=== PATIENT | female | born 1970 | race Caucasian/White ===

== ENCOUNTER 2016-11-03 20:04 | Emergency (ER) | payer OTHER ==
[2016-11-03] MEDS ORDERED: Ketorolac INJ* 60 MG/2 ML VIAL IM ONE (21:56)
--- NOTE | 2016-11-03 22:49 | ED ---
Dedrick Rogel Aidan, scribed for Everett Serrano MD on 11/03/16 at 2159 . Headache - HPI Summary HPI Summary: 46 y/o female presents to the ED with a complaint of an acute, constant, moderate, worsening MARCH that has persisted for the past 3 days. Pt took 3 ibuprofen and 4 tylenol today, which did not alleviate her MARCH. Associated symptoms include some dizziness. She denies any nausea or allergies to medications. - History Of Current Complaint Chief Complaint: EDHeadache Stated Complaint: HEADACHE Time Seen by Provider: 11/03/16 21:52 Hx Obtained From: Patient Last Known Well Date: 10/30/2016 Hx Last Menstrual Period: hysterectomy Onset/Duration: Sudden Onset, Started days ago, Still Present, Worse Since - worse since yesterday Initially Headache Was: Moderate Currently Pain Is: Moderate Timing: Constant Character: Sharp Location of Headache: Diffuse Radiates to: does not radiate Aggravating Factor: Other - unknown Allevating Factors: Other (Noted In Comments) - unknown, however, ibuprofen and tylenol did not alleivate the MARCH Associated Signs And Symptoms: Dizziness - Risk Factors SAH Risk Factors: Smoking Temporal Arteritis Risk Factors: Female - Allergies/Home Medications Allergies/Adverse Reactions: Allergies Allergy/AdvReac Type Severity Reaction Status Date / Time Nicotine [From Nicoderm] Allergy Intermediate Hives Verified 11/03/16 20:25 PMH/Surg Hx/FS Hx/Imm Hx Endocrine/Hematology History: Denies: Hx Diabetes Cardiovascular History: Reports: Hx Hypertension Denies: Hx Congestive Heart Failure, Hx Pacemaker/ICD Respiratory History: Reports: Hx Asthma, Hx Chronic Obstructive Pulmonary Disease (COPD), Hx Sleep Apnea GI History: Reports: Hx Gastroesophageal Reflux Disease - panpranolol History: Reports: Hx Kidney Infection - NO RECENT, Hx Kidney Stones - NO KNOWN STONES NOW Denies: Hx Renal Disease Musculoskeletal History: Reports: Hx Tendonitis Denies: Hx Arthritis, Hx Osteoporosis Sensory History: Denies: Hx Contacts or Glasses, Hx Hearing Aid Opthamlomology History: Denies: Hx Contacts or Glasses Neurological History: Reports: Hx Headaches, Hx Migraine - WEEKLY OR 2 X WK, Other Neuro Impairments/Disorders - DEGENERATIVE DISK DX, NERVE DAMAGE IN NECK Psychiatric History: Reports: Hx Anxiety - RECENTLY STARTED ON MED DOING OK, Hx Depression - depression controlled by nortriptyline Denies: Hx Panic Disorder - Surgical History Surgery Procedure, Year, and Place: 1987 C SECTION [facility] [place];. 1989 C SECTION AND [facility];. hysterectomy. 2016 several moles removed from body Hx Anesthesia Reactions: No - Immunization History Date of Tetanus Vaccine: unk Infectious Disease History: No Infectious Disease History: Denies: Traveled Outside the [place] in Last 30 Days - Family History Known Family History: Positive: None, Hypertension, Other - no hx DVT Negative: Diabetes - Social History Occupation: Unemployed Lives: Alone Alcohol Use: None Substance Use Type: Reports: None Hx Tobacco Use: Yes - 2 A DAY Smoking Status (MU): Light Every Day Tobacco Smoker Type: Cigarettes Amount Used/How Often: 1/2 in two days Review of Systems Constitutional: Negative Eyes: Negative ENT: Negative Cardiovascular: Negative Respiratory: Negative Gastrointestinal: Negative Genitourinary: Negative Musculoskeletal: Negative Skin: Negative Neurological: Other - some dizziness Positive: Headache. Negative: Weakness, Paresthesia, Numbness, Syncope, Slurred Speech Psychological: Normal All Other Systems Reviewed And Are Negative: Yes Physical Exam Triage Information Reviewed: Yes Vital Signs On Initial Exam: Initial Vitals Temp Pulse Resp BP Pulse Ox 98.1 F 94 20 154/101 95 11/03/16 20:15 11/03/16 20:15 11/03/16 20:15 11/03/16 20:15 11/03/16 20:15 Vital Signs Reviewed: Yes Appearance: Positive: No Pain Distress, Obese Skin: Positive: Warm Head/Face: Positive: Normal Head/Face Inspection. Negative: Temporal Artery Tenderness Eyes: Positive: EOMI, ANALISA, Conjunctiva Clear ENT: Positive: Hearing grossly normal Neck: Positive: Supple Respiratory/Lung Sounds: Positive: Clear to Auscultation, Breath Sounds Present Cardiovascular: Positive: RRR Abdomen Description: Positive: Nontender, Soft Bowel Sounds: Positive: Present Musculoskeletal: Positive: Strength/ROM Intact Neurological: Positive: Sensory/Motor Intact, Alert, Oriented to Person Place, Time Psychiatric: Positive: Affect/Mood Appropriate Diagnostics - Vital Signs Vital Signs Temp Pulse Resp BP Pulse Ox 11/03/16 21:30 98.9 F 91 14 137/90 95 11/03/16 20:15 98.1 F 94 20 154/101 95 - Laboratory Lab Statement: Any lab studies that have been ordered have been reviewed, and results considered in the medical decision making process. Re-Evaluation - Re-Evaluation First Eval Change: Improved Headache Course/Dx - Diagnoses Provider Diagnoses: Migraine Discharge - Discharge Plan Condition: Stable Disposition: HOME Discharge Disposition Comment: Please follow up with neurologist Dr. Luu. Patient Education Materials: Migraine Headache (ED) Referrals: Samantha Mcnair MD [Primary Care Provider] - The documentation as recorded by the Dedrick morgan Aidan accurately reflects the service I personally performed and the decisions made by me, Everett Serrano MD.
[2016-11-03] MEDS ORDERED: traMADol TAB* 50 MG PO ONE (23:26)
[2016-11-04 00:10] VITALS: BP 125/73
[2016-11-04] MEDS ORDERED: traMADol TAB* 50 MG PO ONE (00:16)
[2016-11-04] MEDS ORDERED: traMADol TAB* 50 MG ONE (00:22)
== END 2016-11-04 00:32 | disposition home or self-care (01) ==
LOC: ED 20:04
DX: G43.909 Migraine, unspecified, not intractable, without status migrainosus (principal); R42 Dizziness and giddiness; R51 Headache
CPT/HCPCS: 96372; 99283; A9270-GY; J1885

== ENCOUNTER 2016-11-21 11:44 | Emergency (ER) | payer OTHER ==
--- NOTE | 2016-11-21 12:58 | ED ---
Chasidy Rogel Alok, scribed for Santana Abad MD on 11/21/16 at 1235 . GI/ HPI - HPI Summary HPI Summary: 46 y/o pt presents to the ED with c/o rectal pain. Pt states that she has had what appears to be a hemorrhoid in her anus for the past week. Her rectal pain worsens with BM but she is still able to have them. Pt denies any fever or chills. - History of Current Complaint Chief Complaint: EDRectalPain Time Seen by Provider: 11/21/16 12:13 Stated Complaint: RECTAL PAIN Hx Obtained From: Patient Onset/Duration: Started Days Ago, Atraumatic, Still Present Timing: Constant Severity: Moderate Current Severity: Moderate Location of Pain: Rectal Associated Signs and Symptoms: Positive: Rectal Pain, External Hemorrhoid. Negative: Fever, Chills Aggravating Factor(s): Bowel Movement Alleviating Factor(s): Nothing - Allergy/Home Medications Allergies/Adverse Reactions: Allergies Allergy/AdvReac Type Severity Reaction Status Date / Time Nicotine [From Nicoderm] Allergy Intermediate Hives Verified 11/03/16 20:25 PMH/Surg Hx/FS Hx/Imm Hx Endocrine/Hematology History: Denies: Hx Diabetes Cardiovascular History: Reports: Hx Hypertension Denies: Hx Congestive Heart Failure, Hx Pacemaker/ICD Respiratory History: Reports: Hx Asthma, Hx Chronic Obstructive Pulmonary Disease (COPD), Hx Sleep Apnea GI History: Reports: Hx Gastroesophageal Reflux Disease - panpranolol History: Reports: Hx Kidney Infection - NO RECENT, Hx Kidney Stones - NO KNOWN STONES NOW Denies: Hx Renal Disease Musculoskeletal History: Reports: Hx Tendonitis Denies: Hx Arthritis, Hx Osteoporosis Sensory History: Denies: Hx Contacts or Glasses, Hx Hearing Aid Opthamlomology History: Denies: Hx Contacts or Glasses Neurological History: Reports: Hx Headaches, Hx Migraine - WEEKLY OR 2 X WK, Other Neuro Impairments/Disorders - DEGENERATIVE DISK DX, NERVE DAMAGE IN NECK Psychiatric History: Reports: Hx Anxiety - RECENTLY STARTED ON MED DOING OK, Hx Depression - depression controlled by nortriptyline Denies: Hx Panic Disorder - Surgical History Surgery Procedure, Year, and Place: 1987 C SECTION [facility];. 1989 C SECTION AND [facility];. hysterectomy. 2016 several moles removed from body Hx Anesthesia Reactions: No - Immunization History Date of Tetanus Vaccine: unk Infectious Disease History: No Infectious Disease History: Denies: Traveled Outside the [place] in Last 30 Days - Family History Known Family History: Positive: Hypertension, Other - No Hx DVT Negative: Diabetes - Social History Occupation: Unemployed Alcohol Use: None Substance Use Type: Reports: None Hx Tobacco Use: Yes - 2 A DAY Smoking Status (MU): Light Every Day Tobacco Smoker Type: Cigarettes Amount Used/How Often: 1/2 in two days Review of Systems Negative: Fever, Chills Psychological: Normal All Other Systems Reviewed And Are Negative: Yes Physical Exam - Summary Physical Exam Summary: Appearance: Well-appearing, no pain distress Skin: Warm, skin color reflects adequate perfusion, dry Head/Face: Normal head/face Eyes: EOMI, ANALISA ENT: Normal ENT inspection Neck: Supple, nontender Resp: CTA, breath sounds present Cardio: RRR Abd: Nontender, Soft Bowel: Present Musculo: Normal, Strength, ROM intact Neuro: Normal, sensory/motor intact AxO x3 Psych: Affect/ mood appropriate Other: Right sided external hemorrhoid. No bleeding. No erythema. Triage Information Reviewed: Yes Vital Signs On Initial Exam: Initial Vitals Temp Pulse Resp BP Pulse Ox 97.5 F 85 20 123/85 100 11/21/16 11:49 11/21/16 11:49 11/21/16 11:49 11/21/16 11:49 11/21/16 11:49 Vital Signs Reviewed: Yes Diagnostics - Vital Signs Vital Signs Temp Pulse Resp BP Pulse Ox 11/21/16 11:49 97.5 F 85 20 123/85 100 - Laboratory Lab Statement: Any lab studies that have been ordered have been reviewed, and results considered in the medical decision making process. Re-Evaluation - Re-Evaluation First Eval Re-Evaluation Time: 12:45 Comment: Discussed Pt care, Pt seemed agreeable GIGU Course/Dx - Course Assessment/Plan: DISCUSSED TREATMENT OF HEMORRHOIDS WITH PATIENT. SHE IS SEEING [facility] FOR CONSTIPATION. SHE WILL CONTACT THEM TODAY FOR FOLLOW UP. DISCHARGE HOME STABLE. - Diagnoses Provider Diagnoses: Acute hemorrhoid Discharge - Discharge Plan Condition: Stable Disposition: HOME Patient Education Materials: Hemorrhoids (ED) Referrals: Santana Elias MD [Primary Care Provider] - Additional Instructions: FOLLOW UP WITH YOUR DOCTOR. CALL [facility] TODAY FOR FOLLOW UP. YOU CAN USE WITCH DONOVAN WITH A SITZ BATH IF HELPFUL. TRY AN OVER THE COUNTER PRODUCT SUCH ANUSOL HC DIRECTED IF HELPFUL. RETURN TO THE EMERGENCY DEPARTMENT FOR ANY WORSENING OF YOUR CONDITION OR QUESTIONS OR CONCERNS. The documentation as recorded by the Chasidy morgan Alok accurately reflects the service I personally performed and the decisions made by me, Santana Abad MD.
[2016-11-21 13:34] VITALS: BP 120/72
== END 2016-11-21 13:33 | disposition home or self-care (01) ==
LOC: ED 11:44
DX: K64.9 Unspecified hemorrhoids (principal); K62.89 Other specified diseases of anus and rectum; F17.210 Nicotine dependence, cigarettes, uncomplicated
CPT/HCPCS: 99282

== ENCOUNTER 2016-12-12 16:12 | Emergency (ER) | payer OTHER ==
[2016-12-12 16:35] VITALS: BP 141/76
[2016-12-12] MEDS ORDERED: Ketorolac INJ* 60 MG/2 ML VIAL IM ONE (17:02)
--- NOTE | 2016-12-12 17:36 | RAD ---
HISTORY: Left hip pain status post fall COMPARISONS: May 02, 2016 VIEWS: 3, Frontal view of the pelvis with frontal and frog-leg views of the left hip FINDINGS: BONE DENSITY: Normal. BONES: There is no displaced fracture. JOINTS: There is moderate osteoarthritis of the left hip ALIGNMENT: There is no dislocation. SOFT TISSUES: Unremarkable. OTHER FINDINGS: None. IMPRESSION: OSTEOARTHRITIS. NO RADIOGRAPHIC EVIDENCE FOR HIP FRACTURE. X-RAYS MAY BE NEGATIVE WITH NONDISPLACED HIP FRACTURE, IF THERE IS PERSISTENT CLINICAL CONCERN, RECOMMEND CONSIDERATION OF MRI. IN THE SETTING OF CONTRAINDICATION TO MRI OR LIMITATION IN EMERGENT ACCESS TO MRI, CT WOULD BE SUGGESTED..
--- NOTE | 2016-12-12 17:36 | RAD ---
HISTORY: Left knee pain status post fall COMPARISONS: July 27, 2016 VIEWS: 2, Frontal and lateral views of the left kidney FINDINGS: BONE DENSITY: Normal. BONES: There is no displaced fracture. JOINTS: There is mild patellofemoral and lateral compartment osteoarthritis. There is no suprapatellar joint effusion or lipohemarthrosis. ALIGNMENT: There is no dislocation. SOFT TISSUES: Unremarkable. OTHER FINDINGS: None. IMPRESSION: NO ACUTE OSSEOUS INJURY. IF SYMPTOMS PERSIST, RECOMMEND REPEAT IMAGING.
--- NOTE | 2016-12-12 17:37 | RAD ---
HISTORY: Back pain status post fall COMPARISONS: April 26, 2016 VIEWS: 3 , Frontal, lateral, and coned-down lateral sacral views of the lumbar spine FINDINGS: ALIGNMENT: The alignment is normal. VERTEBRAL BODIES: The vertebral body heights are normal. The interpedicular distances are normal. There is mild anterolateral marginal osteophyte formation. JOINTS: There is facet hypertrophy change at L5-S1 INTERVERTEBRAL DISCS: There is diffuse loss of intervertebral disc height. SOFT TISSUE: There is atherosclerosis of the abdominal aorta OTHER: The pelvis is unremarkable. The lung bases are clear. IMPRESSION: MILD DEGENERATIVE CHANGES
[2016-12-12] MEDS ORDERED: Naproxen TAB* 250 MG PO ONE (17:47)
--- NOTE | 2016-12-12 18:04 | UC ---
Marla Rogel Erika, scribed for Philip Zulauga MD on 12/12/16 at 1705 . Minor Trauma HPI - HPI Summary HPI Summary: Patient is a 46-year-old female presenting to [facility] with a CC of left-sided pain s/p trauma around 16:00 today. Patient reports that she fell down 6 stairs after her left leg "gave out," which it has done before as well. Patient needed assistance to stand up afterwards. She denies head or neck trauma. Now, she notes 10/10 pain from the left lower back down to the left knee. Pain is aggravated by weight bearing on the left side, and alleviated by resting on the right side. Patient denies any new incontinence or numbness in the legs. Hx HTN. PSHx hysterectomy. Denies Hx chronic back pain. Patient smokes, but denies EtOH use. - History of Current Complaint Chief Complaint: UCLowerExtremity Stated Complaint: FELL-KNEE AND LEG INJURY Time Seen by Provider: 12/12/16 16:42 Hx Obtained From: Patient Hx Last Menstrual Period: hysterectomy Onset/Duration: Sudden Onset, Lasting Minutes, Still Present Severity Currently: Moderate Pain Intensity: 10 Pain Scale Used: 0-10 Numeric Mechanism Of Injury: Fall From Height Of: - down 6 stairs Aggravating Factor(s): Ambulation, Weight Bearing Alleviating Factor(s): Rest - on right side - Allergies/Home Medications Allergies/Adverse Reactions: Allergies Allergy/AdvReac Type Severity Reaction Status Date / Time Nicotine [From Nicoderm] Allergy Intermediate Hives Verified 11/03/16 20:25 PMH/Surg Hx/FS Hx/Imm Hx Endocrine History Of: Denies: Diabetes, Thyroid Disease Cardiovascular History Of: Reports: Hypertension Denies: Cardiac Disorders, Pacemaker/ICD, Congestive Heart Failure Respiratory History Of: Reports: Asthma, Bronchitis Denies: COPD GI/ History Of: Reports: Kidney Stones - NO KNOWN STONES NOW Denies: Ulcer, Renal Disease Neurological History Of: Reports: Migraine - WEEKLY OR 2 X WK Psychological History Of: Reports: Anxiety - RECENTLY STARTED ON MED DOING OK, Depression - depression controlled by nortriptyline - Surgical History Surgical History: Yes Surgery Procedure, Year, and Place: 1987 C SECTION [facility];. 1989 C SECTION AND [facility];. hysterectomy. 2016 several moles removed from body - Family History Known Family History: Positive: Hypertension Negative: Diabetes - Social History Alcohol Use: None Substance Use Type: None Smoking Status (MU): Light Every Day Tobacco Smoker Type: Cigarettes Amount Used/How Often: 3 cigs per day Length of Time of Smoking/Using Tobacco: >30 yrs Have You Smoked in the Last Year: Yes Household Exposure Type: Cigarettes - Immunization History Most Recent Tetanus Shot: unknown Review of Systems Constitutional: Negative Skin: Negative Eyes: Negative ENT: Negative Respiratory: Negative Cardiovascular: Negative Gastrointestinal: Negative Genitourinary: Negative Motor: Negative Neurovascular: Negative Musculoskeletal: Myalgia - left sided back and leg pain Neurological: Negative Psychological: Negative All Other Systems Reviewed And Are Negative: Yes Physical Exam Triage Information Reviewed: Yes Vital Signs: Initial Vital Signs Temp 98.5 F 12/12/16 16:28 Pulse 84 12/12/16 16:28 Resp 16 12/12/16 16:28 BP 141/76 12/12/16 16:28 Pulse Ox 98 12/12/16 16:28 Vital Signs Reviewed: Yes - Additional Comments VITAL SIGNS: Reviewed. GENERAL: Patient is an obese female who is lying comfortable in the stretcher. Patient is not in any acute respiratory distress. HEAD AND FACE: No signs of trauma. No ecchymosis, hematomas or skull depressions. No sinus tenderness. EYES: PERRLA, EOMI x 2, No injected conjunctiva, no nystagmus. EARS: Hearing grossly intact. Ear canals and tympanic membranes are within normal limits. No Hemotympanum. MOUTH: Oropharynx within normal limits. NECK: Supple, trachea is midline, no adenopathy, no JVD, no carotid bruit, no c- spine tenderness, neck with full ROM. CHEST: Symmetric, no tenderness at palpation LUNGS: Clear to auscultation bilaterally. No wheezing or crackles. CVS: Regular rate and rhythm, S1 and S2 present, no murmurs or gallops appreciated. ABDOMEN: Soft, non-tender. No signs of distention. No rebound no guarding, and no masses palpated. Bowel sounds are normal. EXTREMITIES: FROM in all major joints, no edema, no cyanosis or clubbing. NEURO: Alert and oriented x 3. No acute neurological deficits. Speech is normal and follows commands. SKIN: Dry and warm Back: There is no ecchymosis, no deformity, no paraspinal muscle tenderness. No CVAT, No vertebral tenderness. No saddle anesthesia. Refuses rectal exam. Straight test is negative. Diagnostics - Radiology Lumbar spine XR Radiology Interpretation Completed By: Radiologist - MILD DEGENERATIVE CHANGES L knee XR Radiology Interpretation Completed By: Radiologist - NO ACUTE OSSEOUS INJURY. IF SYMPTOMS PERSIST, RECOMMEND REPEAT IMAGING. L Hip XR Radiology Interpretation Completed By: Radiologist - IMPRESSION: OSTEOARTHRITIS. NO RADIOGRAPHIC EVIDENCE FOR HIP FRACTURE. X-RAYS MAY BE NEGATIVE WITH NONDISPLACED HIP FRACTURE, IF THERE IS PERSISTENT CLINICAL CONCERN , RECOMMEND CONSIDERATION OF MRI. IN THE SETTING OF CONTRAINDICATION TO MRI OR LIMITATION IN EMERGENT ACCESS TO MRI, CT WOULD BE SUGGESTED.. Re-Evaluation - Re-Evaluation First Eval Re-Evaluation Time: 17:46 Comment: Discussed imaging results with patient Minor Trauma Course/Dx - Course Course Of Treatment: Patient is a 46-year-old female presenting to [facility] with a CC of left-sided pain s/p trauma around 16:00 today. Patient reports that she fell down 6 stairs after her left leg "gave out," which it has done before as well. Patient needed assistance to stand up afterwards. She denies head or neck trauma. Now, she notes 10/10 pain from the left lower back down to the left knee. Pain is aggravated by weight bearing on the left side, and alleviated by resting on the right side. Patient denies any new incontinence or numbness in the legs. Hx HTN. PSHx hysterectomy. Denies Hx chronic back pain. Patient smokes , but denies EtOH use. X rays were read by radiology as no acute fracture or dislocation. Patient is ambulating freely and without any limp or difficulty in the UC. She walk to the X -ray suit without difficulty. She did not hit her neck or head therefore I did not do any imaging from the head or neck. She did have any LOC. I did give Toradol for pain. Since patient has no red flags for back pain I will discharge patient to f/u with PMD. At this point I discussed all the findings and test results with the patient. Patient was instructed to return to the emergency room immediately if any of the symptoms return or worsens. Patient understands and agrees. Patient is able to ambulate in the UC. Plan of care was discussed with the patient and patient understands and agrees. All questions were answered at patient satisfaction. There were no further complaints or concerns. Neurological exam before discharge: Patient is alert and oriented x 3. No acute neurological deficits. Patient is hemodynamically stable. Patient is to follow up with primary care physician in the next 2 3 days. He understands and agrees. - Differential Dx/Diagnosis Differential Diagnosis/HQI/PQRI: Contusion(s), Fracture, Sprain, Strain Provider Diagnoses: 1. Lower back pain. 2. Hip contusion. 3. Knee contusion Discharge - Discharge Plan Condition: Stable Disposition: HOME Prescriptions: Naproxen TAB* [Naprosyn 250 mg TAB*] 500 mg PO Q8H PRN #20 tab PRN Reason: Pain Patient Education Materials: Acute Low Back Pain (ED), Hip Contusion (ED), Contusion in Adults (ED) Referrals: Santana Elias MD [Primary Care Provider] - 2 Days The documentation as recorded by the Marla morgan Erika accurately reflects the service I personally performed and the decisions made by Zan monique Walter, MD.
== END 2016-12-12 18:10 | disposition home or self-care (01) ==
LOC: UCEAST 16:12
DX: S70.02XA Contusion of left hip, initial encounter (principal); S80.02XA Contusion of left knee, initial encounter; M54.5 Low back pain; W10.8XXA Fall (on) (from) other stairs and steps, initial encounter; Z91.81 History of falling; M16.11 Unilateral primary osteoarthritis, right hip; I10 Essential (primary) hypertension; J45.909 Unspecified asthma, uncomplicated; F33.8 Other recurrent depressive disorders; F41.9 Anxiety disorder, unspecified; G43.909 Migraine, unspecified, not intractable, without status migrainosus; F17.210 Nicotine dependence, cigarettes, uncomplicated; Z91.048 Other nonmedicinal substance allergy status
CPT/HCPCS: 72100; 96372; 99212; A9270-GY; G0463; J1885

== ENCOUNTER 2017-01-23 19:41 | Emergency (ER) | payer OTHER ==
--- NOTE | 2017-01-23 23:49 | ED ---
Lalitha Rogel Matthew, scribed for Everett Serrano MD on 01/23/17 at 2349 . Skin Complaint - HPI Summary HPI Summary: A 46 y/o female presents to the ED with a "boil" on the left groin since a week ago. The pain is rated 9/10 in severity. The patient has increased pain and erythema. She denies drainage and fever. 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 - History of Current Complaint Chief Complaint: EDRashSkinAbscess Time Seen by Provider: 01/23/17 23:41 Stated Complaint: CYST IN GROIN AREA,VOMITING Hx Obtained From: Patient Hx Last Menstrual Period: hysterectomy Onset/Duration: Started Weeks Ago, Atraumatic, Still Present Timing: Constant Onset Severity: Moderate Current Severity: Moderate Pain Intensity: 9 Pain Scale Used: 0-10 Numeric Skin Location: Other: - left groin Character: Pain, Redness Alleviating Symptom(s): Nothing - Allergy/Home Medications Allergies/Adverse Reactions: Allergies Allergy/AdvReac Type Severity Reaction Status Date / Time Adhesive Tape Allergy Mild Hives Verified 01/23/17 23:08 PMH/Surg Hx/FS Hx/Imm Hx Endocrine/Hematology History: Denies: Hx Diabetes, Hx Thyroid Disease Cardiovascular History: Reports: Hx Hypertension Denies: Hx Congestive Heart Failure, Hx Pacemaker/ICD Respiratory History: Reports: Hx Asthma, Hx Sleep Apnea Denies: Hx Chronic Obstructive Pulmonary Disease (COPD) GI History: Reports: Hx Gastroesophageal Reflux Disease - panpranolol Denies: Hx Ulcer History: Reports: Hx Kidney Infection - NO RECENT, Hx Kidney Stones - NO KNOWN STONES NOW Denies: Hx Renal Disease Musculoskeletal History: Reports: Hx Tendonitis Denies: Hx Arthritis, Hx Osteoporosis Sensory History: Denies: Hx Contacts or Glasses, Hx Hearing Aid Opthamlomology History: Denies: Hx Contacts or Glasses Neurological History: Reports: Hx Headaches, Hx Migraine - WEEKLY OR 2 X WK, Other Neuro Impairments/Disorders - DEGENERATIVE DISK DX, NERVE DAMAGE IN NECK Psychiatric History: Reports: Hx Anxiety - RECENTLY STARTED ON MED DOING [place], Hx Depression - depression controlled by nortriptyline Denies: Hx Panic Disorder - Surgical History Surgery Procedure, Year, and Place: 1987 C SECTION [facility];. 1989 C SECTION AND BTL [facility];. hysterectomy. 2016 several moles removed from body Hx Anesthesia Reactions: No - Immunization History Date of Tetanus Vaccine: unk Infectious Disease History: No Infectious Disease History: Denies: Hx Clostridium Difficile, Hx Hepatitis, Hx Human Immunodeficiency Virus (HIV), Hx of Known/Suspected MRSA, Hx Shingles, Hx Tuberculosis, Hx Known/ Suspected VRE, Hx Known/Suspected VRSA, History Other Infectious Disease, Traveled Outside the [place] in Last 30 Days - Family History Known Family History: Positive: Hypertension, Other - No Hx DVT Negative: Diabetes - Social History Alcohol Use: None Substance Use Type: Reports: None Hx Tobacco Use: Yes - 2 A DAY Smoking Status (MU): Light Every Day Tobacco Smoker Type: Cigarettes Amount Used/How Often: 3 cigs per day Length of Time of Smoking/Using Tobacco: >30 yrs Have You Smoked in the Last Year: Yes Review of Systems Constitutional: Negative Negative: Fever Eyes: Negative ENT: Negative Cardiovascular: Negative Respiratory: Negative Gastrointestinal: Negative Genitourinary: Negative Musculoskeletal: Negative Skin: Other - left groin pain, and erythema Neurological: Negative Psychological: Normal All Other Systems Reviewed And Are Negative: Yes Physical Exam Triage Information Reviewed: Yes Vital Signs On Initial Exam: Initial Vitals Temp Pulse Resp BP Pulse Ox 97.3 F 81 20 156/108 100 01/23/17 19:44 01/23/17 19:44 01/23/17 19:44 01/23/17 19:44 01/23/17 19:44 Vital Signs Reviewed: Yes Appearance: Positive: Pain Distress, Obese Skin: Positive: Warm, Other - lt upper inner thigh with small area folliculitis , no fluctuance Head/Face: Positive: Normal Head/Face Inspection ENT: Positive: Hearing grossly normal Respiratory/Lung Sounds: Positive: Breath Sounds Present Neurological: Positive: Alert, Oriented to Person Place, Time Psychiatric: Positive: Affect/Mood Appropriate Diagnostics - Vital Signs Vital Signs Temp Pulse Resp BP Pulse Ox 01/23/17 23:05 98.4 F 78 12 131/71 96 01/23/17 22:12 97.8 F 70 117/73 100 01/23/17 19:44 97.3 F 81 20 156/108 100 - Laboratory Lab Statement: Any lab studies that have been ordered have been reviewed, and results considered in the medical decision making process. Course/Dx - Course Assessment/Plan: A 46 y/o female presents to the ED with a "boil" on the left groin since a week ago. The pain is rated 9/10 in severity. The patient has increased pain and erythema. She denies drainage and fever. 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 In the ED course, the patient was given doxycycline. She will be discharged home on doxycycline to follow-up with her PCP. - Diagnoses Provider Diagnoses: Folliculitis Discharge - Discharge Plan Condition: Stable Disposition: HOME Prescriptions: DOXYcycline CAP(*) [DOXYcycline 100MG CAP(*)] 100 mg PO BID #14 cap Patient Education Materials: Doxycycline (By mouth), Folliculitis (ED), Cold Compress or Soak (ED) Referrals: Santana Elias MD [Primary Care Provider] - 3 Days Additional Instructions: Please follow-up with your primary care physician in 3 days. The documentation as recorded by the Lalitha morgan Matthew accurately reflects the service I personally performed and the decisions made by me, Everett Serrano MD.
[2017-01-24] MEDS: DOXYcycline CAP(*) 100 MG PO ONE ×2 (00:12→00:18)
[2017-01-24 00:14] VITALS: BP 131/84
== END 2017-01-24 00:10 | disposition home or self-care (01) ==
LOC: ED 19:41
DX: L73.9 Follicular disorder, unspecified (principal)
CPT/HCPCS: 99282; A9270-GY

== ENCOUNTER 2017-02-04 14:56 | Emergency (ER) | payer OTHER ==
[2017-02-04] MEDS ORDERED: Ketorolac INJ* 30 MG/ML 1 ML VIAL IV ONE (16:15)
[2017-02-04 16:36] LABS: Albumin 3.9 g/dL (3.2-5.2); BUN/Creatinine Ratio 13.5 (8-20); C Reactive Protein 21.72 mg/L (< 5.00); Calcium 9.6 mg/dL (8.6-10.3); EGFR African American 87.1 (>60); EGFR Non-African American 67.7 (>60); Globulin 3.3 g/dL (2-4); Potassium 3.8 mmol/L (3.5-5.0); Total Bilirubin 0.3 mg/dL (0.2-1.0); Total Protein 7.2 g/dL (6.4-8.9)
[2017-02-04 16:38] LABS: Hematocrit 43 % (35-47); Mean Corpuscular HGB Conc 32 g/dl (31-36); Mean Corpuscular Hemoglobin 28 pg (27-31); Mean Corpuscular Volume 87 fL (80-97); Mean Platelet Volume 9 um3 (7.4-10.4); Red Blood Count 4.95 10^6/ul (4.0-5.4); Red Cell Distribution Width 14 % (10.5-15); White Blood Count 13.7 10^3/ul (3.5-10.8)
[2017-02-04 16:39] LABS: Urine Bilirubin Negative (Negative); Urine Glucose Negative (Negative); Urine Nitrite Negative (Negative)
[2017-02-04] MEDS ORDERED: Ondansetron INJ* 2 MG/ML VIAL IV ONE (17:11)
[2017-02-04] MEDS ORDERED: HYDROmorphone* 1 MG/ML 1 ML SYR IV ONE (17:11)
--- NOTE | 2017-02-04 17:43 | RAD ---
INDICATION: Left and right flank pain COMPARISON: CT August 02, 2015 TECHNIQUE: Noncontrast axial source images were acquired from the level hemidiaphragms to the symphysis pubis as part of CT imaging for renal stone. Lung bases: The lung bases are clear. Liver: The liver is mildly enlarged with findings suggestive of hepatic steatosis. Noncontrast imaging shows no evidence of a hepatic mass or ductal dilatation. Gallbladder: There are no calcified gallstones. There is no evidence of wall thickening or pericholecystic fluid.. Spleen: The spleen is normal in size. The noncontrast CT appearance is normal. Pancreas: Noncontrast imaging shows no pancreatic mass or ductal dilitation. Adrenal glands: No masses are identified. Kidneys/Bladder: There are tiny (1 mm) nonobstructive renal calculi bilaterally. There is no ureterolithiasis. There is no obstruction. There are small renal cyst better identified on earlier contrast-enhanced imaging The bladder is partially distended. Adenopathy: There is no evidence of intraperitoneal or retroperitoneal adenopathy. Evaluation is limited without oral contrast. Fluid collections: There are no free or localized fluid collections. Vessels: The aorta and iliac vessels are normal in caliber. There are no significant atherosclerotic changes. The IVC appears normal Pelvic organs: Hysterectomy. There is a 3.7 cm left adnexal cyst. Suggest follow-up ultrasonography GI tract: Evaluation of the bowel is limited without oral contrast. The stomach, small bowel, and lower GI tract appear grossly normal. There is moderate retained stool.. Soft tissues: No soft tissue abnormalities of the extraperitoneal abdomen or pelvis are identified. Osseous structures: There are no acute osseous findings. IMPRESSION: 1. Tiny nonobstructive renal calculi are noted bilaterally. 2. 3.7 cm left adnexal cyst. Suggest follow-up sonography. 3. Moderate retained stool.
[2017-02-04 18:49] VITALS: BP 132/74
[2017-02-04] MEDS ORDERED: HYDROcodone/ACETAMIN 5-325 MG* 1 TAB PO SCH ×2 (19:00)
--- NOTE | 2017-02-04 22:01 | ED ---
Dedrick Rogel Aidan, scribed for Melchor Maciel MD on 02/04/17 at 1624 . Abdominal Pain/Female - HPI Summary HPI Summary: 46 y/o female presents to the ED with a complaint of acute, constant, moderate- to-severe (though she reported a 9/10 in terms of pain, she appeared comfortable ), bilateral flank pain that has persisted for the past 3 days. Additionally, she has had increased urinary frequency and urinates roughly 1x every 5 minutes or so. This morning, she vomited and had nausea, however, her nausea has subsided. Pt denies any fever or chills. Hx of kidney stones. - History of Current Complaint Chief Complaint: EDFlankPain Stated Complaint: FLANK PAIN Time Seen by Provider: 02/04/17 15:47 Hx Obtained From: Patient Hx Last Menstrual Period: hysterectomy ?: No Onset/Duration: Sudden Onset, Lasting Days, Still Present Timing: Constant Severity Initially: Moderate Severity Currently: Severe Pain Intensity: 9 - though the patient appeared comfortable Pain Scale Used: 0-10 Numeric Location: Flank - bilaterally Radiates: No Character: Sharp Aggravating Factor(s): Other: - unknown Alleviating Factor(s): Other: - unknown Associated Signs and Symptoms: Positive: Urinary Symptoms - increased urinary frequency, Nausea - that has subsided, Vomiting - 1x this morning - Risk Factors Ovarian Torsion Risk Factor: Hysterectomy Allergies/Adverse Reactions: Allergies Allergy/AdvReac Type Severity Reaction Status Date / Time Adhesive Tape Allergy Mild Hives Verified 01/23/17 23:08 PMH/Surg Hx/FS Hx/Imm Hx Endocrine/Hematology History: Denies: Hx Diabetes, Hx Thyroid Disease Cardiovascular History: Reports: Hx Hypertension Denies: Hx Congestive Heart Failure, Hx Pacemaker/ICD Respiratory History: Reports: Hx Asthma, Hx Sleep Apnea Denies: Hx Chronic Obstructive Pulmonary Disease (COPD) GI History: Reports: Hx Gastroesophageal Reflux Disease - panpranolol Denies: Hx Ulcer History: Reports: Hx Kidney Infection - NO RECENT, Hx Kidney Stones - NO KNOWN STONES NOW Denies: Hx Renal Disease Musculoskeletal History: Reports: Hx Tendonitis Denies: Hx Arthritis, Hx Osteoporosis Sensory History: Denies: Hx Contacts or Glasses, Hx Hearing Aid Opthamlomology History: Denies: Hx Contacts or Glasses Neurological History: Reports: Hx Headaches, Hx Migraine - WEEKLY OR 2 X WK, Other Neuro Impairments/Disorders - DEGENERATIVE DISK DX, NERVE DAMAGE IN NECK Psychiatric History: Reports: Hx Anxiety - RECENTLY STARTED ON MED DOING [place], Hx Depression - depression controlled by nortriptyline Denies: Hx Panic Disorder - Surgical History Surgery Procedure, Year, and Place: 1987 C SECTION [facility];. 1989 C SECTION AND BTL [facility];. hysterectomy. 2016 several moles removed from body Hx Anesthesia Reactions: No - Immunization History Date of Tetanus Vaccine: unk Infectious Disease History: No Infectious Disease History: Denies: Hx Clostridium Difficile, Hx Hepatitis, Hx Human Immunodeficiency Virus (HIV), Hx of Known/Suspected MRSA, Hx Shingles, Hx Tuberculosis, Hx Known/ Suspected VRE, Hx Known/Suspected VRSA, History Other Infectious Disease, Traveled Outside the [place] in Last 30 Days - Family History Known Family History: Positive: Hypertension, Other - No Hx DVT Negative: Diabetes - Social History Occupation: Unemployed Lives: Alone Alcohol Use: None Substance Use Type: Reports: None Hx Tobacco Use: Yes - 2 A DAY Smoking Status (MU): Light Every Day Tobacco Smoker Type: Cigarettes Amount Used/How Often: 3 cigs per day Length of Time of Smoking/Using Tobacco: >30 yrs Have You Smoked in the Last Year: Yes Review of Systems Constitutional: Negative Eyes: Negative ENT: Negative Cardiovascular: Negative Respiratory: Negative Positive: Abdominal Pain - bilateral flank pain, Vomiting - 1x this morning, Nausea - subsided. Negative: Diarrhea Positive: see HPI, frequency, flank pain. Negative: burning, dysuria, discharge , hematuria, incontinence, pain, urgency Musculoskeletal: Negative Skin: Negative Neurological: Negative Psychological: Normal All Other Systems Reviewed And Are Negative: Yes Physical Exam Triage Information Reviewed: Yes Vital Signs On Initial Exam: Initial Vitals Temp Pulse Resp BP Pulse Ox 98.8 F 91 16 155/97 98 02/04/17 15:30 02/04/17 15:30 02/04/17 15:30 02/04/17 15:30 02/04/17 15:30 Vital Signs Reviewed: Yes Appearance: Positive: Well-Appearing, No Pain Distress Skin: Positive: Warm, Skin Color Reflects Adequate Perfusion, Dry Head/Face: Positive: Normal Head/Face Inspection Eyes: Positive: Normal ENT: Positive: Normal ENT inspection Neck: Positive: Supple, Nontender Respiratory/Lung Sounds: Positive: Clear to Auscultation, Breath Sounds Present Cardiovascular: Positive: RRR Abdomen Description: Positive: Soft, CVA Tenderness (R), CVA Tenderness (L). Negative: Nontender Bowel Sounds: Positive: Present Musculoskeletal: Positive: Normal Neurological: Positive: Normal Psychiatric: Positive: Affect/Mood Appropriate - Jony Coma Scale Coma Scale Total: 15 Diagnostics - Vital Signs Vital Signs Temp Pulse Resp BP Pulse Ox 02/04/17 16:00 85 150/100 98 02/04/17 15:58 95 98 02/04/17 15:57 150/101 02/04/17 15:55 98.8 F 85 16 150/101 98 02/04/17 15:30 98.8 F 91 16 155/97 98 - Laboratory Lab Results: Lab Results 02/04/17 02/04/17 02/04/17 Range/Units 15:55 16:01 16:01 WBC 13.7 H (3.5-10.8) 10^3/ul RBC 4.95 (4.0-5.4) 10^6/ul Hgb 14.0 (12.0-16.0) g/dl Hct 43 (35-47) % MCV 87 (80-97) fL MCH 28 (27-31) pg MCHC 32 (31-36) g/dl RDW 14 (10.5-15) % Plt Count 283 (150-450) 10^3/ul MPV 9 (7.4-10.4) um3 Neut % (Auto) 72.1 (38-83) % Lymph % (Auto) 20.7 L (25-47) % [place] % (Auto) 6.1 (1-9) % Eos % (Auto) 0.8 (0-6) % Baso % (Auto) 0.3 (0-2) % Absolute Neuts (auto) 9.9 H (1.5-7.7) 10^3/ul Absolute Lymphs (auto) 2.8 (1.0-4.8) 10^3/ul Absolute Monos (auto) 0.8 (0-0.8) 10^3/ul Absolute Eos (auto) 0.1 (0-0.6) 10^3/ul Absolute Basos (auto) 0 (0-0.2) 10^3/ul Absolute Nucleated RBC 0.01 10^3/ul Nucleated RBC % 0.1 Sodium 136 (133-145) mmol/L Potassium 3.8 (3.5-5.0) mmol/L Chloride 106 (101-111) mmol/L Carbon Dioxide 23 (22-32) mmol/L Anion Gap 7 (2-11) mmol/L BUN 12 (6-24) mg/dL Creatinine 0.89 (0.51-0.95) mg/dL Est GFR ( Amer) 87.1 (>60) Est GFR (Non-Af Amer) 67.7 (>60) BUN/Creatinine Ratio 13.5 (8-20) Glucose 103 H (70-100) mg/dL Lactic Acid (0.5-2.0) mmol/L Calcium 9.6 (8.6-10.3) mg/dL Total Bilirubin 0.30 (0.2-1.0) mg/dL AST 11 L (13-39) U/L ALT 10 (7-52) U/L Alkaline Phosphatase 57 (34-104) U/L C-Reactive Protein 21.72 H (< 5.00) mg/L Total Protein 7.2 (6.4-8.9) g/dL Albumin 3.9 (3.2-5.2) g/dL Globulin 3.3 (2-4) g/dL Albumin/Globulin Ratio 1.2 (1-3) Lipase 21 (11.0-82.0) U/L Beta HCG, Quant 0.68 mIU/mL Urine Color Yellow Urine Appearance Cloudy Urine pH 5.0 (5-9) Ur Specific [place] 1.020 (1.010-1.030) Urine Protein Negative (Negative) Urine Ketones Negative (Negative) Urine Blood Negative (Negative) Urine Nitrate Negative (Negative) Urine Bilirubin Negative (Negative) Urine Urobilinogen Negative (Negative) Ur Leukocyte Esterase Negative (Negative) Urine Glucose Negative (Negative) 02/04/17 Range/Units 16:01 WBC (3.5-10.8) 10^3/ul RBC (4.0-5.4) 10^6/ul Hgb (12.0-16.0) g/dl Hct (35-47) % MCV (80-97) fL MCH (27-31) pg MCHC (31-36) g/dl RDW (10.5-15) % Plt Count (150-450) 10^3/ul MPV (7.4-10.4) um3 Neut % (Auto) (38-83) % Lymph % (Auto) (25-47) % [place] % (Auto) (1-9) % Eos % (Auto) (0-6) % Baso % (Auto) (0-2) % Absolute Neuts (auto) (1.5-7.7) 10^3/ul Absolute Lymphs (auto) (1.0-4.8) 10^3/ul Absolute Monos (auto) (0-0.8) 10^3/ul Absolute Eos (auto) (0-0.6) 10^3/ul Absolute Basos (auto) (0-0.2) 10^3/ul Absolute Nucleated RBC 10^3/ul Nucleated RBC % Sodium (133-145) mmol/L Potassium (3.5-5.0) mmol/L Chloride (101-111) mmol/L Carbon Dioxide (22-32) mmol/L Anion Gap (2-11) mmol/L BUN (6-24) mg/dL Creatinine (0.51-0.95) mg/dL Est GFR ( Amer) (>60) Est GFR (Non-Af Amer) (>60) BUN/Creatinine Ratio (8-20) Glucose (70-100) mg/dL Lactic Acid 1.0 (0.5-2.0) mmol/L Calcium (8.6-10.3) mg/dL Total Bilirubin (0.2-1.0) mg/dL AST (13-39) U/L ALT (7-52) U/L Alkaline Phosphatase (34-104) U/L C-Reactive Protein (< 5.00) mg/L Total Protein (6.4-8.9) g/dL Albumin (3.2-5.2) g/dL Globulin (2-4) g/dL Albumin/Globulin Ratio (1-3) Lipase (11.0-82.0) U/L Beta HCG, Quant mIU/mL Urine Color Urine Appearance Urine pH (5-9) Ur Specific [place] (1.010-1.030) Urine Protein (Negative) Urine Ketones (Negative) Urine Blood (Negative) Urine Nitrate (Negative) Urine Bilirubin (Negative) Urine Urobilinogen (Negative) Ur Leukocyte Esterase (Negative) Urine Glucose (Negative) Result Diagrams: 02/04/17 16:01 02/04/17 16:01 Lab Statement: Any lab studies that have been ordered have been reviewed, and results considered in the medical decision making process. - CT ABDOMEN/PELVIS CT CT Interpretation: Positive (See Comments) - IMPRESSION: 1. Tiny nonobstructive renal calculi are noted bilaterally. 2. 3.7 cm left adnexal cyst. Suggest follow-up sonography. 3. Moderate retained stool. CT Interpretation Completed By: Radiologist Abdominal Pain Fem Course/Dx - Course Course Of Treatment: 46 y/o female presents to the ED with bilateral CVA tenderness. Labs reviewed. CT reviewed. The patient will be diagnosed with back pain and discharged home. - Diagnoses Provider Diagnoses: Back pain Discharge - Discharge Plan Condition: Stable Disposition: HOME Discharge Disposition Comment: Please follow up with your primary care provider within 10 days. Prescriptions: HYDROcodone/ACETAMIN 5-325 MG* [[place] 5-325 TAB*] 1 tab PO Q6H PRN #20 tab MDD 4 PRN Reason: Pain Patient Education Materials: Back Pain (ED) Referrals: Santana Elias MD [Primary Care Provider] - The documentation as recorded by the Dedrick morgan Aidan accurately reflects the service I personally performed and the decisions made by me, Melchor Maciel MD.
== END 2017-02-04 19:00 | disposition home or self-care (01) ==
LOC: ED 14:56
DX: R10.84 Generalized abdominal pain (principal); R11.2 Nausea with vomiting, unspecified; M54.9 Dorsalgia, unspecified
CPT/HCPCS: 36415; 74176; 80053; 81003; 83605; 83690; 84702; 85025; 86140; 86703; 87389; 96374; 96375; 99283; G0475; J1170; J1885; J2405

== ENCOUNTER 2017-02-14 07:47 | Emergency (ER) | payer OTHER ==
--- NOTE | 2017-02-14 08:31 | UC ---
Dizzy HPI HPI Summary: ONSET OF DIZZINESS AND MARCH YESTERDAY WHILE DRIVING A TAXI. NO INJURY. FEELS VISION IS A BIT BLURRY. HAS NAUSEA. NO FEVER, CP OR SOB. DIZZINESS IS CONSTANT WITH SENSATION OF SPINNING. HAS HAD VERTIGO IN THE PAST BUT NOT WITH MARCH. DENIES HEARING LOSS. DOES NOT CHECK BP AT HOME. TAKES MINIMAL BP MEDS. BP ELEVATED HERE. FEELS AWFUL. - History Of Current Complaint Chief Complaint: UCDizziness Stated Complaint: HEADACHE, DIZZINESS Time Seen by Provider: 02/14/17 08:14 Hx Obtained From: Patient Hx Last Menstrual Period: hysterectomy Onset/Duration: Sudden Onset, Lasting Hours, Still Present Timing: Constant Severity Initially: Moderate Severity Currently: Moderate Pain Intensity: 8 Pain Scale Used: 0-10 Numeric Character: Head Spinning, Room Spinning, Lightheaded, Dizzy Aggravating Factor(s): Position Change, Change In Head Position Alleviating Factor(s): Nothing Associated Signs And Symptoms: Positive: Nausea, Tinnitus - OCCASIONAL, Unsteady Gait. Negative: Vomiting, Chest Pain, SOB, Palpitations, Visual Changes - Allergies/Home Medications Allergies/Adverse Reactions: Allergies Allergy/AdvReac Type Severity Reaction Status Date / Time Adhesive Tape Allergy Mild Hives Verified 01/23/17 23:08 PMH/Surg Hx/FS Hx/Imm Hx Cardiovascular History: Hypertension Respiratory History: Asthma - Surgical History Surgical History: Yes Surgery Procedure, Year, and Place: 1987 C SECTION [facility] [place];. 1989 C SECTION AND B[facility];. hysterectomy. 2016 several moles removed from body - Family History Known Family History: Positive: Hypertension, Other - No Hx DVT Negative: Diabetes - Social History Alcohol Use: None Substance Use Type: None Smoking Status (MU): Light Every Day Tobacco Smoker Type: Cigarettes Amount Used/How Often: 3 cigs per day Length of Time of Smoking/Using Tobacco: >30 yrs Have You Smoked in the Last Year: Yes Household Exposure Type: Cigarettes - Immunization History Most Recent Tetanus Shot: unknown Review of Systems Constitutional: Negative Eyes: Blurred Vision ENT: Negative Respiratory: Negative Cardiovascular: Negative Gastrointestinal: Other - NAUSEA Neurological: Headache, Other - DIZZY All Other Systems Reviewed And Are Negative: Yes Physical Exam Triage Information Reviewed: Yes Appearance: Well-Nourished, Pain Distress - MILD, Obese Vital Signs: Initial Vital Signs Temp 98.6 F 02/14/17 07:54 Pulse 90 02/14/17 07:54 Resp 16 02/14/17 07:54 BP 173/97 02/14/17 07:54 Pulse Ox 96 02/14/17 07:54 Vital Signs Reviewed: Yes Eyes: Positive: Conjunctiva Clear ENT: Positive: Hearing grossly normal, Pharynx normal, TMs normal Neck: Positive: Supple, Nontender, No Lymphadenopathy Respiratory Exam: Normal Cardiovascular Exam: Normal Abdomen Description: Positive: Soft Musculoskeletal: Positive: No Edema Neurological: Positive: Alert Psychological: Positive: Age Appropriate Behavior Skin: Negative: rashes Diagnostics - EKG Cardiac Rate: NL - 88BPM Cardiac Rhythm: Sinus: Normal Ectopy: None ST Segment: Normal Dizzy Course/Dx - Differential Dx/Diagnosis Provider Diagnoses: DIZZY/MARCH/UNCONTROLLED HTN - Physician Notifications Discussed Patient Care With: ESTEFANY REED Time Discussed With Above Provider: 09:03 - TO [facility] [place] [facility] BY AMBULANCE Discharge - Discharge Plan Condition: Stable Disposition: TRANS HIGHER LVL OF CARE FAC Referrals: Santana Elias MD [Primary Care Provider] -
[2017-02-14 09:34] VITALS: BP 157/100
== END 2017-02-14 09:24 | disposition short-term general hospital (02) ==
LOC: UCEAST 07:47
DX: I10 Essential (primary) hypertension (principal); J45.909 Unspecified asthma, uncomplicated; F17.210 Nicotine dependence, cigarettes, uncomplicated; E66.9 Obesity, unspecified; R42 Dizziness and giddiness; R51 Headache
CPT/HCPCS: 93005; 99213; G0463

== ENCOUNTER 2017-02-14 09:54 | Emergency (ER) | payer OTHER ==
[2017-02-14] MEDS ORDERED: Meclizine TAB* 12.5 MG PO ONE (10:14)
[2017-02-14] MEDS ORDERED: NS 0.9% 1000 ML* 1,000 ML IV ONE (10:14)
[2017-02-14 10:49] LABS: Hematocrit 43 % (35-47); Hemoglobin 14.2 g/dl (12.0-16.0); Mean Corpuscular HGB Conc 33 g/dl (31-36); Mean Corpuscular Hemoglobin 29 pg (27-31); Mean Corpuscular Volume 87 fL (80-97); Mean Platelet Volume 10 um3 (7.4-10.4); Red Blood Count 4.93 10^6/ul (4.0-5.4); Red Cell Distribution Width 14 % (10.5-15); White Blood Count 10.8 10^3/ul (3.5-10.8)
--- NOTE | 2017-02-14 10:57 | RAD ---
Indication: Dizziness. Comparison is made with previous exam dated August 03, 2016. 2 views of the chest including dual energy PA views demonstrate no mediastinal shift. Heart is of normal size and configuration. Right base atelectasis is noted. No pneumonia is identified. IMPRESSION: Right base atelectasis. No pneumonia is identified.
[2017-02-14 11:07] LABS: ALT 20 U/L (7-52); Alkaline Phosphatase 68 U/L (34-104); BUN/Creatinine Ratio 10.1 (8-20); Blood Urea Nitrogen 8 mg/dL (6-24); C Reactive Protein 26.86 mg/L (< 5.00); CO2 Carbon Dioxide 26 mmol/L (22-32); Calcium 8.9 mg/dL (8.6-10.3); Chloride 106 mmol/L (101-111); EGFR African American 99.9 (>60); EGFR Non-African American 77.7 (>60); Globulin 2.9 g/dL (2-4); Glucose 106 mg/dL (70-100); Sodium 137 mmol/L (133-145); Total Protein 6.9 g/dL (6.4-8.9)
[2017-02-14 11:14] LABS: TSH (Thyroid Stimulating Horm) 0.79 mcIU/mL (0.34-5.60)
[2017-02-14 11:18] LABS: Alcohol < 10 mg/dL (<10)
--- NOTE | 2017-02-14 11:34 | RAD ---
HISTORY: Dizziness and headache COMPARISONS: None TECHNIQUE: Multiple contiguous axial CT scans were obtained of the head without intravenous contrast. FINDINGS: HEMORRHAGE/INFARCT: There is no hemorrhage or acute infarct. MASSES/SHIFT: There is no mass or shift. EXTRA-AXIAL SPACES: There are no extra-axial fluid collections. SULCI AND VENTRICLES: The sulci and ventricles are normal in size and position for the patient's stated age. CEREBRUM: There are no focal parenchymal abnormalities. BRAINSTEM: There are no focal parenchymal abnormalities. CEREBELLUM: There are no focal parenchymal abnormalities. VESSELS: The vessels are grossly normal. PARANASAL SINUSES: The paranasal sinuses are clear. ORBITS: The orbits are unremarkable. BONES AND SOFT TISSUE: No bone or soft tissue abnormalities are noted. OTHER: None IMPRESSION: NO ACUTE INTRACRANIAL PATHOLOGY.
[2017-02-14 12:44] LABS: Urine Bilirubin Negative (Negative); Urine Glucose Negative (Negative); Urine Nitrite Negative (Negative)
[2017-02-14 12:50] LABS: Benzodiazepine Urine Screen None Detected (None Detect)
[2017-02-14] MEDS ORDERED: diPHENhydraMINE IV* 25 MG in NS 0.9% 50 ML* 50 ML IVPB ONE (13:51)
[2017-02-14] MEDS ORDERED: Metoclopramide IV* 5 MG/ML 2 ML VIAL IV ONE (13:51)
[2017-02-14] MEDS ORDERED: Diazepam TAB(*) 5 MG PO ONE (13:54)
[2017-02-14 16:08] VITALS: BP 137/71
--- NOTE | 2017-02-14 18:57 | ED ---
Shiva Rogel Billy, scribed for Philip Zuluaga MD on 02/14/17 at 1004 . Dizziness - HPI Summary HPI Summary: Patient is a 46 year-old female coming to [facility] for evaluation of dizziness and lightheadedness since she woke up yesterday morning. She describes "vertigo" and "roomspinning." She also has a headache. Her symptoms are improved when she closes her eyes and lays down. Denies nausea, vomiting, chest pain, palpitations , shortness of breath, or abdominal pain. - History Of Current Complaint Chief Complaint: EDDizziness Stated Complaint: DIZZY Time Seen by Provider: 02/14/17 09:58 Hx Obtained From: Patient Onset/Duration: Still Present, Gradually Timing: Constant Severity Initially: Moderate Severity Currently: Moderate Character: Room Spinning, Lightheaded, Dizzy Aggravating Factor(s): Change In Head Position Alleviating Factor(s): Rest, Lying Down, Closing Eyes Associated Signs And Symptoms: Negative: Nausea, Vomiting, Chest Pain, SOB, Palpitations - Allergies/Home Medications Allergies/Adverse Reactions: Allergies Allergy/AdvReac Type Severity Reaction Status Date / Time Adhesive Tape Allergy Mild Hives Verified 01/23/17 23:08 PMH/Surg Hx/FS Hx/Imm Hx Endocrine/Hematology History: Denies: Hx Diabetes, Hx Thyroid Disease Cardiovascular History: Reports: Hx Hypertension Denies: Hx Congestive Heart Failure, Hx Pacemaker/ICD Respiratory History: Reports: Hx Asthma, Hx Sleep Apnea Denies: Hx Chronic Obstructive Pulmonary Disease (COPD) GI History: Reports: Hx Gastroesophageal Reflux Disease - panpranolol Denies: Hx Ulcer History: Reports: Hx Kidney Infection - NO RECENT, Hx Kidney Stones - NO KNOWN STONES NOW Denies: Hx Renal Disease Musculoskeletal History: Reports: Hx Tendonitis Denies: Hx Arthritis, Hx Osteoporosis Sensory History: Denies: Hx Contacts or Glasses, Hx Hearing Aid Opthamlomology History: Denies: Hx Contacts or Glasses Neurological History: Reports: Hx Headaches, Hx Migraine - WEEKLY OR 2 X WK, Other Neuro Impairments/Disorders - DEGENERATIVE DISK DX, NERVE DAMAGE IN NECK Psychiatric History: Reports: Hx Anxiety - RECENTLY STARTED ON MED DOING OK, Hx Depression - depression controlled by nortriptyline Denies: Hx Panic Disorder - Surgical History Surgery Procedure, Year, and Place: 1987 C SECTION [facility];. 1990 C SECTION AND BTL [facility];. hysterectomy. 2016 several moles removed from body Hx Anesthesia Reactions: No - Immunization History Date of Tetanus Vaccine: unk Infectious Disease History: Yes Infectious Disease History: Denies: Hx Clostridium Difficile, Hx Hepatitis, Hx Human Immunodeficiency Virus (HIV), Hx of Known/Suspected MRSA, Hx Shingles, Hx Tuberculosis, Hx Known/ Suspected VRE, Hx Known/Suspected VRSA, History Other Infectious Disease, Traveled Outside the [place] in Last 30 Days - Family History Known Family History: Positive: Hypertension, Diabetes, Other - No FHx DVT - Social History Alcohol Use: None Substance Use Type: Reports: None Hx Tobacco Use: Yes - 2 A DAY Smoking Status (MU): Light Every Day Tobacco Smoker Type: Cigarettes Amount Used/How Often: 3 cigs per day Length of Time of Smoking/Using Tobacco: >30 yrs Have You Smoked in the Last Year: Yes Review of Systems Negative: Palpitations, Chest Pain Negative: Shortness Of Breath Negative: Abdominal Pain, Vomiting, Nausea Musculoskeletal: Other - chronic back pain Neurological: Other - dizziness Positive: Headache All Other Systems Reviewed And Are Negative: Yes Physical Exam - Summary Physical Exam Summary: VITAL SIGNS: Reviewed. GENERAL: Patient is a well-developed and nourished obese female who is lying comfortable in the stretcher. Patient is not in any acute respiratory distress. HEAD AND FACE: No signs of trauma. No ecchymosis, hematomas or skull depressions. No sinus tenderness. EYES: PERRLA, EOMI x 2, No injected conjunctiva, no nystagmus. No photophobia. EARS: Hearing grossly intact. Ear canals and tympanic membranes are within normal limits. MOUTH: Oropharynx within normal limits. NECK: Supple, trachea is midline, no adenopathy, no JVD, no carotid bruit, no c- spine tenderness, neck with full ROM. No meningeal signs, no Kernig's or brudzinskis signs. CHEST: Symmetric, no tenderness at palpation LUNGS: Clear to auscultation bilaterally. No wheezing or crackles. CVS: Regular rate and rhythm, S1 and S2 present, no murmurs or gallops appreciated. ABDOMEN: Soft, non-tender. No signs of distention. No rebound no guarding, and no masses palpated. Bowel sounds are normal. EXTREMITIES: FROM in all major joints, no edema, no cyanosis or clubbing. NEURO: Alert and oriented x 3. No acute neurological deficits. Speech is normal and follows commands. SKIN: Dry and warm Triage Information Reviewed: Yes Vital Signs On Initial Exam: Initial Vitals Temp Pulse Resp BP Pulse Ox 98.6 F 68 20 137/103 100 02/14/17 09:57 02/14/17 09:57 02/14/17 09:57 02/14/17 09:57 02/14/17 09:57 Vital Signs Reviewed: Yes Diagnostics - Vital Signs Vital Signs Temp Pulse Resp BP Pulse Ox 02/14/17 09:59 125/86 02/14/17 09:58 98.6 F 68 20 129/93 100 02/14/17 09:57 98.6 F 68 20 137/103 100 - Laboratory Lab Results: Lab Results 02/14/17 02/14/17 02/14/17 Range/Units 09:12 09:15 11:33 WBC 10.8 (3.5-10.8) 10^3/ul RBC 4.93 (4.0-5.4) 10^6/ul Hgb 14.2 (12.0-16.0) g/dl Hct 43 (35-47) % MCV 87 (80-97) fL MCH 29 (27-31) pg MCHC 33 (31-36) g/dl RDW 14 (10.5-15) % Plt Count 279 (150-450) 10^3/ul MPV 10 (7.4-10.4) um3 Neut % (Auto) 74.6 (38-83) % Lymph % (Auto) 18.6 L (25-47) % Terrell % (Auto) 5.0 (1-9) % Eos % (Auto) 1.2 (0-6) % Baso % (Auto) 0.6 (0-2) % Absolute Neuts (auto) 8.0 H (1.5-7.7) 10^3/ul Absolute Lymphs (auto) 2.0 (1.0-4.8) 10^3/ul Absolute Monos (auto) 0.5 (0-0.8) 10^3/ul Absolute Eos (auto) 0.1 (0-0.6) 10^3/ul Absolute Basos (auto) 0.1 (0-0.2) 10^3/ul Absolute Nucleated RBC 0 10^3/ul Nucleated RBC % 0 Sodium 137 (133-145) mmol/L Potassium TNP Chloride 106 (101-111) mmol/L Carbon Dioxide 26 (22-32) mmol/L Anion Gap TNP BUN 8 (6-24) mg/dL Creatinine 0.79 (0.51-0.95) mg/dL Est GFR ( Amer) 99.9 (>60) Est GFR (Non-Af Amer) 77.7 (>60) BUN/Creatinine Ratio 10.1 (8-20) Glucose 106 H (70-100) mg/dL Lactic Acid 0.8 (0.5-2.0) mmol/L Calcium 8.9 (8.6-10.3) mg/dL Magnesium TNP Total Bilirubin 0.40 (0.2-1.0) mg/dL AST TNP ALT 20 (7-52) U/L Alkaline Phosphatase 68 (34-104) U/L Troponin I 0.00 (<0.04) ng/mL C-Reactive Protein 26.86 H (< 5.00) mg/L Total Protein 6.9 (6.4-8.9) g/dL Albumin 4.0 (3.2-5.2) g/dL Globulin 2.9 (2-4) g/dL Albumin/Globulin Ratio 1.4 (1-3) TSH 0.79 (0.34-5.60) mcIU/mL Urine Color Urine Appearance Urine pH (5-9) Ur Specific Penrose (1.010-1.030) Urine Protein (Negative) Urine Ketones (Negative) Urine Blood (Negative) Urine Nitrate (Negative) Urine Bilirubin (Negative) Urine Urobilinogen (Negative) Ur Leukocyte Esterase (Negative) Urine Glucose (Negative) Urine Opiates Screen (None Detect) Ur Barbiturates Screen (None Detect) Ur Phencyclidine Scrn (None Detect) Ur Amphetamines Screen (None Detect) U Benzodiazepines Scrn (None Detect) Urine Cocaine Screen (None Detect) U Cannabinoids Screen (None Detect) Serum Alcohol < 10 (<10) mg/dL 02/14/17 02/14/17 02/14/17 Range/Units 11:33 12:15 12:15 WBC (3.5-10.8) 10^3/ul RBC (4.0-5.4) 10^6/ul Hgb (12.0-16.0) g/dl Hct (35-47) % MCV (80-97) fL MCH (27-31) pg MCHC (31-36) g/dl RDW (10.5-15) % Plt Count (150-450) 10^3/ul MPV (7.4-10.4) um3 Neut % (Auto) (38-83) % Lymph % (Auto) (25-47) % Terrell % (Auto) (1-9) % Eos % (Auto) (0-6) % Baso % (Auto) (0-2) % Absolute Neuts (auto) (1.5-7.7) 10^3/ul Absolute Lymphs (auto) (1.0-4.8) 10^3/ul Absolute Monos (auto) (0-0.8) 10^3/ul Absolute Eos (auto) (0-0.6) 10^3/ul Absolute Basos (auto) (0-0.2) 10^3/ul Absolute Nucleated RBC 10^3/ul Nucleated RBC % Sodium (133-145) mmol/L Potassium 4.0 Chloride (101-111) mmol/L Carbon Dioxide (22-32) mmol/L Anion Gap BUN (6-24) mg/dL Creatinine (0.51-0.95) mg/dL Est GFR ( Amer) (>60) Est GFR (Non-Af Amer) (>60) BUN/Creatinine Ratio (8-20) Glucose (70-100) mg/dL Lactic Acid (0.5-2.0) mmol/L Calcium (8.6-10.3) mg/dL Magnesium 2.0 Total Bilirubin (0.2-1.0) mg/dL AST 13 ALT (7-52) U/L Alkaline Phosphatase (34-104) U/L Troponin I (<0.04) ng/mL C-Reactive Protein (< 5.00) mg/L Total Protein (6.4-8.9) g/dL Albumin (3.2-5.2) g/dL Globulin (2-4) g/dL Albumin/Globulin Ratio (1-3) TSH (0.34-5.60) mcIU/mL Urine Color Yellow Urine Appearance Cloudy Urine pH 5.0 (5-9) Ur Specific Penrose 1.017 (1.010-1.030) Urine Protein Negative (Negative) Urine Ketones Negative (Negative) Urine Blood Negative (Negative) Urine Nitrate Negative (Negative) Urine Bilirubin Negative (Negative) Urine Urobilinogen Negative (Negative) Ur Leukocyte Esterase Negative (Negative) Urine Glucose Negative (Negative) Urine Opiates Screen None detected (None Detect) Ur Barbiturates Screen None detected (None Detect) Ur Phencyclidine Scrn None detected (None Detect) Ur Amphetamines Screen None detected (None Detect) U Benzodiazepines Scrn None detected (None Detect) Urine Cocaine Screen None detected (None Detect) U Cannabinoids Screen None detected (None Detect) Serum Alcohol (<10) mg/dL Result Diagrams: 02/14/17 09:15 02/14/17 11:33 Lab Statement: Any lab studies that have been ordered have been reviewed, and results considered in the medical decision making process. - Radiology CXR Radiology Interpretation Completed By: Radiologist - Right base atelectasis. No pneumonia is identified. - CT Brain CT Interpretation: No Acute Changes CT Interpretation Completed By: Radiologist - EKG 1013 EKG Interpretation: NSR 67 bpm, no STEMI Dizzy Course/Dx - Course Assessment/Plan: Patient is a 46 year-old female coming to [facility] for evaluation of dizziness and lightheadedness since she woke up yesterday morning. She describes "vertigo" and "roomspinning." She also has a headache. Her symptoms are improved when she closes her eyes and lays down. Denies nausea, vomiting, chest pain, palpitations, shortness of breath, or abdominal pain. Test results WNL except for CRP of 26.9. UA is negative urine tox is negative. EtOH <10. CT head and CXR show no acute pathology. In the ED course, the patient was given IV fluids and antivert for the dizziness. I believe that the patient is dealing with vertigo. However, after these medications, her symptoms did not improve and she developed headache and nausea. Therefore she was given Benadryl and reglan with one dose of valium. The patient reports that after these meds, her symptoms resolved. She is no longer dizzy and has a good steady gait. The patient will be discharged home to follow up with PCP. She will be given a prescription for Antivert. The patient is A&Ox3, hemodynamically stable. Patient is a 32 year-old female coming to [facility] for evaluation of intermittent chest pain since last night. She experienced yet another episode this morning at 0730, and it has been constant since. The pain is in the right anterior region, severity 4-5/10. Worse with exertion. Pain radiates to the jaw and right ear. Positive headaches. 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 As such, she decided to visit the ED for further evaluation. She is a former smoker who quit about 3 weeks ago. - Diagnoses Differential Diagnosis/HQI/PQRI: CVA, Meniere's Disease, Seizure, Transient Ischemic Attack Provider Diagnoses: Vertigo Discharge - Discharge Plan Condition: Stable Disposition: HOME Prescriptions: Meclizine TAB* [Antivert 12.5 TAB*] 25 mg PO TID PRN #30 tab PRN Reason: Vertigo Patient Education Materials: Vertigo (ED) Forms: *Work Release Referrals: Santana Elias MD [Primary Care Provider] - The documentation as recorded by the Shiva morgan Billy accurately reflects the service I personally performed and the decisions made by , Philip Zuluaga MD.
== END 2017-02-14 16:27 | disposition home or self-care (01) ==
LOC: ED 09:54
DX: R42 Dizziness and giddiness (principal); F17.210 Nicotine dependence, cigarettes, uncomplicated; I10 Essential (primary) hypertension; K21.9 Gastro-esophageal reflux disease without esophagitis; F41.9 Anxiety disorder, unspecified; F32.9 Major depressive disorder, single episode, unspecified; J98.11 Atelectasis
CPT/HCPCS: 36415; 70450; 71020; 80053; 80307; 80320; 81003; 83605; 83735; 84443; 84484; 85025; 86140; 93005; 96360; 96374; 99284; A9270-GY; G0480; J1200

== ENCOUNTER → 2017-03-02 12:10 | Emergency (ER) | payer OTHER ==
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
--- NOTE | 2017-03-02 13:13 | RAD ---
Indication: Headache following injury. Comparison: February 14, 2017 Technique: Noncontrast CT vertex of skull through foramen magnum. Report: The sulci, ventricles, and basal cisterns are normal for age. Pepper matter white matter differentiation is preserved without evidence for edema. No intra or extra axial hemorrhage is detected. Unremarkable orbital contents. Negative for calvarial or skull base fracture. Negative for scalp hematoma. The visualized paranasal sinuses and mastoid air spaces are clear. IMPRESSION: No CT evidence for traumatic brain injury or acute intracranial process. Negative exam.
[2017-03-02 13:21] VITALS: BP 143/85
--- NOTE | 2017-03-03 17:04 | ED ---
Dudley Rogel Rebecca, scribed for Philip Zuluaga MD on 03/02/17 at 1223 . Head Injury - HPI Summary HPI Summary: Pt is a 46 y/o F who presents to ED c/o headache s/p mechanical fall. At 0400 this morning, the pt was showering when she suddenly fell backwards. Pt reports headache began immediately upon impact and has been constant since onset. Pain is in the occipital region with radiation to the neck and is currently sharp and severe, ranked 10/10. Sx aggravated and alleviated by nothing. Additionally c/o fatigue and 2 episodes of epistaxis (resolved). Denies LOC. - History Of Current Complaint Chief Complaint: EDHeadInjury Stated Complaint: FALL Time Seen by Provider: 03/02/17 12:15 Hx Obtained From: Patient Hx Last Menstrual Period: hysterectomy Mechanism Of Injury: Fall From A Standing Position Onset/Duration: Started Hours Ago - 0400 this morning, Still Present Onset of Pain: Immediate, Prior to Arrival Severity Currently: Moderate Severity Initially: Severe Pain Intensity: 10 Pain Scale Used: 0-10 Numeric Location of Head Injury: Occipital Location: Discrete At: - Occipital regoin, Radiates To: - Neck Character: Sharp Aggravating Factor(s): Other: - Nothing Alleviating Factor(s): Other: - Nothing 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, Other: - fatigue - Allergies/Home Medications Allergies/Adverse Reactions: Allergies Allergy/AdvReac Type Severity Reaction Status Date / Time Adhesive Tape Allergy Mild Hives Verified 01/23/17 23:08 PMH/Surg Hx/FS Hx/Imm Hx Endocrine/Hematology History: Denies: Hx Diabetes, Hx Thyroid Disease Cardiovascular History: Reports: Hx Hypercholesterolemia, Hx Hypertension Denies: Hx Congestive Heart Failure, Hx Pacemaker/ICD Respiratory History: Reports: Hx Asthma, Hx Sleep Apnea Denies: Hx Chronic Obstructive Pulmonary Disease (COPD) GI History: Reports: Hx Gastroesophageal Reflux Disease - panpranolol Denies: Hx Ulcer History: Reports: Hx Kidney Infection - NO RECENT, Hx Kidney Stones - NO KNOWN STONES NOW Denies: Hx Renal Disease Musculoskeletal History: Reports: Hx Tendonitis Denies: Hx Arthritis, Hx Osteoporosis Sensory History: Denies: Hx Contacts or Glasses, Hx Hearing Aid Opthamlomology History: Denies: Hx Contacts or Glasses Neurological History: Reports: Hx Headaches, Hx Migraine - WEEKLY OR 2 X WK, Other Neuro Impairments/Disorders - DEGENERATIVE DISK DX, NERVE DAMAGE IN NECK Psychiatric History: Reports: Hx Anxiety - RECENTLY STARTED ON MED DOING OK, Hx Depression - depression controlled by nortriptyline Denies: Hx Panic Disorder - Surgical History Surgery Procedure, Year, and Place: 1987 C SECTION [facility] [place];. 1989 C SECTION AND B[facility];. hysterectomy. 2016 several moles removed from body Hx Anesthesia Reactions: No - Immunization History Date of Tetanus Vaccine: unk Infectious Disease History: Denies: Hx Clostridium Difficile, Hx Hepatitis, Hx Human Immunodeficiency Virus (HIV), Hx of Known/Suspected MRSA, Hx Shingles, Hx Tuberculosis, Hx Known/ Suspected VRE, Hx Known/Suspected VRSA, History Other Infectious Disease, Traveled Outside the [place] in Last 30 Days - Family History Known Family History: Positive: Hypertension, Diabetes, Other - No FHx DVT - Social History Alcohol Use: None Substance Use Type: Reports: None Hx Tobacco Use: Yes - 2 A DAY Smoking Status (MU): Light Every Day Tobacco Smoker Type: Cigarettes Amount Used/How Often: 3 cigs per day Length of Time of Smoking/Using Tobacco: >30 yrs Have You Smoked in the Last Year: Yes Review of Systems Positive: Fatigue Positive: Headache - occipital with radiation into the neck s/p mechanical fall , Syncope - Denies LOC All Other Systems Reviewed And Are Negative: Yes Physical Exam - Summary Physical Exam Summary: VITAL SIGNS: Reviewed. GENERAL: ~Patient is an obese female who is lying comfortable in the stretcher. ~Patient is not in any acute respiratory distress. She is sleepy, but is readily awakened by verbal stimulation. HEAD AND FACE: No signs of trauma. ~No ecchymosis, hematomas or skull depressions. No sinus tenderness. EYES: PERRLA, EOMI x 2, No injected conjunctiva, no nystagmus. EARS: Hearing grossly intact. Ear canals and tympanic membranes are within normal limits. MOUTH: Oropharynx within normal limits. NECK: Supple, trachea is midline, no adenopathy, no JVD, no carotid bruit, neck with full ROM. Some C-spine tenderness for which we will place a C-collar. CHEST: Symmetric, no tenderness at palpation LUNGS: Clear to auscultation bilaterally. No wheezing or crackles. CVS: Regular rate and rhythm, S1 and S2 present, no murmurs or gallops appreciated. ABDOMEN: Soft, non-tender. No signs of distention. No rebound no guarding, and no masses palpated. Bowel sounds are normal. EXTREMITIES: FROM in all major joints, no edema, no cyanosis or clubbing. NEURO: Alert and oriented x 3. No acute neurological deficits. Speech is normal and follows commands. SKIN: Dry and warm Triage Information Reviewed: Yes Vital Signs On Initial Exam: Initial Vitals Temp Pulse Resp BP Pulse Ox 98.1 F 61 16 143/83 100 03/02/17 12:14 03/02/17 12:14 03/02/17 12:14 03/02/17 12:14 03/02/17 12:14 Vital Signs Reviewed: Yes Diagnostics - Vital Signs Vital Signs Temp Pulse Resp BP Pulse Ox 03/02/17 12:14 98.1 F 61 16 143/83 100 - Laboratory Lab Statement: Any lab studies that have been ordered have been reviewed, and results considered in the medical decision making process. - CT Brain CT CT Interpretation: No Acute Changes - No CT evidence for traumatic brain injury or acute intracranial process. Negative exam. CT Interpretation Completed By: Radiologist C-Spine CT CT Interpretation: No Acute Changes - DEGENERATIVE DISC DISEASE MOST PROMINENT AT C5-C6. NO FRACTURE OF THE CERVICAL SPINE IS IDENTIFIED. STRAIGHTENING OF THE NORMAL LORDOSIS. CT Interpretation Completed By: Radiologist Head Injury Course/Dx Assessment/Plan: Pt is a 46 y/o F who presents to ED c/o headache s/p mechanical fall. At 0400 this morning, the pt was showering when she suddenly fell backwards. Pt reports headache began immediately upon impact and has been constant since onset. Pain is in the occipital region with radiation to the neck and is currently sharp and severe, ranked 10/10. Sx aggravated and alleviated by nothing. Additionally c/o fatigue and 2 episodes of epistaxis ( resolved). Denies LOC. Test results of the Head CT showed no CT evidence for traumatic brain injury or acute intracranial process and C-spine CT showed DEGENERATIVE DISC DISEASE MOST PROMINENT AT C5-C6. NO FRACTURE OF THE CERVICAL SPINE IS IDENTIFIED. STRAIGHTENING OF THE NORMAL LORDOSIS. I was told by the nurse that the patient is walking out of the room. She does not want to stay here. She does not want to sign AMA. She just walked out of the room, she is A& Ox3 with a good steady walk and she has normal cognition. Therefore, the patient walked out of ED w/o AMA papers. - Diagnoses Differential Diagnosis/HQI/PQRI: Cerebral Contusion, Concussion With LOC, Intracranial Bleed Provider Diagnoses: Contusion Discharge - Discharge Plan Condition: Good Disposition: OTHER Discharge Disposition Comment: Eloped from the ED, refused ot sign AMA forms Referrals: Santana Elias MD [Primary Care Provider] - The documentation as recorded by the Dudley morgan Rebecca accurately reflects the service I personally performed and the decisions made by me, Philip Zuluaga MD.
== END ==
LOC: ED 12:10
DX: S00.93XA Contusion of unspecified part of head, initial encounter (principal); R51 Headache; W19.XXXA Unspecified fall, initial encounter; Y93.9 Activity, unspecified; Y92.9 Unspecified place or not applicable
CPT/HCPCS: 70450; 72125; 99282

== ENCOUNTER 2017-03-04 08:56 | Emergency (ER) | payer OTHER ==
[2017-03-04] MEDS ORDERED: Aspirin Low Dose CHEW TAB* 81 MG PO ONE (09:00)
[2017-03-04 09:18] LABS: Hematocrit 39 % (35-47); Mean Corpuscular HGB Conc 33 g/dl (31-36); Mean Corpuscular Hemoglobin 29 pg (27-31); Mean Corpuscular Volume 87 fL (80-97); Mean Platelet Volume 9 um3 (7.4-10.4); Red Blood Count 4.52 10^6/ul (4.0-5.4); Red Cell Distribution Width 15 % (10.5-15); White Blood Count 9.9 10^3/ul (3.5-10.8)
[2017-03-04 09:33] LABS: Albumin 3.8 g/dL (3.2-5.2); BUN/Creatinine Ratio 12.5 (8-20); EGFR African American 88.2 (>60); EGFR Non-African American 68.6 (>60); Potassium 3.8 mmol/L (3.5-5.0); Total Bilirubin 0.3 mg/dL (0.2-1.0); Total Protein 6.8 g/dL (6.4-8.9)
[2017-03-04 09:35] LABS: Troponin I 0.01 ng/mL (<0.04)
--- NOTE | 2017-03-04 09:54 | RAD ---
INDICATION: Chest pain COMPARISON: Chest x-ray dated February 14, 2017 TECHNIQUE: PA and lateral views of the chest were obtained. FINDINGS: The heart and mediastinum are normal in size and contour. Overlying the lateral aspect of the right lung base is patchy density that corresponds to a more linear density seen on the February 14, 2017 chest x-ray. There is faint blunting of the right costophrenic angle. The remaining lungs are well-aerated and clear. Visualized bones are normal for the patient's age. There is no radiographic evidence of free air beneath the diaphragm IMPRESSION: DENSITY OVERLYING THE RIGHT LATERAL LUNG BASE COULD REPRESENT ATELECTASIS OR PNEUMONIA IN THE CORRECT CLINICAL SETTING. A MORE SINISTER ETIOLOGY IS MUCH LESS LIKELY BUT NOT COMPLETELY EXCLUDED ON CHEST X-RAY ALONE. FOLLOW-UP IMAGING IS ADVISED TO ASCERTAIN RESOLUTION.
[2017-03-04] MEDS ORDERED: Levofloxacin 750 MG IVPREMIX(* 750 MG/150 ML BAG IVPB ONE (10:24)
[2017-03-04 10:32] LABS: Urine Bilirubin Negative (Negative); Urine Glucose Negative (Negative); Urine Nitrite Negative (Negative)
[2017-03-04 12:34] VITALS: BP 137/79
--- NOTE | 2017-03-07 13:57 | ED ---
I, Oh,Soohyun, scribed for Philip Zuluaga MD on 03/04/17 at 0908 . HPI Chest Pain - HPI Summary HPI Summary: This 46 y/o female presents to ED via ambulance for constant right sided CP since midnight. Pain is rated 8/10 and described as tightness. Positive MARCH and lightheadedness that has persisted from her last ED visit. Pt reports positive diaphoresis in spite of AC on last night. Negative fever, chills, and n/v. 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 PMHx includes sleep apnea with CPAP, GERD, and anxiety/depression. Pt was last evaluated in ED 2 days ago for fall and lightheaded dizziness but signed out AMA. Pt is current smoker. - History of Current Complaint Hx Obtained From: Patient, Medical Records Onset/Duration: Started Hours Ago, Atraumatic, Still Present Timing: Constant Pain Intensity: 8 Pain Scale Used: 0-10 Numeric Chest Pain Location: Right Anterior Chest Pain Radiates: No Character: Tightness Aggravating Factor(s): Nothing Alleviating Factor(s): Nothing Associated Signs and Symptoms: Positive: Chest Pain, Headaches, Lightheadedness , Diaphoresis. Negative: Shortness of Breath, Fever, Chills, Nausea - Allergy/Home Medications Allergies/Adverse Reactions: Allergies Allergy/AdvReac Type Severity Reaction Status Date / Time Adhesive Tape Allergy Mild Hives Verified 03/04/17 09:10 PMH/Surg Hx/FS Hx/Imm Hx Endocrine/Hematology History: Denies: Hx Diabetes, Hx Thyroid Disease Cardiovascular History: Reports: Hx Hypercholesterolemia, Hx Hypertension, Other Cardiovascular Problems/Disorders - HIGH CHOLESTEROL Denies: Hx Congestive Heart Failure, Hx Pacemaker/ICD Respiratory History: Reports: Hx Asthma, Hx Sleep Apnea Denies: Hx Chronic Obstructive Pulmonary Disease (COPD) GI History: Reports: Hx Gastroesophageal Reflux Disease - panpranolol Denies: Hx Ulcer History: Reports: Hx Kidney Infection - NO RECENT, Hx Kidney Stones - NO KNOWN STONES NOW Denies: Hx Renal Disease Musculoskeletal History: Reports: Hx Tendonitis Denies: Hx Arthritis, Hx Osteoporosis Sensory History: Denies: Hx Contacts or Glasses, Hx Hearing Aid Opthamlomology History: Denies: Hx Contacts or Glasses Neurological History: Reports: Hx Headaches, Hx Migraine - WEEKLY OR 2 X WK, Other Neuro Impairments/Disorders - DEGENERATIVE DISK DX, NERVE DAMAGE IN NECK Psychiatric History: Reports: Hx Anxiety - RECENTLY STARTED ON MED DOING OK, Hx Depression - depression controlled by nortriptyline Denies: Hx Panic Disorder - Surgical History Surgery Procedure, Year, and Place: 1987 [place] [facility] [place] [facility] [place]. hysterectomy. 2016 several moles removed from body Hx Anesthesia Reactions: No - Immunization History Date of Tetanus Vaccine: unk Infectious Disease History: Denies: Hx Clostridium Difficile, Hx Hepatitis, Hx Human Immunodeficiency Virus (HIV), Hx of Known/Suspected MRSA, Hx Shingles, Hx Tuberculosis, Hx Known/ Suspected VRE, Hx Known/Suspected VRSA, History Other Infectious Disease - Family History Known Family History: Positive: Hypertension, Diabetes, Other - No FHx DVT - Social History Alcohol Use: None Hx Substance Use: No Substance Use Type: Reports: None Hx Tobacco Use: Yes - 2 A DAY Smoking Status (MU): Light Every Day Tobacco Smoker Type: Cigarettes Amount Used/How Often: 3 cigs per day Length of Time of Smoking/Using Tobacco: >30 yrs Have You Smoked in the Last Year: Yes Review of Systems Positive: Skin Diaphoresis. Negative: Fever, Chills Positive: Chest Pain Negative: Vomiting, Nausea Neurological: Other - Positive for persistent lightheadedness Positive: Headache All Other Systems Reviewed And Are Negative: Yes Physical Exam - Summary Physical Exam Summary: VITAL SIGNS: Reviewed. GENERAL: Patient is an OBESE female who is lying uncomfortably in the stretcher. Patient is not in any acute respiratory distress. HEAD AND FACE: No signs of trauma. No ecchymosis, hematomas or skull depressions. No sinus tenderness. EYES: PERRLA, EOMI x 2, No injected conjunctiva, no nystagmus. EARS: Hearing grossly intact. Ear canals and tympanic membranes are within normal limits. MOUTH: Oropharynx within normal limits. NECK: Supple, trachea is midline, no adenopathy, no JVD, no carotid bruit, no c- spine tenderness, neck with full ROM. CHEST: Symmetric, no tenderness at palpation LUNGS: Clear to auscultation bilaterally. No wheezing or crackles. CVS: Regular rate and rhythm, S1 and S2 present, no murmurs or gallops appreciated. ABDOMEN: Soft, non-tender. No signs of distention. No rebound no guarding, and no masses palpated. Bowel sounds are normal. EXTREMITIES: FROM in all major joints, no edema, no cyanosis or clubbing. NEURO: Alert and oriented x 3. No acute neurological deficits. Speech is normal and follows commands. SKIN: Dry and warm Triage Information Reviewed: Yes Vital Signs On Initial Exam: Initial Vitals Temp Pulse Resp BP Pulse Ox 97.1 F 77 20 135/98 97 03/04/17 08:56 03/04/17 08:56 03/04/17 08:56 03/04/17 08:56 03/04/17 08:56 Vital Signs Reviewed: Yes Diagnostics - Vital Signs Vital Signs Temp Pulse Resp BP Pulse Ox 03/04/17 12:52 97.0 F 69 11 137/79 03/04/17 12:30 68 11 137/79 97 03/04/17 12:00 68 18 120/66 97 03/04/17 11:30 65 16 135/91 98 03/04/17 11:04 66 15 129/78 98 03/04/17 11:00 65 12 97 03/04/17 10:30 67 15 121/77 97 03/04/17 10:17 122/71 03/04/17 10:06 68 19 97 03/04/17 10:00 78 20 93 03/04/17 09:26 92 138/87 03/04/17 09:25 73 130/84 03/04/17 09:21 78 16 138/87 96 03/04/17 09:18 73 16 121/82 94 03/04/17 09:15 69 12 130/84 95 03/04/17 09:06 76 15 95 03/04/17 09:02 97 03/04/17 08:59 97.1 F 77 20 135/68 97 03/04/17 08:56 97.1 F 77 20 135/98 97 - Laboratory Lab Results: Lab Results 03/04/17 03/04/17 03/04/17 Range/Units 09:05 09:05 09:05 WBC 9.9 (3.5-10.8) 10^3/ul RBC 4.52 (4.0-5.4) 10^6/ul Hgb 13.0 (12.0-16.0) g/dl Hct 39 (35-47) % MCV 87 (80-97) fL MCH 29 (27-31) pg MCHC 33 (31-36) g/dl RDW 15 (10.5-15) % Plt Count 233 (150-450) 10^3/ul MPV 9 (7.4-10.4) um3 Neut % (Auto) 69.8 (38-83) % Lymph % (Auto) 20.9 L (25-47) % [place] % (Auto) 6.8 (1-9) % Eos % (Auto) 1.3 (0-6) % Baso % (Auto) 1.2 (0-2) % Absolute Neuts (auto) 6.9 (1.5-7.7) 10^3/ul Absolute Lymphs (auto) 2.1 (1.0-4.8) 10^3/ul Absolute Monos (auto) 0.7 (0-0.8) 10^3/ul Absolute Eos (auto) 0.1 (0-0.6) 10^3/ul Absolute Basos (auto) 0.1 (0-0.2) 10^3/ul Absolute Nucleated RBC 0 10^3/ul Nucleated RBC % 0 Sodium 138 (133-145) mmol/L Potassium 3.8 (3.5-5.0) mmol/L Chloride 107 (101-111) mmol/L Carbon Dioxide 23 (22-32) mmol/L Anion Gap 8 (2-11) mmol/L BUN 11 (6-24) mg/dL Creatinine 0.88 (0.51-0.95) mg/dL Est GFR ( Amer) 88.2 (>60) Est GFR (Non-Af Amer) 68.6 (>60) BUN/Creatinine Ratio 12.5 (8-20) Glucose 104 H (70-100) mg/dL Lactic Acid 1.6 (0.5-2.0) mmol/L Calcium 9.0 (8.6-10.3) mg/dL Total Bilirubin 0.30 (0.2-1.0) mg/dL AST 11 L (13-39) U/L ALT 12 (7-52) U/L Alkaline Phosphatase 57 (34-104) U/L CK-MB (CK-2) 1.5 (0.6-6.3) ng/mL Troponin I 0.01 (<0.04) ng/mL B-Natriuretic Peptide ( - 100) pg/mL Total Protein 6.8 (6.4-8.9) g/dL Albumin 3.8 (3.2-5.2) g/dL Globulin 3.0 (2-4) g/dL Albumin/Globulin Ratio 1.3 (1-3) Urine Color Urine Appearance Urine pH (5-9) Ur Specific [place] (1.010-1.030) Urine Protein (Negative) Urine Ketones (Negative) Urine Blood (Negative) Urine Nitrate (Negative) Urine Bilirubin (Negative) Urine Urobilinogen (Negative) Ur Leukocyte Esterase (Negative) Urine Glucose (Negative) 03/04/17 03/04/17 Range/Units 09:05 10:15 WBC (3.5-10.8) 10^3/ul RBC (4.0-5.4) 10^6/ul Hgb (12.0-16.0) g/dl Hct (35-47) % MCV (80-97) fL MCH (27-31) pg MCHC (31-36) g/dl RDW (10.5-15) % Plt Count (150-450) 10^3/ul MPV (7.4-10.4) um3 Neut % (Auto) (38-83) % Lymph % (Auto) (25-47) % [place] % (Auto) (1-9) % Eos % (Auto) (0-6) % Baso % (Auto) (0-2) % Absolute Neuts (auto) (1.5-7.7) 10^3/ul Absolute Lymphs (auto) (1.0-4.8) 10^3/ul Absolute Monos (auto) (0-0.8) 10^3/ul Absolute Eos (auto) (0-0.6) 10^3/ul Absolute Basos (auto) (0-0.2) 10^3/ul Absolute Nucleated RBC 10^3/ul Nucleated RBC % Sodium (133-145) mmol/L Potassium (3.5-5.0) mmol/L Chloride (101-111) mmol/L Carbon Dioxide (22-32) mmol/L Anion Gap (2-11) mmol/L BUN (6-24) mg/dL Creatinine (0.51-0.95) mg/dL Est GFR ( Amer) (>60) Est GFR (Non-Af Amer) (>60) BUN/Creatinine Ratio (8-20) Glucose (70-100) mg/dL Lactic Acid (0.5-2.0) mmol/L Calcium (8.6-10.3) mg/dL Total Bilirubin (0.2-1.0) mg/dL AST (13-39) U/L ALT (7-52) U/L Alkaline Phosphatase (34-104) U/L CK-MB (CK-2) (0.6-6.3) ng/mL Troponin I (<0.04) ng/mL B-Natriuretic Peptide 81 ( - 100) pg/mL Total Protein (6.4-8.9) g/dL Albumin (3.2-5.2) g/dL Globulin (2-4) g/dL Albumin/Globulin Ratio (1-3) Urine Color Yellow Urine Appearance Clear Urine pH 5.0 (5-9) Ur Specific [place] 1.023 (1.010-1.030) Urine Protein Negative (Negative) Urine Ketones Negative (Negative) Urine Blood Negative (Negative) Urine Nitrate Negative (Negative) Urine Bilirubin Negative (Negative) Urine Urobilinogen Negative (Negative) Ur Leukocyte Esterase Negative (Negative) Urine Glucose Negative (Negative) Result Diagrams: 03/04/17 09:05 03/04/17 09:05 Lab Statement: Any lab studies that have been ordered have been reviewed, and results considered in the medical decision making process. - Radiology CXR Xray Interpretation: Positive (See Comments) Radiology Interpretation Completed By: Radiologist - EKG 0858 Cardiac Rate: NL - 79 bpm EKG Rhythm: Sinus Rhythm ST Segment: Normal Re-Evaluation - Re-Evaluation First Eval Re-Evaluation Time: 12:08 Comment: MD in room to update pt on dx, CXR, bloodwork, and plan of care. Chest Pain Course/Dx - Course Assessment/Plan: This 46 y/o female presents to ED via ambulance for constant right sided CP since midnight. Pain is rated 8/10 and described as tightness. Positive MARCH and lightheadedness that has persisted from her last ED visit. Pt reports positive diaphoresis in spite of AC on last night. Negative fever, chills, and n/v. 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 PMHx includes sleep apnea with CPAP, GERD, and anxiety/depression. Pt was last evaluated in ED 2 days ago for fall and lightheaded dizziness but signed out AMA. Pt is current smoker. Bloodwork wnl except for glucose of 104. CXR indicates right sided PNA, therefore pt was given Levofloxacin. Trop is negative. Pt is reported that pain has decreased to 1/10 at right side of chest. I believe CP is secondary to right sided PNA. Patient is feeling better. She is ambulating and she is tolerating PO w/o nausea or vomiting. CURB 65 score is 0, therefore patient can be treated with PO antibiotics as an outpatient. Pt is discharged at this time with f/u plan to PCP. I discussed all the findings and test results with the patient. Patient was instructed to return to the emergency room immediately if any of the symptoms return or worsens . Plan of care was discussed with the patient and understands and agrees. All questions were answered at patient satisfaction. There were no further complaints or concerns. Lung exam before discharge: CTA B/L. Good air exchange. No wheezing or crackles heard. CVS: S1 and S2 present. No murmurs appreciated. Patient is alert and oriented x 3. Patient is hemodynamically stable. 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 in the next 2-3 days - Chest Pain Differential Diagnosis/HQI/PQRI: ACS, CHF, Chest Wall, GI Disease, Lower Respiratory Infection, Pulmonary Edema - Diagnoses Provider Diagnoses: Pneumonia Discharge - Discharge Plan Condition: Stable Disposition: HOME Prescriptions: Levofloxacin TAB* [Levaquin TAB*] 750 mg PO DAILY #9 tab Patient Education Materials: Pneumonia (ED), Levofloxacin (By mouth) Forms: *Work Release Referrals: Santana Elias MD [Primary Care Provider] - 2 Days The documentation as recorded by the Godwin morgan Soohyun accurately reflects the service I personally performed and the decisions made by me, Philip Zuluaga MD.
== END 2017-03-04 12:55 | disposition home or self-care (01) ==
LOC: ED 08:56
DX: J18.9 Pneumonia, unspecified organism (principal); R51 Headache; R42 Dizziness and giddiness; E78.00 Pure hypercholesterolemia, unspecified; I10 Essential (primary) hypertension; J45.909 Unspecified asthma, uncomplicated; K21.9 Gastro-esophageal reflux disease without esophagitis; Z87.442 Personal history of urinary calculi; F41.9 Anxiety disorder, unspecified; F32.9 Major depressive disorder, single episode, unspecified; Z91.048 Other nonmedicinal substance allergy status; F17.210 Nicotine dependence, cigarettes, uncomplicated
CPT/HCPCS: 36415; 71020; 80053; 81003; 82553; 83605; 83880; 84484; 85025; 93005; 96365; 99284

== ENCOUNTER 2017-03-14 11:25 | Emergency (ER) | payer OTHER ==
[2017-03-14] MEDS ORDERED: NS 0.9% 1000 ML* 1,000 ML IV ONE (13:21)
[2017-03-14] MEDS ORDERED: Ketorolac INJ* 30 MG/ML 1 ML VIAL IV ONE (13:21)
[2017-03-14 13:57] LABS: Hematocrit 40 % (35-47); Hemoglobin 13.4 g/dl (12.0-16.0); Mean Corpuscular HGB Conc 33 g/dl (31-36); Mean Corpuscular Hemoglobin 29 pg (27-31); Mean Corpuscular Volume 88 fL (80-97); Mean Platelet Volume 9 um3 (7.4-10.4); Red Blood Count 4.61 10^6/ul (4.0-5.4); Red Cell Distribution Width 15 % (10.5-15); White Blood Count 11.3 10^3/ul (3.5-10.8)
[2017-03-14 14:15] LABS: ALT 8 U/L (7-52); AST 11 U/L (13-39); Albumin 3.8 g/dL (3.2-5.2); Alkaline Phosphatase 60 U/L (34-104); Anion Gap 4 mmol/L (2-11); BUN/Creatinine Ratio 19.5 (8-20); Blood Urea Nitrogen 17 mg/dL (6-24); C Reactive Protein 21.98 mg/L (< 5.00); CO2 Carbon Dioxide 26 mmol/L (22-32); Calcium 9.1 mg/dL (8.6-10.3); Chloride 105 mmol/L (101-111); EGFR African American 89.4 (>60); EGFR Non-African American 69.5 (>60); Globulin 2.9 g/dL (2-4); Glucose 98 mg/dL (70-100); Sodium 135 mmol/L (133-145); Total Protein 6.7 g/dL (6.4-8.9)
[2017-03-14] MEDS ORDERED: Iohexol 350* (CONTRAST) 500 ML MDV IV ONE (14:23)
--- NOTE | 2017-03-14 14:59 | RAD ---
INDICATION: Pleuritic chest pain. COMPARISON: Comparison is made with a prior CT of the chest from August 02, 2015 and a prior chest x-ray study from March 04, 2017. TECHNIQUE: A CT angiogram of the chest was performed with intravenous following intravenous injection of 87 ml of Omnipaque 350 nonionic contrast. Contiguous axial sections were obtained from the lung apices through the lung bases. Images were reconstructed in the coronal and sagittal planes. FINDINGS: There is relatively homogeneous opacification of the pulmonary arteries. No intraluminal filling defect or pulmonary embolism is seen. The heart is within normal limits in size. No pericardial effusion is present. The thoracic aorta is normal in caliber and demonstrates homogeneous contrast opacification. There are mildly prominent lymph nodes in the anterior mediastinum measuring up to 0.8 cm in transverse dimension which are unchanged significantly from the prior study. No enlarged hilar lymph nodes are seen. There is a small infiltrate present in the right lower lobe. This appears to correlate with the infiltrate noted on the prior chest x-ray study. No pleural effusion is seen. No significant focal osseous abnormality is seen. IMPRESSION: 1. NO EVIDENCE FOR PULMONARY EMBOLISM. 2. SMALL RIGHT LOWER LOBE INFILTRATE SUSPICIOUS FOR PNEUMONIA.
[2017-03-14 15:34] VITALS: BP 132/81
--- NOTE | 2017-03-14 21:18 | ED ---
Jillian Rogel Alfonso, scribed for Melchor Maciel MD on 03/14/17 at 1305 . Shortness of Breath - HPI Summary HPI Summary: This patient is a 46 year old female [place] [facility] [place] SOB that began one week ago. She reports dyspnea at rest. The pain is localized "in her left lung" and back. Denies any pain radiation. Sx aggravated by deep breaths and coughing. Sx alleviated by nothing. She reports a nonproductive cough and left calf swelling. Pt reports being diagnosed with pneumonia last week, for which she is taking abx. Smokes 2 cigarettes per day. PMHx of asthma and chronic back pain. - History of Current Complaint Chief Complaint: EDShortnessOfBreath Time Seen by Provider: 03/14/17 13:02 Hx Obtained From: Patient Onset/Duration: Sudden Onset, Lasting Weeks - 1 week, Worse Since Timing: Constant Current Severity: Moderate Dyspnea At: Rest Aggrevating Factors: Deep Breaths - Deep breaths and coughing Alleviating Factors: Nothing Associated Signs & Symptoms: Cough (Nonproductive), Edema - Left calf swelling - Allergy/Home Medications Allergies/Adverse Reactions: Allergies Allergy/AdvReac Type Severity Reaction Status Date / Time Adhesive Tape Allergy Mild Hives Verified 03/04/17 09:10 PMH/Surg Hx/FS Hx/Imm Hx Endocrine/Hematology History: Denies: Hx Diabetes, Hx Thyroid Disease Cardiovascular History: Reports: Hx Hypercholesterolemia, Hx Hypertension, Other Cardiovascular Problems/Disorders - HIGH CHOLESTEROL Denies: Hx Congestive Heart Failure, Hx Pacemaker/ICD Respiratory History: Reports: Hx Asthma, Hx Sleep Apnea Denies: Hx Chronic Obstructive Pulmonary Disease (COPD) GI History: Reports: Hx Gastroesophageal Reflux Disease - panpranolol Denies: Hx Ulcer History: Reports: Hx Kidney Infection - NO RECENT, Hx Kidney Stones - NO KNOWN STONES NOW Denies: Hx Renal Disease Musculoskeletal History: Reports: Hx Tendonitis Denies: Hx Arthritis, Hx Osteoporosis Sensory History: Denies: Hx Contacts or Glasses, Hx Hearing Aid Opthamlomology History: Denies: Hx Contacts or Glasses Neurological History: Reports: Hx Headaches, Hx Migraine - WEEKLY OR 2 X WK, Other Neuro Impairments/Disorders - DEGENERATIVE DISK DX, NERVE DAMAGE IN NECK Psychiatric History: Reports: Hx Anxiety - RECENTLY STARTED ON MED DOING OK, Hx Depression - depression controlled by nortriptyline Denies: Hx Panic Disorder - Surgical History Surgery Procedure, Year, and Place: 1987 C SECTION [facility];. 1989 C SECTION AND BTL [facility];. hysterectomy. 2016 several moles removed from body Hx Anesthesia Reactions: No - Immunization History Date of Tetanus Vaccine: unk Infectious Disease History: No Infectious Disease History: Denies: Hx Clostridium Difficile, Hx Hepatitis, Hx Human Immunodeficiency Virus (HIV), Hx of Known/Suspected MRSA, Hx Shingles, Hx Tuberculosis, Hx Known/ Suspected VRE, Hx Known/Suspected VRSA, History Other Infectious Disease, Traveled Outside the [place] in Last 30 Days - Family History Known Family History: Positive: Hypertension, Diabetes, Other - No FHx DVT - Social History Alcohol Use: None Hx Substance Use: No Substance Use Type: Reports: None Hx Tobacco Use: Yes - 2 A DAY Smoking Status (MU): Light Every Day Tobacco Smoker Type: Cigarettes Amount Used/How Often: 2 cigs per day Length of Time of Smoking/Using Tobacco: >30 yrs Have You Smoked in the Last Year: Yes Review of Systems Negative: Fever Positive: Shortness Of Breath, Cough - Nonproductive, Other - Positive dyspnea at rest localized "in her left lung" and back which does not radiate. Positive: Edema - Left calf swelling All Other Systems Reviewed And Are Negative: Yes Physical Exam Triage Information Reviewed: Yes Vital Signs On Initial Exam: Initial Vitals Temp Pulse Resp BP Pulse Ox 97.4 F 87 22 143/94 97 03/14/17 11:31 03/14/17 11:31 03/14/17 11:31 03/14/17 11:31 03/14/17 11:31 Vital Signs Reviewed: Yes Appearance: Positive: Well-Appearing, No Pain Distress, Obese Skin: Positive: Warm, Skin Color Reflects Adequate Perfusion, Dry Head/Face: Positive: Normal Head/Face Inspection Eyes: Positive: Normal ENT: Positive: Normal ENT inspection Neck: Positive: Supple, Nontender Respiratory/Lung Sounds: Positive: Breath Sounds Present, Other - Crackles in bases of bilateral lungs Cardiovascular: Positive: RRR Abdomen Description: Positive: Nontender, Soft Bowel Sounds: Positive: Present Musculoskeletal: Positive: Edema Left - Slight pitting edema in left LE Neurological: Positive: Normal, Sensory/Motor Intact, Alert, Oriented to Person Place, Time, CN Intact II-III Psychiatric: Positive: Affect/Mood Appropriate - Gate Coma Scale Coma Scale Total: 15 Diagnostics - Vital Signs Vital Signs Temp Pulse Resp BP Pulse Ox 03/14/17 11:34 97.4 F 91 22 143/94 98 03/14/17 11:31 97.4 F 87 22 143/94 97 - Laboratory Lab Results: Lab Results 03/14/17 03/14/17 Range/Units 13:45 13:45 WBC 11.3 H (3.5-10.8) 10^3/ul RBC 4.61 (4.0-5.4) 10^6/ul Hgb 13.4 (12.0-16.0) g/dl Hct 40 (35-47) % MCV 88 (80-97) fL MCH 29 (27-31) pg MCHC 33 (31-36) g/dl RDW 15 (10.5-15) % Plt Count 237 (150-450) 10^3/ul MPV 9 (7.4-10.4) um3 Neut % (Auto) 69.4 (38-83) % Lymph % (Auto) 20.6 L (25-47) % [place] % (Auto) 7.1 (1-9) % Eos % (Auto) 1.8 (0-6) % Baso % (Auto) 1.1 (0-2) % Absolute Neuts (auto) 7.9 H (1.5-7.7) 10^3/ul Absolute Lymphs (auto) 2.3 (1.0-4.8) 10^3/ul Absolute Monos (auto) 0.8 (0-0.8) 10^3/ul Absolute Eos (auto) 0.2 (0-0.6) 10^3/ul Absolute Basos (auto) 0.1 (0-0.2) 10^3/ul Absolute Nucleated RBC 0.01 10^3/ul Nucleated RBC % 0.1 Sodium 135 (133-145) mmol/L Potassium 4.0 (3.5-5.0) mmol/L Chloride 105 (101-111) mmol/L Carbon Dioxide 26 (22-32) mmol/L Anion Gap 4 (2-11) mmol/L BUN 17 (6-24) mg/dL Creatinine 0.87 (0.51-0.95) mg/dL Est GFR ( Amer) 89.4 (>60) Est GFR (Non-Af Amer) 69.5 (>60) BUN/Creatinine Ratio 19.5 (8-20) Glucose 98 (70-100) mg/dL Calcium 9.1 (8.6-10.3) mg/dL Total Bilirubin 0.30 (0.2-1.0) mg/dL AST 11 L (13-39) U/L ALT 8 (7-52) U/L Alkaline Phosphatase 60 (34-104) U/L C-Reactive Protein 21.98 H (< 5.00) mg/L Total Protein 6.7 (6.4-8.9) g/dL Albumin 3.8 (3.2-5.2) g/dL Globulin 2.9 (2-4) g/dL Albumin/Globulin Ratio 1.3 (1-3) Beta HCG, Quant < 0.60 mIU/mL Result Diagrams: 03/14/17 13:45 03/14/17 13:45 Lab Statement: Any lab studies that have been ordered have been reviewed, and results considered in the medical decision making process. - CT CTA Chest/Thorax CT Interpretation Completed By: Radiologist - 1. NO EVIDENCE FOR PULMONARY EMBOLISM. 2. SMALL RIGHT LOWER LOBE INFILTRATE SUSPICIOUS FOR PNEUMONIA. Course/Dx - Course Course Of Treatment: Ms. Sewell presented with a concern that her pain had not resolved yet although she had taken her full course of antibiotics that she had been given here for pneumonia. She reported that her left leg had been swelliing and her pain was pleuritic so a CTA was obtained and negative for PE but showed that her infiltrate had not yet resolved. She was given pain medications and I suspect this should reolve in a few days. There is no evidence that the pneumonia is still active. - Diagnoses Provider Diagnoses: Chest pain Discharge - Discharge Plan Condition: Stable Disposition: HOME Prescriptions: HYDROcodone/ACETAMIN 5-325 MG* [[place] 5-325 TAB*] 1 tab PO Q6H PRN #20 tab MDD 4 PRN Reason: Pain Patient Education Materials: Pneumonitis (ED) Referrals: Santana Elias MD [Primary Care Provider] - 1 Week The documentation as recorded by the Jillian morgan Alfonso accurately reflects the service I personally performed and the decisions made by me, Melchor Maciel MD.
== END 2017-03-14 15:34 | disposition home or self-care (01) ==
LOC: ED 11:25
DX: R07.9 Chest pain, unspecified (principal); R60.9 Edema, unspecified; R06.02 Shortness of breath; R05 Cough; F17.210 Nicotine dependence, cigarettes, uncomplicated
CPT/HCPCS: 36415; 71275; 80053; 84702; 85025; 86140; 99283; J1885; Q9967

== ENCOUNTER 2017-03-21 08:20 | Emergency (ER) | payer OTHER ==
[2017-03-21] MEDS ORDERED: Ketorolac INJ* 60 MG/2 ML VIAL IM ONE (09:38)
--- NOTE | 2017-03-21 10:46 | RAD ---
INDICATION: Pain posterior left knee with swelling. COMPARISON: There are no prior studies available for comparison. TECHNIQUE: Multiple real-time, color flow and Doppler tracings of the left lower extremity were obtained. FINDINGS: The common femoral, femoral, profunda femoral and popliteal veins all demonstrate normal compressibility, augmentation with compression and phasic response with respiration. Examination of the calf veins was limited due to the patient's body habitus. The posterior tibial and peroneal veins demonstrate normal compressibility and augmentation with compression. There is a complex fluid collection within the popliteal fossa measuring 3.8 x 0.8 x 2.6 cm. IMPRESSION: 1. LIMITED EXAM OF THE CALVES, NO EVIDENCE FOR DEEP VENOUS THROMBOSIS. 2. POPLITEAL FOSSA CYST.
--- NOTE | 2017-03-21 11:56 | RAD ---
INDICATION: Pain out of proportion to physical exam, unable to ambulate. COMPARISON: Comparison is made with a prior x-ray study of the left knee from December 12, 2016. TECHNIQUE: Contiguous axial sections were obtained of the left knee. Images were reconstructed in the sagittal and coronal planes. FINDINGS: There is mild lateral subluxation of the patella. The bones are otherwise in normal alignment. No fracture is seen. There is a moderate joint effusion present. There is mild to moderate osteoarthritic change in the patellofemoral compartment and mild osteoarthritic change in the medial and lateral compartments. IMPRESSION: 1. JOINT EFFUSION, NO FRACTURE IS SEEN. IF THE PATIENT'S SYMPTOMS PERSIST CONSIDER MR IMAGING FOR FURTHER EVALUATION. 2. MILD TO MODERATE OSTEOARTHRITIC CHANGE. 3. MILD LATERAL SUBLUXATION OF THE PATELLA.
[2017-03-21 12:36] VITALS: BP 149/91
--- NOTE | 2017-03-21 13:19 | ED ---
Lower Extremity - HPI Summary HPI Summary: Patient presents with left knee pain and swelling worse in the posterior knee but also present in the anterior knee over the patella. Patient states the pain is 10/10 and she is unable to ambulate. She has been seen here multiple times for different issues with request with pain medication. She was ambulating on arrival without pain. She denies calf pain, thigh pain and is able to flex and extend fully at the knees bilaterally. She is tearful on exam. Denies radiation of the pain. Pain has been present for 2 days with worsening sxs. Denies other complaints at this time. - History of Current Complaint Chief Complaint: EDExtremityLower Stated Complaint: LT LEG PAIN/KNEE SWELLING Time Seen by Provider: 03/21/17 08:39 Hx Obtained From: Patient Hx Last Menstrual Period: hysterectomy Mechanism Of Injury: Unknown Onset of Pain: Days Onset/Duration: Days Severity Initially: Severe Severity Currently: Severe Pain Intensity: 8 Pain Scale Used: 0-10 Numeric Timing: Constant Location: Is Discrete @ - posterior and anterior knee without radiation Associated Signs And Symptoms: Positive: Swelling, Knee Pain Aggravating Factor(s): Standing, Ambulation, Movement, Weight Bearing, Stairs Alleviating Factor(s): Rest, Nothing Able to Bear Weight: No - Risk Factors Gout Risk Factors: Negative DVT Risk Factors: Negative Septic Arthritis Risk Factor: Negative - Allergies/Home Medications Allergies/Adverse Reactions: Allergies Allergy/AdvReac Type Severity Reaction Status Date / Time Adhesive Tape Allergy Mild Hives Verified 03/21/17 08:32 PMH/Surg Hx/FS Hx/Imm Hx Previously Healthy: Yes Endocrine/Hematology History: Denies: Hx Diabetes, Hx Thyroid Disease Cardiovascular History: Reports: Hx Hypercholesterolemia, Hx Hypertension, Other Cardiovascular Problems/Disorders - HIGH CHOLESTEROL Denies: Hx Congestive Heart Failure, Hx Pacemaker/ICD Respiratory History: Reports: Hx Asthma, Hx Sleep Apnea Denies: Hx Chronic Obstructive Pulmonary Disease (COPD) GI History: Reports: Hx Gastroesophageal Reflux Disease - panpranolol Denies: Hx Ulcer History: Reports: Hx Kidney Infection - NO RECENT, Hx Kidney Stones - NO KNOWN STONES NOW Denies: Hx Renal Disease Musculoskeletal History: Reports: Hx Tendonitis Denies: Hx Arthritis, Hx Osteoporosis Sensory History: Denies: Hx Contacts or Glasses, Hx Hearing Aid Opthamlomology History: Denies: Hx Contacts or Glasses Neurological History: Reports: Hx Headaches, Hx Migraine - WEEKLY OR 2 X WK, Other Neuro Impairments/Disorders - DEGENERATIVE DISK DX, NERVE DAMAGE IN NECK Psychiatric History: Reports: Hx Anxiety - RECENTLY STARTED ON MED DOING OK, Hx Depression - depression controlled by nortriptyline Denies: Hx Panic Disorder - Surgical History Surgery Procedure, Year, and Place: 1987 C SECTION [facility];. 1989 C SECTION AND BTL [facility];. hysterectomy. 2016 several moles removed from body Hx Anesthesia Reactions: No - Immunization History Date of Tetanus Vaccine: unk Hx Pertussis Vaccination: No Immunizations Up to Date: Unable to Obtain/Confirm Infectious Disease History: No Infectious Disease History: Denies: Hx Clostridium Difficile, Hx Hepatitis, Hx Human Immunodeficiency Virus (HIV), Hx of Known/Suspected MRSA, Hx Shingles, Hx Tuberculosis, Hx Known/ Suspected VRE, Hx Known/Suspected VRSA, History Other Infectious Disease, Traveled Outside the [place] in Last 30 Days - Family History Known Family History: Positive: Hypertension, Diabetes, Other - No FHx DVT - Social History Occupation: Unemployed Lives: With Family Alcohol Use: None Hx Substance Use: No Substance Use Type: Reports: None Hx Tobacco Use: Yes - 2 A DAY Smoking Status (MU): Light Every Day Tobacco Smoker Type: Cigarettes Amount Used/How Often: 2 cigs per day Length of Time of Smoking/Using Tobacco: >30 yrs Have You Smoked in the Last Year: Yes Review of Systems Constitutional: Negative Eyes: Negative Cardiovascular: Negative Respiratory: Negative Positive: no symptoms reported, see HPI Positive: Arthralgia, Myalgia Skin: Negative Neurological: Negative Psychological: Normal All Other Systems Reviewed And Are Negative: Yes Physical Exam Triage Information Reviewed: Yes Vital Signs On Initial Exam: Initial Vitals Temp Pulse Resp BP Pulse Ox 97.8 F 83 18 145/100 98 03/21/17 08:28 03/21/17 08:28 03/21/17 08:28 03/21/17 08:28 03/21/17 08:28 Vital Signs Reviewed: Yes Appearance: Positive: Well-Nourished, Ill-Appearing, Pain Distress Skin: Positive: Warm, Skin Color Reflects Adequate Perfusion Head/Face: Positive: Normal Head/Face Inspection Eyes: Positive: EOMI, ANALISA, Conjunctiva Clear Respiratory/Lung Sounds: Positive: Clear to Auscultation, Breath Sounds Present Cardiovascular: Positive: Normal, RRR, Pulses are Symmetrical in both Upper and Lower Extremities, Leg Edema Left - slight = +1 Musculoskeletal: Positive: Limited @ - knee flexion, Pain @ - posterior and anterior knee without radiation Neurological: Positive: Alert, Oriented to Person Place, Time Psychiatric: Positive: Normal AVPU Assessment: Verbal (Reponds To) Diagnostics - Vital Signs Vital Signs Temp Pulse Resp BP Pulse Ox 03/21/17 12:34 98.3 F 89 18 149/91 03/21/17 08:28 97.8 F 83 18 145/100 98 - Laboratory Lab Statement: Any lab studies that have been ordered have been reviewed, and results considered in the medical decision making process. - CT No standard instances CT Interpretation: Positive (See Comments) CT Interpretation Completed By: Radiologist - IMPRESSION: 1. JOINT EFFUSION, NO FRACTURE IS SEEN. IF THE PATIENT'S SYMPTOMS PERSIST CONSIDER MR IMAGING FOR FURTHER EVALUATION. 2. MILD TO MODERATE OSTEOARTHRITIC CHANGE. 3. MILD LATERAL SUBLUXATION OF THE PATELLA. - Ultrasound No standard instances Ultrasound Interpretation: Positive (See Comments) - IMPRESSION: 1. LIMITED EXAM OF THE CALVES, NO EVIDENCE FOR DEEP VENOUS THROMBOSIS. 2. POPLITEAL FOSSA CYST. Ultrasound Interpretation Completed By: Radiologist Lower Extremity Course/Dx - Course Course Of Treatment: Patient presents with anterior and posterior knee pain 10/ 10 x 2 days. She has been seen here mutliple times in the past 6 weeks with various complaints of pain. She is given toradol without relief. Offered tylenol and became agitated and declined. Knee immobilizer requested by patient as this is the only brace offered in the ED. Referral to Dr. Snyder given. Crutches for relief d/t non-ambulating status. Patient will follow up. IMPRESSION: 1. JOINT EFFUSION, NO FRACTURE IS SEEN. IF THE PATIENT'S SYMPTOMS PERSIST CONSIDER MR. IMAGING FOR FURTHER EVALUATION. 2. MILD TO MODERATE OSTEOARTHRITIC CHANGE. 3. MILD LATERAL SUBLUXATION OF THE PATELLA. IMPRESSION: 1. LIMITED EXAM OF THE CALVES, NO EVIDENCE FOR DEEP VENOUS THROMBOSIS. 2. POPLITEAL FOSSA CYST. - Diagnoses Differential Diagnosis/HQI/PQRI: Positive: Contusion, Fracture (Closed), Fracture (Open), Sprain, Strain Provider Diagnoses: Cantu's cyst of knee, Patellar subluxation Discharge - Discharge Plan Condition: Stable Disposition: HOME Patient Education Materials: Bakers Cyst (ED), Patellar Dislocation (ED), Knee Immobilizer (ED) Referrals: Santana Elias MD [Primary Care Provider] - Juaquin Mills MD [Medical Doctor] - Additional Instructions: Follow up with Dr. Mills's office Ibuprofen 600mg three times daily for pain and inflammation Knee immobilizer for comfort Crutches given I have given you information on popliteal cyst You are able to bear weight as tolerated Ice to the area x 2 days, then use moist heat
== END 2017-03-21 12:34 | disposition home or self-care (01) ==
LOC: ED 08:20
DX: M71.22 Synovial cyst of popliteal space [Baker], left knee (principal); S83.003A Unspecified subluxation of unspecified patella, initial encounter; F17.210 Nicotine dependence, cigarettes, uncomplicated; X58.XXXA Exposure to other specified factors, initial encounter; Y93.9 Activity, unspecified; Y92.9 Unspecified place or not applicable
CPT/HCPCS: 96372; 99282; J1885

== ENCOUNTER 2017-04-06 17:22 | Emergency (ER) | payer OTHER ==
[2017-04-06 17:26] VITALS: BP 135/86
--- NOTE | 2017-04-06 17:43 | UC ---
Respiratory Complaint HPI - HPI Summary HPI Summary: 46 yo female with a 2 day hx of cough/dyspnea and pain with deep inspiration had recent URI on antibiotic (can't remember name) ? DOXY no f/c - History of Current Complaint Chief Complaint: UCGeneralIllness Stated Complaint: SOB Time Seen by Provider: 04/06/17 17:43 Hx Obtained From: Patient Hx Last Menstrual Period: hysterectomy Onset/Duration: Gradual Onset, Lasting Days Timing: Constant Severity Initially: Mild Severity Currently: Mild Pain Intensity: 4 Pain Scale Used: 0-10 Numeric Character: Cough: Nonproductive Aggravating Factors: Deep Breaths Alleviating Factors: Bronchodilator Associated Signs And Symptoms: Positive: Wheezing - Allergies/Home Medications Allergies/Adverse Reactions: Allergies Allergy/AdvReac Type Severity Reaction Status Date / Time Adhesive Tape Allergy Mild Hives Verified 03/21/17 08:32 Home Medications: Home Medications Omeprazole CAP* [Prilosec CAP* 20 MG] 40 mg PO BID 04/06/17 [History Confirmed 04/06/17] Simvastatin [Zocor 40 MG (NF)] 40 mg PO DAILY 04/06/17 [History Confirmed ] PMH/Surg Hx/FS Hx/Imm Hx Endocrine History: Dyslipidemia Cardiovascular History: Hypertension Respiratory History: Asthma, Bronchitis GI/ History: Gastroesophageal Reflux - Surgical History Surgical History: Yes Surgery Procedure, Year, and Place: 1987 C SECTION [facility] ;. 1989 C SECTION AND [facility] ;. hysterectomy ;. 2016 several moles removed from body ; - Family History Known Family History: Positive: Hypertension, Diabetes, Other - No FHx DVT - Social History Alcohol Use: None Substance Use Type: None Smoking Status (MU): Current Every Day Smoker Type: Cigarettes Amount Used/How Often: 2 cigs per day Length of Time of Smoking/Using Tobacco: >30 yrs Have You Smoked in the Last Year: Yes Household Exposure Type: Cigarettes - Immunization History Most Recent Tetanus Shot: unknown Review of Systems Constitutional: Negative Skin: Negative Eyes: Negative ENT: Sore Throat Respiratory: Shortness Of Breath, Cough Cardiovascular: Negative Gastrointestinal: Negative Genitourinary: Negative Motor: Negative Neurovascular: Negative Musculoskeletal: Negative Neurological: Negative Psychological: Negative All Other Systems Reviewed And Are Negative: Yes Physical Exam Triage Information Reviewed: Yes Appearance: Well-Appearing, No Pain Distress, Well-Nourished Vital Signs: Initial Vital Signs Temp 97.2 F 04/06/17 17:23 Pulse 91 04/06/17 17:23 Resp 16 04/06/17 17:23 BP 135/86 04/06/17 17:23 Pulse Ox 97 04/06/17 17:23 Vital Signs Reviewed: Yes Eyes: Positive: Conjunctiva Clear ENT: Positive: Hearing grossly normal, Pharyngeal erythema, TMs normal. Negative: Nasal congestion, Nasal drainage, Tonsillar exudate, Trismus, Muffled/ hoarse voice Neck: Positive: Supple, Nontender, No Lymphadenopathy Respiratory: Positive: No respiratory distress, Wheezing - with forced expiration Cardiovascular: Positive: RRR, No Murmur Musculoskeletal: Positive: ROM Intact, No Edema Neurological: Positive: Alert Psychological Exam: Normal UC Diagnostic Evaluation - Laboratory O2 Sat by Pulse Oximetry: 97 - normal not hypoxic - Radiology Xray Interpretation: No Acute Changes Radiology Interpretation Completed By: Radiologist - EKG Cardiac Rhythm: Sinus: Normal Ectopy: None ST Segment: Normal Re-Evaluation - Re-Evaluation First Eval Re-Evaluation Time: 19:13 Change: Improved - no cp or sob, lungs CTA Respiratory Course/Dx - Differential Dx/Diagnosis Provider Diagnoses: bronchospasm. lumbar myosfacial strain/spasm Discharge - Discharge Plan Condition: Stable Disposition: HOME Prescriptions: Cyclobenzaprine TAB* [Flexeril TAB*] 5 mg PO TID PRN #15 tab PRN Reason: Spasms Prednisone [Deltasone] 40 mg PO DAILY #8 tab Patient Education Materials: Bronchospasm (ED), Back Pain (ED) Referrals: Santana Elias MD [Primary Care Provider] - 3 Days Additional Instructions: TO ER FOR NEW OR WORSENING SYMPTOMS Images Front/Back of Body, Lg (Stokes): 1 - BILAT PARASPINOUS MUSCLE TENDERNESS/SPASM, hurts to twist or bend
[2017-04-06] MEDS ORDERED: Albuterol 2.5 MG/3 ML NEB.SOL* (0.083%) INH ONE (17:49)
[2017-04-06] MEDS ORDERED: Ipratropium 0.5MG/2.5ML NEB* 0.5 MG/2.5 ML NEB.SOLN INH ONE (17:49)
--- NOTE | 2017-04-06 19:01 | RAD ---
HISTORY: Dyspnea COMPARISONS: March 04, 2017 VIEWS: 4: Frontal dual-energy and lateral views of the chest. FINDINGS: CARDIOMEDIASTINAL SILHOUETTE: The cardiomediastinal silhouette is normal. ANKIT: The ankit are normal. PLEURA: The costophrenic angles are sharp. No pleural abnormalities are noted. LUNG PARENCHYMA: The lungs are clear. ABDOMEN: The upper abdomen is clear. There is no subphrenic gas. BONES AND SOFT TISSUES: No bone or soft tissue abnormalities are noted. OTHER: None. IMPRESSION: NO ACTIVE CARDIOPULMONARY DISEASE.
[2017-04-06] MEDS ORDERED: Cyclobenzaprine TAB* 10 MG PO ONE (19:09)
== END 2017-04-06 19:36 | disposition home or self-care (01) ==
LOC: UCEAST 17:22
DX: J98.01 Acute bronchospasm (principal); S39.012A Strain of muscle, fascia and tendon of lower back, initial encounter; S33.5XXA Sprain of ligaments of lumbar spine, initial encounter; J45.909 Unspecified asthma, uncomplicated; J40 Bronchitis, not specified as acute or chronic; E78.5 Hyperlipidemia, unspecified; K21.9 Gastro-esophageal reflux disease without esophagitis; Z72.0 Tobacco use
CPT/HCPCS: 71020; 93005; 99213; A9270-GY; G0463; J7644

== ENCOUNTER 2017-04-24 18:03 | Emergency (ER) | payer OTHER ==
[2017-04-24] MEDS ORDERED: HYDROcodone/ACETAMIN 5-325 MG* 1 TAB PO ONE ×2 (21:18→23:00)
[2017-04-24] MEDS ORDERED: Ketorolac INJ* 60 MG/2 ML VIAL IM ONE (21:31)
[2017-04-24] MEDS ORDERED: Ketorolac INJ* 60 MG/2 ML VIAL ONE (21:32)
--- NOTE | 2017-04-24 23:41 | ED ---
Lower Extremity - HPI Summary HPI Summary: Pt here w/ Lt knee pain acute on chronic today. She reports difficulty with this knee for "a while now". Has been having pain radiating up into thigh and into calf from knee. This evening, knee twisted as it gave out on her - fell but not directly on knee. Pain is worse since. She reports intermittent " arely horses" in thigh on this side which she's been dealing with on/off. Last time she was here, tried norco 5/325 and a muscle relaxer w/o relief. Denies numbness, tingling, weakness in LE. Reports she had a Left knee MRI recently and is planning surgery for ??? (h/o dislocated knee?). Denies back pain or back issues. Is able to bear weight. - History of Current Complaint Chief Complaint: EDExtremityLower Stated Complaint: FALL/LT KNEE PAIN Time Seen by Provider: 04/24/17 20:15 Hx Obtained From: Patient Hx Last Menstrual Period: hysterectomy Pain Intensity: 10 - Allergies/Home Medications Allergies/Adverse Reactions: Allergies Allergy/AdvReac Type Severity Reaction Status Date / Time Adhesive Tape Allergy Mild Hives Verified 04/24/17 18:06 PMH/Surg Hx/FS Hx/Imm Hx Previously Healthy: Yes Endocrine/Hematology History: Denies: Hx Diabetes, Hx Thyroid Disease Cardiovascular History: Reports: Hx Hypercholesterolemia, Hx Hypertension, Other Cardiovascular Problems/Disorders - HIGH CHOLESTEROL Denies: Hx Congestive Heart Failure, Hx Pacemaker/ICD Respiratory History: Reports: Hx Asthma, Hx Sleep Apnea Denies: Hx Chronic Obstructive Pulmonary Disease (COPD) GI History: Reports: Hx Gastroesophageal Reflux Disease - panpranolol Denies: Hx Ulcer History: Reports: Hx Kidney Infection - NO RECENT, Hx Kidney Stones - NO KNOWN STONES NOW Denies: Hx Renal Disease Musculoskeletal History: Reports: Hx Tendonitis, Other Musculoskeletal History - Left knee problem Denies: Hx Arthritis, Hx Osteoporosis Sensory History: Denies: Hx Contacts or Glasses, Hx Hearing Aid Opthamlomology History: Denies: Hx Contacts or Glasses Neurological History: Reports: Hx Headaches, Hx Migraine - WEEKLY OR 2 X WK, Other Neuro Impairments/Disorders - DEGENERATIVE DISK DX, 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 1989 C SECTION AND [facility] ;. hysterectomy ;. 2016 several moles removed from body ; Hx Anesthesia Reactions: No - Immunization History Date of Tetanus Vaccine: unk Infectious Disease History: No Infectious Disease History: Denies: Hx Clostridium Difficile, Hx Hepatitis, Hx Human Immunodeficiency Virus (HIV), Hx of Known/Suspected MRSA, Hx Shingles, Hx Tuberculosis, Hx Known/ Suspected VRE, Hx Known/Suspected VRSA, History Other Infectious Disease, Traveled Outside the [place] in Last 30 Days - Family History Known Family History: Positive: Hypertension, Diabetes, Other - Social History Occupation: Unemployed Lives: With Family Alcohol Use: None Hx Substance Use: No Substance Use Type: Reports: None Hx Tobacco Use: Yes Smoking Status (MU): Current Every Day Smoker Type: Cigarettes Amount Used/How Often: 2 cigs per day Length of Time of Smoking/Using Tobacco: >30 yrs Have You Smoked in the Last Year: Yes Review of Systems Constitutional: Negative Negative: Fever, Chills, Fatigue Negative: incontinence Musculoskeletal: Other - see HPI Skin: Negative Neurological: Negative Positive: Anxious All Other Systems Reviewed And Are Negative: Yes Physical Exam Triage Information Reviewed: Yes Vital Signs On Initial Exam: Initial Vitals Temp Pulse Resp BP Pulse Ox 98.7 F 107 20 151/105 99 04/24/17 18:07 04/24/17 18:07 04/24/17 18:07 04/24/17 18:07 04/24/17 18:07 Vital Signs Reviewed: Yes Appearance: Positive: Well-Appearing, Pain Distress - mild to moderate, Obese Skin: Positive: Warm, Dry Eyes: Positive: Normal, EOMI, Conjunctiva Clear ENT: Positive: Hearing grossly normal Dental: Positive: Other - edentulous Respiratory/Lung Sounds: Positive: Breath Sounds Present Cardiovascular: Positive: Pulses are Symmetrical in both Upper and Lower Extremities. Negative: Leg Edema Left, Leg Edema Right Musculoskeletal: Positive: Strength/ROM Intact, Pain @ - pt reports internal pain of Lt knee - limited exam d/t pt pain Neurological: Positive: Normal, Sensory/Motor Intact, Alert, Oriented to Person Place, Time, CN Intact II-III Psychiatric: Positive: Anxious Diagnostics - Vital Signs Vital Signs Temp Pulse Resp BP Pulse Ox 04/24/17 20:52 98.9 F 70 16 113/62 99 04/24/17 18:07 98.7 F 107 20 151/105 99 - Laboratory Lab Statement: Any lab studies that have been ordered have been reviewed, and results considered in the medical decision making process. Re-Evaluation - Re-Evaluation First Eval Change: Unchanged - s/p toradol - will provide norco 10/650mg as this has worked in the past Lower Extremity Course/Dx - Course Course Of Treatment: Pt presents w/ Lt knee pain, acute on chronic after instability with twisting injury today. XR does not reveal acute pathology. Discussed pain control and need for using a stabilizing device to prevent future twisting/falling episodes until orthopedics can control her pathology. She reports she has crutches and a cane at home and plans on using them as needed- does not want anything more from here tonight. Agrees to contact PCP to discuss recent injury in the face of chronic pain. She will also touch base with her ortho. Advised to return to ED if she develops numbness, weakness or back pain/incontinence. - Diagnoses Provider Diagnoses: Left knee pain Discharge - Discharge Plan Condition: Stable Disposition: HOME Prescriptions: HYDROcodone/ACETAMIN 5-325 MG* [[place] 5-325 TAB*] 1 tab PO Q6H PRN #20 tab MDD 8 PRN Reason: Pain Patient Education Materials: Crutch Instructions (ED), Knee Pain (ED) Referrals: Alejandro Nicolas DO [Primary Care Provider] - Additional Instructions: Rest, ice, elevate No weight bearing until seen by orthopedics - call tomorrow to schedule follow- up in 1-2 weeks You may call your PCP tomorrow if pain persists for additional pain control
[2017-04-25] MEDS ORDERED: HYDROcodone/ACETAMIN 5-325 MG* 1 TAB PO ONE (00:10)
[2017-04-25 00:22] VITALS: BP 152/98
--- NOTE | 2017-04-25 07:59 | RAD ---
HISTORY: Left knee pain, trauma COMPARISONS: December 12, 2016 VIEWS: 4, Frontal, lateral, axial, and oblique views of the left knee FINDINGS: BONE DENSITY: Normal. BONES: There is no displaced fracture. JOINTS: Again noted is mild osteoarthritis. There is no suprapatellar joint effusion or lipohemarthrosis. ALIGNMENT: There is no dislocation. SOFT TISSUES: Unremarkable. OTHER FINDINGS: None. IMPRESSION: NO ACUTE OSSEOUS INJURY. IF SYMPTOMS PERSIST, RECOMMEND REPEAT IMAGING.
== END 2017-04-25 00:23 | disposition home or self-care (01) ==
LOC: ED 18:03
DX: M25.562 Pain in left knee (principal)
CPT/HCPCS: 96374; 96375; 99282; J1885

== ENCOUNTER 2017-07-09 17:10 | Emergency (ER) | payer OTHER ==
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
[2017-07-09] MEDS ORDERED: HYDROcodone/ACETAMIN 5-325 MG* 1 TAB PO ONE (19:22)
--- NOTE | 2017-07-09 19:43 | RAD ---
INDICATION: Left humerus injury COMPARISON: None TECHNIQUE: 2 views were obtained. FINDINGS: The bony structures, joint spaces, and soft tissues are normal for age. IMPRESSION: NEGATIVE EXAMINATION.
--- NOTE | 2017-07-09 19:44 | RAD ---
INDICATION: Left elbow injury COMPARISON: None TECHNIQUE: AP, lateral, and oblique views were obtained. FINDINGS: The bony structures, joint spaces, and soft tissues are normal for age. IMPRESSION: NEGATIVE EXAMINATION.
--- NOTE | 2017-07-09 19:45 | RAD ---
INDICATION: Left wrist injury COMPARISON: None TECHNIQUE: AP, lateral, and oblique views were obtained. FINDINGS: The bony structures, joint spaces, and soft tissues are normal for age. IMPRESSION: NO ACUTE BONY FINDINGS.
--- NOTE | 2017-07-09 19:45 | RAD ---
INDICATION: Left forearm injury COMPARISON: None TECHNIQUE: 2 views were obtained. FINDINGS: There is no acute fracture. There is mild soft tissue swelling over the mid forearm. IMPRESSION: NO ACUTE FRACTURE.
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
[2017-07-09] MEDS ORDERED: hydrOXYzine HCL TAB* 50 MG PO ONE (21:15)
[2017-07-09 21:32] VITALS: BP 128/82
== END 2017-07-09 21:31 | disposition home or self-care (01) ==
LOC: ED 17:10
DX: S09.90XA Unspecified injury of head, initial encounter (principal); S00.83XA Contusion of other part of head, initial encounter; S50.12XA Contusion of left forearm, initial encounter; K21.9 Gastro-esophageal reflux disease without esophagitis; F41.9 Anxiety disorder, unspecified; T74.11XA Adult physical abuse, confirmed, initial encounter; Y07.9 Unspecified perpetrator of maltreatment and neglect; Y04.2XXA Assault by strike against or bumped into by another person, initial encounter; E78.00 Pure hypercholesterolemia, unspecified
CPT/HCPCS: 70450; 70486; 99282; A9270-GY

== ENCOUNTER 2017-07-29 14:35 | Emergency (ER) | payer OTHER ==
[2017-07-29] MEDS ORDERED: Ketorolac INJ* 60 MG/2 ML VIAL IM ONE (14:57)
--- NOTE | 2017-07-29 15:21 | RAD ---
INDICATION: Right back pain. COMPARISON: CT abdomen pelvis February 04, 2017 TECHNIQUE: Noncontrast axial source images were acquired from the level hemidiaphragms to the symphysis pubis as part of CT imaging for renal stone. Lung bases: There is mild chronic airspace disease in right lung base. Liver: The liver is normal in size. Noncontrast imaging shows no evidence of a hepatic mass or ductal dilatation. Gallbladder: There are no calcified gallstones. There is no evidence of wall thickening or pericholecystic fluid.. Spleen: The spleen is normal in size. The noncontrast CT appearance is normal. Pancreas: Noncontrast imaging shows no pancreatic mass or ductal dilitation. Adrenal glands: No masses are identified. Kidneys/Bladder: There are multiple, tiny, nonobstructive renal calculi bilaterally. There are no ureteral calculi. There are no obstructive findings. There are no bladder calculi. Adenopathy: There is no evidence of intraperitoneal or retroperitoneal adenopathy. Evaluation is limited without oral contrast. Fluid collections: There are no free or localized fluid collections. Vessels: The aorta and iliac vessels are normal in caliber. There are no significant atherosclerotic changes. The IVC appears normal Pelvic organs: There is a partial hysterectomy with presumed remaining cervical stump. The appearance is unchanged. GI tract: Evaluation of the bowel is limited without oral contrast. The stomach, small bowel, and lower GI tract appear grossly normal. There are no obstructive findings. The appendix is visualized and appears normal. Soft tissues: No soft tissue abnormalities of the extraperitoneal abdomen or pelvis are identified. Osseous structures: There are no acute osseous findings. IMPRESSION: TINY NONOBSTRUCTIVE RENAL CALCULI ARE NOTED BILATERALLY.
[2017-07-29] MEDS ORDERED: Ketorolac INJ* 30 MG/ML 1 ML VIAL IV PUSH ONE (15:28)
[2017-07-29 15:34] LABS: Hematocrit 40 % (35-47); Hemoglobin 12.9 g/dl (12.0-16.0); Mean Corpuscular HGB Conc 32 g/dl (31-36); Mean Corpuscular Hemoglobin 28 pg (27-31); Mean Corpuscular Volume 87 fL (80-97); Mean Platelet Volume 9 um3 (7.4-10.4); Red Blood Count 4.55 10^6/ul (4.0-5.4); Red Cell Distribution Width 14 % (10.5-15); White Blood Count 11.7 10^3/ul (3.5-10.8)
[2017-07-29 15:37] LABS: Urine Bacteria Absent (Absent); Urine Bilirubin Negative (Negative); Urine Glucose Negative (Negative); Urine Nitrite Negative (Negative)
[2017-07-29 15:52] LABS: ALT 11 U/L (7-52); AST 13 U/L (13-39); Albumin 3.8 g/dL (3.2-5.2); Alkaline Phosphatase 54 U/L (34-104); Anion Gap 6 mmol/L (2-11); BUN/Creatinine Ratio 15.7 (8-20); Blood Urea Nitrogen 14 mg/dL (6-24); CO2 Carbon Dioxide 23 mmol/L (22-32); Calcium 9.2 mg/dL (8.6-10.3); Chloride 107 mmol/L (101-111); EGFR African American 87.1 (>60); EGFR Non-African American 67.7 (>60); Glucose 101 mg/dL (70-100); Lipase 29 U/L (11.0-82.0); Potassium 3.8 mmol/L (3.5-5.0); Sodium 136 mmol/L (133-145); Total Protein 6.8 g/dL (6.4-8.9)
[2017-07-29] MEDS ORDERED: Levofloxacin TAB* 500 MG PO ONE (17:18)
[2017-07-29] MEDS ORDERED: traMADol TAB* 50 MG PO ONE (17:18)
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
[2017-07-29 18:25] VITALS: BP 136/83
== END 2017-07-29 18:25 | disposition home or self-care (01) ==
LOC: ED 14:35
DX: R10.9 Unspecified abdominal pain (principal); R10.30 Lower abdominal pain, unspecified; F17.210 Nicotine dependence, cigarettes, uncomplicated
CPT/HCPCS: 36415; 74176; 80053; 81003; 81015; 83690; 84702; 85025; 87086; 96372; 96374; 99283; A9270-GY; J1885

== ENCOUNTER → 2017-09-30 12:49 | Emergency (ER) | payer OTHER ==
[2017-09-30 13:29] VITALS: BP 142/92
== END | disposition left against medical advice (07) ==
LOC: ED 12:49
DX: M25.562 Pain in left knee (principal); Z53.21 Procedure and treatment not carried out due to patient leaving prior to being seen by health care provider

== ENCOUNTER 2017-10-25 12:52 | Emergency (ER) | payer OTHER ==
--- OUTSIDE RECORDS SUMMARY | 2017-10-25 13:11 | XMS REPORT ---
:1970 External Reference #:[id number] Author Organization [facility] Address [address] [address] Phone [phone] Care Team Providers Name Role Phone Alejandro Nicolas DO Care Team Information Arson Investigator Unavailable Alejandro Nicolas DO Primary Care Physician Unavailable Payers Type Date Identification Numbers Payment Provider Subscriber Commercial Effective: Policy Number: Gael Sewell 2014 [id number] Group Name: [id number] [address] PayID: [id number] [place] [address] Commercial Effective: Policy Number: Kenyon/Maulik Sewell 2013 [id number] Medicaid Expires: 2014 PayID: [id number] [address] [address] [place] [address] [employer] Expires: 2013 Policy Number: [id number] Medicaid Viky Sewell Group Name: 1 1 [address] PayID: [id number] [place] [address] Commercial Effective: Policy Number: Kenyon/Maulik Sewell 2005 [id number] Medicaid Expires: 2009 PayID: [id number] [address] [address] [place] [address] Problems Date Description Provider Status Onset: 04/08/2013 Depressive disorder Lakhwinder William M.D. Active Onset: 04/08/2013 Disorder of lumbar disc Lakhwinder William M.D. Active Onset: 04/08/2013 Cervical disc disorder Lakhwinder William M.D. Active Onset: 07/15/2015 Dizziness Sameer Sauceda M.D. Active Onset: 07/15/2015 Headache Sameer Sauceda M.D. 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 Onset: 12/10/2015 Benign paroxysmal positional vertigo Jerri Luu MD Active Family History Date Family Member(s) Problem(s) Comments General Diabetes General Hypertension General Cancer Father 70 as of 02/25/2013 Father Lung Cancer : (age 64 Father due to Lung cancer Years) : (age 63 Mother due to Stroke Years) Mother HTN Mother DM Mother Stroke due to Social History Type Date Description Comments Marital Status Single Lives With Boyfriend Occupation Unemployed Cigarette Use current cigarette smoker 1/2 pk a day for 20 + yrs ETOH Use Denies alcohol use Smoking Patient is a current smoker, smokes every day Recreational Drug Use Denies Drug Use Daily Caffeine Consumes on average 2 cups of regular coffee per day Exercise Type/Frequency Walks daily Allergies, Adverse Reactions, Alerts Date Description Reaction Status Severity Comments 02/25/2013 Nicoderm Patch rash active Medications Medication Date Status Form Strength Qnty SIG Indications Ordering Provider Tizanidine HCL 10/18 Active Capsules 2mg 42cap 1 or 2 cap M54.6 s by mouth as Johan, needed at M.D. night for spasms Heating Pad Dry 09/15 Active Pads 1 1unit apply to G43.719 Jerri s back of neck MD Bell for headache Lisinopril Active Tablets 10mg daily Unknown Simvastatin Active Tablets 20mg 1 tab qhs Unknown / Propranolol HCL Active Tablets 40mg Unknown / Vitamin D-3 Active Tablets 5000Unit Unknown Prednisone Active Tablets 1mg 1 by mouth Unknown every day Trazodone HCL Active Tablets 100mg Unknown / Fluoxetine HCL Active Capsules 40mg 1 by mouth Unknown every day Pantoprazole Active Tablets 40mg [address] every day Metoprolol Active Tablets 50mg 1 by mouth Unknown Tar /0000 twice a day Oxycodone-Acetam 08/30 Hx Tablets 5-325mg 20tab 1 tab by Marnie inophen s mouth every B. - 4- 6 hours [place], 10/18 as needed Hydrocodone-Acet 07/31 Hx Tablets 5-325mg 12tab 1 tab by Marnie aminophen s mouth every B. 6 hours as [place], needed for STEREOPTICIAN pain Colace 11/10 Hx Capsules 100mg 60cap 1 cap by K59.09 David s mouth twice Twyla Julio, a day M.DGustavo,FACP Rid Complete 11/05 Hx Kit 1unit topical Nakul Lice Elimination s shampoo as BINTA Wilder directed Venlafaxine HCL 08/25 Hx Caps ER 75mg 30cap 1 by mouth F32.8 Sameer IVEY 24HR s every day Danny Sauceda M.D. 09/15 Propranolol HCL 08/18 Hx Caps ER 60mg 120ca take 3 by David 24HR ps mouth at Twyla Julio, - night for 1 M.DGustavo,FACP 12/09 week, increase to 4 by mouth at night as long as tolerated. Medrol (Bulmaro) 07/23 Hx Tablets 4mg 1pack No longer G44.40 Jerri taking. Take MD Bell - according to 08/26 instructions starting with 24mg/day and tapering over 6 days Sumatriptan 07/19 Hx Tablets 50mg 6tabs take 1 Sameer Succinate tablet by Danny Sauceda, MGustavoDGustavo 08/25 anothet tablet can be repeated after 2 hours, max dose; 2 tablet/day Naproxen 07/15 Hx Tablets 500mg 60tab Take 1 G44.011 David s Tablet By Twyla Julio, Mouth Two M.D.,FACP Times Daily With Foods as Needed For Pain Cyclobenzaprine 07/15 Hx Tablets 5mg 60tab Take 1 G44.011 Nakul HCL s Tablet By BINTA Wilder - Mouth Three 10/18 Times Daily as Needed Bupropion HCL XL 04/08 Hx Tablets 150mg 30tab once daily 311 Lakhwinder /2012 ER 24HR s Danny Delgadillo M.D. 07/15 Escitalopram 02/25 Hx Tablets 10mg 30tab 1 po qd Gege Danny Lezama M.D. 04/08 Omeprazole 02/25 Hx Capsules 20mg 90cap 1 po qd 530.81 Danny Jeong M.D. 07/15 Percocet 11/22 Hx Tablets 5-325mg 40tab 1 po q4h prn Johnny . Danny Holman M.D. 02/25 Robaxin-750 06/16 Hx Tablets 750mg 40tab 1-[address] [facility] Danny Holman M.D. 12/03 Oxycontin Hx Tablets 10mg 60tab 1 po bid Unknown /0000 ER 12HR s - 04/08 Oxycodone HCL Hx Tablets 10mg 21tab 1 tab po tid Lakhwinder /0000 Danny Knight M.D. 07/15 Prilosec Hx Capsules 40mg 90cap 1 po qd Unknown /0000 DR jackeline Delgado 03/27 Tramadol HCL Hx Tablets 50mg 1 tablet Unknown /0000 every 6 - hours as 07/15 needed Butalbital-Apap- Hx Capsules 50-325-40 1 tab oral Unknown Caffeine /0000 mg [id number] as - needed for 07/22 headache Meclizine HCL Hx Tablets 25mg 1 tablet Unknown /0000 every 6 - hours as 07/15 needed for vertigo Oxybutynin Hx Tablets 10mg 30tab 1 by mouth David Chloride ER /0000 ER 24HR s every day Danny Shabazz M.D.,FACP 12/09 Nortriptyline Hx Capsules 75mg 2 tab by Unknown HCL /0000 mouth every - night at 08/25 bedtime Gabapentin Hx Tablets 600mg 150ta 1 tab three David /0000 bs times a day Twyla Julio, and 2 tabs Jennifer,FACP every night at bedtime Nortriptyline Hx Capsules 75mg 60cap 2 tablets at David HCL /0000 s bedtime Danny Shabazz M.D.,FACP 12/09 Omeprazole Hx Capsules 40mg 60cap Take 1 David / DR s Capsule By Twyla Julio, Mouth Two MRobin,FACP Times Daily Amitriptyline Hx Tablets 25mg 3 tabs qhs Unknown HCL / Protonix Hx Tablets 40mg 1 tab daily Unknown / DR - 10/[address] 30mg takes 30mg Unknown / Part plus 60mg - daily 10/18 Spiriva Respimat Hx Aerosol 1.25mcg/A 2 Puffs Unknown / ct Daily - 10/18 Advair Diskus Hx Aerosol 500-50mcg 1 puff bid Unknown / /Dose - 10/18 Proventil HFA Hx Aerosol 108(90Bas 2 Puffs Q4H Unknown / e) prn - mcg/Act 10/18 Miralax Hx Powder 3350NF 17GM Daily Unknown / Omeprazole Hx Capsules 40mg 1 by mouth Unknown / DR twice daily - 10/18 Medications Administered in Office Medication Date Status Form Strength Qnty SIG Indications Ordering Provider Triamcinolone Injection Blaire (Kenalog) 2016 REINALDO Gill Vital Signs Date Vital Result Comment 10/18/2017 Height 66 inches 5'6" Weight 272.25 lb Heart Rate 59 /min BP Systolic Sitting 131 mmHg BP Diastolic Sitting 82 mmHg Respiratory Rate 14 /min Pain Level 10 BMI (Body Mass Index) 43.9 kg/m2 04/16/2017 Height 66 inches 5'6" Weight 273.00 lb Heart Rate 72 /min BP Systolic 140 mmHg BP Diastolic 72 mmHg Respiratory Rate 18 /min Body Temperature 97.7 F Pain Level 9 BMI (Body Mass Index) 44.1 kg/m2 03/22/2017 Height 66 inches 5'6" Weight 273.00 lb Heart Rate 72 /min BP Systolic 140 mmHg BP Diastolic 108 mmHg Body Temperature 97.5 F Pain Level 10 BMI (Body Mass Index) 44.1 kg/m2 09/08/2016 Heart Rate 84 /min BP Systolic 128 mmHg BP Diastolic 88 mmHg Respiratory Rate 18 /min Body Temperature 97.3 F 08/14/2016 Heart Rate 84 /min Respiratory Rate 18 /min Body Temperature 97.9 F 07/31/2016 Heart Rate 80 /min BP Systolic 122 mmHg BP Diastolic 80 mmHg Respiratory Rate 18 /min Body Temperature 99.0 F 12/10/2015 Height 65 inches 5'5" Weight 260.00 lb Heart Rate 76 /min BP Systolic Sitting 128 mmHg BP Diastolic Sitting 90 mmHg Respiratory Rate 14 /min BMI (Body Mass Index) 43.3 kg/m2 11/10/2015 Height 65 inches 5'5" Weight 282.25 lb Heart Rate 70 /min BP Systolic Sitting 130 mmHg BP Diastolic Sitting 98 mmHg Body Temperature 98.4 F O2 % BldC Oximetry 98 % BMI (Body Mass Index) 47.0 kg/m2 09/15/2015 Height 65 inches 5'5" Weight 265.00 lb Heart Rate 60 /min BP Systolic Sitting 130 mmHg BP Diastolic Sitting 86 mmHg Respiratory Rate 14 /min BMI (Body Mass Index) 44.1 kg/m2 08/25/2015 Height 65 inches 5'5" Weight 279.38 lb Heart Rate 84 /min BP Systolic Sitting 138 mmHg BP Diastolic Sitting 102 mmHg Body Temperature 97.9 F O2 % BldC Oximetry 98 % BMI (Body Mass Index) 46.5 kg/m2 07/29/2015 Height 65 inches 5'5" Weight 267.38 lb Heart Rate 108 /min BP Systolic Sitting 132 mmHg L arm BP Diastolic Sitting 94 mmHg L arm Respiratory Rate 14 /min Body Temperature 98.9 F tympanic Pain Level 10 O2 % BldC Oximetry 95 % Ra BMI (Body Mass Index) 44.5 kg/m2 07/23/2015 Height 65 inches 5'5" Weight 266.00 lb Heart Rate 76 /min BP Systolic Sitting 130 mmHg BP Diastolic Sitting 80 mmHg Respiratory Rate 16 /min BMI (Body Mass Index) 44.3 kg/m2 07/15/2015 Height 65 inches 5'5" Weight 269.00 lb Heart Rate 88 /min BP Systolic Sitting 144 mmHg BP Diastolic Sitting 96 mmHg Body Temperature 98.9 F O2 % BldC Oximetry 97 % BMI (Body Mass Index) 44.8 kg/m2 04/08/2013 Weight 267.00 lb BP Systolic Sitting 152 mmHg BP Diastolic Sitting 98 mmHg 03/27/2013 Weight 267.25 lb Heart Rate 71 /min BP Systolic Sitting 137 mmHg BP Diastolic Sitting 98 mmHg 02/25/2013 Height 65.5 inches 5'5.50" Weight 264.75 lb Heart Rate 69 /min BP Systolic Sitting 126 mmHg BP Diastolic Sitting 86 mmHg BMI (Body Mass Index) 43.4 kg/m2 12/03/2009 Height 65.75 inches 5'5.75" Weight 296.00 lb Heart Rate 98 /min BP Systolic Sitting 146 mmHg BP Diastolic Sitting 86 mmHg BMI (Body Mass Index) 48.1 kg/m2 Results Test Date Test Result H/L Range Note Laboratory test 09/01/2016 Surgical Pathology SEE RESULT BELOW 1 finding Laboratory test 08/04/2016 Surgical Pathology SEE RESULT BELOW 2 finding Comp Metabolic Panel 12/13/2015 Sodium 137 mmol/L 133-145 Potassium 4.2 mmol/L 3.5-5.0 Chloride 107 mmol/L 101-111 Co2 Carbon Dioxide 25 mmol/L 22-32 Anion Gap 5 mmol/L 2-11 Glucose 95 mg/dL 70-100 Blood Urea Nitrogen 9 mg/dL 6-24 Creatinine 0.92 mg/dL 0.51-0.95 BUN/Creatinine Ratio 9.8 8-20 Calcium 9.1 mg/dL 8.6-10.3 Total Protein 5.8 g/dL Low 6.4-8.9 Albumin 3.7 g/dL 3.2-5.2 Globulin 2.1 g/dL 2-4 Albumin/Globulin Ratio 1.8 1-3 Total Bilirubin 0.20 mg/dL 0.2-1.0 Alkaline Phosphatase 56 U/L 34-104 Alt 11 U/L 7-52 Ast 12 U/L Low 13-39 Egfr Non- 65.4 >60 Egfr 84.1 >60 3 CBC Auto Diff 12/13/2015 White Blood Count 8.4 10^3/uL 3.5-10.8 Red Blood Count 4.52 10^6/uL 4.0-5.4 Hemoglobin 13.5 g/dL 12.0-16.0 Hematocrit 41 % 35-47 Mean Corpuscular Volume 90 fL 80-97 Mean Corpuscular Hemoglobin 30 pg 27-31 Mean Corpuscular HGB Conc 33 g/dL 31-36 Red Cell Distribution Width 13 % 10.5-15 Platelet Count 262 10^3/uL 150-450 Mean Platelet Volume 10 um3 7.4-10.4 Abs Neutrophils 5.3 10^3/uL 1.5-7.7 Abs Lymphocytes 2.0 10^3/uL 1.0-4.8 Abs Monocytes 0.7 10^3/uL 0-0.8 Abs Eosinophils 0.2 10^3/uL 0-0.6 Abs Basophils 0.1 10^3/uL 0-0.2 Abs Nucleated RBC 0.01 10^3/uL Granulocyte % 63.8 % 38-83 Lymphocyte % 23.7 % Low 25-47 Monocyte % 8.8 % 1-9 Eosinophil % 2.9 % 0-6 Basophil % 0.8 % 0-2 Nucleated Red Blood Cells % 0.1 Laboratory test finding 08/10/2015 Cytology Non-Item Repair Manager SEE RESULT BELOW 4 CSF Cell Count 08/10/2015 Body Fluid Neutrophils 2 5 Body Fluid Lymph 2 5 Body Fluid Mcmullen 2 5 Body Fluid Total Cells Counted 2 5 Body Fluid Appearance Clear 5 Body Fluid Color Colorless 5 CSF Tube # 4 5 Body Fluid Volume 5 mL 5 Body Fluid WBC 0 5 Body Fluid RBC 19 5 Fluid Reviewed By MD (SEE NOTE) 5, 6 Laboratory test finding 08/10/2015 CSF Glucose 66 mg/dL 40-70 5, 7 CSF Protein 22 mg/dL 15-45 5, 8 CSF Culture & Gram Stain SEE RESULT BELOW 5, 9 Laboratory test finding 07/17/2015 TSH (Thyroid Stim Horm) 1.69 ?IU/mL 0.34-5.60 10 Lipid Profile 07/17/2015 Triglycerides 212 mg/dL 11 (Trig/Chol/HDL) Cholesterol 197 mg/dL 12 HDL Cholesterol 31.4 mg/dL 13 LDL Cholesterol 123 mg/dL 14 Comp Metabolic Panel 07/17/2015 Sodium 139 mmol/L 133-145 Potassium 4.3 mmol/L 3.5-5.0 Chloride 106 mmol/L 101-111 Co2 Carbon Dioxide 24 mmol/L 22-32 Anion Gap 9 mmol/L 2-11 Glucose 87 mg/dL 70-100 Blood Urea Nitrogen 15 mg/dL 6-24 Creatinine 0.92 mg/dL 0.51-0.95 BUN/Creatinine Ratio 16.3 8-20 Calcium 9.6 mg/dL 8.6-10.3 Total Protein 6.6 g/dL 6.4-8.9 Albumin 4.0 g/dL 3.2-5.2 Globulin 2.6 g/dL 2-4 Albumin/Globulin Ratio 1.5 1-3 Total Bilirubin 0.30 mg/dL 0.2-1.0 Alkaline Phosphatase 54 U/L 34-104 Alt 10 U/L 7-52 Ast 13 U/L 13-39 Egfr Non- 65.7 >60 Egfr 84.5 >60 15 CBC Auto Diff 07/17/2015 White Blood Count 9.5 10^3/uL 4.8-10.8 Red Blood Count 4.65 10^6/uL 4.0-5.4 Hemoglobin 14.0 g/dL 12.0-16.0 Hematocrit 42 % 35-47 Mean Corpuscular Volume 91 fL 80-97 Mean Corpuscular Hemoglobin 30 pg 27-31 Mean Corpuscular HGB Conc 33 g/dL 31-36 Red Cell Distribution Width 14 % 10.5-15 Platelet Count 240 10^3/uL 150-450 Mean Platelet Volume 9 um3 7.4-10.4 Abs Neutrophils 6.5 10^3/uL 1.5-7.7 Abs Lymphocytes 2.1 10^3/uL 1.0-4.8 Abs Monocytes 0.6 10^3/uL 0-0.8 Abs Eosinophils 0.3 10^3/uL 0-0.6 Abs Basophils 0.1 10^3/uL 0-0.2 Abs Nucleated RBC 0.01 10^3/uL Granulocyte % 67.8 % 38-83 Lymphocyte % 22.3 % Low 25-47 Monocyte % 6.6 % 1-9 Eosinophil % 2.7 % 0-6 Basophil % 0.6 % 0-2 Nucleated Red Blood Cells % 0.1 Laboratory test finding 07/17/2015 Erythrocyte Sed Rate 26 mm/Hr High 0- 14 Comp Metabolic Panel 05/18/2013 Sodium 139 mmol/L 133-145 Potassium 4.0 mmol/L 3.5-5.0 Chloride 108 mmol/L 101-111 Co2 Carbon Dioxide 23.0 mmol/L 22-32 Anion Gap 8.0 mmol/L 2-11 Glucose 117 mg/dL High 70-100 Blood Urea Nitrogen 14 mg/dL 6-24 Creatinine 0.80 mg/dL 0.50-1.40 BUN/Creatinine Ratio 17.5 8-20 Calcium 9.5 mg/dL 8.1-9.9 Total Protein 7.4 g/dL 6.2-8.1 Albumin 4.0 g/dL 3.6-5.4 Globulin 3.4 g/dL 2-4 Albumin/Globulin Ratio 1.2 1-3 Total Bilirubin 0.4 mg/dL 0.4-1.5 Alkaline Phosphatase 61 U/L 30-110 Alt 17 U/L 14-54 Ast 17 U/L 12-42 Egfr Non- 77.9 >60 Egfr 100.2 >60 16 Laboratory test finding 05/18/2013 Ammonia 17 umol/L 9-35 CBC Auto Diff 05/18/2013 White Blood Count 12.3 10^3/uL High 4.8-10.8 Red Blood Count 4.85 10^6/uL 4.0-5.4 Hemoglobin 13.8 g/dL 12.0-16.0 Hematocrit 43 % 35-47 Mean Corpuscular Volume 89 fL 80-97 Mean Corpuscular Hemoglobin 29 pg 27-31 Mean Corpuscular HGB Conc 32 g/dL 31-36 Red Cell Distribution Width 14 % 10.5-15 Platelet Count 281 10^3/uL 150-450 Mean Platelet Volume 9 um3 7.4-10.4 Abs Neutrophils 8.7 10^3/uL High 1.5-7.7 Abs Lymphocytes 2.4 10^3/uL 1.0-4.8 Abs Monocytes 0.8 10^3/uL 0-0.8 Abs Eosinophils 0.2 10^3/uL 0-0.6 Abs Basophils 0.1 10^3/uL 0-0.2 Abs Nucleated RBC 0 10^3/uL Granulocyte % 70.9 % 38-83 Lymphocyte % 19.5 % Low 25-47 Monocyte % 6.8 % 1-9 Eosinophil % 1.6 % 0-6 Basophil % 1.2 % 0-2 Nucleated Red Blood Cells % 0 Laboratory test finding 05/18/2013 Lipase 29 U/L 22-51 C Reactive Protein 1.6 mg/dL High Less than 0.5 Urinalysis 05/18/2013 Urine Color Yellow Urine Appearance Clear Urine Specific [place] 1.022 1.010-1.030 Urine Esterase Negative Negative Urine Nitrate Negative Negative Urine Urobilinogen Negative E.U./dL Negative Urine Protein Negative mg/dL Negative Urine pH 5.0 5-9 Urine Blood Negative Negative Urine Ketones Negative mg/dL Negative Urine Bilirubin Negative Negative Urine Glucose Negative mg/dL Negative Drug Abuse 20 Urine 04/08/2013 Urine Amphetamine Negative ng/mL 17 Urine Barbiturates Negative ng/mL 18 Urine Benzodiazepines Negative ng/mL 19 Urine Cocaine Negative ng/mL 20 Urine Methadone Negative ng/mL 21 Urine Opiates Negative ng/mL 22 Urine Phencyclidine Negative ng/mL Cutoff: 25 Urine Propoxyphene Negative ng/mL 23 Urine Tetrahydrocannabinol Negative ng/mL Cutoff: 20 24 Creatinine 186.9 mg/dL Specific [place] 1.022 pH 5.0 Oxidants Negative 25 Urine Opiates Screen Negative 26 Urine Codeine Confirmation Negative ng/mL 27 Urine Hydrocodone Confirm Negative ng/mL 28 Urine Hydromorphone Confirm Negative ng/mL 29 Urine Morphine Confirm Negative ng/mL 30 Urine Oxycodone Confirm Negative ng/mL 31 Urine Opiates Interpretation Negative. 32 1 SEE RESULT BELOW Name: VIKY SEWELL : [address]: Gisell Garvey MD Acct: [id number] Unit: [id number] AGE: 45 Location: OR Re09/01/16 SEX: F Status: REG [facility] SPEC: [id number] CADE: 09/01/16- [facility] DR: Gisell Garvey MD REQ: [id number] RECD: 09/01/161032 STATUS: SOUT _ ORDERED: LEVEL III FINAL DIAGNOSIS Soft tissue, back, excisions -- Lipoma(ta). PRE-OPERATIVE DIAGNOSIS Benign lipomas/neoplasms of skin. GROSS DESCRIPTION The specimen is received in formalin labeled, Multiple Lipomata from Back, and consists of a 4.5 x 4.3 x 1.1 cm aggregate of yellow-pink irregular focally encapsulated adipose tissue fragments. The cut surface consists of glistening yellow lobulated adipose tissue. Student Officer sections, one cassette. Signed (signature on file) Garrison Harrison MD 1340 END OF REPORT * ML=Testing performed at Main Lab DEPARTMENT OF PATHOLOGY, [address] [place] [address] Garrison Harrison M.D. Director [facility] # [id number] 2 SEE RESULT BELOW Name: VIKY SEWELL Cyril : [address]: Gisell Garvey MD Acct: [id number] Unit: [id number] AGE: 45 Location: OR Re08/04/16 SEX: F Status: REG [facility] SPEC: [id number] CADE: 08/04/16- SUBM DR: Gisell Garvey MD REQ: [id number] RECD: 08/04/161146 STATUS: SOUT _ ORDERED: LEVEL III/4, LEVEL IV FINAL DIAGNOSIS 1. Breast, right, excision: -- Benign lobulated adipose tissue compatible with lipoma. -- No breast parenchyma identified. 2. Soft tissue, right forearm, excision: -- Angiolipoma. 3. Soft tissue, left upper arm mass, excision: -- Angiolipoma. 4. Soft tissue, left forearm mass, excision: -- Angiolipoma. 5. Skin, scalp, excision: -- Pilar cyst. PRE-OPERATIVE DIAGNOSIS Right breast masses, left arm mass x2, right arm mass, sebaceous cyst of scalp. GROSS DESCRIPTION 1. The specimen is received in formalin labeled, Right Breast Mass, and consists of a 6.0 x 2.8 x 1.8 cm aggregate of speckled [id number] lobulated adipose tissue , which is inked, serially sectioned and medical office representative sections are submitted in two cassettes. 2. The specimen is received in formalin labeled, Mass Right Forearm, and consists of three landrum-pink to yellow lobulated adipose tissue fragments measuring 1.0 x 0.6 x 0.3 cm, 1.5 x 1.0 x 0.3 cm and 1.5 x 1.3 x 0.5 cm, which are differentially inked and serially sectioned and entirely submitted in two cassettes. CONTINUED ON NEXT PAGE * ML=Testing performed at Main Lab DEPARTMENT OF PATHOLOGY, [address] [place] [address] Garrison Harrison M.D. Director [facility] # [id number] RUN DATE: 08/07/16 [facility] LAB LIVE PAGE 2 Patient: VIKY SEWELL [id number] (Continued) GROSS DESCRIPTION (Continued) GROSS DESCRIPTION (Continued) 3. The specimen is received in formalin labeled, Left Upper Arm Mass, and consists of a 3.2 x 2.5 x 1.1 cm aggregate of yellow-pink lobulated adipose tissue, which is inked, serially sectioned and medical office representative sections are submitted in two cassettes. 4. The specimen is received in formalin labeled, Left Forearm Mass, consists of a 1.5 x 1.0 x 0.5 cm landrum-pink rubbery soft tissue fragment, which is inked, serially sectioned and entirely submitted in one cassette. 5. The specimen is received in formalin labeled, Scalp Lesion, and consists of a 1.5 x 1.1 x 0.8 cm rubbery marbled yellow-white fragment with adherent 1.4 x 0.2 X 0.2 cm landrum-white skin ellipse. Deep to the skin attachment is a 0.6 x 0.5 cm opening. The cut surface reveals a previously disrupted unilocular cystic structure with friable yellow-pink residual debris. The specimen is inked, serially sectioned and entirely submitted in one cassette. Signed (signature on file) Garrison Harrison MD 1311 END OF REPORT * ML=Testing performed at Main Lab DEPARTMENT OF PATHOLOGY, [address] [place] [address] Garrison Harrison M.D. Director [facility] # [id number] 3 Because ethnic data is not always readily available, this report includes an eGFR for both -Americans and non- Americans. The National Kidney Disease Education Program (NKDEP) does not endorse the use of the MDRD equation for patients that are not between the ages of 18 and 70, are , have extremes of body size, muscle mass, or nutritional status, or are non- or non-. According to the National Kidney Foundation, irrespective of diagnosis, the stage of the disease is based on the level of kidney function: Stage Description GFR(mL/min/1.73 m(2)) 1 Kidney damage with normal or decreased GFR 90 2 Kidney damage with mild decrease in GFR 60-89 3 Moderate decrease in GFR 30-59 4 Severe decrease in GFR 15-29 5 Kidney failure <15 (or dialysis) 4 SEE RESULT BELOW Name: VIKY SEWELL : [address]: Yazmin Alexander MD Acct: [id number] Unit: [id number] AGE: 44 Location: PAIN Re08/10/15 SEX: F Status: REG REF SPEC: [id number] CADE: 08/10/15-[address]: Jerri Luu MD REQ: [id number] RECD: 08/10/15-1256 STATUS: ANABEL LINDSEY DR: Yazmin Sauceda MD _ ORDERED: THIN PREP NON G FINAL DIAGNOSIS Cerebrospinal fluid: -- Rare lymphocytes and macrophages seen. -- No evidence of neoplasia identified. Comment: Flow cytometric evaluation not indicated. 1. Cerebrospinal Fluid - TUBE #3 GROSS DESCRIPTION 2 mls of clear CSF in tube #3. Signed (signature on file) Garrison Harrison MD 1533 END OF REPORT * ML=Testing performed at Main Lab DEPARTMENT OF PATHOLOGY, [address] [place] [address] Garrison Harrison M.D. Director [facility] # [id number] 5 TUBE 2 6 No evidence of an acute inflammatory response. No evidence of malignancy. Reviewed by Latrice Plata MD 7 TUBE 2 8 TUBE 2 9 SEE RESULT BELOW Name: VIKY SEWELL : [address]: Yazmin Alexander MD Acct: [id number] Unit: [id number] AGE: 44 Location: PAIN Re08/10/15 SEX: F Status: REG REF SPEC: [id number] CADE: 08/10/15-1215 [facility] DR: Yazmin Alexander MD REQ: [id number] RECD: 08/10/15 STATUS: JUDY LINDSEY DR: Sameer Sauceda MD _ SOURCE: CSF SPDESC: ORDERED: CSF Cult/GS COMMENTS: TUBE 3 CYTOLOGY Procedure Result Reported Site CSF Gram Stain Final 08/10/15- 1331 ML 1+ Epithelial Cells No Organisms Seen Preparation By Cytospin Smear CSF Culture Final 08/14/15- 0821 ML No Growth Day 4 * ML - MAIN LAB ([facility]) . END OF REPORT * ML=Testing performed at Main Lab DEPARTMENT OF PATHOLOGY, [address], [place], [place] [address] Garrison Harrison M.D. Director [facility] # [id number] 10 PT IS FASTING 11 Desirable <150 Borderline high 150-199 High 200-499 Very High >500 12 Desirable <200 Borderline high 200-239 High >239 13 Low <40 Desirable: 40-60 High: >60 14 Desirable: <100 mg/dL Near Optimal: 100-129 mg/dL Borderline High: 130-159 mg/dL High: 160-189 mg/dL Very High: >189 mg/dL 15 Because ethnic data is not always readily available, this report includes an eGFR for both -Americans and non- Americans. The National Kidney Disease Education Program (NKDEP) does not endorse the use of the MDRD equation for patients that are not between the ages of 18 and 70, are , have extremes of body size, muscle mass, or nutritional status, or are non- or non-. According to the National Kidney Foundation, irrespective of diagnosis, the stage of the disease is based on the level of kidney function: Stage Description GFR(mL/min/1.73 m(2)) 1 Kidney damage with normal or decreased GFR 90 2 Kidney damage with mild decrease in GFR 60-89 3 Moderate decrease in GFR 30-59 4 Severe decrease in GFR 15-29 5 Kidney failure <15 (or dialysis) 16 Because ethnic data is not always readily available, this report includes an eGFR for both -Americans and non- Americans. The National Kidney Disease Education Program (NKDEP) does not endorse the use of the MDRD equation for patients that are not between the ages of 18 and 70, are , have extremes of body size, muscle mass, or nutritional status, or are non- or non-. According to the [employer], irrespective of diagnosis, the stage of the disease is based on the level of kidney function: Stage Description GFR(mL/min/1.73 m(2)) 1 Kidney damage with normal or decreased GFR 90 2 Kidney damage with mild decrease in GFR 60-89 3 Moderate decrease in GFR 30-59 4 Severe decrease in GFR 15-29 5 Kidney failure <15 (or dialysis) 17 -- REFERENCE VALUE -- Cutoff: 500 18 -- REFERENCE VALUE -- Cutoff: 200 19 -- REFERENCE VALUE -- Cutoff: 200 20 -- REFERENCE VALUE -- Cutoff: 150 21 -- REFERENCE VALUE -- Cutoff: 300 22 -- REFERENCE VALUE -- Cutoff: 300 23 -- REFERENCE VALUE -- Cutoff: 300 24 This report is intended for use in clinical monitoring or management of patients. It is not intended for use in employment-related testing. 25 Test Performed by: [address] [address] Digital Coordinator: Arnold Langford III, M.D. 26 -- REFERENCE VALUE -- Cutoff: 300 27 -- REFERENCE VALUE -- Cutoff: 100 28 -- REFERENCE VALUE -- Cutoff: 100 29 -- REFERENCE VALUE -- Cutoff: 100 30 -- REFERENCE VALUE -- Cutoff: 100 31 -- REFERENCE VALUE -- Cutoff: 100 32 This report is intended for use in clinical monitoring and management of patients. It is not intended for use in employment-related testing. Test Performed by: [address] [address] Digital Coordinator: Arnold Langford III, M.D. Procedures Date CPT Code Description Status Comment 03/22/2017 66668 Inject/Drain Joint/Bursa Completed Major 09/01/2016 41869 Excision Tumor Back/Flank, Completed Soft Tissue, Subcutaneous, > 3 CM 08/04/2016 79924 Excision Tumor Soft Tissue Completed Forearm/Wrist Subcutaneous < 3 CM 08/04/2016 38719 Excision Tumor Soft Tissue Completed Forearm/Wrist Subcutaneous < 3 CM 08/04/2016 69003 excision,tumor,soft Completed tissue,upper arm-elbow 3cm or greater 08/04/2016 87895 Excise Breast Lesion Completed 08/04/2016 75399 Excision Benign Lesion Incl Completed Diameter 1.1 - 2.0 CM Scalp,Neck,Hand 09/05/2011 Mammogram Completed Benign mammogram 07/29/2004 Colonoscopy Completed Normal (Colonoscopy and ileoscopy) Exam was perfomed by Dr Gisell Garvey. Encounters Type Date Location Provider CPT E/M Dx Office Visit 04/16/2017 [facility] Cici Brooks M.D. 94744 M25.562 9:30a Of [facility] M25.462 Office Visit 03/22/2017 2:30p [facility] [place] [address] M25.562 CJasmeet M71.22 M25.462 Office Visit 12/10/2015 10:30a [place] [address] G43.719 Services [facility] R94.02 H81.12 Office Visit 11/10/2015 10:20a [facility] Internal Medicine Sameer Sauceda M.D. [address] [address]03[address] - [address] F32.8 G43.719 F41.1 K59.09 E66.01 F32.9 Office Visit 09/15/2015 2:00p [facility] [place] [address] G43.719 Services [facility] R94.02 Office Visit 08/25/2015 11:40a [facility] Internal Medicine Sameer Sauceda M.D. 46795 R94.02 - [address] F32.8 F41.1 R49.8 F17.210 E66.01 R51 F32.9 Office Visit 07/29/2015 10:20a [facility] Internal Medicine Sameer Sauceda M.D. 15489 R94.02 - [address] E78.4 F32.8 F41.1 F17.210 E66.01 R51 Office Visit 07/23/2015 8:30a [facility] [place] [address] G44.40 [facility] R94.02 Office Visit 07/15/2015 1:40p [facility] Internal Medicine - Sameer Sauceda M.D. [address] K21.9 E66.01 R51 Office Visit 06/26/2015 12:40p [facility], Inder Flor M.D. 58152 R42 Hospitalists K21.9 Office Visit 04/08/2013 10:40a [facility] Internal Medicine Lakhwinder William M.D. 27420 311 - [facility] 722.93 722.91 Office Visit 02/25/2013 11:10a [facility] Internal Medicine - Gege Hodgson M.D. 33679 311 [facility] 724.2 530.81 112.9 Office Visit 12/03/2009 11:00a DO Not Use [facility] Tom M.D. 22109 723.1 [facility] 724.2 296.31 Office Visit 11/22/2009 1:45p [facility] [place], [address]34 847.2 Misha M.Twyla Office Visit 11/17/2009 11:30a [facility] [place], 76799 847.2 Misha Rodriguez 723.1 Office Visit 06/16/2008 11:30a [facility] [place], 70348 724.2 Misha M.Twyla Office Visit 04/30/2008 9:30a [facility] [place], 97069 724.2 Misha M.Twyla Office Visit 03/18/2008 10:45a [facility] [place], 07564 846.0 Misha Rodriguez 724.2 305.1 Plan of Care Future Appointment(s):11/14/2017 11:20 am - Cristopher Prado M.D. 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
--- OUTSIDE RECORDS SUMMARY | 2017-10-25 13:12 | XMS REPORT ---
:1970 External Reference #:[id number] Author Organization [facility] Address [address] [place] [address] Phone [phone] Care Team Providers Name Role Phone HCP given Primary Care Physician Unavailable Payers Type Date Identification Numbers Payment Provider Subscriber Commercial Policy Number: [id number] [facility] Viky Sewell PayID: [id number] [address] [place] [address] Problems Date Description Provider Status Onset: 10/19/2016 Sleep apnea Santana Elias M.D. Active Onset: 11/16/2016 Major depressive disorder Santana Elias M.D. Active Note: [facility] by [facility] Onset: 11/16/2016 Gastroesophageal reflux disease Santana Elias M.D. Active Onset: 11/16/2016 Low back pain Santana Elias M.D. Active Onset: 11/16/2016 Mild intermittent asthma Santana Elias M.D. Active Onset: 11/16/2016 Chronic pain syndrome Santana Elias M.D. Active Note: neck - was seen by Dr Camacho Onset: 11/16/2016 Generalized anxiety disorder Santana Elias M.D. Active Onset: 11/16/2016 Cocaine dependence in remission Santana Elias M.D. Active Note: and cannabis as well From Dr. Coleman notes. No + drug screens. Patient disputed this diagnosis 04/2017 Onset: 03/30/2017 Uncomplicated moderate persistent Alejandro Nicolas D.O. Active asthma Onset: 07/12/2017 Knee pain Alejandro Nicolas D.O. Active Onset: 07/12/2017 Vitamin D deficiency Alejandro Nicolas D.O. Active Onset: 07/12/2017 Cobalamin deficiency Alejandro Nicolas D.O. Active Onset: 07/12/2017 Posttraumatic stress disorder Alejandro Nicolas D.O. Active Onset: 07/12/2017 Essential hypertension Alejandro Nicolas D.O. Active Family History Date Family Member(s) Problem(s) Comments Father Lung Cancer : (age 68 Years) Father due to Lung Cancer Mother Diabetes, Nos : (age 64 Years) Mother due to Stroke Mother High Blood Pressure Mother Obesity Mother Stroke Children 2 First Daughter 28 Second Daughter 26 Siblings 2 Paternal Aunts Crohn's Disease Maternal Aunts Lupus Maternal Aunts Fibromyalgia Social History Type Date Description Comments Education High School Completed Marital Status Significant Other Work Status Not Currently Working Cigarette Use currently smokes 1/2 Pack Daily ETOH Use Denies alcohol use Recreational Drug Use None Smoking Patient is a current smoker, Smoked since age 14. smokes every day Daily Caffeine Consumes on average 2 cups of coffee per day Exercise Type/Frequency Exercises regularly Sun Exposure Does not use sunscreen Seat Belt/Car Seat Seat Belt Use - Yes Contraceptive Methods None # Partners in a Lifetime over 10 Allergies, Adverse Reactions, Alerts Date Description Reaction Status Severity Comments 10/19/2016 nicotine patches severe rash active Mild to Moderate allergic to the adhesive on the patches Medications Medication Date Status Form Strength Qnty SIG Indications Ordering Provider Prazosin HCL 10/02 Active Capsules 1mg 30cap 1 by mouth at F51.5 cha s bed time to help Alejandro with nightmares D.O. Prednisone 10/02 Active Tablets 5mg 90tab 1 by mouth every M54.5 cha s day AlejandroTia Erythromycin 08/16 Active Tablets 250mg 90tab take 1 tablet by K31.84 [facility] s mouth three Alejandro, times a day if D.O. needed before meals for decreased gastrointestinal motility Vitamin D3 04/24 Active Capsules 5000Unit 90cap 1 by mouth every [place], s day AlejandroBeatriz D.O. Omeprazole 03/30 Active Capsules 40mg 60cap [address] viveros daily Tia Allen Trazodone HCL 07/19 Active Tablets 100mg 1 tabs by mouth Trip, every night at [facility], bedtime for MD sleep Simvastatin 04/18 Active Tablets 20mg 1 by mouth every day at bedtime Lisinopril 10/19 Active Tablets 10mg 1 by mouth every day Propranolol 10/19 Active Tablets 40mg take 1 tablet by Unknown mouth twice a day for high blood pressure Fluoxetine Active Capsules 20mg Unknown Olanzapine Active Tablets 5mg Permethrin 08/22 Hx Lotion 1% QS wash w/ shampoo, [place], Lice rinse and towel Alejandro, Treatment - dry, saturate D.O. 10/01 the hair and scalp,neck and behind ears for 10 min rinse remove nits Prednisone 08/16 Hx Tablets 1mg 120ta Take 4 Tablets M54.5 [facility] bs By Mouth Every Alejandro, - Day as Directed D.O. 10/02 Alprazolam 07/12 Hx Tablets 0.25mg 24tab 1 pill twice a F43.12 [facility] s day for acute Alejandro, - anxiety D.O. 07/24 Tramadol HCL 07/12 Hx Tablets 50mg 120ta 1 by mouth every M25.562 [facility] bs 6 hours as Alejandro, - needed for pain D.O. 10/01 Prednisone 05/07 Hx Tablets 5mg 90tab 1 by mouth every M54.5 [facility] s day Alejandro, - D.O. 08/16 Symbicort 03/30 Hx Aerosol 160-4.5mc 30.6g inhale 2 puffs J45.40 [facility] g/Act m by mouth twice a Alejandro, - day gargle after D.O. 04/23 Meclizine HCL 02/14 Hx Tablets 25mg 30tab 1 tablet by s mouth tid prn - for vertigo 04/23 Savella 01/25 Hx Tablets 25mg take 1/2 tablet (12.5mg) once - daily at bedtime 04/23 x 1 week bid as tolerated Vitamin D3 01/25 Hx Capsules 5000Unit take one capsule by mouth every - day or 7 tablets 06/07 once a week Cymbalta 09/[address] 60mg take 2 capsules Trip Part by mouth once a Vinh, - brian WOODS 04/23 Resultezza Hx 2mg 1 a day Trip, / Danny Justice MD 11/15 Medications Administered in Office Medication Date Status Form Strength Qnty SIG Indications Ordering Provider B12 Injection Administered Injection [place], 017 Alejandro, D.O. SC/Im Administered Injection S[place]ak, Injections 017 Alejandro, D.O. TB Intradermal Administered Injection Sopchak, Test 017 Alejandro, D.O. B12 Injection Administered Injection Gabbie 017 Rutledge, P.A. SC/Im Administered Injection Gabbie Injections 017 Rutledge, P.A. Immunizations CPT Code Status Date Vaccine Lot # [id number] Given 05/07/2017 MMR Virus Immunization [id number] Given 05/07/2017 Influenza Virus Vaccine, Quadrivalent, Split, [id number] Preservative Free [id number] Given 08/16/2012 Flu, Split Virus 3Yrs Vital Signs Date Vital Result Comment 10/02/2017 BP Systolic 128 mmHg BP Diastolic 80 mmHg Height 66.25 inches 5'6.25"with boots Weight 268.00 lb with boots BMI (Body Mass Index) 42.9 kg/m2 08/16/2017 BP Systolic 100 mmHg BP Diastolic 70 mmHg Weight 255.00 lb w/shoes 07/12/2017 BP Systolic 125 mmHg BP Diastolic 70 mmHg Weight 265.00 lb with shoes 06/07/2017 BP Systolic 130 mmHg BP Diastolic 82 mmHg Weight 266.00 lb 05/07/2017 BP Systolic 116 mmHg BP Diastolic 64 mmHg Weight 268.00 lb 04/24/2017 BP Systolic 120 mmHg BP Diastolic 82 mmHg Weight 273.00 lb 03/30/2017 BP Systolic 146 mmHg BP Diastolic 100 mmHg Heart Rate 80 /min O2 % BldC Oximetry 98 % Height 65.5 inches Weight 271.00 lb BMI (Body Mass Index) 44.4 kg/m2 12/07/2016 BP Systolic 118 mmHg BP Diastolic 76 mmHg Weight 281.00 lb 11/16/2016 BP Systolic 138 mmHg BP Diastolic 80 mmHg 10/19/2016 BP Systolic 132 mmHg BP Diastolic 84 mmHg Height 65.53 inches 5'5.53" Results Test Date Test Result H/L Range Note Laboratory test finding 07/29/2017 Lipase 29 U/L 11.0-82.0 HCG < 0.60 mIU/mL 1 Urine Culture And Sensitivities SEE RESULT BELOW 2 Comp Metabolic Panel 07/29/2017 Sodium 136 mmol/L 133-145 Potassium 3.8 mmol/L 3.5-5.0 Chloride 107 mmol/L 101-111 Co2 Carbon Dioxide 23 mmol/L 22-32 Anion Gap 6 mmol/L 2-11 Glucose 101 mg/dL High 70-100 Blood Urea Nitrogen 14 mg/dL 6-24 Creatinine 0.89 mg/dL 0.51-0.95 BUN/Creatinine Ratio 15.7 8-20 Calcium 9.2 mg/dL 8.6-10.3 Total Protein 6.8 g/dL 6.4-8.9 Albumin 3.8 g/dL 3.2-5.2 Globulin 3.0 g/dL 2-4 Albumin/Globulin Ratio 1.3 1-3 Total Bilirubin 0.30 mg/dL 0.2-1.0 Alkaline Phosphatase 54 U/L 34-104 Alt 11 U/L 7-52 Ast 13 U/L 13-39 Egfr Non- 67.7 >60 Egfr 87.1 >60 3 Urinalysis Profile 07/29/2017 Urine Color Yellow Urine Appearance Clear Urine Specific [place] 1.016 1.010-1.030 Urine pH 5.0 5-9 Urine Urobilinogen Negative Negative Urine Ketones Negative Negative Urine Protein Negative Negative Urine Leukocytes Trace Negative Urine Blood 1+ Negative Urine Nitrite Negative Negative Urine Bilirubin Negative Negative Urine Glucose Negative Negative Urine White Blood Cell Trace(0-5/hpf) Absent Urine Red Blood Cell Trace(0-2/hpf) Absent Urine Bacteria Absent Absent Urine Squamous Epithelial Cell Present Absent CBC Auto Diff 07/29/2017 White Blood Count 11.7 10^3/uL High 3.5-10.8 Red Blood Count 4.55 10^6/uL 4.0-5.4 Hemoglobin 12.9 g/dL 12.0-16.0 Hematocrit 40 % 35-47 Mean Corpuscular Volume 87 fL 80-97 Mean Corpuscular Hemoglobin 28 pg 27-31 Mean Corpuscular HGB Conc 32 g/dL 31-36 Red Cell Distribution Width 14 % 10.5-15 Platelet Count 271 10^3/uL 150-450 Mean Platelet Volume 9 um3 7.4-10.4 Abs Neutrophils 7.7 10^3/uL 1.5-7.7 Abs Lymphocytes 2.9 10^3/uL 1.0-4.8 Abs Monocytes 0.8 10^3/uL 0-0.8 Abs Eosinophils 0.1 10^3/uL 0-0.6 Abs Basophils 0.1 10^3/uL 0-0.2 Abs Nucleated RBC 0 10^3/uL Granulocyte % 66.1 % 38-83 Lymphocyte % 25.2 % 25-47 Monocyte % 6.5 % 1-9 Eosinophil % 1.3 % 0-6 Basophil % 0.9 % 0-2 Nucleated Red Blood Cells % 0 CBC Auto Diff 06/07/2017 White Blood Count 13.5 10^3/uL High 3.5-10.8 Red Blood Count 4.84 10^6/uL 4.0-5.4 Hemoglobin 14.0 g/dL 12.0-16.0 Hematocrit 42 % 35-47 Mean Corpuscular Volume 88 fL 80-97 Mean Corpuscular Hemoglobin 29 pg 27-31 Mean Corpuscular HGB Conc 33 g/dL 31-36 Red Cell Distribution Width 15 % 10.5-15 Platelet Count 277 10^3/uL 150-450 Mean Platelet Volume 10 um3 7.4-10.4 Abs Neutrophils 10.2 10^3/uL High 1.5-7.7 Abs Lymphocytes 2.5 10^3/uL 1.0-4.8 Abs Monocytes 0.7 10^3/uL 0-0.8 Abs Eosinophils 0.1 10^3/uL 0-0.6 Abs Basophils 0.1 10^3/uL 0-0.2 Abs Nucleated RBC 0 10^3/uL Granulocyte % 75.2 % 38-83 Lymphocyte % 18.6 % Low 25-47 Monocyte % 5.2 % 1-9 Eosinophil % 0.5 % 0-6 Basophil % 0.5 % 0-2 Nucleated Red Blood Cells % 0 Comp Metabolic Panel 06/07/2017 Sodium 137 mmol/L 133-145 Potassium 4.4 mmol/L 3.5-5.0 Chloride 105 mmol/L 101-111 Co2 Carbon Dioxide 25 mmol/L 22-32 Anion Gap 7 mmol/L 2-11 Glucose 93 mg/dL 70-100 Blood Urea Nitrogen 13 mg/dL 6-24 Creatinine 0.80 mg/dL 0.51-0.95 BUN/Creatinine Ratio 16.3 8-20 Calcium 9.7 mg/dL 8.6-10.3 Total Protein 6.9 g/dL 6.4-8.9 Albumin 4.0 g/dL 3.2-5.2 Globulin 2.9 g/dL 2-4 Albumin/Globulin Ratio 1.4 1-3 Total Bilirubin 0.30 mg/dL 0.2-1.0 Alkaline Phosphatase 64 U/L 34-104 Alt 9 U/L 7-52 Ast 10 U/L Low 13-39 Egfr Non- 76.6 >60 Egfr 98.5 >60 4 Laboratory test finding 06/07/2017 C Reactive Protein 22.53 mg/L High &lt ; 5.00 5 Celiac Hla DQ1/DQ2 06/07/2017 Hla-Dqa1 SEE BELOW 6 Hla-DQB1 SEE BELOW 7 Celiac Gene Pairs Present? No Celiac Gene Interpretation See Comment 8 Celiac Panel 06/07/2017 Tissue Transglutaminase IgA Ab 1.6 U/mL 9 Immunoglobulin A 209 mg/dL 61 - 356 Celiac Interpretation See Comment 10 Connective Tissue Panel 06/07/2017 Anti-Nuclear Antibody 0.5 U 11 Cyclic Citrullinated Peptide <15.6 U 12 Interpretation See Comment 13 Laboratory test finding 06/07/2017 Erythrocyte Sed Rate 32 mm/Hr High 0- 14 Folic Acid (Folate) 4.09 ng/mL >3.99 Lyme Western Blot 06/07/2017 Lyme Disease IgG Ab WB Negative Negative Lyme Disease IgG Bands Present p41, kDa Lyme Disease IgM Ab WB Negative Negative Lyme Disease IgM Bands Present No bands detecte <SEE NOTE> kDa 14 Lyme Disease Interpretation See Comment 15 Laboratory test finding 06/07/2017 Magnesium 1.9 mg/dL 1.9-2.7 TSH (Thyroid Stim Horm) 0.99 mcIU/mL 0.34-5.60 Vitamin B12 310 pg/mL 180-914 16 Vitamin D Total 25(Oh) 24.3 ng/mL 20-50 CBC Auto Diff 03/14/2017 White Blood Count 11.3 10^3/uL High 3.5-10.8 Red Blood Count 4.61 10^6/uL 4.0-5.4 Hemoglobin 13.4 g/dL 12.0-16.0 Hematocrit 40 % 35-47 Mean Corpuscular Volume 88 fL 80-97 Mean Corpuscular Hemoglobin 29 pg 27-31 Mean Corpuscular HGB Conc 33 g/dL 31-36 Red Cell Distribution Width 15 % 10.5-15 Platelet Count 237 10^3/uL 150-450 Mean Platelet Volume 9 um3 7.4-10.4 Abs Neutrophils 7.9 10^3/uL High 1.5-7.7 Abs Lymphocytes 2.3 10^3/uL 1.0-4.8 Abs Monocytes 0.8 10^3/uL 0-0.8 Abs Eosinophils 0.2 10^3/uL 0-0.6 Abs Basophils 0.1 10^3/uL 0-0.2 Abs Nucleated RBC 0.01 10^3/uL Granulocyte % 69.4 % 38-83 Lymphocyte % 20.6 % Low 25-47 Monocyte % 7.1 % 1-9 Eosinophil % 1.8 % 0-6 Basophil % 1.1 % 0-2 Nucleated Red Blood Cells % 0.1 Comp Metabolic Panel 03/14/2017 Sodium 135 mmol/L 133-145 Potassium 4.0 mmol/L 3.5-5.0 Chloride 105 mmol/L 101-111 Co2 Carbon Dioxide 26 mmol/L 22-32 Anion Gap 4 mmol/L 2-11 Glucose 98 mg/dL 70-100 Blood Urea Nitrogen 17 mg/dL 6-24 Creatinine 0.87 mg/dL 0.51-0.95 BUN/Creatinine Ratio 19.5 8-20 Calcium 9.1 mg/dL 8.6-10.3 Total Protein 6.7 g/dL 6.4-8.9 Albumin 3.8 g/dL 3.2-5.2 Globulin 2.9 g/dL 2-4 Albumin/Globulin Ratio 1.3 1-3 Total Bilirubin 0.30 mg/dL 0.2-1.0 Alkaline Phosphatase 60 U/L 34-104 Alt 8 U/L 7-52 Ast 11 U/L Low 13-39 Egfr Non- 69.5 >60 Egfr 89.4 >60 17 Laboratory test finding 03/14/2017 C Reactive Protein 21.98 mg/L High &lt ; 5.00 18 HCG < 0.60 mIU/mL 19 Laboratory test finding 02/14/2017 Potassium Redraw 4.0 mmol/L 3.5-5.0 Magnesium 2.0 mg/dL 1.9-2.7 Ast Redraw 13 U/L 13-39 CBC Auto Diff 02/14/2017 White Blood Count 10.8 10^3/uL 3.5-10.8 Red Blood Count 4.93 10^6/uL 4.0-5.4 Hemoglobin 14.2 g/dL 12.0-16.0 Hematocrit 43 % 35-47 Mean Corpuscular Volume 87 fL 80-97 Mean Corpuscular Hemoglobin 29 pg 27-31 Mean Corpuscular HGB Conc 33 g/dL 31-36 Red Cell Distribution Width 14 % 10.5-15 Platelet Count 279 10^3/uL 150-450 Mean Platelet Volume 10 um3 7.4-10.4 Abs Neutrophils 8.0 10^3/uL High 1.5-7.7 Abs Lymphocytes 2.0 10^3/uL 1.0-4.8 Abs Monocytes 0.5 10^3/uL 0-0.8 Abs Eosinophils 0.1 10^3/uL 0-0.6 Abs Basophils 0.1 10^3/uL 0-0.2 Abs Nucleated RBC 0 10^3/uL Granulocyte % 74.6 % 38-83 Lymphocyte % 18.6 % Low 25-47 Monocyte % 5.0 % 1-9 Eosinophil % 1.2 % 0-6 Basophil % 0.6 % 0-2 Nucleated Red Blood Cells % 0 Urine Drug SCR ED 02/14/2017 Amphetamine Ur Screen None Detected None Detect & [facility] Barbiturates Urine Screen None Detected None Detect Benzodiazepine Urine Screen None Detected None Detect Urine Cannabinoids Screen None Detected None Detect Urine Cocaine Screen None Detected None Detect Urine Opiates Screen None Detected None Detect Urine Phencyclidine Screen None Detected None Detect 20 Urinalysis Profile 02/14/2017 Urine Color Yellow Urine Appearance Cloudy Urine Specific [place] 1.017 1.010-1.030 Urine pH 5.0 5-9 Urine Urobilinogen Negative Negative Urine Ketones Negative Negative Urine Protein Negative Negative Urine Leukocytes Negative Negative Urine Blood Negative Negative Urine Nitrite Negative Negative Urine Bilirubin Negative Negative Urine Glucose Negative Negative Laboratory test finding 02/14/2017 C Reactive Protein 26.86 mg/L High &lt ; 5.00 21 TSH (Thyroid Stim Horm) 0.79 mcIU/mL 0.34-5.60 22 Alcohol < 10 mg/dL <10 23 Magnesium TNP mg/dL 1.9-2.7 24 Lactic Acid 0.8 mmol/L 0.5-2.0 25 Comp Metabolic Panel 02/14/2017 Sodium 137 mmol/L 133-145 Chloride 106 mmol/L 101-111 Co2 Carbon Dioxide 26 mmol/L 22-32 Glucose 106 mg/dL High 70-100 Blood Urea Nitrogen 8 mg/dL 6-24 Creatinine 0.79 mg/dL 0.51-0.95 BUN/Creatinine Ratio 10.1 8-20 Calcium 8.9 mg/dL 8.6-10.3 Total Protein 6.9 g/dL 6.4-8.9 Albumin 4.0 g/dL 3.2-5.2 Globulin 2.9 g/dL 2-4 Albumin/Globulin Ratio 1.4 1-3 Total Bilirubin 0.40 mg/dL 0.2-1.0 Alkaline Phosphatase 68 U/L 34-104 Alt 20 U/L 7-52 Egfr Non- 77.7 >60 Egfr 99.9 >60 26 Potassium TNP mmol/L 3.5-5.0 27 Anion Gap TNP mmol/L 2-11 Ast TNP U/L 13-39 28 Laboratory test 02/14/2017 Troponin-I (TnI) 0.00 ng/mL <0.04 29 finding Laboratory test 02/05/2017 HIV-1/-2 Ag & Ab Negative Negative 30 finding Eval Laboratory test 02/05/2017 HIV-1/-2 Ag & Ab Negative Negative 31 finding Eval CBC Auto Diff 02/04/2017 White Blood Count 13.7 10^3/uL High 3.5-10.8 Red Blood Count 4.95 10^6/uL 4.0-5.4 Hemoglobin 14.0 g/dL 12.0-16.0 Hematocrit 43 % 35-47 Mean Corpuscular Volume 87 fL 80-97 Mean Corpuscular Hemoglobin 28 pg 27-31 Mean Corpuscular HGB Conc 32 g/dL 31-36 Red Cell Distribution Width 14 % 10.5-15 Platelet Count 283 10^3/uL 150-450 Mean Platelet Volume 9 um3 7.4-10.4 Abs Neutrophils 9.9 10^3/uL High 1.5-7.7 Abs Lymphocytes 2.8 10^3/uL 1.0-4.8 Abs Monocytes 0.8 10^3/uL 0-0.8 Abs Eosinophils 0.1 10^3/uL 0-0.6 Abs Basophils 0 10^3/uL 0-0.2 Abs Nucleated RBC 0.01 10^3/uL Granulocyte % 72.1 % 38-83 Lymphocyte % 20.7 % Low 25-47 Monocyte % 6.1 % 1-9 Eosinophil % 0.8 % 0-6 Basophil % 0.3 % 0-2 Nucleated Red Blood Cells % 0.1 Laboratory test finding 02/04/2017 Lactic Acid 1.0 mmol/L 0.5-2.0 32 Urinalysis Profile 02/04/2017 Urine Color Yellow Urine Appearance Cloudy Urine Specific [place] 1.020 1.010-1.030 Urine pH 5.0 5-9 Urine Urobilinogen Negative Negative Urine Ketones Negative Negative Urine Protein Negative Negative Urine Leukocytes Negative Negative Urine Blood Negative Negative Urine Nitrite Negative Negative Urine Bilirubin Negative Negative Urine Glucose Negative Negative Comp Metabolic Panel 02/04/2017 Sodium 136 mmol/L 133-145 Potassium 3.8 mmol/L 3.5-5.0 Chloride 106 mmol/L 101-111 Co2 Carbon Dioxide 23 mmol/L 22-32 Anion Gap 7 mmol/L 2-11 Glucose 103 mg/dL High 70-100 Blood Urea Nitrogen 12 mg/dL 6-24 Creatinine 0.89 mg/dL 0.51-0.95 BUN/Creatinine Ratio 13.5 8-20 Calcium 9.6 mg/dL 8.6-10.3 Total Protein 7.2 g/dL 6.4-8.9 Albumin 3.9 g/dL 3.2-5.2 Globulin 3.3 g/dL 2-4 Albumin/Globulin Ratio 1.2 1-3 Total Bilirubin 0.30 mg/dL 0.2-1.0 Alkaline Phosphatase 57 U/L 34-104 Alt 10 U/L 7-52 Ast 11 U/L Low 13-39 Egfr Non- 67.7 >60 Egfr 87.1 >60 33 Laboratory test finding 02/04/2017 Lipase 21 U/L 11.0-82.0 C Reactive Protein 21.72 mg/L High < 5.00 34 HCG 0.68 mIU/mL 35 1 <5.0 Negative 5.0 - 25.0 Indeterminate (Repeat testing recommended after 72 hours) >25.0 Positive Perimenopausal women can display HCG levels of up to 20 mIU/mL 2 SEE RESULT BELOW Name: VIKY SEWELL Cyril : [address]: Andrew Barrios MD Acct: [id number] Unit: [id number] AGE: 46 Location: ED Re07/29/17 SEX: F Status: DEP ER SPEC: [id number] CADE: 07/29/[address] [facility] [address]: Andrew Barrios MD REQ: [id number] RECD: 07/29/17 STATUS: JUDY LINDSEY DR: Alejandro Nicolas DO _ SOURCE: URINE SPDESC: ORDERED: Urine Culture Procedure Result Reported Site Urine Culture Final 07/30/17- 1304 ML No growth of clinically significant organisms * ML - MAIN LAB ([facility]) . END OF REPORT * ML=Testing performed at Main Lab DEPARTMENT OF PATHOLOGY, [address] [place] [address] Garrison Harrison M.D. Director [facility] # [id number] 3 Because ethnic data is not always [...] 5 Kidney failure <15 (or dialysis) 4 Because ethnic data is not always readily [...] 15-29 5 Kidney failure <15 (or dialysis) 5 Acute inflammation: >10.00 6 RESULT: 03,04:01 REFERENCE VALUE Not Applicable 7 RESULT: 03:01,04:02 DQ Serologic Equivalent: 7,4 REFERENCE VALUE Not Applicable 8 The absence of HLA celiac permissive genes would make the presence of celiac disease unlikely. ADDITIONAL INFORMATION Method: Molecular typing of HLA antigens performed using reverse SSOP and/or SSP methods, reported as serological equivalents and low to medium resolution molecular values. Performing Laboratory CLIA# [id number] Test Performed by: [place] [address] 9 REFERENCE VALUE <4.0 (Negative) Test Performed by: [facility] [place] [address], [place] [address] 10 Negative serology. Celiac disease unlikely. However, approximately 10% of patients with celiac disease are seronegative. Also, patients who are already adhering to a gluten-free diet may be seronegative. If celiac disease is highly clinically suspected, consider HLA-DQ typing. Test Performed by: [facility] - [address] [address] 11 REFERENCE VALUE <=1.0 (Negative) 12 REFERENCE VALUE <20.0 (Negative) 13 Tests for antibodies to dsDNA and NAEEM antigens are not performed automatically unless the CIERA result is > or= 3.0 U. Studies performed at [facility] indicate that positive CIERA results <3.0 U are rarely accompanied by positive second order tests. Test Performed by: [facility] - [address] [address] 14 No bands detected 15 Specific serologic response to B. burgdorferi infection is not detected, but cannot rule out early infection during which low or undetectable antibody levels to B. burgdorferi may be present. If clinically indicated, a new serum specimen should be submitted in 7-14 days. ADDITIONAL INFORMATION CDC criteria require >=5 bands for IgG or >=2 bands for IgM for the Immunoblot to be considered positive. Bands (e.g.,p41) may be detected in patients without Lyme disease, and patterns not meeting the CDC criteria should be interpreted with caution. Immunoblot should be ordered only on specimens that are positive or equivocal by a FDA-licensed Lyme disease antibody screening test (e.g., EIA). Test Performed by: [facility] - [address] [address] 16 Normal Range 180 to 914 Indeterminate Range 145 to 180 Deficient Range <145 17 Because ethnic data is not always readily [...] 15-29 5 Kidney failure <15 (or dialysis) 18 Acute inflammation: >10.00 19 <5.0 Negative 5.0 - 25.0 Indeterminate (Repeat testing recommended after 72 hours) >25.0 Positive Perimenopausal women can display HCG levels of up to 20 mIU/mL 20 The urine specimen was tested at the listed cutoffs: Drug class test level (ng/mL) Amphetamines 500 Barbiturates 200 Benzodiazepine metabolites 200 Cocaine metabolites 150 Cannabinoids 50 Opiates 300 Pcp 25 Specimen was received without chain of custody. Results should be used for medical purposes only. 21 Acute inflammation: >10.00 22 SST DRAWN AT [facility] 23 SST DRAWN AT [facility] 24 Unable to report test result due to hemolysis. 25 [facility] Severe Sepsis and Septic Shock Management Bundle Measure requires all lactic acids initially measuring >2.0 mmol/L be repeated. 26 Because ethnic data is not always readily [...] 15-29 5 Kidney failure <15 (or dialysis) 27 Unable to report test result due to hemolysis. 28 Unable to report test result due to hemolysis. 29 99th percentile=0.04 ng/mL Troponin results at [facility] and [facility] are not interchangeable. 30 Negative result does not rule out HIV infection. If acute HIV infection is suspected in a high-risk individual, submit plasma specimen for HIV-1 RNA quantification test (HIVDQ) and/or HIV-2 DNA/RNA test (FHV2Q). Test Performed by: [place] [address] 31 Negative result does not rule out HIV infection. If acute HIV infection is suspected in a high-risk individual, submit plasma specimen for HIV-1 RNA quantification test (HIVDQ) and/or HIV-2 DNA/RNA test (FHV2Q). Test Performed by: [place] [address] 32 [facility] Severe Sepsis and Septic Shock Management Bundle Measure requires all lactic acids initially measuring >2.0 mmol/L be repeated. 33 Because ethnic data is not always readily [...] 15-29 5 Kidney failure <15 (or dialysis) 34 Acute inflammation: >10.00 35 <5.0 Negative 5.0 - 25.0 Indeterminate (Repeat testing recommended after 72 hours) >25.0 Positive Perimenopausal women can display HCG levels of up to 20 mIU/mL Procedures Date CPT Code Description Status Comment 05/07/2017 02770 SC/Im Injections Completed 04/24/2017 94030 SC/Im Injections Completed 04/24/2017 05331 Electrocardiogram Complete Completed 03/30/2017 14711 X-Ray Chest Two Views Completed 01/15/2017 Colonoscopy Completed 2017:poor prep, poor visualization, what was seen was normal, recommend fu in 1 yr 12/07/2016 13491 Anoscopy Diagnostic Completed Encounters Type Date Location Provider CPT E/M Dx Office Visit 08/16/2017 10:00a Main Office Alejandro Nicolas D.O. 85791 I10 G89.4 F43.12 D51.3 E55.9 M54.5 K31.84 Office Visit 07/12/2017 9:45a Main Office Alejandro Nicolas D.O. 15039 I10 G89.4 F43.12 D51.3 E55.9 M54.5 S83.412A M25.562 N39.3 Office Visit 06/07/2017 10:00a Main Office Alejandro Nicolas D.O. 55158 I10 G89.4 D51.3 E55.9 M54.5 M19.041 F33.9 N39.3 M96.89 M25.562 Office Visit 05/07/2017 2:45p Main Office Alejandro Nicolas D.O. 75771 R74.8 I10 G89.4 D51.3 E55.9 M54.5 Z23 J45.40 Z41.8 Z11.1 Office Visit 04/24/2017 3:00p Main Office Brian Doan [id number] G56.01 G56.02 R07.9 G47.30 I10 K59.00 Z01.810 D51.3 G89.4 E55.9 Office Visit 03/30/2017 3:00p Main Office Alejandro Nicolas D.O. [id number] R91.8 G47.30 J45.20 M54.5 K21.9 J45.40 Office Visit 12/07/2016 10:00a Main Office Santana Elias M.D. 12126 S30.817A R51 G47.30 Office Visit 11/16/2016 3:15p Main Office Santana Elias M.D. [id number] J45.20 M54.5 K21.9 Office Visit 10/19/2016 4:00p Main Office Santana Elias M.D. 67393 M79.605 M79.602 G47.30 I10 Z86.2 Plan of Care 10/02/2017 - Alejandro Nicolas D.O.F43.12 Post-traumatic stress disorder, [id number] Chronic pain [id number] Essential (primary) oerelphlgevjI27.3 Other dietary vitamin B12 deficiency [id number] Vitamin D deficiency, porrnbqhjxqA30.5 Low back painNew Medication:Prednisone 5 mgF51.5 Nightmare disorderNew Medication:Prazosin HCL 1 mgFollow up:1 month recheck Pain/PTSD/Anx/ Dep with GAD7 and PHQ9 and PainQ
--- NOTE | 2017-10-25 14:25 | RAD ---
INDICATION: Short of breath COMPARISON: April 06, 2017 TECHNIQUE: PA and lateral dual-energy views were obtained. FINDINGS: Bones/Soft Tissues: There are no acute bony findings. Cardiomediastinal: The cardiomediastinal silhouette is normal. Lungs: There are no infiltrates. There is minimal right basilar atelectasis. Pleura: There are no pleural effusions. Other: None IMPRESSION: MINIMAL RIGHT BASILAR ATELECTASIS, OTHERWISE NEGATIVE.
[2017-10-25 15:48] VITALS: BP 134/76
[2017-10-25] MEDS ORDERED: Albuterol HFA INHALER* 8 gm MDI INH ONE (16:26)
[2017-10-25 16:49] LABS: Urine Appearance Clear; Urine Blood Negative (Negative); Urine Color Yellow; Urine Ketones Negative (Negative); Urine Protein Negative (Negative); Urine Specific Gravity 1.016 (1.010-1.030); Urine Urobilinogen Negative (Negative)
[2017-10-25 16:57] LABS: ABS Basophils 0.1 10^3/ul (0-0.2); ABS Eosinophils 0.2 10^3/ul (0-0.6); ABS Lymphocytes 3.6 10^3/ul (1.0-4.8); ABS Neutrophils 8.5 10^3/ul (1.5-7.7); ABS Nucleated RBC 0 10^3/ul; Eosinophil % 1.8 % (0-6); Hematocrit 37 % (35-47); Hemoglobin 12.2 g/dl (12.0-16.0); Lymphocyte % 26.9 % (25-47); Mean Corpuscular HGB Conc 33 g/dl (31-36); Mean Corpuscular Hemoglobin 29 pg (27-31); Mean Corpuscular Volume 88 fL (80-97); Mean Platelet Volume 9 um3 (7.4-10.4); Nucleated Red Blood Cells % 0; Platelet Count 270 10^3/ul (150-450); Red Blood Count 4.24 10^6/ul (4.0-5.4); Red Cell Distribution Width 15 % (10.5-15); White Blood Count 13.5 10^3/ul (3.5-10.8)
[2017-10-25 17:05] LABS: EGFR Non-African American 61.8 (>60)
--- NOTE | 2017-10-25 17:36 | RAD ---
CLINICAL HISTORY: Right flank pain COMPARISON: July 29, 2017 TECHNIQUE: Multiple contiguous axial CT scans were obtained of the abdomen and pelvis, without intravenous contrast enhancement. Coronal and sagittal multiplanar reformations are submitted for review. Oral contrast was not administered. FINDINGS: The study is limited by the lack of intravenous contrast. This limits evaluation of the solid organs and vasculature. LUNG BASES: The lung bases are clear. LIVER: The liver is normal in shape, size, contour, and attenuation. BILE DUCTS: There is no intrahepatic or extrahepatic biliary dilatation. GALLBLADDER: The gallbladder is normal, without pericholecystic inflammatory change. PANCREAS: The pancreas is normal, without mass or ductal dilatation. SPLEEN: Normal in size and appearance. UPPER GI TRACT: Evaluation of the gastrointestinal tract is limited by incomplete gastric distention. The upper GI tract is unremarkable. SMALL BOWEL AND MESENTERY: The small bowel is normal in contour, course, and caliber. There is no obstruction or dilatation. COLON: The colon is normal in contour, course, caliber. There is no pericolonic inflammatory change. There are occasional diverticula of the colon. There is a tubular, vermiform, hollow viscus that is blind ending, and originates from the cecum, consistent with a normal appendix. There is no periappendiceal inflammatory change. This is best seen on axial images 100 through 100 ADRENALS: Normal bilaterally. KIDNEYS: There is simple cyst of the upper pole of the right kidney, this can be identified on previous examination and is stable. There are multiple punctate renal calyceal stones bilaterally. These are similar to the previous examination. There is no appreciable hydronephrosis. BLADDER: The bladder is incompletely distended but is grossly normal. PELVIC ORGANS: The uterus and adnexa are grossly normal for technique. AORTA: There is calcific atherosclerotic disease of the abdominal aorta and its branches, without aneurysmal dilatation IVC: Unremarkable LYMPH NODES: There is no lymphadenopathy by size criteria. ABDOMINAL WALL: There is no evidence for abdominal wall hernia. BONES AND SOFT TISSUES: Degenerative changes are noted of the spine OTHER: None IMPRESSION: 1. AGAIN NOTED ARE SMALL NONOBSTRUCTING RENAL CALYCEAL STONES BILATERALLY. THERE IS NO HYDRONEPHROSIS 2. ATHEROSCLEROSIS.
--- NOTE | 2017-10-25 18:15 | ED ---
Shortness of Breath - HPI Summary HPI Summary: The patient presents to the ED with chief complaint of shortness of breath, chest pain with cough, diffuse body aches, right-sided flank pain. History of kidney stones. Also with a history of bronchitis and pneumonia and states this feels similar. Denies fever, sweats, chills. Denies any known sick contacts including flu. She has not taken anything for improvement of symptoms. Cough without production. She has shortness of breath at baseline and takes Spiriva daily, but does not have rescue inhaler. Denies any cardiac history. Denies any pulmonary history. Denies any urinary symptoms including obstructive symptoms. Denies hematuria. Symptoms are aggravated with cough, alleviated by nothing. Patient is a smoker every day. - History of Current Complaint Chief Complaint: EDShortnessOfBreath Time Seen by Provider: 10/25/17 16:03 Hx Obtained From: Patient Onset/Duration: Gradual Onset Timing: Constant Current Severity: Mild Dyspnea At: Exertion Alleviating Factors: Bronchodilators Associated Signs & Symptoms: Cough (Nonproductive), Chest Pain w/Cough - Risk Factors Pulmonary Embolism: Negative Cardiac: Negative Pseudomonas: Negative Tuberculosis: Negative - Allergy/Home Medications Allergies/Adverse Reactions: Allergies Allergy/AdvReac Type Severity Reaction Status Date / Time Adhesive Tape Allergy Mild Hives Verified 04/24/17 18:06 PMH/Surg Hx/FS Hx/Imm Hx Previously Healthy: Yes Endocrine/Hematology History: Denies: Hx Anticoagulant Therapy, Hx Blood Disorders, Hx Diabetes, Hx Thyroid Disease Cardiovascular History: Reports: Hx Hypercholesterolemia, Hx Hypertension, Other Cardiovascular Problems/Disorders - HIGH CHOLESTEROL Denies: Hx Congestive Heart Failure, Hx Pacemaker/ICD Respiratory History: Reports: Hx Asthma, Hx Chronic Obstructive Pulmonary Disease (COPD), Hx Sleep Apnea GI History: Reports: Hx Gastroesophageal Reflux Disease - panpranolol Denies: Hx Ulcer History: Reports: Hx Kidney Infection - NO RECENT, Hx Kidney Stones - NO KNOWN STONES NOW Denies: Hx Renal Disease Musculoskeletal History: Reports: Hx Tendonitis, Other Musculoskeletal History - Left knee problem Denies: Hx Arthritis, Hx Osteoporosis Sensory History: Denies: Hx Contacts or Glasses, Hx Hearing Aid Opthamlomology History: Denies: Hx Contacts or Glasses Neurological History: Reports: Hx Headaches, Hx Migraine - WEEKLY OR 2 X WK, Other Neuro Impairments/Disorders - DEGENERATIVE DISK DX, 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 1989 C SECTION AND BTL [facility] ;. hysterectomy ;. 2016 several moles removed from body ; Hx Anesthesia Reactions: No - Immunization History Date of Tetanus Vaccine: UTD Date of Influenza Vaccine: unknown Hx Pertussis Vaccination: No Immunizations Up to Date: Unable to Obtain/Confirm Infectious Disease History: No Infectious Disease History: Denies: Hx Clostridium Difficile, Hx Hepatitis, Hx Human Immunodeficiency Virus (HIV), Hx of Known/Suspected MRSA, Hx Shingles, Hx Tuberculosis, Hx Known/ Suspected VRE, Hx Known/Suspected VRSA, History Other Infectious Disease, Traveled Outside the [place] in Last 30 Days - Family History Known Family History: Positive: Hypertension, Diabetes, Other - Social History Occupation: Unemployed Lives: With Family Alcohol Use: None Hx Substance Use: No Substance Use Type: Reports: None Hx Tobacco Use: Yes Smoking Status (MU): Current Every Day Smoker Type: Cigarettes Amount Used/How Often: 2 cigs per day Length of Time of Smoking/Using Tobacco: >30 yrs Have You Smoked in the Last Year: Yes Review of Systems Constitutional: Negative Negative: Fever, Chills, Fatigue Cardiovascular: Negative Positive: Shortness Of Breath, Cough Positive: no symptoms reported, flank pain - right-sided Positive: Myalgia - diffuse Skin: Negative Neurological: Negative All Other Systems Reviewed And Are Negative: Yes Physical Exam Triage Information Reviewed: Yes Vital Signs On Initial Exam: Initial Vitals Temp Pulse Resp BP Pulse Ox 97.2 F 69 22 146/89 96 10/25/17 12:58 10/25/17 12:58 10/25/17 12:58 10/25/17 12:58 10/25/17 12:58 Vital Signs Reviewed: Yes Appearance: Positive: Well-Appearing, Well-Nourished Skin: Positive: Warm, Skin Color Reflects Adequate Perfusion Head/Face: Positive: Normal Head/Face Inspection Eyes: Positive: EOMI, ANALISA, Conjunctiva Clear Respiratory/Lung Sounds: Positive: Rhonchi - Bilateral Cardiovascular: Positive: RRR, Pulses are Symmetrical in both Upper and Lower Extremities Musculoskeletal: Positive: Normal, Strength/ROM Intact Neurological: Positive: Speech Normal Psychiatric: Positive: Affect/Mood Appropriate AVPU Assessment: Alert Diagnostics - Vital Signs Vital Signs Temp Pulse Resp BP Pulse Ox 10/25/17 15:46 97.8 F 63 134/76 98 10/25/17 12:58 97.2 F 69 22 146/89 96 - Laboratory Lab Results: Lab Results 10/25/17 10/25/17 10/25/17 Range/Units 13:12 16:33 16:39 WBC 13.5 H (3.5-10.8) 10^3/ul RBC 4.24 (4.0-5.4) 10^6/ul Hgb 12.2 (12.0-16.0) g/dl Hct 37 (35-47) % MCV 88 (80-97) fL MCH 29 (27-31) pg MCHC 33 (31-36) g/dl RDW 15 (10.5-15) % Plt Count 270 (150-450) 10^3/ul MPV 9 (7.4-10.4) um3 Neut % (Auto) 63.2 (38-83) % Lymph % (Auto) 26.9 (25-47) % Owsley % (Auto) 7.3 (1-9) % Eos % (Auto) 1.8 (0-6) % Baso % (Auto) 0.8 (0-2) % Absolute Neuts (auto) 8.5 H (1.5-7.7) 10^3/ul Absolute Lymphs (auto) 3.6 (1.0-4.8) 10^3/ul Absolute Monos (auto) 1.0 H (0-0.8) 10^3/ul Absolute Eos (auto) 0.2 (0-0.6) 10^3/ul Absolute Basos (auto) 0.1 (0-0.2) 10^3/ul Absolute Nucleated RBC 0 10^3/ul Nucleated RBC % 0 Sodium (133-145) mmol/L Potassium (3.5-5.0) mmol/L Chloride (101-111) mmol/L Carbon Dioxide (22-32) mmol/L Anion Gap (2-11) mmol/L BUN (6-24) mg/dL Creatinine (0.51-0.95) mg/dL Est GFR ( Amer) (>60) Est GFR (Non-Af Amer) (>60) BUN/Creatinine Ratio (8-20) Glucose (70-100) mg/dL Calcium (8.6-10.3) mg/dL Total Bilirubin (0.2-1.0) mg/dL AST (13-39) U/L ALT (7-52) U/L Alkaline Phosphatase (34-104) U/L C-React Prot High Sens mg/L Total Protein (6.4-8.9) g/dL Albumin (3.2-5.2) g/dL Globulin (2-4) g/dL Albumin/Globulin Ratio (1-3) Urine Color Yellow Urine Appearance Clear Urine pH 5.0 (5-9) Ur Specific Erin 1.016 (1.010-1.030) Urine Protein Negative (Negative) Urine Ketones Negative (Negative) Urine Blood Negative (Negative) Urine Nitrate Negative (Negative) Urine Bilirubin Negative (Negative) Urine Urobilinogen Negative (Negative) Ur Leukocyte Esterase Negative (Negative) Urine Glucose Negative (Negative) Influenza A (Rapid) Negative (Negative) Influenza B (Rapid) Negative (Negative) 10/25/17 Range/Units 16:39 WBC (3.5-10.8) 10^3/ul RBC (4.0-5.4) 10^6/ul Hgb (12.0-16.0) g/dl Hct (35-47) % MCV (80-97) fL MCH (27-31) pg MCHC (31-36) g/dl RDW (10.5-15) % Plt Count (150-450) 10^3/ul MPV (7.4-10.4) um3 Neut % (Auto) (38-83) % Lymph % (Auto) (25-47) % Owsley % (Auto) (1-9) % Eos % (Auto) (0-6) % Baso % (Auto) (0-2) % Absolute Neuts (auto) (1.5-7.7) 10^3/ul Absolute Lymphs (auto) (1.0-4.8) 10^3/ul Absolute Monos (auto) (0-0.8) 10^3/ul Absolute Eos (auto) (0-0.6) 10^3/ul Absolute Basos (auto) (0-0.2) 10^3/ul Absolute Nucleated RBC 10^3/ul Nucleated RBC % Sodium 137 (133-145) mmol/L Potassium 4.2 (3.5-5.0) mmol/L Chloride 106 (101-111) mmol/L Carbon Dioxide 25 (22-32) mmol/L Anion Gap 6 (2-11) mmol/L BUN 20 (6-24) mg/dL Creatinine 0.96 H (0.51-0.95) mg/dL Est GFR ( Amer) 79.4 (>60) Est GFR (Non-Af Amer) 61.8 (>60) BUN/Creatinine Ratio 20.8 H (8-20) Glucose 106 H (70-100) mg/dL Calcium 9.1 (8.6-10.3) mg/dL Total Bilirubin 0.20 (0.2-1.0) mg/dL AST 9 L (13-39) U/L ALT 10 (7-52) U/L Alkaline Phosphatase 53 (34-104) U/L C-React Prot High Sens 10.41 mg/L Total Protein 6.6 (6.4-8.9) g/dL Albumin 3.8 (3.2-5.2) g/dL Globulin 2.8 (2-4) g/dL Albumin/Globulin Ratio 1.4 (1-3) Urine Color Urine Appearance Urine pH (5-9) Ur Specific Erin (1.010-1.030) Urine Protein (Negative) Urine Ketones (Negative) Urine Blood (Negative) Urine Nitrate (Negative) Urine Bilirubin (Negative) Urine Urobilinogen (Negative) Ur Leukocyte Esterase (Negative) Urine Glucose (Negative) Influenza A (Rapid) (Negative) Influenza B (Rapid) (Negative) Result Diagrams: 10/25/17 16:39 10/25/17 16:39 Lab Statement: Any lab studies that have been ordered have been reviewed, and results considered in the medical decision making process. Course/Dx - Course Course Of Treatment: During the course of treatment, the patient is evaluated for cough without production, chest pain with cough, right flank pain without urinary symptoms. Influenza swab obtained is negative. Chest x-ray obtained with no active acute pulmonary disease. CT abdomen and pelvis to assess for kidney stones and other pathology.IMPRESSION: 1. AGAIN NOTED ARE SMALL NONOBSTRUCTING RENAL CALYCEAL STONES BILATERALLY. THERE IS NO. HYDRONEPHROSIS. 2. ATHEROSCLEROSIS. UA obtained and negative. Lungs are rhonchorous in the bilateral lung bases. Likely has an early bronchitis with sinusitis. Due to her shortness of breath and sinus pressure, I will treat with Augmentin for bronchitis, she is given albuterol inhaler and is encouraged to continue her Spiriva. She is also given 5 days prednisone for shortness of breath. She voices no concerns at this time and is okay for discharge. She will follow up with her PCP for any worsening or changing symptoms. - Diagnoses Provider Diagnoses: Acute bronchitis Discharge - Discharge Plan Condition: Stable Disposition: HOME Prescriptions: Amoxicillin/Clavulanate TAB* [Augmentin TAB 875*] 875 mg PO BID #14 tab predniSONE TAB* [Deltasone TAB*] 50 mg PO DAILY #5 tab MDD 1 Patient Education Materials: Acute Bronchitis (ED), Shortness of Breath (ED) Referrals: Alejandro Nicolas DO [Primary Care Provider] - Additional Instructions: Please follow-up with PCP as soon as possible You have been given 5 days prednisone 50 mg daily in the morning Use the albuterol inhaler as needed for any acute shortness of breath Continue with her at-home Spiriva As discussed, the urine and CAT scan were normal showing no obstructive calculus Rest and drink plenty of fluids Augmentin twice daily 7 days for bacterial bronchitis
== END 2017-10-25 18:46 | disposition home or self-care (01) ==
LOC: ED 12:52
DX: J20.9 Acute bronchitis, unspecified (principal); F17.210 Nicotine dependence, cigarettes, uncomplicated
CPT/HCPCS: 36415; 71046; 74176; 80053; 81003; 85025; 86141; 87502; 99282; A9270-GY

== ENCOUNTER 2018-02-15 20:30 | Emergency (ER) | payer OTHER ==
--- OUTSIDE RECORDS SUMMARY | 2018-02-15 20:38 | XMS REPORT ---
:1970 External Reference #:[id number] Author Organization [facility] Address [address] [place] [address] Phone [phone] Care Team Providers Name Role Phone HCP given Primary Care Physician Unavailable Payers Type Date Identification Numbers Payment Provider Subscriber Commercial Policy Number: [id number] [facility] Viky Sewell PayID: [id number] [address] [place] [id number] Problems Date Description Provider Status Onset: 10/19/2016 Sleep apnea Santana Elias M.D. Active Onset: 11/16/2016 Major depressive disorder Santana Elias M.D. Active Note: followed by [facility] Onset: 11/16/2016 Gastroesophageal reflux disease Santana Elias [...] Form Strength Qnty SIG Indications Ordering Provider Meclizine HCL 01/11 Active Tablets 12.5mg 45tab take 1-2 tablets H81.12 Silcoff, s by mouth 3 times Jhonny, per day as M.DGustavo needed for sensation of motion Diclofenac 12/31 Active Tablets 25mg 90tab 1-2 tabs for G89.4 Silcoff, Sodium DR s pain, 2-3 times Jhonny a day M.DGustavo Doxycycline 12/31 Active Tablets 100mg 20tab 1 bid x 10 d, N61.0 Silcoff, Hyclate /2017 s for breast cyst Jennifer Barry Tramadol HCL 12/25 Active Tablets 50mg 90tab 1 tab three N61.0 Sopchak, /2017 s times a day as Alejandro needed for pain D.O. Prednisone 11/12 Active Tablets 1mg 120ta Take 4 Tablets Sopchak, /2018 bs By Mouth Every Alejandro, Day as Directed D.O. Nicorette 11/02 Active Gum 4mg 90uni 1 piece chew F17.210 [facility] ts three times then Alejandro, hold in cheek D.O. repeat when effect is lost. as needed for tobacco craving Prazosin HCL 10/02 Active Capsules 1mg 30cap 1 by mouth [facility] F51.5 [facility] to help Alejandro, with nightmares D.O. Erythromycin 08/16 Active Tablets 250mg 90tab Take 1 Tablet By K31.84 [facility] Mouth Three Alejandro, Times Daily as D.O. Needed For Before Meals For Decreased Gastrointestinal Motility Vitamin D3 04/24 Active Capsules 5000Unit 90cap Take 1 Capsule s By Mouth Every Alejandro, Strength Day D.O. Omeprazole 03/30 Active Capsules 40mg 60cap 1 by mouth twice [facility] DR viveros daily Alejandro, D.O. Trazodone HCL 07/19 Active Tablets 100mg 1 tabs by mouth Trip, every night at [facility], bedtime for MD chan Simvastatin 04/18 Active Tablets 20mg 1 by mouth every Unknown day at bedtime Lisinopril 10/19 Active Tablets 10mg 1 by mouth every Unknown day Propranolol 10/19 Active Tablets 40mg take 1 tablet by Unknown mouth twice a day for high blood pressure Fluoxetine 00/00 Active Capsules 20mg Unknown HCL /0000 Doxy 100 12/31 Hx Solution 100mg 20uni 1 bid for breast N61.0 co Rec ts cyst Jhonny, - M.D. 12/31 Cephalexin 12/25 Hx Capsules 500mg 14cap 1 twice a day x N61.0 Silcoff, s 7 days for Jhonny, - breast infection M.D. 12/31 Prednisone 10/12 Hx Tablets 1mg 120ta Take 4 Tablets bs By Mouth Every Alejandro, - Day as Directed D.O. 11/02 Prednisone 10/02 Hx Tablets 5mg 90tab Take 1 Tablet By M54.5 [facility] s Mouth Every Day Alejandro, - D.O. 11/02 Permethrin 12/06 Hx Lotion 1% QS wash w/ shampoo, Lice rinse and towel Alejandro, Treatment - dry, saturate D.O. 10/01 the hair and scalp,neck and behind ears for 10 min rinse remove nits Prednisone 08/16 Hx Tablets 1mg 120ta Take 4 Tablets M54.5 [facility] bs By Mouth Every Alejandro, - Day as Directed D.O. 10/02 Alprazolam 07/12 Hx Tablets 0.25mg 24tab 1 pill twice a F43.12 [facility] day for acute Alejandro, - anxiety D.O. 07/24 Tramadol HCL 07/12 Hx Tablets 50mg 120ta 1 by mouth every M25.562 [facility] bs 6 hours as Alejandro, - needed for pain D.O. 10/01 Prednisone 05/07 Hx Tablets 5mg 90tab 1 by mouth every M54.5 [facility], s day Alejandro, - D.O. 08/16 Symbicort 03/30 Hx Aerosol 160-4.5mc 30.6g inhale 2 puffs J45.40 [facility] g/Act m by mouth twice a [...] day or 7 tablets 06/07 once a Cymbalta 09/[address] 60mg take 2 capsules Part by mouth once a Vinh, - brian WOODS 04/23 Resultezza Hx 2mg 1 a day Trip, Danny Justice MD 11/15 Olanzapine Hx Tablets 5mg no sure if on Unknown / this any more - 12/31 Medications Administered in Office Medication Date Status Form Strength Qnty SIG Indications Ordering Provider B12 Injection Administered Injection Sopchak, 017 Alejandro, DGustavoO. SC/Im Administered Injection Sopchak, Injections 017 Alejandro, D.O. TB Intradermal Administered Injection Sopchak, Test 017 Alejandro, D.O. B12 Injection Administered Injection Gabbie 017 Chavies, P.A. SC/Im Administered Injection Gabbie Injections 017 Chavies, P.A. Immunizations CPT Code Status Date Vaccine Lot # [id number] Given 05/07/2017 MMR Virus Immunization [id number] Given 05/07/2017 Influenza Virus Vaccine, Quadrivalent, Split, [id number] Preservative Free [id number] Given 08/16/2012 Flu, Split Virus 3Yrs Vital Signs Date Vital Result Comment 01/31/2018 BP Systolic 126 mmHg BP Diastolic 82 mmHg Weight 277.00 lb 01/11/2018 BP Systolic 122 mmHg BP Diastolic 88 mmHg Weight 287.00 lb with shoes 12/31/2017 BP Systolic 128 mmHg BP Diastolic 90 mmHg Weight 291.00 lb 12/25/2017 BP Systolic 128 mmHg BP Diastolic 80 mmHg Weight 285.00 lb with shoes 11/02/2017 BP Systolic 122 mmHg BP Diastolic 75 mmHg Weight 280.00 lb with shoes 10/02/2017 BP Systolic 128 mmHg BP Diastolic [...] Result H/L Range Note Laboratory test finding 01/11/2018 Glucose Quantitative 102 Hemoglobin A1c 5.8 Comp Metabolic Panel 10/25/2017 Sodium 137 mmol/L 133-145 Potassium 4.2 mmol/L 3.5-5.0 Chloride 106 mmol/L 101-111 Co2 Carbon Dioxide 25 mmol/L 22-32 Anion Gap 6 mmol/L 2-11 Glucose 106 mg/dL High 70-100 Blood Urea Nitrogen 20 mg/dL 6-24 Creatinine 0.96 mg/dL High 0.51-0.95 BUN/Creatinine Ratio 20.8 High 8-20 Calcium 9.1 mg/dL 8.6-10.3 Total Protein 6.6 g/dL 6.4-8.9 Albumin 3.8 g/dL 3.2-5.2 Globulin 2.8 g/dL 2-4 Albumin/Globulin Ratio 1.4 1-3 Total Bilirubin 0.20 mg/dL 0.2-1.0 Alkaline Phosphatase 53 U/L 34-104 Alt 10 U/L 7-52 Ast 9 U/L Low 13-39 Egfr Non- 61.8 >60 Egfr 79.4 >60 1 Laboratory test finding 10/25/2017 CRP High Sensitivity 10.41 mg/L 2 CBC Auto Diff 10/25/2017 White Blood Count 13.5 10^3/uL High 3.5-10.8 Red Blood Count 4.24 10^6/uL 4.0-5.4 Hemoglobin 12.2 g/dL 12.0-16.0 Hematocrit 37 % 35-47 Mean Corpuscular Volume 88 fL 80-97 Mean Corpuscular Hemoglobin 29 pg 27-31 Mean Corpuscular HGB Conc 33 g/dL 31-36 Red Cell Distribution Width 15 % 10.5-15 Platelet Count 270 10^3/uL 150-450 Mean Platelet Volume 9 um3 7.4-10.4 Abs Neutrophils 8.5 10^3/uL High 1.5-7.7 Abs Lymphocytes 3.6 10^3/uL 1.0-4.8 Abs Monocytes 1.0 10^3/uL High 0-0.8 Abs Eosinophils 0.2 10^3/uL 0-0.6 Abs Basophils 0.1 10^3/uL 0-0.2 Abs Nucleated RBC 0 10^3/uL Granulocyte % 63.2 % 38-83 Lymphocyte % 26.9 % 25-47 Monocyte % 7.3 % 1-9 Eosinophil % 1.8 % 0-6 Basophil % 0.8 % 0-2 Nucleated Red Blood Cells % 0 Urinalysis Profile 10/25/2017 Urine Color Yellow Urine Appearance Clear Urine Specific [place] 1.016 1.010-1.030 Urine pH 5.0 5-9 Urine Urobilinogen Negative Negative Urine Ketones Negative Negative Urine Protein Negative Negative Urine Leukocytes Negative Negative Urine Blood Negative Negative Urine Nitrite Negative Negative Urine Bilirubin Negative Negative Urine Glucose Negative Negative Rapid Influenza A & B 10/25/2017 Influenza A Molecular NEGATIVE Negative 3 Molecular Influenza B Molecular NEGATIVE Negative Laboratory test 10/25/2017 Rapid Influenza A B SEE RESULT BELOW 4 finding Antigen CBC Auto Diff 07/29/2017 White Blood Count [...] 0-2 Nucleated Red Blood Cells % 0 Urinalysis Profile 07/29/2017 Urine Color Yellow Urine Appearance Clear Urine Specific [place] 1.016 1.010-1.030 Urine pH 5.0 5-9 Urine Urobilinogen Negative Negative Urine Ketones Negative Negative Urine Protein Negative Negative Urine Leukocytes Trace Negative Urine Blood 1+ Negative Urine Nitrite Negative Negative Urine Bilirubin Negative Negative Urine Glucose Negative Negative Urine White Blood Cell Trace(0-5/hpf) Absent Urine Red Blood Cell Trace(0-2/hpf) Absent Urine Bacteria Absent Absent Urine Squamous Epithelial Cell Present Absent Comp Metabolic Panel 07/29/2017 Sodium 136 mmol/L [...] Egfr Non- 67.7 >60 Egfr 87.1 >60 5 Laboratory test finding 07/29/2017 Lipase 29 U/L 11.0-82.0 HCG < 0.60 mIU/mL 6 Urine Culture And Sensitivities SEE RESULT BELOW 7 Laboratory test finding 06/07/2017 Magnesium 1.9 mg/dL 1.9-2.7 TSH (Thyroid Stim Horm) 0.99 mcIU/mL 0.34-5.60 Vitamin B12 310 pg/mL 180-914 8 Vitamin D Total 25(Oh) 24.3 ng/mL 20-50 Lyme Western Blot 06/07/2017 Lyme Disease IgG Ab WB Negative Negative Lyme Disease IgG Bands Present p41, kDa Lyme Disease IgM Ab WB Negative Negative Lyme Disease IgM Bands Present No bands detecte <SEE NOTE> kDa 9 Lyme Disease Interpretation See Comment 10 Laboratory test finding 06/07/2017 Erythrocyte Sed Rate 32 mm/Hr High 0- 14 Folic Acid (Folate) 4.09 ng/mL >3.99 Connective Tissue Panel 06/07/2017 Anti-Nuclear Antibody 0.5 U 11 Cyclic Citrullinated Peptide <15.6 U 12 Interpretation See Comment 13 Celiac Panel 06/07/2017 Tissue Transglutaminase IgA Ab 1.6 U/mL 14 Immunoglobulin A 209 mg/dL 61 - 356 Celiac Interpretation See Comment 15 Celiac Hla DQ1/DQ2 06/07/2017 Hla-Dqa1 SEE BELOW 16 Hla-DQB1 SEE BELOW 17 Celiac Gene Pairs Present? No Celiac Gene Interpretation See Comment 18 Laboratory test finding 06/07/2017 C Reactive Protein 22.53 mg/L High &lt ; 5.00 19 Comp Metabolic Panel 06/07/2017 Sodium 137 mmol/L [...] Egfr Non- 76.6 >60 Egfr 98.5 >60 20 CBC Auto Diff 06/07/2017 White Blood Count [...] Blood Cells % 0 CBC Auto Diff 03/14/2017 White Blood Count [...] Egfr Non- 69.5 >60 Egfr 89.4 >60 21 Laboratory test finding 03/14/2017 C Reactive Protein 21.98 mg/L High &lt ; 5.00 22 HCG < 0.60 mIU/mL 23 Laboratory test finding 02/14/2017 Potassium Redraw 4.0 [...] Blood Cells % 0 Laboratory test finding 02/14/2017 Troponin-I (TnI) 0.00 ng/mL <0.04 24 Comp Metabolic Panel 02/14/2017 Sodium 137 mmol/L [...] Egfr Non- 77.7 >60 Egfr 99.9 >60 25 Potassium TNP mmol/L 3.5-5.0 26 Anion Gap TNP mmol/L 2-11 Ast TNP U/L 13-39 27 Laboratory test finding 02/14/2017 C Reactive Protein 26.86 mg/L High &lt ; 5.00 28 TSH (Thyroid Stim Horm) 0.79 mcIU/mL 0.34-5.60 29 Alcohol < 10 mg/dL <10 30 Magnesium TNP mg/dL 1.9-2.7 31 Lactic Acid 0.8 mmol/L 0.5-2.0 32 Urinalysis Profile 02/14/2017 Urine Color Yellow Urine Appearance Cloudy Urine Specific Independence 1.017 1.010-1.030 Urine pH 5.0 5-9 Urine Urobilinogen Negative Negative Urine Ketones Negative Negative Urine Protein Negative Negative Urine Leukocytes Negative Negative Urine Blood Negative Negative Urine Nitrite Negative Negative Urine Bilirubin Negative Negative Urine Glucose Negative Negative Urine Drug SCR ED 02/14/2017 Amphetamine Ur Screen None Detected None Detect & [facility] Barbiturates Urine Screen None Detected None Detect Benzodiazepine Urine Screen None Detected None Detect Urine Cannabinoids Screen None Detected None Detect Urine Cocaine Screen None Detected None Detect Urine Opiates Screen None Detected None Detect Urine Phencyclidine Screen None Detected None Detect 33 Laboratory test finding 02/05/2017 HIV-1/-2 Ag & Ab Eval Negative Negative 34 Laboratory test finding 02/05/2017 HIV-1/-2 Ag & Ab Eval Negative Negative 35 Laboratory test finding 02/04/2017 Lipase 21 U/L 11.0-82.0 C Reactive Protein 21.72 mg/L High < 5.00 36 HCG 0.68 mIU/mL 37 Comp Metabolic Panel 02/04/2017 Sodium 136 mmol/L [...] Egfr Non- 67.7 >60 Egfr 87.1 >60 38 Urinalysis Profile 02/04/2017 Urine Color Yellow Urine Appearance Cloudy Urine Specific [place] 1.020 1.010-1.030 Urine pH 5.0 5-9 Urine Urobilinogen Negative Negative Urine Ketones Negative Negative Urine Protein Negative Negative Urine Leukocytes Negative Negative Urine Blood Negative Negative Urine Nitrite Negative Negative Urine Bilirubin Negative Negative Urine Glucose Negative Negative Laboratory test finding 02/04/2017 Lactic Acid 1.0 mmol/L 0.5-2.0 39 CBC Auto Diff 02/04/2017 White Blood Count [...] 0-2 Nucleated Red Blood Cells % 0.1 1 Because ethnic data is not always readily [...] 15-29 5 Kidney failure <15 (or dialysis) 2 Low risk: <1.00 Average risk: 1.00-3.00 High risk: >3.00 3 Television Journalist: [id number] SEE RESULT BELOW Name: VIKY SEWELL : [address]: Loraine Nathan Acct: [id number] Unit: [id number] AGE: 47 Location: ED Re10/25/17 SEX: F Status: REG ER SPEC: [id number] CADE: 10/25/17-[address]: Philip Zuluaga MD REQ: [id number] RECD: 10/25/17 STATUS: JUDY LINDSEY DR: Alejandro Nicolas DO _ SOURCE: [facility]: ORDERED: Flu A B Request Procedure Result Reported Site Rapid Influenza A B Request Final 10/25/17- 1320 ML Specimen received for Influenza A/B Molecular testing * ML - MAIN LAB ([facility]) . END OF REPORT * ML=Testing performed at Main Lab DEPARTMENT OF PATHOLOGY, [address] [place] [address] Garrison Harrison M.D. Director [facility] # [id number] 5 Because ethnic data is not always readily [...] 15-29 5 Kidney failure <15 (or dialysis) 6 <5.0 Negative 5.0 - 25.0 Indeterminate (Repeat testing recommended after 72 hours) >25.0 Positive Perimenopausal women can display HCG levels of up to 20 mIU/mL 7 SEE RESULT BELOW Name: VIKY SEWELL : [address]: Andrew Barrios MD Acct: [id number] Unit: [id number] AGE: 46 Location: ED Re07/29/17 SEX: F Status: DEP ER SPEC: [id number] CADE: 07/29/[address] [facility] [address]: Andrew Barrios MD REQ: [id number] RECD: 07/29/17 STATUS: JUDY LINDSEY DR: Alejandro Nicolas DO _ SOURCE: URINE SPDESC: ORDERED: Urine Culture Procedure Result Reported Site Urine Culture Final 07/30/17- 1304 ML No growth of clinically significant organisms * ML - MAIN LAB ([facility]) . END OF REPORT * ML=Testing performed at Main Lab DEPARTMENT OF PATHOLOGY, [address] [place] [address] Garrison Harrison M.D. Director [facility] # [id number] 8 Normal Range 180 to 914 Indeterminate Range 145 to 180 Deficient Range <145 9 No bands detected 10 Specific serologic response to B. burgdorferi infection [...] screening test (e.g., EIA). Test Performed by: [facility] - [address] [address] 11 REFERENCE VALUE <=1.0 (Negative) 12 REFERENCE VALUE <20.0 (Negative) 13 Tests for antibodies to dsDNA and NAEEM antigens are not performed automatically unless the CIERA result is > or= 3.0 U. Studies performed at [facility] indicate that positive CIERA results <3.0 U are rarely accompanied by positive second order tests. Test Performed by: [facility] - [address] [address] 14 REFERENCE VALUE <4.0 (Negative) Test Performed by: [place] [address] 15 Negative serology. Celiac disease unlikely. However, approximately 10% of patients with celiac disease are seronegative. Also, patients who are already adhering to a gluten-free diet may be seronegative. If celiac disease is highly clinically suspected, consider HLA-DQ typing. Test Performed by: [place] [address] 16 RESULT: 03,04:01 REFERENCE VALUE Not Applicable 17 RESULT: 03:01,04:02 DQ Serologic Equivalent: 7,4 REFERENCE VALUE Not Applicable 18 The absence of HLA celiac permissive genes would make the presence of celiac disease unlikely. ADDITIONAL INFORMATION Method: Molecular typing of HLA antigens performed using reverse SSOP and/or SSP methods, reported as serological equivalents and low to medium resolution molecular values. Performing Laboratory CLIA# [id number] Test Performed by: [place] [address] 19 Acute inflammation: >10.00 20 Because ethnic data is not always readily [...] 15-29 5 Kidney failure <15 (or dialysis) 21 Because ethnic data is not always readily [...] 15-29 5 Kidney failure <15 (or dialysis) 22 Acute inflammation: >10.00 23 <5.0 Negative 5.0 - 25.0 Indeterminate (Repeat testing recommended after 72 hours) >25.0 Positive Perimenopausal women can display HCG levels of up to 20 mIU/mL 24 99th percentile=0.04 ng/mL Troponin results at [facility] are not interchangeable. 25 Because ethnic data is not always readily [...] 15-29 5 Kidney failure <15 (or dialysis) 26 Unable to report test result due to hemolysis. 27 Unable to report test result due to hemolysis. 28 Acute inflammation: >10.00 29 [facility] [place] 30 [facility] DRAWN AT [facility] 31 Unable to report test result due to hemolysis. 32 [facility] Severe Sepsis and Septic Shock Management Bundle Measure requires all lactic acids initially measuring >2.0 mmol/L be repeated. 33 The urine specimen was tested at the listed cutoffs: Drug class test level (ng/mL) Amphetamines 500 Barbiturates 200 Benzodiazepine metabolites 200 Cocaine metabolites 150 Cannabinoids 50 Opiates 300 Pcp 25 Specimen was received without chain of custody. Results should be used for medical purposes only. 34 Negative result does not rule out HIV infection. If acute HIV infection is suspected in a high-risk individual, submit plasma specimen for HIV-1 RNA quantification test (HIVDQ) and/or HIV-2 DNA/RNA test (FHV2Q). Test Performed by: [place] [address] 35 Negative result does not rule out HIV infection. If acute HIV infection is suspected in a high-risk individual, submit plasma specimen for HIV-1 RNA quantification test (HIVDQ) and/or HIV-2 DNA/RNA test (FHV2Q). Test Performed by: [place] [address] 36 Acute inflammation: >10.00 37 <5.0 Negative 5.0 - 25.0 Indeterminate (Repeat testing recommended after 72 hours) >25.0 Positive Perimenopausal women can display HCG levels of up to 20 mIU/mL 38 Because ethnic data is not always readily [...] 15-29 5 Kidney failure <15 (or dialysis) 39 [facility] Severe Sepsis and Septic Shock Management Bundle Measure requires all lactic acids initially measuring >2.0 mmol/L be repeated. Procedures Date CPT Code Description Status Comment 01/15/2018 Mammogram Completed 2018: negative/benign Mammo and US 11/02/2017 02323 Brief Emotional/Behav Assessment Completed W/ Scoring Doc Per Standard Inst 05/07/2017 44385 SC/Im Injections Completed 04/24/2017 39358 SC/Im Injections Completed 04/24/2017 07374 Electrocardiogram Complete Completed 03/30/2017 08412 X-Ray Chest Two Views Completed 01/15/2017 Colonoscopy Completed 2017:poor prep, poor visualization, what was seen was normal, recommend fu in 1 yr 12/07/2016 45021 Anoscopy Diagnostic Completed Encounters Type Date Location Provider CPT E/M Dx Office Visit 01/31/2018 3:45p Main Office Alejandro Nicolas D.O. 59017 H81.12 R53.83 R61 G89.4 F43.12 I10 D51.3 E55.9 M54.5 Office Visit 01/11/2018 9:20a Main Office Brian Doan 47300 H81.12 R53.83 R61 Z13.1 Z13.0 Office Visit 12/31/2017 9:00a Main Office Keli DoanAGustavo 24507 N61.0 E66.01 G89.4 Office Visit 12/25/2017 9:00a Main Office Keli DoanAGustavo 32038 N61.0 E66.01 G89.4 M25.579 Z68.42 Office Visit 11/02/2017 9:45a Main Office Alejandro Nicolas D.O. 08013 F43.12 G89.4 I10 D51.3 E55.9 M54.5 F51.5 K31.84 F17.210 Z13.89 Office Visit 10/02/2017 10:00a Main Office Alejandro Nicolas D.O. 09638 F43.12 G89.4 I10 D51.3 E55.9 M54.5 F51.5 Office Visit 08/16/2017 10:00a Main Office Alejandro Nicolas D.O. 81885 I10 G89.4 F43.12 D51.3 E55.9 M54.5 K31.84 Office Visit 07/12/2017 9:45a Main Office Alejandro Nicolas D.O. 98635 I10 G89.4 F43.12 D51.3 E55.9 M54.5 S83.412A M25.562 N39.3 Office Visit 06/07/2017 10:00a Main Office Alejandro Nicolas D.O. 34968 I10 G89.4 D51.3 E55.9 M54.5 M19.041 F33.9 N39.3 M96.89 M25.562 Office Visit 05/07/2017 2:45p Main Office Alejandro Nicolas D.O. 78483 R74.8 I10 G89.4 D51.3 E55.9 M54.5 Z23 J45.40 Z41.8 Z11.1 Office Visit 04/24/2017 3:00p Main Office Brian Doan 43725 G56.01 G56.02 R07.9 G47.30 I10 K59.00 Z01.810 D51.3 G89.4 E55.9 Office Visit 03/30/2017 3:00p Main Office Alejandro Nicolas D.O. 73073 R91.8 G47.30 J45.20 M54.5 K21.9 J45.40 Office Visit 12/07/2016 10:00a Main Office Santana Elias M.D. 75743 S30.817A R51 G47.30 Office Visit 11/16/2016 3:15p Main Office Santana Elias M.D. 25083 J45.20 M54.5 K21.9 Office Visit 10/19/2016 4:00p Main Office Santana Elias M.D. 48208 M79.605 M79.602 G47.30 I10 Z86.2 Plan of Care Future Appointment(s):03/07/2018 1:30 pm - Alejandro Nicolas D.O. at Main Sn[facility]3301/31/2018 - Alejandro Nicolas D.O.H81.12 Benign paroxysmal vertigo, left earR53.83 Other bltwnqeL05 Generalized rmnzazblcrzaaX12.4 Chronic pain rkfmnnmjH29.12 Post-traumatic stress disorder, anhgrtdQ64 Essential (primary) qtcykbyuktvqU41.3 Other dietary vitamin B12 deficiency ineotjZ69.9 Vitamin D deficiency, qmzuhlgxcwwA46.5 Low back painNew Xrays:MRI Lumbar Spine W/O ContrastFollow up:1 month back pain, chronic problems
[2018-02-15 20:42] VITALS: BP 148/83
--- NOTE | 2018-02-15 21:44 | UC ---
Skin Complaint HPI - HPI Summary HPI Summary: Patient is a 47-year-old female with a history of morbid obesity, pilonidal cysts and low back pain who presents to the with chief complaint of painful large cluster of abscesses near the right vulva. She noticed these 2 days ago. Since that time she states she has been becoming diaphoretic with some chills. She is also endorsing back pain with numbness and tingling down the left leg. She has been endorsing feeling otherwise fatigued. She has never needed surgery for her pilonidal cysts. She has not been using anything over- the-counter for relief of symptoms. She states she had an MRI of her low back this evening at the hospital. Denies any bladder or bowel dysfunction. Denies any urinary symptoms. - History of Current Complaint Chief Complaint: UCBackPain Time Seen by Provider: 02/15/18 20:47 Stated Complaint: BOIL ON GROIN,BACK PAIN,DIZZY Hx Obtained From: Patient Hx Last Menstrual Period: hysterectomy ?: No Onset/Duration: Sudden Onset Skin Exposure Onset/Duration: Hours Ago Timing: Constant Onset Severity: Moderate Pain Intensity: 10 Pain Scale Used: 0-10 Numeric Location: Discrete - Right groin possibly extending into the vulva Aggravating Factor(s): Nothing Alleviating Factor(s): Nothing Associated Signs & Symptoms: Negative: Thirst, Diaphoresis, Fever, Chills, Cough , Wheezing - Allergy/Home Medications Allergies/Adverse Reactions: Allergies Allergy/AdvReac Type Severity Reaction Status Date / Time Adhesive Tape Allergy Mild Hives Verified 02/12/18 14:10 Review of Systems Constitutional: Fever, Chills, Fatigue Skin: Other - erythemaous warm indruated area to the R groin possibly extending to the vulva Respiratory: Negative Cardiovascular: Negative Genitourinary: Vaginal/Penile Pain, Vaginal/Penile Tenderness, Ulceration/ Lesion - R groin just lateral to the vulva Motor: Negative Neurovascular: Negative Musculoskeletal: Arthralgia - back pain Psychological: Negative Is Patient Immunocompromised?: No All Other Systems Reviewed And Are Negative: Yes PMH/Surg Hx/FS Hx/Imm Hx Previously Healthy: Yes Other History Of: Negative For: Anticoagulant Therapy - Surgical History Surgical History: Yes Surgery Procedure, Year, and Place: 1987 C SECTION [facility] ;. 1989 C SECTION AND [facility] ;. hysterectomy ;. 2016 several moles removed from body ; - Family History Known Family History: Positive: Hypertension, Diabetes, Other - Social History Occupation: Unemployed Lives: With Family Alcohol Use: None Substance Use Type: None Smoking Status (MU): Heavy Every Day Tobacco Smoker Type: Cigarettes Amount Used/How Often: 2 cigs per day Length of Time of Smoking/Using Tobacco: >30 yrs Have You Smoked in the Last Year: Yes Household Exposure Type: Cigarettes - Immunization History Most Recent Tetanus Shot: unknown Physical Exam Triage Information Reviewed: Yes Appearance: Ill-Appearing, Obese Vital Signs: Initial Vital Signs Temp 100 F 02/15/18 20:35 Pulse 113 02/15/18 20:35 Resp 20 02/15/18 20:35 BP 148/83 02/15/18 20:35 Pulse Ox 94 02/15/18 20:35 Vital Signs Reviewed: Yes Eye Exam: Normal Eyes: Positive: Conjunctiva Clear Neck exam: Normal Neck: Positive: Supple Respiratory Exam: Normal Respiratory: Positive: Chest non-tender Cardiovascular Exam: Normal Cardiovascular: Positive: RRR Musculoskeletal Exam: Normal Musculoskeletal: Positive: Strength Intact Neurological Exam: Normal Neurological: Positive: Alert Psychological: Positive: Normal Response To Family Skin: Positive: significant lesion(s) - R groin pain just lateral to the vulva without area of fluctuance Course/Dx - Course Course Of Treatment: On arrival to the , temperature is noted to be 100, respirations 22, tachycardia at 113. On physical examination she appears diaphoretic and flushed. She states she has been having sweats and chills. Also endorses back pain with numbness and tingling to the left leg which she had an MRI for this evening and does not know the results. Denies any bladder or bowel dysfunction. Physical examination therapy appears to be a erythematous warm indurated area to the right groin possibly extending into the vulva. Endorses 9/10 pain, constant and throbbing. She states she is unable to sit due to the pain. She does not have a history of tracking or surgical history of her previous pilonidal cysts. I discussed that with her vital signs , pain and physical examination of indurated area to the right groin with possibilty of tracking or worsening infection/sepsis, she will need to go to the ED for further evaluation. She is agreeable to this plan. She will go directly to the ED. - Diagnoses Provider Diagnoses: Vulvar/groin abscess Discharge - Sign-Out/Discharge Documenting (check all that apply): Discharge/Admit/Transfer - Discharge Plan Condition: Stable Disposition: HOME Referrals: Alejandro Nicolas DO [Primary Care Provider] - Additional Instructions: Go directly to the ED - Billing Disposition and Condition Condition: STABLE Disposition: HOME Images Perineum Female: 1 - area of induration, erythema and warmth
== END 2018-02-15 21:25 | disposition home or self-care (01) ==
LOC: UCEAST 20:30
DX: N76.4 Abscess of vulva (principal); E66.9 Obesity, unspecified; Z90.710 Acquired absence of both cervix and uterus; Z91.048 Other nonmedicinal substance allergy status; Z82.49 Family history of ischemic heart disease and other diseases of the circulatory system; Z83.3 Family history of diabetes mellitus; F17.210 Nicotine dependence, cigarettes, uncomplicated
CPT/HCPCS: 99212; G0463

== ENCOUNTER 2018-02-15 21:51 | Emergency (ER) | payer OTHER ==
[2018-02-15] MEDS ORDERED: Lactated Ringers 1000 ml Bag*IV.FLUID IV ONE (22:16)
[2018-02-15 23:11] LABS: ABS Basophils 0.1 10^3/ul (0-0.2); ABS Eosinophils 0.2 10^3/ul (0-0.6); ABS Lymphocytes 2.4 10^3/ul (1.0-4.8); ABS Neutrophils 10.3 10^3/ul (1.5-7.7); ABS Nucleated RBC 0 10^3/ul; Eosinophil % 1.3 % (0-6); Hematocrit 41 % (35-47); Hemoglobin 13.5 g/dl (12.0-16.0); Lymphocyte % 17.3 % (25-47); Mean Corpuscular HGB Conc 33 g/dl (31-36); Mean Corpuscular Hemoglobin 29 pg (27-31); Mean Corpuscular Volume 87 fL (80-97); Mean Platelet Volume 8.7 um3 (7.4-10.4); Nucleated Red Blood Cells % 0.1; Platelet Count 271 10^3/ul (150-450); Red Blood Count 4.69 10^6/ul (4.0-5.4); Red Cell Distribution Width 14 % (10.5-15); White Blood Count 14.1 10^3/ul (3.5-10.8)
[2018-02-15 23:30] LABS: EGFR Non-African American 64.9 (>60)
[2018-02-16] MEDS ORDERED: Lidocaine 1%* 5 ML VIAL INJ ONE (00:37)
[2018-02-16 00:52] LABS: Urine Appearance Cloudy; Urine Blood Negative (Negative); Urine Color Yellow; Urine Ketones Negative (Negative); Urine Protein Negative (Negative); Urine Specific Gravity 1.023 (1.010-1.030); Urine Urobilinogen Negative (Negative)
[2018-02-16] MEDS ORDERED: HYDROcodone/ACETAMIN 5-325 MG* 1 TAB PO ONE (01:05)
[2018-02-16] MEDS ORDERED: Sulfamethox/Trimethoprim DS 800/160* TAB PO ONE (01:06)
[2018-02-16] MEDS ORDERED: DOXYcycline CAP(*) 100 MG PO ONE (01:10)
--- NOTE | 2018-02-16 01:13 | ED ---
Skin Complaint - HPI Summary HPI Summary: Complains of redness, pain and swelling to right side vaginal labia 3 days. Denies purulent discharge, fever, N/V, abdominal pain, vaginal bleeding or discharge. History of pilonidal cyst. Prior abscess on vagina. Medical history is fibromyalgia, HDL, HTN. - History of Current Complaint Chief Complaint: EDRashSkinAbscess Time Seen by Provider: 02/15/18 23:41 Stated Complaint: DIZZY/ABSCESS Hx Obtained From: Patient Hx Last Menstrual Period: hysterectomy Pain Intensity: 10 - Allergy/Home Medications Allergies/Adverse Reactions: Allergies Allergy/AdvReac Type Severity Reaction Status Date / Time Adhesive Tape Allergy Mild Hives Verified 02/12/18 14:10 PMH/Surg Hx/FS Hx/Imm Hx Endocrine/Hematology History: Denies: Hx Anticoagulant Therapy, Hx Blood Disorders, Hx Diabetes, Hx Thyroid Disease Cardiovascular History: Reports: Hx Hypercholesterolemia, Hx Hypertension, Other Cardiovascular Problems/Disorders - HIGH CHOLESTEROL Denies: Hx Congestive Heart Failure, Hx Pacemaker/ICD Respiratory History: Reports: Hx Asthma, Hx Chronic Obstructive Pulmonary Disease (COPD), Hx Sleep Apnea GI History: Reports: Hx Gastroesophageal Reflux Disease - panpranolol Denies: Hx Ulcer History: Reports: Hx Kidney Infection - NO RECENT, Hx Kidney Stones - NO KNOWN STONES NOW Denies: Hx Renal Disease Musculoskeletal History: Reports: Hx Tendonitis, Other Musculoskeletal History - Left knee problem Denies: Hx Arthritis, Hx Osteoporosis Sensory History: Denies: Hx Contacts or Glasses, Hx Hearing Aid Opthamlomology History: Denies: Hx Contacts or Glasses Neurological History: Reports: Hx Headaches, Hx Migraine - WEEKLY OR 2 X WK, Other Neuro Impairments/Disorders - DEGENERATIVE DISK DX, 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 1989 C SECTION AND [facility] ;. hysterectomy ;. 2016 several moles removed from body ; Hx Anesthesia Reactions: No - Immunization History Date of Tetanus Vaccine: UTD Date of Influenza Vaccine: unknown Infectious Disease History: No Infectious Disease History: Denies: Hx Clostridium Difficile, Hx Hepatitis, Hx Human Immunodeficiency Virus (HIV), Hx of Known/Suspected MRSA, Hx Shingles, Hx Tuberculosis, Hx Known/ Suspected VRE, Hx Known/Suspected VRSA, History Other Infectious Disease, Traveled Outside the [place] in Last 30 Days - Family History Known Family History: Positive: Hypertension, Diabetes, Other - Social History Alcohol Use: None Hx Substance Use: No Substance Use Type: Reports: None Hx Tobacco Use: Yes Smoking Status (MU): Heavy Every Day Tobacco Smoker Type: Cigarettes Amount Used/How Often: 2 cigs per day Length of Time of Smoking/Using Tobacco: >30 yrs Have You Smoked in the Last Year: Yes Review of Systems Constitutional: Negative Eyes: Negative ENT: Negative Cardiovascular: Negative Respiratory: Negative Gastrointestinal: Negative Genitourinary: Negative Musculoskeletal: Negative Positive: Other Neurological: Negative Psychological: Normal All Other Systems Reviewed And Are Negative: Yes Physical Exam - Summary Physical Exam Summary: 5 cm x 5 cm area of thickened red skin on right side labia. No evidence of purulent discharge. Tender to palpation. Does not appear fluctuant. Triage Information Reviewed: Yes Vital Signs On Initial Exam: Initial Vitals Temp Pulse Resp BP Pulse Ox 99.6 F 118 16 147/98 96 02/15/18 21:58 02/15/18 21:58 02/15/18 21:58 02/15/18 21:58 02/15/18 21:58 Vital Signs Reviewed: Yes Appearance: Positive: Well-Appearing Skin: Positive: Warm Head/Face: Positive: Normal Head/Face Inspection Eyes: Positive: Normal Neck: Positive: Supple Respiratory/Lung Sounds: Positive: Clear to Auscultation Cardiovascular: Positive: Normal Abdomen Description: Positive: Nontender Musculoskeletal: Positive: Normal Neurological: Positive: Normal Psychiatric: Positive: Normal AVPU Assessment: Alert - Jony Coma Scale Best Eye Response: 4 - Spontaneous Best Motor Response: 6 - Obeys Commands Best Verbal Response: 5 - Oriented Coma Scale Total: 15 Procedures - Incision and Drainage 1 Site: right side vaginal labia Anesthesia: Topical, Lidocaine Instrument(s): Scalpel Diagnostics - Vital Signs Vital Signs Temp Pulse Resp BP Pulse Ox 02/16/18 00:29 97 02/16/18 00:00 88 94 02/15/18 23:54 90 95 02/15/18 23:53 87 138/103 95 02/15/18 21:58 99.6 F 118 16 147/98 96 - Laboratory Lab Results: Lab Results 02/15/18 02/15/18 02/15/18 Range/Units 23:00 23:00 23:00 WBC 14.1 H (3.5-10.8) 10^3/ul RBC 4.69 (4.0-5.4) 10^6/ul Hgb 13.5 (12.0-16.0) g/dl Hct 41 (35-47) % MCV 87 (80-97) fL MCH 29 (27-31) pg MCHC 33 (31-36) g/dl RDW 14 (10.5-15) % Plt Count 271 (150-450) 10^3/ul MPV 8.7 (7.4-10.4) um3 Neut % (Auto) 73.1 (38-83) % Lymph % (Auto) 17.3 L (25-47) % [place] % (Auto) 7.4 H (0-7) % Eos % (Auto) 1.3 (0-6) % Baso % (Auto) 0.9 (0-2) % Absolute Neuts (auto) 10.3 H (1.5-7.7) 10^3/ul Absolute Lymphs (auto) 2.4 (1.0-4.8) 10^3/ul Absolute Monos (auto) 1.0 H (0-0.8) 10^3/ul Absolute Eos (auto) 0.2 (0-0.6) 10^3/ul Absolute Basos (auto) 0.1 (0-0.2) 10^3/ul Absolute Nucleated RBC 0 10^3/ul Nucleated RBC % 0.1 Sodium 139 (139-145) mmol/L Potassium 3.6 (3.5-5.0) mmol/L Chloride 106 (101-111) mmol/L Carbon Dioxide 24 (22-32) mmol/L Anion Gap 9 (2-11) mmol/L BUN 12 (6-24) mg/dL Creatinine 0.92 (0.51-0.95) mg/dL Est GFR ( Amer) 83.4 (>60) Est GFR (Non-Af Amer) 64.9 (>60) BUN/Creatinine Ratio 13.0 (8-20) Glucose 112 H (70-100) mg/dL Lactic Acid 0.8 (0.5-2.0) mmol/L Calcium 9.4 (8.6-10.3) mg/dL Total Bilirubin 0.40 (0.2-1.0) mg/dL AST 12 L (13-39) U/L ALT 15 (7-52) U/L Alkaline Phosphatase 72 (34-104) U/L C-Reactive Protein 72.51 H (< 5.00) mg/L Total Protein 7.0 (6.4-8.9) g/dL Albumin 4.0 (3.2-5.2) g/dL Globulin 3.0 (2-4) g/dL Albumin/Globulin Ratio 1.3 (1-3) Urine Color Urine Appearance Urine pH (5-9) Ur Specific [place] (1.010-1.030) Urine Protein (Negative) Urine Ketones (Negative) Urine Blood (Negative) Urine Nitrate (Negative) Urine Bilirubin (Negative) Urine Urobilinogen (Negative) Ur Leukocyte Esterase (Negative) Urine Glucose (Negative) 02/16/18 Range/Units 00:17 WBC (3.5-10.8) 10^3/ul RBC (4.0-5.4) 10^6/ul Hgb (12.0-16.0) g/dl Hct (35-47) % MCV (80-97) fL MCH (27-31) pg MCHC (31-36) g/dl RDW (10.5-15) % Plt Count (150-450) 10^3/ul MPV (7.4-10.4) um3 Neut % (Auto) (38-83) % Lymph % (Auto) (25-47) % [place] % (Auto) (0-7) % Eos % (Auto) (0-6) % Baso % (Auto) (0-2) % Absolute Neuts (auto) (1.5-7.7) 10^3/ul Absolute Lymphs (auto) (1.0-4.8) 10^3/ul Absolute Monos (auto) (0-0.8) 10^3/ul Absolute Eos (auto) (0-0.6) 10^3/ul Absolute Basos (auto) (0-0.2) 10^3/ul Absolute Nucleated RBC 10^3/ul Nucleated RBC % Sodium (139-145) mmol/L Potassium (3.5-5.0) mmol/L Chloride (101-111) mmol/L Carbon Dioxide (22-32) mmol/L Anion Gap (2-11) mmol/L BUN (6-24) mg/dL Creatinine (0.51-0.95) mg/dL Est GFR ( Amer) (>60) Est GFR (Non-Af Amer) (>60) BUN/Creatinine Ratio (8-20) Glucose (70-100) mg/dL Lactic Acid (0.5-2.0) mmol/L Calcium (8.6-10.3) mg/dL Total Bilirubin (0.2-1.0) mg/dL AST (13-39) U/L ALT (7-52) U/L Alkaline Phosphatase (34-104) U/L C-Reactive Protein (< 5.00) mg/L Total Protein (6.4-8.9) g/dL Albumin (3.2-5.2) g/dL Globulin (2-4) g/dL Albumin/Globulin Ratio (1-3) Urine Color Yellow Urine Appearance Cloudy Urine pH 5.0 (5-9) Ur Specific [place] 1.023 (1.010-1.030) Urine Protein Negative (Negative) Urine Ketones Negative (Negative) Urine Blood Negative (Negative) Urine Nitrate Negative (Negative) Urine Bilirubin Negative (Negative) Urine Urobilinogen Negative (Negative) Ur Leukocyte Esterase Negative (Negative) Urine Glucose Negative (Negative) Result Diagrams: 02/15/18 23:00 02/15/18 23:00 Lab Statement: Any lab studies that have been ordered have been reviewed, and results considered in the medical decision making process. Course/Dx - Course Course Of Treatment: Complains of redness, pain and swelling to right side vaginal labia 3 days. Denies purulent discharge, fever, N/V, abdominal pain, vaginal bleeding or discharge. History of pilonidal cyst. Prior abscess on vagina. Medical history is fibromyalgia, HDL, HTN. 5 cm x 5 cm area of thickened red skin on right side labia. No evidence of purulent discharge. Tender to palpation. Does not appear fluctuant. Vital signs within normal limits. Elevated white count, elevated CRP but blood work otherwise unremarkable. Does not meet sepsis criteria. Fluids given initially. I and D performed. Moderate amount of pus drained. Advised warm compresses, Rx for Doxy 100 mg twice a day 10 days, hydrocodone. - Differential Diagnoses - Skin Complaint Differential Diagnoses: Abscess - Diagnoses Provider Diagnoses: Abscess Discharge - Sign-Out/Discharge Documenting (check all that apply): Discharge/Admit/Transfer - Discharge Plan Condition: Stable Disposition: HOME Prescriptions: DOXYcycline CAP(*) [DOXYcycline 100MG CAP(*)] 100 mg PO BID 10 Days #20 cap HYDROcodone/ACETAMIN 5-325 MG* [[place] 5-325 TAB*] 1 tab PO Q6H PRN 2 Days #8 tab MDD 4-5 tabs PRN Reason: Pain Patient Education Materials: Abscess (ED), Abscess Follow-up (ED) Referrals: Alejandro Nicolas DO [Primary Care Provider] - Additional Instructions: Use warm compresses or warm shower water to help drain abscess. Take antibiotics as directed. Return to the ED for any new or worsening symptoms - Billing Disposition and Condition Condition: STABLE Disposition: HOME
[2018-02-16 01:52] VITALS: BP 157/119
--- NOTE | 2018-02-18 07:29 | PN ---
Progress Note - Progress Note Date of Service: 02/16/18 Note: Wound culture grew Streptococcus constellatus Patient was placed on doxycycline prior to discharge We will await cultures prior to any changes nothing further at this time Josselyn Lawrence, PAC
--- NOTE | 2018-02-19 09:45 | ED ---
Progress - Progress Note Progress Note: Patient's final wound culture is negative for MRSA and staph aureus. He is positive for Streptococcus constellate us and Escherichia coli. Sensitivities to Streptococcus constellate us indicate doxycycline is effective against organism. No change in treatment at this time. Course/Dx - Course Course Of Treatment: Complains of redness, pain and swelling to right side vaginal labia 3 days. Denies purulent discharge, fever, N/V, abdominal pain, vaginal bleeding or discharge. History of pilonidal cyst. Prior abscess on vagina. Medical history is fibromyalgia, HDL, HTN. 5 cm x 5 cm area of thickened red skin on right side labia. No evidence of purulent discharge. Tender to palpation. Does not appear fluctuant. Vital signs within normal limits. Elevated white count, elevated CRP but blood work otherwise unremarkable. Does not meet sepsis criteria. Fluids given initially. I and D performed. Moderate amount of pus drained. Advised warm compresses, Rx for Doxy 100 mg twice a day 10 days, hydrocodone. - Diagnoses Provider Diagnoses: Abscess Discharge - Sign-Out/Discharge Documenting (check all that apply): Post-Discharge Follow Up - Discharge Plan Condition: Stable Disposition: HOME Prescriptions: DOXYcycline CAP(*) [DOXYcycline 100MG CAP(*)] 100 mg PO BID 10 Days #20 cap HYDROcodone/ACETAMIN 5-325 MG* [[place] 5-325 TAB*] 1 tab PO Q6H PRN 2 Days #8 tab MDD 4-5 tabs PRN Reason: Pain Patient Education Materials: Abscess (ED), Abscess Follow-up (ED) Referrals: Alejandro Nicolas DO [Primary Care Provider] - Additional Instructions: Use warm compresses or warm shower water to help drain abscess. Take antibiotics as directed. Return to the ED for any new or worsening symptoms - Billing Disposition and Condition Condition: STABLE Disposition: Home
== END 2018-02-16 01:54 | disposition home or self-care (01) ==
LOC: ED 21:51
DX: N76.0 Acute vaginitis (principal); I10 Essential (primary) hypertension
CPT/HCPCS: 36415; 80053; 81003; 83605; 85025; 86140; 87070; 87076; 87077; 87186; 87205; 87640; 87641; 96374; 96375; 99283; A9270-GY

== ENCOUNTER 2018-06-19 10:41 | Emergency (ER) | payer OTHER ==
--- OUTSIDE RECORDS SUMMARY | 2018-06-19 11:00 | XMS REPORT ---
:1970 External Reference #:[id number] Author Organization [facility] Address [address] [place] [address] Phone [phone] Care Team Providers Name Role Phone HCP given Primary Care Physician Unavailable Payers Type Date Identification Numbers Payment Provider Subscriber Commercial Policy Number: [id number] [facility] Viky Sewell PayID: [id number] [address] [place] [address] Problems Date Description Provider Status Onset: 10/19/2016 Sleep apnea Santana Elias M.D. Active Onset: 11/16/2016 Major depressive disorder Santana Elias M.D. Active Note: followed by [facility] Onset: 11/16/2016 Gastroesophageal reflux disease Santana Elias [...] Alejandro Nicolas D.O. Active asthma Onset: 07/12/2017 Essential hypertension Alejandro Nicolas D.O. Active Onset: 07/12/2017 Posttraumatic stress disorder Alejandro Nicolas D.O. Active Onset: 07/12/2017 Cobalamin deficiency Alejandro Nicolas D.O. Active Onset: 07/12/2017 Vitamin D deficiency Alejandro Nicolas D.O. Active Onset: 07/12/2017 Knee pain Alejandro Nicolas D.O. Active Family History Date [...] Form Strength Qnty SIG Indications Ordering Provider Requip 05/27 Active Tablets 0.25mg 90tab Take 1-2 s tablet by Alejandro, mouth daily 1 D.O. to 3 hours before bedtime for restlessleg syndrome Magox 400 05/27 Active Tablets 400(241.3 360ta 1-4 tablets mg) mg bs every night at Alejandro, bedtime as D.O. directed Flonase 05/27 Active Suspension 50mcg/Act 16uni 2 sprays each [facility] ts nostril once Alejandro, Relief daily D.O. Albuterol 05/27 Active Nebulizer 0.63mg/3M 75uni use 1 vial via [facility] L ts nebulizer Alejandro, every 6 hours D.O. as needed for cough/shortnes s of breath Acetaminophen 04/30 Active Tablets 300-30mg 90tab 1 by mouth N61.0 S[place]ak, -Codeine #3 s three times a Alejandro, day as needed D.O. pain Duloxetine 04/[address] 60mg Take 1 Capsule Unknown HCL Part By Mouth Every Day Meclizine HCL 01/11 Active Tablets 12.5mg 45tab take 1-2 H81.12 Silcoff , s tablets by Jhonny, mouth 3 times M.D. per day as needed for sensation of motion Nicorette 11/02 Active Gum 4mg 90uni 1 piece chew F17.210 Sopchak, ts three times Alejandro, then hold in D.O. cheek repeat when effect is lost. as needed for tobacco craving Vitamin D3 04/24 Active Capsules 5000Unit 90cap Take 1 Capsule S[place]chak , Ultra s By Mouth Every Alejandro, Strength Day D.O. Omeprazole 03/[address] 40mg 60cap Take 1 Capsule Sopchak, s By Mouth Two Alejandro, Times Daily D.O. Simvastatin 04/18 Active Tablets 20mg 1 by mouth every day at bedtime Lisinopril 10/19 Active Tablets 10mg 1 by mouth Unknown every day Propranolol 10/19 Active Tablets 40mg take 1 tablet Unknown HCL by mouth twice a day for high blood pressure Prednisone 04/15 Hx Tablets 1mg 120ta Take 4 Tablets bs By Mouth Every Alejandro, - Day as D.O. 04/30 Fluoxetine 02/15 Hx Capsules 20mg Unknown HCL - 03/17 Doxy 100 12/31 Hx Solution 100mg 20uni 1 bid for N61.0 Silcoff, Rec ts breast cyst Danny Barry M.DGustavo 12/31 Diclofenac 12/[address] 25mg 90tab 1-2 tabs for Silcoff, Sodium s pain, 2-3 Jhonny - times a day M.D. 04/30 Doxycycline 12/31 Hx Tablets 100mg 20tab 1 bid x 10 d, N61.0 Silcoff, Hyclate s for breast Jhonny, - cyst M.D. 01/10 Cephalexin 12/25 Hx Capsules 500mg 14cap 1 twice a day N61.0 Silcoff, s x 7 days for Jhonny, - breast M.D. 12/31 infection Tramadol HCL 12/25 Hx Tablets 50mg 90tab 1 tab three N61.0 Sopchak, s times a day as Alejandro, - needed for D.O. 04/30 pain Prednisone 11/12 Hx Tablets 1mg 120ta take 1 tablets S[place]ak, bs by mouth every Alejandro, - day as D.O. 03/18 directed Prednisone 10/12 Hx Tablets 1mg 120ta Take 4 Tablets S[place]chak, bs By Mouth Every Alejandro, - Day as D.O. 11/02 Directed Prednisone 10/02 Hx Tablets 5mg 90tab Take [address], s By Mouth Every Alejandro, - Day D.O. 11/02 Prazosin HCL 10/02 Hx Capsules 1mg 30cap Take [address] Capsule F51[address] [facility] s By Mouth AT Alejandro, - Bedtime To D.O. 04/30 Help With Nightmares Permethrin 08/22 Hx Lotion 1% QS wash w/ , Lice shampoo, rinse Alejandro, Treatment - and towel dry, D.O. 10/01 saturate the hair and scalp,neck and behind ears for 10 min rinse remove nits Prednisone 08/16 Hx Tablets 1mg 120ta Take [address] [facility] [address] [facility] [facility], bs By Mouth Every Alejandro, - Day as D.O. 10/02 Directed Erythromycin 08/16 Hx Tablets 250mg 90tab Take [address] [facility], s By Mouth Three Alejandro, - Times Daily as D.O. 05/26 Needed For Before Meals For Decreased Gastrointestin al Motility Alprazolam 07/12 Hx Tablets 0.25mg 24tab 1 pill twice a F43.[address] [facility], s day for acute Alejandro, - anxiety D.O. 07/24 Tramadol HCL 07/12 Hx Tablets 50mg 120ta 1 by mouth M25.[address] [facility], bs every 6 hours Alejandro, - as needed for D.O. 10/01 pain Prednisone 05/07 Hx Tablets 5mg 90tab 1 by mouth M54.5 s every day Danny Allen D.O. 08/16 Symbicort 03/30 Hx Aerosol 160-4.5mc 30.6g inhale 2 puffs g/Act m by mouth twice Alejandro, - a day gargle D.O. 04/23 after use Meclizine HCL 02/14 Hx Tablets 25mg 30tab 1 tablet by s mouth tid prn - for vertigo 04/23 Savella 01/25 Hx Tablets 25mg take 09/18 tablet - (12.5mg) once 04/23 daily at bedtime x 1 week then bid as tolerated Vitamin D3 01/25 Hx Capsules 5000Unit take one capsule by - mouth every 06/07 day or tablets once a week Cymbalta 09/[address] 60mg take 2 Part capsules by Vinh, - mouth once a MD Trazodone 07/19 Hx Tablets 100mg 1 tabs by Trip, mouth every Vinh, - night at 05/26 bedtime sleep Resultezza Hx 2mg 1 a day Trip, Vinh, - 11/15 Olanzapine Hx Tablets 5mg no sure if on Unknown /0000 this any more - 12/31 Medications Administered in Office Medication Date Status Form Strength Qnty SIG Indications Ordering Provider B12 Injection Administered Injection Sopchak, 018 Alejandro, D.O. Toradol 15MG. Administered Injection Sopchak, 018 Alejandro, D.O. SC/Im Administered Injection Sopchak, Injections 018 Alejandro, D.O. TB Intradermal Administered Injection Sopchak, Test 018 Alejandro, D.O. B12 Injection Administered Injection S[place]chak, 017 Alejandro, D.O. SC/Im Administered Injection Sopchak, Injections 017 Alejandro, D.O. TB Intradermal Administered Injection Sopchak, Test 017 Tia Allen B12 Injection Administered Injection Gabbie 017 [place], P.A. SC/Im Administered Injection Gabbie Injections 017 [place], P.A. Immunizations CPT Code Status Date Vaccine Lot # [id number] Given 05/07/2017 MMR Virus Immunization [id number] Given 05/07/2017 Influenza Virus Vaccine, Quadrivalent, Split, [id number] Preservative Free 07190 Given 08/16/2012 Flu, Split Virus 3Yrs Vital Signs Date Vital Result Comment 05/27/2018 BP Systolic 124 mmHg thigh cuff BP Diastolic 80 mmHg thigh cuff Weight 294.00 lb 04/30/2018 BP Systolic 112 mmHg thigh cuff BP Diastolic 84 mmHg thigh cuff 03/18/2018 BP Systolic 122 mmHg BP Diastolic 82 mmHg Weight 288.00 lb 01/31/2018 BP Systolic 126 mmHg BP Diastolic [...] Test Date Test Result H/L Range Note Comp Metabolic Panel 05/02/2018 Sodium 140 mmol/L 135-145 Potassium 5.0 mmol/L 3.5-5.0 Chloride 106 mmol/L 101-111 Co2 Carbon Dioxide 27 mmol/L 22-32 Anion Gap 7 mmol/L 2-11 Glucose 97 mg/dL 70-100 Blood Urea Nitrogen 13 mg/dL 6-24 Creatinine 0.91 mg/dL 0.51-0.95 BUN/Creatinine Ratio 14.3 8-20 Calcium 9.3 mg/dL 8.6-10.3 Total Protein 6.4 g/dL 6.4-8.9 Albumin 3.9 g/dL 3.2-5.2 Globulin 2.5 g/dL 2-4 Albumin/Globulin Ratio 1.6 1-3 Total Bilirubin 0.20 mg/dL 0.2-1.0 Alkaline Phosphatase 64 U/L 34-104 Alt 12 U/L 7-52 Ast 12 U/L Low 13-39 Egfr Non- 65.7 >60 Egfr 79.5 >60 1 Laboratory test finding 05/02/2018 TSH (Thyroid Stim Horm) 1.48 mcIU/mL 0.34-5.60 Vitamin B12 719 pg/mL 180-914 2 Magnesium 2.0 mg/dL 1.9-2.7 C Reactive Protein 13.96 mg/L High <8.01 CBC Auto Diff 05/02/2018 White Blood Count 11.1 10^3/uL High 3.5-10.8 Red Blood Count 4.52 10^6/uL 4.00-5.40 Hemoglobin 13.3 g/dL 12.0-16.0 Hematocrit 40 % 35-47 Mean Corpuscular Volume 88 fL 80-97 Mean Corpuscular Hemoglobin 30 pg 27-31 Mean Corpuscular HGB Conc 34 g/dL 31-36 Red Cell Distribution Width 15 % 10.5-15 Platelet Count 278 10^3/uL 150-450 Mean Platelet Volume 9.9 um3 7.4-10.4 Abs Neutrophils 7.5 10^3/uL 1.5-7.7 Abs Lymphocytes 2.6 10^3/uL 1.0-4.8 Abs Monocytes 0.8 10^3/uL 0-0.8 Abs Eosinophils 0.2 10^3/uL 0-0.6 Abs Basophils 0.1 10^3/uL 0-0.2 Abs Nucleated RBC 0 10^3/uL Granulocyte % 67.8 % 38-83 Lymphocyte % 23.1 % Low 25-47 Monocyte % 7.0 % 0-7 Eosinophil % 1.4 % 0-6 Basophil % 0.7 % 0-2 Nucleated Red Blood Cells % 0 Laboratory test finding 05/02/2018 Erythrocyte Sed Rate 27 mm/Hr High 0- 14 Laboratory test finding 03/29/2018 C Reactive Protein 26.23 mg/L High < 8.01 Erythrocyte Sed Rate 33 mm/Hr High 0-14 Folic Acid (Folate) 8.90 ng/mL >3.99 Magnesium 2.0 mg/dL 1.9-2.7 TSH (Thyroid Stim Horm) 1.08 mcIU/mL 0.34-5.60 Vitamin B12 260 pg/mL 180-914 3 Vitamin D Total 25(Oh) 33.5 ng/mL 20-50 Comp Metabolic Panel 03/29/2018 Sodium 138 mmol/L 135-145 Potassium 4.5 mmol/L 3.5-5.0 Chloride 106 mmol/L 101-111 Co2 Carbon Dioxide 24 mmol/L 22-32 Anion Gap 8 mmol/L 2-11 Glucose 100 mg/dL 70-100 Blood Urea Nitrogen 13 mg/dL 6-24 Creatinine 0.84 mg/dL 0.51-0.95 BUN/Creatinine Ratio 15.5 8-20 Calcium 9.6 mg/dL 8.6-10.3 Total Protein 6.8 g/dL 6.4-8.9 Albumin 4.1 g/dL 3.2-5.2 Globulin 2.7 g/dL 2-4 Albumin/Globulin Ratio 1.5 1-3 Total Bilirubin 0.30 mg/dL 0.2-1.0 Alkaline Phosphatase 68 U/L 34-104 Alt 11 U/L 7-52 Ast 13 U/L 13-39 Egfr Non- 72.1 >60 Egfr 87.2 >60 4 CBC Auto Diff 03/29/2018 White Blood Count 11.0 10^3/uL High 3.5-10.8 Red Blood Count 4.69 10^6/uL 4.00-5.40 Hemoglobin 13.9 g/dL 12.0-16.0 Hematocrit 41 % 35-47 Mean Corpuscular Volume 88 fL 80-97 Mean Corpuscular Hemoglobin 30 pg 27-31 Mean Corpuscular HGB Conc 34 g/dL 31-36 Red Cell Distribution Width 15 % 10.5-15 Platelet Count 313 10^3/uL 150-450 Mean Platelet Volume 8.9 um3 7.4-10.4 Abs Neutrophils 7.6 10^3/uL 1.5-7.7 Abs Lymphocytes 2.4 10^3/uL 1.0-4.8 Abs Monocytes 0.7 10^3/uL 0-0.8 Abs Eosinophils 0.2 10^3/uL 0-0.6 Abs Basophils 0.1 10^3/uL 0-0.2 Abs Nucleated RBC 0 10^3/uL Granulocyte % 69.3 % 38-83 Lymphocyte % 21.5 % Low 25-47 Monocyte % 6.4 % 0-7 Eosinophil % 2.2 % 0-6 Basophil % 0.6 % 0-2 Nucleated Red Blood Cells % 0.1 Fractionated Estrogens 03/29/2018 Estrone (E1) 89 pg/mL 5 Estradiol (E2) 44 pg/mL 6 Laboratory test finding 03/29/2018 TSH (Thyroid Stim Horm) 1.07 mcIU/mL 0.34-5.60 FSH (Follicle Stim Hormone) 6.8 mIU/mL 7 LH (Lutenizing Hormone) 5.1 mcIU/mL 8 Progesterone 1.6 ng/mL 9 Wound Culture/Sensi 02/16/2018 Wound/Misc SEE RESULT 10 Culture-Gram Stain BELOW Laboratory test 02/16/2018 MRSA/S Aureus Ssti SEE RESULT 11 finding PCR BELOW CBC Auto Diff 02/15/2018 White Blood Count 14.1 10^3/uL High 3.5-10.8 Red Blood Count 4.69 10^6/uL 4.0-5.4 Hemoglobin 13.5 g/dL 12.0-16.0 Hematocrit 41 % 35-47 Mean Corpuscular Volume 87 fL 80-97 Mean Corpuscular Hemoglobin 29 pg 27-31 Mean Corpuscular HGB Conc 33 g/dL 31-36 Red Cell Distribution Width 14 % 10.5-15 Platelet Count 271 10^3/uL 150-450 Mean Platelet Volume 8.7 um3 7.4-10.4 Abs Neutrophils 10.3 10^3/uL High 1.5-7.7 Abs Lymphocytes 2.4 10^3/uL 1.0-4.8 Abs Monocytes 1.0 10^3/uL High 0-0.8 Abs Eosinophils 0.2 10^3/uL 0-0.6 Abs Basophils 0.1 10^3/uL 0-0.2 Abs Nucleated RBC 0 10^3/uL Granulocyte % 73.1 % 38-83 Lymphocyte % 17.3 % Low 25-47 Monocyte % 7.4 % High 0-7 Eosinophil % 1.3 % 0-6 Basophil % 0.9 % 0-2 Nucleated Red Blood Cells % 0.1 Urinalysis Profile 02/15/2018 Urine Color Yellow Urine Appearance Cloudy Urine Specific Ellsworth 1.023 1.010-1.030 Urine pH 5.0 5-9 Urine Urobilinogen Negative Negative Urine Ketones Negative Negative Urine Protein Negative Negative Urine Leukocytes Negative Negative Urine Blood Negative Negative Urine Nitrite Negative Negative Urine Bilirubin Negative Negative Urine Glucose Negative Negative Laboratory test finding 01/11/2018 Glucose Quantitative 102 Hemoglobin A1c 5.8 CBC Auto Diff 10/25/2017 White Blood Count [...] Blood Cells % 0 Laboratory test finding 10/25/2017 CRP High Sensitivity 10.41 mg/L 12 Comp Metabolic Panel 10/25/2017 Sodium 137 mmol/L [...] Egfr Non- 61.8 >60 Egfr 79.4 >60 13 Laboratory test 10/25/2017 Rapid Influenza A B SEE RESULT BELOW 14 finding Antigen Rapid Influenza A & B 10/25/2017 Influenza A NEGATIVE Negative 15 Molecular Molecular Influenza B Molecular NEGATIVE Negative Urinalysis Profile 10/25/2017 Urine Color Yellow Urine Appearance Clear Urine Specific Ellsworth 1.016 1.010-1.030 Urine pH 5.0 5-9 Urine Urobilinogen Negative Negative Urine Ketones Negative Negative Urine Protein Negative Negative Urine Leukocytes Negative Negative Urine Blood Negative Negative Urine Nitrite Negative Negative Urine Bilirubin Negative Negative Urine Glucose Negative Negative Laboratory test finding 07/29/2017 Lipase 29 U/L 11.0-82.0 HCG < 0.60 mIU/mL 16 Urine Culture And Sensitivities SEE RESULT BELOW 17 Comp Metabolic Panel 07/29/2017 Sodium 136 mmol/L [...] Egfr Non- 67.7 >60 Egfr 87.1 >60 18 Urinalysis Profile 07/29/2017 Urine Color Yellow Urine Appearance Clear Urine Specific Ellsworth 1.016 1.010-1.030 Urine pH 5.0 5-9 Urine [...] Egfr Non- 76.6 >60 Egfr 98.5 >60 19 Laboratory test finding 06/07/2017 C Reactive Protein 22.53 mg/L High < 5.00 20 Celiac Hla DQ1/DQ2 06/07/2017 Hla-Dqa1 SEE BELOW 21 Hla-DQB1 SEE BELOW 22 Celiac Gene Pairs Present? No Celiac Gene Interpretation See Comment 23 Celiac Panel 06/07/2017 Tissue Transglutaminase IgA Ab 1.6 U/mL 24 Immunoglobulin A 209 mg/dL 61 - 356 Celiac Interpretation See Comment 25 Connective Tissue Panel 06/07/2017 Anti-Nuclear Antibody 0.5 U 26 Cyclic Citrullinated Peptide <15.6 U 27 Interpretation See Comment 28 Laboratory test finding 06/07/2017 Erythrocyte Sed Rate 32 mm/Hr High 0- 14 Folic Acid (Folate) 4.09 ng/mL >3.99 Lyme Western Blot 06/07/2017 Lyme Disease IgG Ab WB Negative Negative Lyme Disease IgG Bands Present p41, kDa Lyme Disease IgM Ab WB Negative Negative Lyme Disease IgM Bands Present No bands detecte <SEE NOTE> kDa 29 Lyme Disease Interpretation See Comment 30 Laboratory test finding 06/07/2017 Magnesium 1.9 mg/dL 1.9-2.7 TSH (Thyroid Stim Horm) 0.99 mcIU/mL 0.34-5.60 Vitamin B12 310 pg/mL 180-914 31 Vitamin D Total 25(Oh) 24.3 ng/mL 20-50 [...] Egfr Non- 69.5 >60 Egfr 89.4 >60 32 Laboratory test finding 03/14/2017 C Reactive Protein 21.98 mg/L High < 5.00 33 HCG < 0.60 mIU/mL 34 Laboratory test finding 02/14/2017 Potassium Redraw 4.0 mmol/L 3.5-5.0 Magnesium 2.0 mg/dL 1.9-2.7 Ast Redraw 13 U/L 13-39 Urine Drug SCR ED & 02/14/2017 Amphetamine Ur Screen None Detected None Detect Pain Clinic Barbiturates Urine Screen None Detected None Detect Benzodiazepine Urine Screen None Detected None Detect Urine Cannabinoids Screen None Detected None Detect Urine Cocaine Screen None Detected None Detect Urine Opiates Screen None Detected None Detect Urine Phencyclidine Screen None Detected None Detect 35 Urinalysis Profile 02/14/2017 Urine Color Yellow Urine Appearance Cloudy Urine Specific Ellsworth 1.017 1.010-1.030 Urine pH 5.0 5-9 Urine Urobilinogen Negative Negative Urine Ketones Negative Negative Urine Protein Negative Negative Urine Leukocytes Negative Negative Urine Blood Negative Negative Urine Nitrite Negative Negative Urine Bilirubin Negative Negative Urine Glucose Negative Negative Laboratory test finding 02/14/2017 C Reactive Protein 26.86 mg/L High < 5.00 36 TSH (Thyroid Stim Horm) 0.79 mcIU/mL 0.34-5.60 37 Alcohol < 10 mg/dL <10 38 Magnesium TNP mg/dL 1.9-2.7 39 Lactic Acid 0.8 mmol/L 0.5-2.0 40 Comp Metabolic Panel 02/14/2017 Sodium 137 mmol/L [...] Egfr Non- 77.7 >60 Egfr 99.9 >60 41 Potassium TNP mmol/L 3.5-5.0 42 Anion Gap TNP mmol/L 2-11 Ast TNP U/L 13-39 43 Laboratory test finding 02/14/2017 Troponin-I (TnI) 0.00 ng/mL <0.04 44 CBC Auto Diff 02/14/2017 White Blood Count [...] Blood Cells % 0 Laboratory test finding 02/05/2017 HIV-1/-2 Ag & Ab Eval Negative Negative 45 Laboratory test finding 02/05/2017 HIV-1/-2 Ag & Ab Eval Negative Negative 46 Laboratory test finding 02/04/2017 Lipase 21 U/L 11.0-82.0 C Reactive Protein 21.72 mg/L High < 5.00 47 HCG 0.68 mIU/mL 48 Comp Metabolic Panel 02/04/2017 Sodium 136 mmol/L [...] Egfr Non- 67.7 >60 Egfr 87.1 >60 49 Urinalysis Profile 02/04/2017 Urine Color Yellow Urine Appearance Cloudy Urine Specific Ellsworth 1.020 1.010-1.030 Urine pH 5.0 5-9 Urine Urobilinogen Negative Negative Urine Ketones Negative Negative Urine Protein Negative Negative Urine Leukocytes Negative Negative Urine Blood Negative Negative Urine Nitrite Negative Negative Urine Bilirubin Negative Negative Urine Glucose Negative Negative Laboratory test finding 02/04/2017 Lactic Acid 1.0 mmol/L 0.5-2.0 50 CBC Auto Diff 02/04/2017 White Blood Count [...] 5 Kidney failure <15 (or dialysis) 2 Normal Range 180 to 914 Indeterminate Range 145 to 180 Deficient Range <145 3 Normal Range 180 to 914 Indeterminate Range 145 to 180 Deficient Range <145 4 Because ethnic data is not always [...] 5 Kidney failure <15 (or dialysis) 5 REFERENCE VALUE Premenopausal :17-200 Postmenopausal : 7-40 ADDITIONAL INFORMATION This test was developed and its performance characteristics determined by [facility] in a manner consistent with CLIA requirements. This test has not been cleared or approved by the U.S. Food and Drug Administration. 6 REFERENCE VALUE Premenopausal: 15-350 (E2 levels vary widely through the menstrual cycle.) Postmenopausal: <10 ADDITIONAL INFORMATION This test was developed and its performance characteristics determined by [facility] in a manner consistent with CLIA requirements. This test has not been cleared or approved by the U.S. Food and Drug Administration. Test Performed by: [facility] [address] [facility], [place] [address] 7 Normally menstruating females - Follicular phase 3 - 9 - Mid-cycle peak 4 - 23 - Luteal phase 1 - 6 Postmenopausal females 16 - 114 8 Normally menstruating females - Follicular Phase 1 - 18 - Mid-Cycle Peak 24 - 105 - Luteal Phase 0.6 - 20 Postmenopausal females 15 - 62 9 Female reference ranges for Progesterone: Follicular phase.......0.3 - 1.5 ng/ml Mid-luteal phase.......5.2 - 18.5 ng/ml Postmenopausal.........< 0.8 ng/ml 1st trimester.........4.7 - 50.0 ng/ml 2nd trimester.........19.4 - 45.3 ng/ml 10 SEE RESULT BELOW Name: VIKY SEWELL : [address]: Melchor Quinones MD Acct: [id number] Unit: [id number] AGE: 47 Location: ED Re02/15/18 SEX: F Status: DEP ER SPEC: [id number] CADE: 02/16/[address]: Everett ALLISON REQ: [id number] RECD: 02/16/18 STATUS: RES [facility] DR: Alejandro Nogueira MD _ SOURCE: [facility]: ORDERED: Culture Stain Procedure Result Reported Site Wound/Misc Gram Stain Preliminary 02/16/18- 0203 ML 3+ Epithelial Cells 4+ Neutrophils 3+ Gram Positive Bacilli 2+ Gram Positive Cocci Wound/Misc Culture PENDING * ML - Main Lab . END OF REPORT DEPARTMENT OF PATHOLOGY, [address] [place] [address] Garrison Harrison M.D. Director [facility] # [id number] 11 SEE RESULT BELOW Name: VIKY SEWELL : [address]: Melchor Quinones MD Acct: [id number] Unit: [id number] AGE: 47 Location: ED Re02/15/18 SEX: F Status: DEP ER SPEC: [id number] CADE: 02/16/[address]: Everett ALLISON REQ: [id number] RECD: 02/16/18 STATUS: COMP OTHR DR: Alejandro Nogueira MD _ SOURCE: [facility]: ORDERED: MRSA/SA SSTI, Culture Stain Procedure Result Reported Site MRSA/S. aureus SSTI PCR Final 02/16/18- 0330 ML Organism 1 MRSA NEGATIVE Organism 2 S.AUREUS NEGATIVE Wound/Misc Gram Stain Final 02/16/18- 0712 ML 3+ Epithelial Cells 4+ Neutrophils 3+ Gram Positive Bacilli 2+ Gram Positive Cocci Wound/Misc Culture Final 02/19/18- 1017 ML Organism 1 STREPTOCOCCUS CONSTELLATUS Quantity 2+ Organism 2 ESCHERICHIA COLI Quantity 1+ Organism 3 BACTEROIDES UREOLYTICUS Quantity 1+ With additional possible anaerobes Anaerobic sensitivities are not routinely performed. Positive isolates will be saved for one week. Please call the Microbiology Laboratory if susceptibility testing is needed. CONTINUED ON NEXT PAGE DEPARTMENT OF PATHOLOGY, [address] [place] [address] Garrison Harrison M.D. Director [facility] # [id number] Patient: JHONVIKY L [id number] (Continued) Specimen: [id number] Collected: 02/16/18 Received: 02/16/18 (Continued) Procedure Result Reported Site Wound/Misc Culture Final (continued) 02/19/18- 101 1. STREPTOCOCCUS CONSTELLATUS M.I.C. RX --------- ------ Chloramphenicol 4 S Ampicillin 0.25 S Penicillin 0.12 S Meropenem 0.25 S Cefepime 2 I * Cefotaxime 0.5 S Ceftriaxone 0.5 S Levofloxacin 0.5 S Azithromycin >2 R Clindamycin <=0.06 S Erythromycin >0.5 R Tetracycline 1 S Vancomycin 1 S 2. ESCHERICHIA COLI M.I.C. RX --------- ------ Ampicillin 4 S Cefazolin <=4 S Cefepime <=1 S Ceftriaxone <=1 S Ciprofloxacin <=0.25 S Gentamicin <=1 S Levofloxacin <=0.12 S Meropenem <=0.25 S Tetracycline <=1 S Pipercillin/Tazobactam <=4 S Trimethoprim/Sulfamethoxazole <=20 S Amoxicillin/Clavulanic Acid <=2 S Aztreonam <=1 S CONTINUED ON NEXT PAGE DEPARTMENT OF PATHOLOGY, [address] [place] [address] Garrison Harrison M.D. Director [facility] # [id number] Patient: VIKY SEWELL [id number] (Continued) Specimen: [id number] Collected: 02/16/18 Received: 02/16/18 (Continued) Procedure Result Reported Site Wound/Misc Culture Final (continued) Contact the Microbiology Department for any additional antibiotic reporting. * ML - Main Lab . END OF REPORT DEPARTMENT OF PATHOLOGY, [address] [place] [address] Garrison Harrison M.D. Director [facility] # [id number] 12 Low risk: <1.00 Average risk: 1.00-3.00 High risk: >3.00 13 Because ethnic data is not always readily [...] 15-29 5 Kidney failure <15 (or dialysis) 14 SEE RESULT BELOW Name: VIKY SEWELL : [address]: Loraine Miller [facility] Acct: [id number] Unit: [id number] AGE: 47 Location: ED Re10/25/17 SEX: F Status: REG ER SPEC: [id number] CADE: 10/25/17-[address] [facility] [address]: Philip Zuluaga MD REQ: [id number] RECD: 10/25/17-130 STATUS: JUDY LINDSEY DR: Alejandro Nicolas DO _ [facility]: ORDERED: Flu A B Request Procedure Result Reported Site Rapid Influenza A B Request Final 10/25/17- 1320 ML Specimen received for Influenza A/B Molecular testing * ML - MAIN LAB (PSC1) . END OF REPORT * ML=Testing performed at Main Lab DEPARTMENT OF PATHOLOGY, [address] [place] [address] Garrison Harrison M.D. Director [facility] # [id number] 15 Plate Painter: [id number] 16 <5.0 Negative 5.0 - 25.0 Indeterminate (Repeat testing recommended after 72 hours) >25.0 Positive Perimenopausal women can display HCG levels of up to 20 mIU/mL 17 SEE RESULT BELOW Name: VIKY SEWELL : [address]: Andrew Barrios MD Acct: [id number] Unit: [id number] AGE: 46 Location: ED Re07/29/17 SEX: F Status: DEP ER SPEC: [id number] CADE: 07/29/[address]: Andrew Barrios MD REQ: [id number] RECD: 07/29/17 STATUS: JUDY LINDSEY DR: Alejandro Nicolas DO _ SOURCE: URINE [facility]ESC: ORDERED: Urine Culture Procedure Result Reported Site Urine Culture Final 07/30/17- 1304 ML No growth of clinically significant organisms * ML - MAIN LAB (PSC1) . END OF REPORT * ML=Testing performed at Main Lab DEPARTMENT OF PATHOLOGY, [address] [place] [address] Garrison Harrison M.D. Director [facility] # [id number] 18 Because ethnic data is not always readily [...] 15-29 5 Kidney failure <15 (or dialysis) 19 Because ethnic data is not always readily [...] 15-29 5 Kidney failure <15 (or dialysis) 20 Acute inflammation: >10.00 21 RESULT: 03,04:01 REFERENCE VALUE Not Applicable 22 RESULT: 03:01,04:02 DQ Serologic Equivalent: 7,4 REFERENCE VALUE Not Applicable 23 The absence of HLA celiac permissive genes would make the presence of celiac disease unlikely. ADDITIONAL INFORMATION Method: Molecular typing of HLA antigens performed using reverse SSOP and/or SSP methods, reported as serological equivalents and low to medium resolution molecular values. Performing Laboratory CLIA# [id number] Test Performed by: [address] [id number] 24 REFERENCE VALUE <4.0 (Negative) Test Performed by: [address] [id number] 25 Negative serology. Celiac disease unlikely. However, approximately 10% of patients with celiac disease are seronegative. Also, patients who are already adhering to a gluten-free diet may be seronegative. If celiac disease is highly clinically suspected, consider HLA-DQ typing. Test Performed by: [address] [address] 26 REFERENCE VALUE <=1.0 (Negative) 27 REFERENCE VALUE <20.0 (Negative) 28 Tests for antibodies to dsDNA and NAEEM antigens are not performed automatically unless the CIERA result is > or= 3.0 U. Studies performed at [facility] indicate that positive CIERA results <3.0 U are rarely accompanied by positive second order tests. Test Performed by: [facility] - [address] [address] 29 No bands detected 30 Specific serologic response to B. burgdorferi infection [...] screening test (e.g., EIA). Test Performed by: [facility] - [address] [address] 31 Normal Range 180 to 914 Indeterminate Range 145 to 180 Deficient Range <145 32 Because ethnic data is not always readily [...] 15-29 5 Kidney failure <15 (or dialysis) 33 Acute inflammation: >10.00 34 <5.0 Negative 5.0 - 25.0 Indeterminate (Repeat testing recommended after 72 hours) >25.0 Positive Perimenopausal women can display HCG levels of up to 20 mIU/mL 35 The urine specimen was tested at the listed cutoffs: Drug class test level (ng/mL) Amphetamines 500 Barbiturates 200 Benzodiazepine metabolites 200 Cocaine metabolites 150 Cannabinoids 50 Opiates 300 Pcp 25 Specimen was received without chain of custody. Results should be used for medical purposes only. 36 Acute inflammation: >10.00 37 [facility] DRAWN AT [facility] 38 SST DRAWN AT [facility] 39 Unable to report test result due to hemolysis. 40 [facility] Severe Sepsis and Septic Shock Management Bundle Measure requires all lactic acids initially measuring >2.0 mmol/L be repeated. 41 Because ethnic data is not always readily [...] 15-29 5 Kidney failure <15 (or dialysis) 42 Unable to report test result due to hemolysis. 43 Unable to report test result due to hemolysis. 44 99th percentile=0.04 ng/mL Troponin results at [facility] and [facility] are not interchangeable. 45 Negative result does not rule out HIV infection. If acute HIV infection is suspected in a high-risk individual, submit plasma specimen for HIV-1 RNA quantification test (HIVDQ) and/or HIV-2 DNA/RNA test (FHV2Q). Test Performed by: [address] [address] 46 Negative result does not rule out HIV infection. If acute HIV infection is suspected in a high-risk individual, submit plasma specimen for HIV-1 RNA quantification test (HIVDQ) and/or HIV-2 DNA/RNA test (FHV2Q). Test Performed by: [address] [address] 47 Acute inflammation: >10.00 48 <5.0 Negative 5.0 - 25.0 Indeterminate (Repeat testing recommended after 72 hours) >25.0 Positive Perimenopausal women can display HCG levels of up to 20 mIU/mL 49 Because ethnic data is not always readily [...] 15-29 5 Kidney failure <15 (or dialysis) 50 [facility] Severe Sepsis and Septic Shock Management Bundle Measure requires all lactic acids initially measuring >2.0 mmol/L be repeated. Procedures Date CPT Code Description Status Comment 04/30/2018 96892 SC/Im Injections Completed 01/31/2018 91690 Brief Emotional/Behav Assessment Completed W/ Scoring Doc Per Standard Inst 01/15/2018 Mammogram Completed 2018: negative/benign Mammo and US 11/02/2017 67956 Brief Emotional/Behav Assessment Completed W/ Scoring Doc Per Standard Inst 05/07/2017 61342 SC/Im Injections Completed 04/24/2017 91905 SC/Im Injections Completed 04/24/2017 67950 Electrocardiogram Complete Completed 03/30/2017 64057 X-Ray Chest Two Views Completed 01/15/2017 Colonoscopy Completed 2017:poor prep, poor visualization, what was seen was normal, recommend fu in 1 yr 12/07/2016 13513 Anoscopy Diagnostic Completed Encounters Type Date Location Provider CPT E/M Dx Office Visit 05/27/2018 10:00a Main Office Alejandro Nicolas D.O. 00840 F33.9 F41.9 R53.83 R51 F17.210 F43.12 G89.4 M25.562 J30.9 M54.5 S71.102A Office Visit 04/30/2018 4:30p Main Office Alejandro Nicolas D.O. 30329 R51 N61.0 F33.9 R53.83 F43.12 F17.210 F51.5 F41.9 Z11.1 E53.8 I10 Office Visit 03/18/2018 3:45p Main Office Alejandro Nicolas D.O. 95645 R53.83 G89.4 I10 F43.12 F33.9 Office Visit 01/31/2018 3:45p Main Office Alejandro Nicolas D.O. 72871 H81.12 R53.83 R61 G89.4 F43.12 I10 D51.3 E55.9 M54.5 Z13.89 Office Visit 01/11/2018 9:20a Main Office Gabbie Abreu P.A. 91926 H81.12 R53.83 R61 Z13.1 Z13.0 Office Visit 12/31/2017 9:00a Main Office Gabbie Abreu, P.A. 59870 N61.0 E66.01 G89.4 Office Visit 12/25/2017 9:00a Main Office Gabbie Abreu P.A. 27332 N61.0 E66.01 G89.4 M25.579 Z68.42 Office Visit 11/02/2017 9:45a Main Office Alejandro Nicolas D.O. 39037 F43.12 G89.4 I10 D51.3 E55.9 M54.5 F51.5 K31.84 F17.210 Z13.89 Office Visit 10/02/2017 10:00a Main Office Alejandro Nicolas D.O. 74388 F43.12 G89.4 I10 D51.3 E55.9 M54.5 F51.5 Office Visit 08/16/2017 10:00a Main Office Alejandro Nicolas D.O. 28292 I10 G89.4 F43.12 D51.3 E55.9 M54.5 K31.84 Office Visit 07/12/2017 9:45a Main Office Alejandro Nicolas D.O. 15065 I10 G89.4 F43.12 D51.3 E55.9 M54.5 S83.412A M25.562 N39.3 Office Visit 06/07/2017 10:00a Main Office Alejandro Nicolas D.O. 80682 I10 G89.4 D51.3 E55.9 M54.5 M19.041 F33.9 N39.3 M96.89 M25.562 Office Visit 05/07/2017 2:45p Main Office Alejandro Nicolas D.O. 71783 R74.8 I10 G89.4 D51.3 E55.9 M54.5 Z23 J45.40 Z41.8 Z11.1 Office Visit 04/24/2017 3:00p Main Office Brian Doan 59534 G56.01 G56.02 R07.9 G47.30 I10 K59.00 Z01.810 D51.3 G89.4 E55.9 Office Visit 03/30/2017 3:00p Main Office Alejandro Nicolas D.O. 44094 R91.8 G47.30 J45.20 M54.5 K21.9 J45.40 Office Visit 12/07/2016 10:00a Main Office Santana Elias M.D. 23930 S30.817A R51 G47.30 Office Visit 11/16/2016 3:15p Main Office Santana Elias M.D. 79098 J45.20 M54.5 K21.9 Office Visit 10/19/2016 4:00p Main Office Santana Elias M.D. 09905 M79.605 M79.602 G47.30 I10 Z86.2 Plan of Care Future Appointment(s):07/09/2018 10:00 am - Alejandro Nicolas D.O. at Main Kglzlc3805/27/2018 - Alejandro Nicolas D.O.F33.9 Major depressive disorder, recurrent, rasnwrlnoyaG98.9 Anxiety disorder, unspecifiedFollow up:1 month recheck anxiety/depression; breathing testR53.83 Other qtcetccY59 OpqxohcmL53.210 Nicotine dependence, cigarettes, jxthxskkyqexzT75.12 Post- traumatic stress disorder, uakhypuF33.4 Chronic pain wrncuyveF61.562 Pain in left kneeJ30.9 Allergic rhinitis, kmyuglearnlM74.5 Low back painS71.102A Unspecified open wound, left thigh, initial encounter
--- NOTE | 2018-06-19 11:31 | ED ---
HPI Chest Pain - HPI Summary HPI Summary: A 47 y/o female presents to the ED c/o CP since two days ago. She was sent to the ED by her PCP. She describes the CP as tightness and intermittent, and she initially though this was just GERD. She also c/o numbness and tingling in the left side of her body, symptoms she has not had before. She rates the pain as a 8/10.There is bilateral edema on her lower extremities below the knee. She states that it is painful to walk. She denies any neck pain, fevers, chills, cough or MARCH. - History of Current Complaint Chief Complaint: EDChestWallPain Time Seen by Provider: 06/19/18 11:17 Hx Obtained From: Patient Hx Last Menstrual Period: hysterectomy Onset/Duration: Started Days Ago Timing: Intermittent Initial Severity: Moderate Current Severity: Moderate Pain Intensity: 8 Pain Scale Used: 0-10 Numeric Chest Pain Location: Diffuse Character: Tightness Aggravating Factor(s): Other: - walking Alleviating Factor(s): Other: - sitting down Associated Signs and Symptoms: Positive: Swelling - Allergy/Home Medications Allergies/Adverse Reactions: Allergies Allergy/AdvReac Type Severity Reaction Status Date / Time Adhesive Tape Allergy Mild Hives Verified 06/19/18 12:03 Home Medications: Home Medications Cholecalciferol CAP/TAB(NF) [Vitamin D3 CAP/TAB (NF)] 5,000 unit PO DAILY [History Confirmed 06/19/18] DULoxetine DR CAP* [Cymbalta CAP*] 60 mg PO DAILY 06/19/18 [History Confirmed ] Fluticasone NASAL SPRAY 50MCG* [Flonase NASAL SPRAY 50MCG*] 2 spray BOTH NARES DAILY 06/19/18 [History Confirmed 06/19/18] Lisinopril TAB* [Prinivil TAB*] 10 mg PO DAILY 06/19/18 [History Confirmed 06/19] Magnesium Oxide TAB* [MagOx 400 TAB*] 400 - 1,600 mg PO BEDTIME 06/19/18 [ History Confirmed 06/19/18] Nicotine Polacrilex [Nicorette] 4 mg PO DAILY PRN 06/19/18 [History Confirmed ] Propranolol TAB* [Inderal TAB*] 40 mg PO BID 06/19/18 [History Confirmed ] Ropinirole TAB* [Requip TAB*] 0.25 - 0.5 mg PO BEDTIME 06/19/18 [History Confirmed 06/19/18] Simvastatin (NF) [Zocor (NF)] 20 mg PO 1700 06/19/18 [History Confirmed 06/19/18 ] Simvastatin TAB(NF) [Zocor(NF)] 20 mg PO BEDTIME 06/19/18 [History Confirmed 12/02] PMH/Surg Hx/FS Hx/Imm Hx Previously Healthy: No Endocrine/Hematology History: Denies: Hx Anticoagulant Therapy, Hx Blood Disorders, Hx Diabetes, Hx Thyroid Disease Cardiovascular History: Reports: Hx Hypercholesterolemia, Hx Hypertension, Other Cardiovascular Problems/Disorders - HIGH CHOLESTEROL Denies: Hx Congestive Heart Failure, Hx Pacemaker/ICD Respiratory History: Reports: Hx Asthma, Hx Chronic Obstructive Pulmonary Disease (COPD), Hx Sleep Apnea GI History: Reports: Hx Gastroesophageal Reflux Disease - panpranolol Denies: Hx Ulcer History: Reports: Hx Kidney Infection - NO RECENT, Hx Kidney Stones - NO KNOWN STONES NOW Denies: Hx Renal Disease Musculoskeletal History: Reports: Hx Tendonitis, Other Musculoskeletal History - Left knee problem Denies: Hx Arthritis, Hx Osteoporosis Sensory History: Denies: Hx Contacts or Glasses, Hx Hearing Aid Opthamlomology History: Denies: Hx Contacts or Glasses Neurological History: Reports: Hx Headaches, Hx Migraine - WEEKLY OR 2 X WK, Other Neuro Impairments/Disorders - DEGENERATIVE DISK DX, 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 1989 C SECTION AND BTL [facility] ;. hysterectomy ;. 2016 several moles removed from body ; Hx Anesthesia Reactions: No - Immunization History Date of Tetanus Vaccine: UTD Date of Influenza Vaccine: unknown Infectious Disease History: No Infectious Disease History: Denies: Hx Clostridium Difficile, Hx Hepatitis, Hx Human Immunodeficiency Virus (HIV), Hx of Known/Suspected MRSA, Hx Shingles, Hx Tuberculosis, Hx Known/ Suspected VRE, Hx Known/Suspected VRSA, History Other Infectious Disease, Traveled Outside the [place] in Last 30 Days - Family History Known Family History: Positive: Hypertension, Diabetes - Social History Alcohol Use: None Hx Substance Use: No Substance Use Type: Reports: None Hx Tobacco Use: Yes Smoking Status (MU): Heavy Every Day Tobacco Smoker Type: Cigarettes Amount Used/How Often: 2 cigs per day Length of Time of Smoking/Using Tobacco: >30 yrs Have You Smoked in the Last Year: Yes Review of Systems Negative: Fever, Chills Positive: Other - Negative: Neck pain Positive: Chest Pain Negative: Cough Positive: Edema - in legs below knee Positive: Paresthesia - left side, Numbness - left side. Negative: Headache All Other Systems Reviewed And Are Negative: Yes Physical Exam - Summary Physical Exam Summary: VITAL SIGNS: Reviewed. GENERAL: Patient is a well-developed and obese FEMALE who is lying comfortable in the stretcher. Patient is not in any acute respiratory distress. HEAD AND FACE: Normocephalic EYES: PERRLA, EOMI x 2. EARS: Hearing grossly intact. MOUTH: Oropharynx within normal limits. NECK: Supple, trachea is midline, no adenopathy, no JVD, no carotid bruit. CHEST: Symmetric, no tenderness at palpation LUNGS: Clear to auscultation bilaterally. No wheezing or crackles. CVS: Regular rate and rhythm, S1 and S2 present, no murmurs or gallops appreciated. ABDOMEN: Soft, non-tender. Bowel sounds are normal. No abdominal abnormal pulsations. EXTREMITIES: Full ROM in all major joints, no edema, no cyanosis or clubbing. NEURO: Alert and oriented x 3. No acute neurological deficits. Speech is normal and follows commands. SKIN: Dry and warm GCS: 15 Triage Information Reviewed: Yes Vital Signs On Initial Exam: Initial Vitals Temp Pulse Resp BP Pulse Ox 98.2 F 83 16 151/92 99 06/19/18 10:49 06/19/18 10:49 06/19/18 10:49 06/19/18 10:49 06/19/18 10:49 Vital Signs Reviewed: Yes Diagnostics - Vital Signs Vital Signs Temp Pulse Resp BP Pulse Ox 06/19/18 10:49 98.2 F 83 16 151/92 99 - Laboratory Result Diagrams: 06/19/18 12:07 06/19/18 12:07 Lab Statement: Any lab studies that have been ordered have been reviewed, and results considered in the medical decision making process. - Radiology CXR Xray Interpretation: Positive (See Comments) - LOW LUNG VOLUMES, SMALL RIGHT BASILAR INFILTRATE. This report has been reviewed by the ED physician. - CT Brain CT Interpretation: No Acute Changes - Negative unenhanced head CT. This report was reviewed by the ED physician. CT Interpretation Completed By: Radiologist - EKG 1133 Cardiac Rate: NL - 78 bpm EKG Rhythm: Sinus Rhythm ST Segment: Normal - no ST elevation Chest Pain Course/Dx - Course Assessment/Plan: A 47 y/o female presents to the ED c/o CP since two days ago. She was sent to the ED by her PCP. She describes the CP as tightness and intermittent, and she initially though this was just GERD. She also c/o numbness and tingling in the left side of her body, symptoms she has not had before. She rates the pain as a 8/10.There is bilateral edema on her lower extremities below the knee. She states that it is painful to walk. She denies any neck pain, fevers, chills, cough or MARCH. Blood test results without any significant abnormality. Urinalysis positive for UTI. Chest x-ray impression: Low lung volumes, small right basilar infiltrate. Patient was given Levaquin which will cover the UTI and the pneumonia. Head CT impression, negative for intra-abdominal pathology. Since the patient's physical exam are within normal limits and there patient has pneumonia and a UTI the patient will be sent home with follow-up with primary care physician. I discussed all the findings and test results with the patient. Patient was instructed to return to the emergency room immediately if any of the symptoms return or worsens. Plan of care was discussed with the patient and understands and agrees. All questions were answered at patient satisfaction. There were no further complaints or concerns. Lung exam before discharge: CTA B/L. Good air exchange. No wheezing or crackles heard. CVS: S1 and S2 present. No murmurs appreciated. Patient is alert and oriented x 3. Patient is hemodynamically stable. Patient will be discharged home with follow up PCP in the next 2-3 days - Chest Pain Differential Diagnosis/HQI/PQRI: Acute [place], ACS, Angina, CHF, Chest Wall, GI Disease, Lower Respiratory Infection - Diagnoses Provider Diagnoses: Pneumonia, UTI (urinary tract infection) Discharge - Sign-Out/Discharge Documenting (check all that apply): Patient Departure - Discharge - Discharge Plan Condition: Stable Disposition: HOME Prescriptions: Levofloxacin TAB* [Levaquin TAB*] 750 mg PO DAILY #9 tab Patient Education Materials: Urinary Tract Infection in Women (ED), Pneumonia ( ED) Referrals: Alejandro Nicolas DO [Primary Care Provider] - 3 Days Additional Instructions: FOLLOW UP WITH YOUR PRIMARY CARE PROVIDER WITHIN ONE WEEK FOR HIGH BLOOD PRESSURE NOTED TODAY. RETURN TO THE ED FOR ANY WORSENING OR NEW SYMPTOMS. - Billing Disposition and Condition Condition: STABLE Disposition: Home - Attestation Statements Document Initiated by Yvonibe: Yes Documenting Scribe: Cole Barajas Provider For Whom Enmanuel is Documenting (Include Credential): Philip Zuluaga MD Scribe Attestation: I, Cole Barajas scribed for Philip Zuluaga MD on 06/20/18 at 0943. Scribe Documentation Reviewed: Yes Provider Attestation: The documentation as recorded by the Cole morgan accurately reflects the service I personally performed and the decisions made by me, Philip Zuluaga MD
--- NOTE | 2018-06-19 11:58 | RAD ---
Indication: LEFT arm numbness and tingling. Chest pain. Comparison: July 09, 2017 CT Technique: Noncontrast CT vertex of skull through foramen magnum. Report: The sulci, ventricles, and basal cisterns are normal for age. Mcdonough matter white matter differentiation is preserved without evidence for edema. No intra or extra axial hemorrhage, mass, or fluid collection detected. Unremarkable visualized orbital contents. Unremarkable calvarium and skull base. Unremarkable scalp. The visualized paranasal sinuses and mastoid air spaces are clear. IMPRESSION: #. Negative unenhanced head CT.
--- NOTE | 2018-06-19 12:06 | RAD ---
INDICATION: Chest pain. COMPARISON: Correlation is made with prior study from October 25, 2017. TECHNIQUE: A portable view of the chest was obtained. FINDINGS: Cardiac and mediastinal contours appear to be within normal limits. The lungs are underinflated. There is a small infiltrate at the right lung base. No pleural effusion is seen. IMPRESSION: LOW LUNG VOLUMES, SMALL RIGHT BASILAR INFILTRATE.
[2018-06-19 12:21] LABS: ABS Basophils 0.1 10^3/ul (0-0.2); ABS Eosinophils 0.2 10^3/ul (0-0.6); ABS Lymphocytes 2.5 10^3/ul (1.0-4.8); ABS Monocytes 0.6 10^3/ul (0-0.8); ABS Neutrophils 6.1 10^3/ul (1.5-7.7); ABS Nucleated RBC 0 10^3/ul; Eosinophil % 1.9 % (0-6); Hematocrit 38 % (35-47); Hemoglobin 13.1 g/dl (12.0-16.0); Lymphocyte % 26.6 % (25-47); Mean Corpuscular HGB Conc 34 g/dl (31-36); Mean Corpuscular Hemoglobin 30 pg (27-31); Mean Corpuscular Volume 88 fL (80-97); Mean Platelet Volume 8.6 um3 (7.4-10.4); Nucleated Red Blood Cells % 0; Platelet Count 279 10^3/ul (150-450); Red Blood Count 4.34 10^6/ul (4.00-5.40); Red Cell Distribution Width 14 % (10.5-15); White Blood Count 9.4 10^3/ul (3.5-10.8)
[2018-06-19 12:29] LABS: Urine Appearance Cloudy; Urine Blood Negative (Negative); Urine Color Yellow; Urine Ketones Negative (Negative); Urine Protein Negative (Negative); Urine Red Blood Cell Trace(0-2/hpf) (Absent); Urine Specific Gravity 1.016 (1.010-1.030); Urine Urobilinogen Negative (Negative); Urine White Blood Cell Trace(0-5/hpf) (Absent)
[2018-06-19 12:45] LABS: EGFR Non-African American 74.1 (>60)
[2018-06-19 13:39] VITALS: BP 133/74
== END 2018-06-19 13:57 | disposition home or self-care (01) ==
LOC: ED 10:41
DX: J18.9 Pneumonia, unspecified organism (principal); N39.0 Urinary tract infection, site not specified; R07.9 Chest pain, unspecified; R20.2 Paresthesia of skin; F17.210 Nicotine dependence, cigarettes, uncomplicated
CPT/HCPCS: 36415; 70450; 71045; 80053; 81003; 81015; 82550; 82553; 83605; 83880; 84443; 84484; 85025; 87077; 87086; 87186; 93005; 99283

== ENCOUNTER 2018-07-06 10:08 | Emergency (ER) | payer OTHER ==
[2018-07-06 10:26] VITALS: BP 148/91
--- NOTE | 2018-07-06 11:18 | UC ---
Respiratory Complaint HPI - HPI Summary HPI Summary: MD: This is a 47-year-old female with multiple complaints including nausea vomiting diarrhea as well as chest discomfort and cough. It is notable that she is a smoker with a history of asthma and COPD. Vital signs are stable, she is afebrile, her pulse ox is 98. She was given levaquin in ED 10 days ago UTI and pneumonia according to patient. Frequent medical visits noted in June,. Previous visits are significant for hypertension, COPD, asthma, depression, GERD and anxiety. Nurse's note: pt states it hurts in her lungs to breath in. pt states she has been vomiting and diarrhea. pt states in general she does not feel weel. pt states this has been going on for the past 3 days. - History of Current Complaint Chief Complaint: UCRespiratory Stated Complaint: GENERAL ILLNESS Time Seen by Provider: 07/06/18 11:05 Hx Last Menstrual Period: tubal ligation Pain Intensity: 8 - Allergies/Home Medications Allergies/Adverse Reactions: Allergies Allergy/AdvReac Type Severity Reaction Status Date / Time Adhesive Tape Allergy Mild Hives Verified 07/01/18 19:42 PMH/Surg Hx/FS Hx/Imm Hx - Additional Past Medical History Additional PMH: Hx includes: HTN, COPD, asthma, dpression, gerd. 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 1989 C SECTION AND BTL [facility] ;. hysterectomy ;. 2016 several moles removed from body ; - Family History Known Family History: Positive: Hypertension, Diabetes, Other - Social History Alcohol Use: None Substance Use Type: None Smoking Status (MU): Light Every Day Tobacco Smoker Type: Cigarettes Amount Used/How Often: 2 cigs per day Length of Time of Smoking/Using Tobacco: >30 yrs Have You Smoked in the Last Year: Yes Household Exposure Type: Cigarettes - Immunization History Most Recent Tetanus Shot: unknown Review of Systems Constitutional: Fatigue Skin: Negative Eyes: Negative ENT: Negative Respiratory: Cough Cardiovascular: Negative Gastrointestinal: Vomiting, Diarrhea, Nausea Genitourinary: Dysuria Motor: Negative Neurovascular: Negative Musculoskeletal: Negative Neurological: Negative Psychological: Negative Is Patient Immunocompromised?: No All Other Systems Reviewed And Are Negative: Yes - Comments Additional Review of Systems Comments: A 12 point review of systems was completed and was significantly positive for: cough, N/V/D. The remainder of the review was negative except as stated above in the HPI. Physical Exam - Summary Physical Exam Summary: Appearance: The patient is in mild distress, and is well-nourished. She is supine, resting. Eyes: Conjunctiva are clear. Pupils are equal and reactive to light and accommodation. Extra ocular muscle movement is intact. ENT: The hearing is grossly normal, the pharynx is normal, and the TMs are normal. There is no muffled or hoarse voice. No stridor. Neck: The neck is supple and there is no lymphadenopathy. Respiratory: The chest is nontender to palpation and without crepitus. The lungs are clear, there are normal breath sounds, and there is no respiratory distress. No wheezes, rales or rhonchi. Cardiovascular: Heart sounds reveal a regular rate and rhythm. There are no clicks, rubs or murmurs. There are no carotid bruits or thrills. Circulation is grossly intact. Abdomen: The abdomen is soft and nontender. There is no organomegaly. Bowel sounds are present and within normal limits. No point tenderness at McBurneys point. Musculoskeletal: Strength is intact. The patient moves all extremities. Neurological: The patient is alert. Motor and sensory are examination grossly intact. Speech is normal. Psychological: The patient displays age appropriate behavior Skin: Negative for rashes. Triage Information Reviewed: Yes Vital Signs: Initial Vital Signs Temp 98.8 F 07/06/18 10:23 Pulse 80 07/06/18 10:23 Resp 18 07/06/18 10:23 BP 148/91 07/06/18 10:23 Pulse Ox 98 07/06/18 10:23 Diagnostic Evaluation - Laboratory O2 Sat by Pulse Oximetry: 98 Respiratory Course/Dx - Course Course Of Treatment: 47-year-old with a recent course of Levaquin comes in complaining of nausea vomiting diarrhea as well as a cough. It is notable that she is a smoker and has a history of COPD. Her examination was essentially unremarkable. She does not appear dehydrated. Urinalysis was negative. My diagnosis is gastroenteritis and reactive airway disease. - Differential Dx/Diagnosis Differential Diagnosis/HQI/PQRI: Bronchitis, Lower Resp Infection, Other - GI disturbance from levaquin Provider Diagnoses: Gastroenteritis. Viral Syndrome. Reactive Airway disease Discharge - Sign-Out/Discharge Documenting (check all that apply): Patient Departure All imaging exams completed and their final reports reviewed: No Studies - Discharge Plan Condition: Stable Disposition: HOME Forms: *Work Release Referrals: Alejandro Nicolas DO [Primary Care Provider] - Additional Instructions: WE DISCUSSED: PLEASE SEEK CARE AT THE EMERGENCY DEPARTMENT IF SYMPTOMS WORSEN OR IF NEW SYMPTOMS DEVELOP. FOLLOW UP WITH YOUR PRIMARY CARE PHYSICIAN IF CONDITION CONTINUES BEYOND 3 DAYS WITHOUT IMPROVEMENT. YOUR DIAGNOSIS IS: gastroenteritis; reactive airway disease YOUR PRESCRIPTION RECOMMENDATION IS: OTHER INSTRUCTIONS: Hypertension Discharge Instructions: Your blood pressure reading today was 148/91, indicating HYPERTENSION. Follow- up with your primary care provider within 4 weeks for blood pressure check and appropriate recommendations and treatment, as needed. For pain: Ibuprofen (Motrin and other brand names) 400-600mg PLUS acetaminophen (Tylenol and other brand names) 500mg - 1000mg every 8 hours. Maximum is 3 doses a day. If this dosage is required for more than 5 days, you should re-check with your doctor. The combination of these two over-the- counter medications can be more effective than each one taken alone. Please check with the pharmacist if you have questions about your allergies to these medications. To help you sleep: If you feel as if you want to calm down and get sleepy, over the counter diphenhydramine (Benadryl and other brand names), 25 mg up to every 8 hours may be useful. Please check with the pharmacist if you have questions about your allergies to these medications. Keep your diet simple for next 2 days. No fried foods or dairy products or meat. No work for 2 days. - Billing Disposition and Condition Condition: STABLE Disposition: Home
== END 2018-07-06 11:44 | disposition home or self-care (01) ==
LOC: UCEAST 10:08
DX: K52.9 Noninfective gastroenteritis and colitis, unspecified (principal); B34.9 Viral infection, unspecified; J45.909 Unspecified asthma, uncomplicated; Z91.048 Other nonmedicinal substance allergy status; F17.210 Nicotine dependence, cigarettes, uncomplicated
CPT/HCPCS: 81003; 99211; G0463

== ENCOUNTER 2018-09-09 18:36 | Emergency (ER) | payer OTHER ==
[2018-09-09 18:49] VITALS: BP 140/87
[2018-09-09] MEDS ORDERED: Ketorolac INJ* 60 MG/2 ML VIAL IM ONE (19:32)
[2018-09-09] MEDS ORDERED: HYDROcodone/ACETAMIN 5-325 MG* 1 TAB PO ONE (19:39)
--- NOTE | 2018-09-09 19:46 | ED ---
Lower Extremity - HPI Summary HPI Summary: 47 yo morbidly obese female presents s/p fall on left knee while trying to push a stalled SUV in the driveway with 4 other people, fell on her left knee, hurts on right medial sided. Denies numbness and tinglingg. - History of Current Complaint Chief Complaint: UCLowerExtremity Stated Complaint: KNEE PAIN FELL Time Seen by Provider: 09/09/18 18:42 Hx Last Menstrual Period: tubal ligation Pain Intensity: 10 - Allergies/Home Medications Allergies/Adverse Reactions: Allergies Allergy/AdvReac Type Severity Reaction Status Date / Time Adhesive Tape Allergy Mild Hives Verified 07/12/18 12:15 Home Medications: Home Medications Acetaminophen [Tylenol Extra Strength] 1,000 mg PO Q12H PRN 09/09/18 [History Confirmed 09/09/18] PMH/Surg Hx/FS Hx/Imm Hx Previously Healthy: No Endocrine/Hematology History: Denies: Hx Anticoagulant Therapy, Hx Blood Disorders, Hx Diabetes, Hx Thyroid Disease Cardiovascular History: Reports: Hx Hypercholesterolemia, Hx Hypertension, Other Cardiovascular Problems/Disorders - HIGH CHOLESTEROL Denies: Hx Congestive Heart Failure, Hx Pacemaker/ICD Respiratory History: Reports: Hx Asthma, Hx Chronic Obstructive Pulmonary Disease (COPD), Hx Sleep Apnea GI History: Reports: Hx Gastroesophageal Reflux Disease - panpranolol Denies: Hx Ulcer History: Reports: Hx Kidney Infection - NO RECENT, Hx Kidney Stones - NO KNOWN STONES NOW Denies: Hx Renal Disease Musculoskeletal History: Reports: Hx Tendonitis, Other Musculoskeletal History - Left knee problem Denies: Hx Arthritis, Hx Osteoporosis Sensory History: Denies: Hx Contacts or Glasses, Hx Hearing Aid Opthamlomology History: Denies: Hx Contacts or Glasses Neurological History: Reports: Hx Headaches, Hx Migraine - WEEKLY OR 2 X WK, Other Neuro Impairments/Disorders - DEGENERATIVE DISK DX, NERVE DAMAGE IN NECK Psychiatric History: Reports: Hx Anxiety - RECENTLY STARTED ON MED DOING OK, Hx Depression - depression controlled by nortriptyline Denies: Hx Panic Disorder - Surgical History Surgery Procedure, Year, and Place: HYSTERECTOMY. TUBAL LIGATION. L KNEE SCOPE Hx Anesthesia Reactions: No - Immunization History Date of Tetanus Vaccine: UTD Date of Influenza Vaccine: unknown Infectious Disease History: No Infectious Disease History: Denies: Hx Clostridium Difficile, Hx Hepatitis, Hx Human Immunodeficiency Virus (HIV), Hx of Known/Suspected MRSA, Hx Shingles, Hx Tuberculosis, Hx Known/ Suspected VRE, Hx Known/Suspected VRSA, History Other Infectious Disease, Traveled Outside the [place] in Last 30 Days - Family History Known Family History: Positive: Hypertension, Diabetes, Other - Social History Alcohol Use: None Hx Substance Use: No Substance Use Type: Reports: None Hx Tobacco Use: Yes Smoking Status (MU): Light Every Day Tobacco Smoker Type: Cigarettes Amount Used/How Often: 1/2 PPD Length of Time of Smoking/Using Tobacco: >30 yrs Have You Smoked in the Last Year: Yes Review of Systems Constitutional: Negative Eyes: Negative ENT: Negative Cardiovascular: Negative Respiratory: Negative Gastrointestinal: Negative Genitourinary: Negative Musculoskeletal: Other - see HPI Neurological: Negative Psychological: Normal All Other Systems Reviewed And Are Negative: Yes Physical Exam - Summary Physical Exam Summary: Vital Signs Reviewed: Yes Skin: Positive: Warm Head/Face: Positive: Normal Head/Face Inspection Eyes: Positive: Normal ENT: Positive: Normal ENT inspection Neck: Positive: Supple Respiratory/Lung Sounds: Positive: Clear to Auscultation Cardiovascular: Positive: Normal, RRR, S1, S2 Abdomen Description: Positive: Nontender Musculoskeletal: Positive: left medial peripatellar tenderness and mild swelling , no ecchymosis or wounds noted Neurological: Positive: Normal Psychiatric: Positive: Normal, Affect/Mood Appropriate Triage Information Reviewed: Yes Vital Signs On Initial Exam: Initial Vitals Temp Pulse Resp BP Pulse Ox 36.6 C 117 18 140/87 97 09/09/18 18:43 09/09/18 18:43 09/09/18 18:43 09/09/18 18:43 09/09/18 18:43 Vital Signs Reviewed: Yes Diagnostics - Vital Signs Vital Signs Temp Pulse Resp BP Pulse Ox 09/09/18 18:43 36.6 C 117 18 140/87 97 - Laboratory Lab Statement: Any lab studies that have been ordered have been reviewed, and results considered in the medical decision making process. Lower Extremity Course/Dx - Course Assessment/Plan: Left knee pain- XR shows no fracture from my read. Toradol 60mg IM x1 but declines PO form of ibuprofen at which point I told her as long as she is not driving she can take something stronger like norco - 2 tabs to take home,. When Alfredo nurse went in to d/c pt- and cited the knee pain instructions and how to take care of it, pt stated "you guys are not listening to me I cannot take ibuprofen" and stormed out of room 5 sceaming out some expletives "f-ing A-holes" and stated she is going to the ER. - Diagnoses Provider Diagnoses: Left knee pain Discharge - Sign-Out/Discharge Documenting (check all that apply): Patient Departure All imaging exams completed and their final reports reviewed: Yes - Discharge Plan Condition: Stable Disposition: ELOPEMENT Patient Education Materials: Knee Pain (ED) - Billing Disposition and Condition Condition: STABLE Disposition: Elopement
== END 2018-09-09 19:48 | disposition home or self-care (01) ==
LOC: UCEAST 18:36
DX: M25.562 Pain in left knee (principal); F17.210 Nicotine dependence, cigarettes, uncomplicated; Z91.048 Other nonmedicinal substance allergy status
CPT/HCPCS: 96372; 99212; G0463; J1885

== ENCOUNTER 2018-09-17 17:46 | Emergency (ER) | payer OTHER ==
[2018-09-17] MEDS ORDERED: HYDROcodone/ACETAMIN 5-325 MG* 1 TAB PO ONE (18:25)
--- NOTE | 2018-09-17 18:32 | ED ---
Complex/Multi-Sys Presentation - HPI Summary HPI Summary: Pt. is a 48 y.o female who presents to the ER with complaints of diffuse body aches. Pt. notes mild cough and sinus congestion. No sick contacts. Pt. states she has been taking tylenol without relief. Pt. states when she walks it feels as though nails are going into feet. Pt. denies fever, chills, abd. pain, V/D, urinary symptoms. Pt. notes hx of COPD and fibromyalgia. Pt. states she cannot take NSAIDs secondary to GERD. Symptoms are mild in severity. No current modifying factors. - History Of Current Complaint Chief Complaint: EDGeneral Time Seen by Provider: 09/17/18 18:11 Hx Obtained From: Patient - Allergies/Home Medications Allergies/Adverse Reactions: Allergies Allergy/AdvReac Type Severity Reaction Status Date / Time Adhesive Tape Allergy Mild Hives Verified 07/12/18 12:15 Home Medications: Home Medications Lisinopril/HCTZ /12.5(NF) [Zestoretic 12.5(NF)] 1 tab PO DAILY 09/17/18 [ History Confirmed 09/17/18] PMH/Surg Hx/FS Hx/Imm Hx Previously Healthy: Yes Endocrine/Hematology History: Denies: Hx Anticoagulant Therapy, Hx Blood Disorders, Hx Diabetes, Hx Thyroid Disease Cardiovascular History: Reports: Hx Hypercholesterolemia, Hx Hypertension, Other Cardiovascular Problems/Disorders - HIGH CHOLESTEROL Denies: Hx Congestive Heart Failure, Hx Pacemaker/ICD Respiratory History: Reports: Hx Asthma, Hx Chronic Obstructive Pulmonary Disease (COPD), Hx Sleep Apnea GI History: Reports: Hx Gastroesophageal Reflux Disease - panpranolol Denies: Hx Ulcer History: Reports: Hx Kidney Infection - NO RECENT, Hx Kidney Stones - NO KNOWN STONES NOW Denies: Hx Renal Disease Musculoskeletal History: Reports: Hx Tendonitis, Other Musculoskeletal History - Left knee problem Denies: Hx Arthritis, Hx Osteoporosis Sensory History: Denies: Hx Contacts or Glasses, Hx Hearing Aid Opthamlomology History: Denies: Hx Contacts or Glasses Neurological History: Reports: Hx Headaches, Hx Migraine - WEEKLY OR 2 X WK, Other Neuro Impairments/Disorders - DEGENERATIVE DISK DX, NERVE DAMAGE IN NECK Psychiatric History: Reports: Hx Anxiety - RECENTLY STARTED ON MED DOING OK, Hx Depression - depression controlled by nortriptyline Denies: Hx Panic Disorder - Surgical History Surgery Procedure, Year, and Place: HYSTERECTOMY. TUBAL LIGATION. L KNEE SCOPE Hx Anesthesia Reactions: No - Immunization History Date of Tetanus Vaccine: UTD Date of Influenza Vaccine: unknown Infectious Disease History: No Infectious Disease History: Denies: Hx Clostridium Difficile, Hx Hepatitis, Hx Human Immunodeficiency Virus (HIV), Hx of Known/Suspected MRSA, Hx Shingles, Hx Tuberculosis, Hx Known/ Suspected VRE, Hx Known/Suspected VRSA, History Other Infectious Disease, Traveled Outside the [place] in Last 30 Days - Family History Known Family History: Positive: Hypertension, Diabetes, Other - Social History Occupation: Unemployed Lives: With Family Alcohol Use: None Hx Substance Use: No Substance Use Type: Reports: None Hx Tobacco Use: Yes Smoking Status (MU): Light Every Day Tobacco Smoker Type: Cigarettes Amount Used/How Often: 1/2 PPD Length of Time of Smoking/Using Tobacco: >30 yrs Have You Smoked in the Last Year: Yes Review of Systems Constitutional: Negative Negative: Fever, Chills Eyes: Negative ENT: Negative Cardiovascular: Negative Positive: Cough. Negative: Shortness Of Breath Gastrointestinal: Negative Negative: Abdominal Pain, Vomiting, Diarrhea Genitourinary: Negative Positive: Myalgia Skin: Negative Neurological: Negative All Other Systems Reviewed And Are Negative: Yes Physical Exam Triage Information Reviewed: Yes Vital Signs On Initial Exam: Initial Vitals Temp Pulse Resp BP Pulse Ox 98.6 F 116 18 152/80 98 09/17/18 17:47 09/17/18 17:47 09/17/18 17:47 09/17/18 17:47 09/17/18 17:47 Vital Signs Reviewed: Yes Appearance: Positive: Well-Appearing - Pt. sitting up in bed playing a game on her phone when I walked in. She then states she is in severe pain. Skin: Positive: Warm, Dry Head/Face: Positive: Normal Head/Face Inspection Eyes: Positive: Normal, EOMI, ANALISA ENT: Positive: Pharynx normal, TMs normal Neck: Positive: Supple, Nontender. Negative: Nuchal Rigidity Respiratory/Lung Sounds: Positive: Clear to Auscultation, Breath Sounds Present. Negative: Rales, Rhonchi, Wheezes Cardiovascular: Positive: Normal, RRR Musculoskeletal: Positive: Normal, Strength/ROM Intact. Negative: Edema Left, Edema Right Neurological: Positive: Normal, CN Intact II-III Psychiatric: Positive: Affect/Mood Appropriate Diagnostics - Vital Signs Vital Signs Temp Pulse Resp BP Pulse Ox 09/17/18 17:47 98.6 F 116 18 152/80 98 - Laboratory Result Diagrams: 09/17/18 18:37 09/17/18 18:37 Lab Statement: Any lab studies that have been ordered have been reviewed, and results considered in the medical decision making process. Complex Multi-Symp Course/Dx Course Of Treatment: Pt. presenting with fague complaints of difusse myalgias. She is afebrile. HR and BP mildly elevated. Pt. has a benign exam. WIll check basic labs and urine. Suspect viral etiology. Pt. was given a dose of lortab for pain. WBC shows mild elevation. CMP shows mild elevation in creatine. U/A shows RBCs and bacteria. On re-exam pt. playing game on phone but is stil c/o pain. Results discussed. She notes that she has been having urinary frequency lately. Will treat for suspected UTI with keflex, culture sent. Will have pt. continue tylenol at home for pain. To increase fluids. Pt. states she is seeing a new PCP in [place] in a few weeks. [employer] was reviewed and pt. has been getting frequent narcotic rx for various sources. Pt. eloped from ER before receiving antibx and dc papers. - Diagnoses Provider Diagnoses: Myalgia, Suspected UTI Discharge - Sign-Out/Discharge Documenting (check all that apply): Patient Departure - Discharge Plan Condition: Good Disposition: HOME Prescriptions: Cephalexin CAP* [Keflex CAP*] 500 mg PO BID #20 cap Patient Education Materials: Urinary Tract Infection in Women (ED), Musculoskeletal Pain (ED) Referrals: Alejandro Nicolas DO [Primary Care Provider] - Additional Instructions: Follow up with your PCP as scheduled Take antibiotic as directed Increase fluids Tylenol for pain as directed Return to ER if symptoms change or worsen - Billing Disposition and Condition Condition: GOOD Disposition: Home
[2018-09-17 18:44] LABS: ABS Basophils 0.1 10^3/ul (0-0.2); ABS Eosinophils 0.1 10^3/ul (0-0.6); ABS Monocytes 0.8 10^3/ul (0-0.8); ABS Neutrophils 7.2 10^3/ul (1.5-7.7); ABS Nucleated RBC 0 10^3/ul; Hematocrit 42 % (35-47); Hemoglobin 13.7 g/dl (12.0-16.0); Lymphocyte % 26.6 %; Mean Corpuscular HGB Conc 33 g/dl (31-36); Mean Corpuscular Hemoglobin 29 pg (27-31); Mean Corpuscular Volume 88 fL (80-97); Mean Platelet Volume 8.5 fL (7.4-10.4); Nucleated Red Blood Cells % 0; Platelet Count 281 10^3/ul (150-450); Red Blood Count 4.72 10^6/ul (4.00-5.40); Red Cell Distribution Width 14 % (10.5-15); White Blood Count 11.2 10^3/ul (3.5-10.8)
[2018-09-17 19:00] LABS: Albumin 3.9 g/dL (3.2-5.2); Albumin/Globulin Ratio 1.4 (1-3); BUN/Creatinine Ratio 14.6 (8-20); Calcium 9.8 mg/dL (8.6-10.3); EGFR Non-African American 56.7 (>60); Globulin 2.8 g/dL (2-4); Magnesium 1.9 mg/dL (1.9-2.7); Potassium 3.9 mmol/L (3.5-5.0); Total Bilirubin 0.2 mg/dL (0.2-1.0); Total Protein 6.7 g/dL (6.4-8.9)
[2018-09-17 19:45] LABS: Urine Appearance Cloudy; Urine Bacteria 1+ (Absent); Urine Bilirubin Negative (Negative); Urine Blood 1+ (Negative); Urine Color Yellow; Urine Glucose Negative (Negative); Urine Ketones Negative (Negative); Urine Nitrite Negative (Negative); Urine Protein Negative (Negative); Urine Red Blood Cell 1+(3-5/hpf) (Absent); Urine Specific Gravity 1.021 (1.010-1.030); Urine Urobilinogen Negative (Negative); Urine White Blood Cell Trace(0-5/hpf) (Absent)
[2018-09-17] MEDS ORDERED: Cephalexin CAP* 500 MG PO ONE (20:01)
[2018-09-17 20:32] VITALS: BP 0/0
== END 2018-09-17 20:30 | disposition home or self-care (01) ==
LOC: ED 17:46
DX: M79.10 Myalgia, unspecified site (principal); R35.0 Frequency of micturition; R05 Cough; R09.81 Nasal congestion; I10 Essential (primary) hypertension; K21.9 Gastro-esophageal reflux disease without esophagitis; Z91.048 Other nonmedicinal substance allergy status
CPT/HCPCS: 36415; 80053; 81003; 81015; 83735; 85025; 87086; 99282; A9270-GY

== ENCOUNTER 2019-10-15 21:42 | Emergency (ER) | payer OTHER ==
[2019-10-15 21:47] VITALS: BP 162/117
--- OUTSIDE RECORDS SUMMARY | 2019-10-15 21:54 | XMS REPORT | Continuity of Care Document ---
:1970 External Reference #:[id number] Demographics Address [address] [place] [address] Home Phone [phone] Preferred Language en Marital Status Not or Presybeterian Affiliation Unknown Race White Ethnic Group Not or Author Name Santana Braswell N.P. Address [address] [place] [address] [address] [place] [address] Problems Description No Information Available Social History Type Date Description Comments Sex Unknown ETOH Use Denies alcohol use Recreational Drug Use Denies Drug Use Tobacco Use Start: Unknown End: Unknown Patient is a former smoker Smoking Status Reviewed: 04/07/19 Patient is a former smoker Allergies, Adverse Reactions, Alerts Description No Known Drug Allergies Medications Active Medications SIG Qnty Indications Ordering Date Provider Seroquel 1 tab by mouth 30tabs G47.00 [facility] 08/13/2019 50mg Tablets every night at M., M.D. bedtime Diclofenac Sodium 1 tab by mouth 60tabs [facility] 08/13/2019 75mg twice a day M. MGustavoDGustavo Tablets DR Gallagher one tab by mouth 14tabs G43.009 [facility] 06/06/2019 50mg Tablets as needed MGustavo MGustavoDGustavo headache, may repeat x 1 if no relief in 2 hours. Fenofibrate 1 by mouth every 30tabs E78.2 [facility] 04/30/2019 54mg day M., M.D. Tablets Benadryl Allergy 1-2 tab by mouth 60tabs [facility] 04/14/2019 25mg every night at M., M.DGustavo Tablets bedtime as needed For Itching Miconazole Antifungal apply to affected 90gm B35.4 [facility] 02/05/2019 areas Under MGustavo MGustavoDGustavo 2% Cream Breasts twice daily x 14 days Cane/Aluminum/Adjusta cane for 1units E66.01 [facility] 02/05/2019 ble/Ladies Handle ambulation MMaria Alejandra Chen.D. Misc Claritin 1 by mouth every 30tabs J30.9 [facility] 12/20/2018 10mg Tablets day M., M.D. Allopurinol 1 by mouth every 90tabs M10.9 [facility] 12/20/2018 100mg day M., M.D. Tablets Montelukast Sodium 1 by mouth every 90tabs J45.909 [facility] 12/20/2018 10mg day M., M.D. Tablets Citalopram 1 by mouth every 30tabs F33.9 [facility] 11/22/2018 Hydrobromide day M., M.D. 20mg Tablets Acetaminophen Extra 2 tab by mouth 180tabs M54.5 [facility] 11/22/2018 Strength three times a day M., M.D. 500mg Tablets Symbicort Inhale 2 Puffs By Unknown Mouth Two Times 160-4.5mcg/Act Daily Gargle After Aerosol Use Albuterol Sulfate Inhale The Unknown Contents Of 1 Vial 0.63mg/3ML Nebulizer Via Nebulizer Every 6 Hours as Needed For Cough/Shortness Of Breath Vitamin D3 take 1 capsule by 30caps [facility] 5000Unit mouth every day M., M.D. Capsules Omeprazole take 1 capsule by 60caps [facility] 40mg mouth two times M., M.D. Capsules DR daily Magnesium Oxide one tab by mouth 30tabs [facility] 400mg every day M., M.D. Tablets Lisinopril-Hydrochlor 1 tab by mouth 30tabs [facility] othiazide every day M., M.D. 10-12.5mg Tablets Spiriva Respimat Unknown 2.5mcg/Act Aerosol History Medications Mobic One Tab PO qd 30tabs F45.0 [facility] 08/13/2019 - 15mg Tablets In Am With Food Jennifer Curiel 08/12/2019 Cipro 1 tab PO every 14tabs [facility] 05/01/2019 - 250mg Tablets day M., M.D. 08/12/2019 Azithromycin 1 tab by mouth 10tabs [facility] 04/14/2019 - 500mg every day x 10 M., M.D. 04/30/2019 Tablets days Benzonatate 1 cap by mouth 180caps [facility] 04/08/2019 - 100mg every 4 hours M., M.D. 04/30/2019 Capsules as needed at night Azithromycin z gabe uad 6tabs [facility] 04/07/2019 - 250mg M., M.D. 04/14/2019 Tablets Medications Administered in Office Medication SIG Qnty Indications Ordering Provider Date Intradermal Mantoux Santana Braswell N.P. 03/12/2019 Injection Immunizations Description No Information Available Vital Signs Date Vital Result Comment 09/22/2019 9:53am BP Systolic 132 mmHg BP Diastolic 64 mmHg Height 66 inches 5'6" Weight 291.00 lb BMI (Body Mass Index) 47.0 kg/m2 Heart Rate 94 /min Respiratory Rate 17 /min 08/13/2019 9:26am BP Systolic 125 mmHg BP Diastolic 68 mmHg Height 66 inches 5'6" Weight 282.00 lb BMI (Body Mass Index) 45.5 kg/m2 Heart Rate 74 /min Respiratory Rate 17 /min Results Test Acquired Date Facility Test Result H/L Range Note Laboratory test 04/30/2019 [facility] Urine SPECIMEN 1 finding 113 [facility] Culture DESCRIP <SEE (607)- - NOTE> CBC With Diff 04/14/2019 [facility] WBC 10.4 10*3/uL (4.1-11.0 Rom HOGAN ) (607)- - RBC 4.55 10*6/uL (4.00-5.40) HGB 13.4 g/dL (12.0-16.0) HCT 40.7 % (36.0-47.0) MCV 89.5 fL (80.0-95.0) MCH 29.5 pg (27.0-32.0) MCHC 32.9 g/dL (32.0-36.0) RDW 16.1 % High (10.5-14.5) PLT 303 10*3/uL (150-450) MPV 9.7 fL (7.1-10.7) Neut % 69.7 % (35.0-75.0) Lymph % 23.2 % (16.0-52.0) [place] % 4.9 % (0.0-8.0) Eos % 1.4 % (0.0-5.0) Baso % 0.8 % (0.0-4.0) Neut # 7.2 10*3/uL (1.8-7.7) Lymph # 2.4 10*3/uL (1.2-4.8) Prairie # 0.5 10*3/uL (0.0-0.8) Eos # 0.1 10*3/uL (0.0-0.5) Baso # 0.1 10*3/uL (0.0-0.2) CMP 04/14/2019 [facility] Sodium 140 mmol/L (136-145) 113 [employer] [facility]IR[facility] (607)- - Potassium 4.4 mmol/L (3.6-5.2) Chloride 110 mmol/L High (100-108) Co2 23 mmol/L (22-31) Anion Gap 7 mmol/L (7-16) Urea Nitrogen 12 mg/dL (7-24) Creatinine 0.89 mg/dL (0.60-1.00) BUN/Creat Ratio 13.5 RATIO (10.0-20.0) Glucose 100 mg/dL High (70-99) Calcium 8.7 mg/dL (8.4-10.2) Total Protein 6.7 g/dL (6.4-8.2) Albumin 3.3 g/dL Low (3.5-4.6) Globulin 3.4 g/dL (2.7-4.3) Alb/Glob Ratio 1.0 RATIO Alkaline Phosphatase 66 U/L (45-117) Bilirubin,Total 0.2 mg/dL (0.0-1.0) Ast (Sgot) 11 U/L (11-39) Alt (SGPT) 25 U/L (12-78) GFR >60 ml/min/1.73m2 (>59) GFR ( Amer) >60 ml/min/1.73m2 (>59) GFR Interpretation <SEE NOTE> 2 Lipid 04/14/2019 [facility] Cholesterol @ 171 mg/dL (0-200) 113 [employer] (607)- - Triglyceride @ 244 mg/dL High (30-200) HDL Cholesterol @ 27 mg/dL Low (>40) 3 Chol/HDL Ratio 6.3 RATIO 4 LDL Chol (Calc) 95 mg/dL (<130) 5 Laboratory test 04/14/2019 [facility] 25 Hydroxy Vit 31 ng/mL (31-100 ) 6 finding 113 [employer] SAMIRA D @ (607)- - Uric Acid 5.4 mg/dL (2.6-6.0) Esr 28 mm/h (0-30) CRP, Sensitive @ 21.8 mg/L 7 Rheumatoid Factor @ <15 IU/mL (0-15) Hemoglobin A1c 04/14/2019 [facility] Hemoglobin A1c @ 5.9 % (4.0-6.0) 8 113 [employer] (607)- - Est Average Glucose 123 mg/dL Laboratory 04/14/2019 [facility] TSH,Ultrasensitive @ 1.370 (0.360- 4.170) test finding 113 [employer] SAMIRA mIU/L (607)- - Free Thyroxine @ 0.94 ng/dL (0.76-1.46) 1 SPECIMEN DESCRIPTION MIDSTREAM URINE,CLEAN CATCH CULTURE RESULTS MIXED UROGENITAL ADEOLA; PLEASE SUBMIT A NEW SPEC IMEN IF CLINICALLY INDICATED. REPORT STATUS FINAL 05/02/2019 2 NORMAL KIDNEY FUNCTION OR MILD DISEASE - GFR >OR= 60 CHRONIC KIDNEY DISEASE - GFR 15 - 59 RENAL FAILURE - GFR <15 Est. GFR calculation based on the MDRD study equation, which assumes a steady state for creatinine. Est. GFR should not be used for medication dosing. 3 PER NCEP ATP III GUIDELINES: RESULTS LOWER THAN 40 MG/DL ARE SUGGESTIVE OF INCREASED RISK FOR CORONARY ARTERY DISEASE. RESULTS > OR = TO 60 MG/DL ARE CONSIDERED A NEGATIVE RISK FACTOR. 4 INTERPRETATION OF CHOL-HDL RATIO CHD RISK FEMALE MALE VERY HIGH >8.3 >14.3 HIGH 5.6- 8.3 6.7- 14.3 AVERAGE 3.7- 5.6 4.0- 6.7 BELOW AVERAGE 2.5- 3.7 2.7- 4.0 PROTECTED <2.5 <2.7 5 PER NCEP ATP III GUIDELINES: OPTIMAL < 100 NEAR OPTIMAL 100 - 129 BORDERLINE HIGH 130 - 159 HIGH 160 - 189 VERY HIGH > 189 6 A REVIEW OF THE LITERATURE SUGGESTS THE FOLLOWING RANGES FOR THE CLASSIFICATION OF 25-OH VITAMIN D STATUS: VITAMIN D STATUS 25-OH VITAMIN D DEFICIENCY <20 NG/ML INSUFFICIENCY 20-30 NG/ML SUFFICIENCY 31 - 100 NG/ML TOXICITY > 100 NG/ML A PEDIATRIC REFERENCE RANGE HAS NOT BEEN ESTABLISHED USING THIS METHOD. 7 RELATIVE RISK CATEGORY AND AVERAGE hs-CRP LEVEL: LOW RISK < 1.0 MG/L AVERAGE RISK 1.0 to 3.0 MG/L HIGH RISK > 3.0 MG/L 8 Performed using [employer] immunoassay. Care must be taken when interpreting HbA1c results in patients with a hemoglobin variant or decreased erythrocyte lifespan. Values 5.7 - 6.4% suggest prediabetes. Values >=6.5% are diagnostic for diabetes. REFERENCE: DIABETES CARE 2018: 41(S13-S27). Procedures Date Code Description Status 04/07/2019 91559 Spirometry Completed 04/07/2019 40865 Tympanometry Completed Medical Devices Description No Information Available Encounters Type Date Location Provider Dx Diagnosis Office Visit 09/22/2019 [facility] Santana Braswell J44.9 Chronic obstructive 10:15a N.P. pulmonary disease, unspecified K21.9 Gastro-esophageal reflux disease without esophagitis E78.2 Mixed hyperlipidemia G47.33 Obstructive sleep apnea (adult) (pediatric) E55.9 Vitamin D deficiency, unspecified M15.9 Polyosteoarthritis, unspecified N39.3 Stress incontinence (female) (male) L20.9 Atopic dermatitis, unspecified J30.9 Allergic rhinitis, unspecified F41.9 Anxiety disorder, unspecified F33.9 Major depressive disorder, recurrent, unspecified G47.00 Insomnia, unspecified K30 Functional dyspepsia M54.42 Lumbago with sciatica, left side R30.0 Dysuria F12.10 Cannabis abuse, uncomplicated M10.9 Gout, unspecified J45.909 Unspecified asthma, uncomplicated J32.4 Chronic pansinusitis R09.81 Nasal congestion M35.8 Other specified systemic involvement of connective tissue E66.01 Morbid (severe) obesity due to excess calories B35.4 Tinea corporis L02.214 Cutaneous abscess of groin R60.0 Localized edema F17.210 Nicotine dependence, cigarettes, uncomplicated M54.5 Low back pain R35.0 Frequency of micturition G43.009 Migraine w/o aura, not intractable, w/o status migrainosus F45.0 Somatization disorder Office Visit 08/13/2019 10:15a [facility] Santana Braswell J44.9 Chronic obstructive N.P. pulmonary disease, unspecified K21.9 Gastro-esophageal reflux disease without esophagitis E78.2 Mixed hyperlipidemia G47.33 Obstructive sleep apnea (adult) (pediatric) E55.9 Vitamin D deficiency, unspecified M15.9 Polyosteoarthritis, unspecified N39.3 Stress incontinence (female) (male) L20.9 Atopic dermatitis, unspecified J30.9 Allergic rhinitis, unspecified F41.9 Anxiety disorder, unspecified F33.9 Major depressive disorder, recurrent, unspecified G47.00 Insomnia, unspecified K30 Functional dyspepsia M54.42 Lumbago with sciatica, left side R30.0 Dysuria F12.10 Cannabis abuse, uncomplicated M10.9 Gout, unspecified J45.909 Unspecified asthma, uncomplicated J32.4 Chronic pansinusitis R09.81 Nasal congestion M35.8 Other specified systemic involvement of connective tissue E66.01 Morbid (severe) obesity due to excess calories B35.4 Tinea corporis L02.214 Cutaneous abscess of groin R60.0 Localized edema F17.210 Nicotine dependence, cigarettes, uncomplicated M54.5 Low back pain R35.0 Frequency of micturition G43.009 Migraine w/o aura, not intractable, w/o status migrainosus F45.0 Somatization disorder Office Visit 06/06/2019 11:30a [facility] Santana Braswell J44.9 Chronic obstructive N.P. pulmonary disease, unspecified K21.9 Gastro-esophageal reflux disease without esophagitis E78.2 Mixed hyperlipidemia G47.33 Obstructive sleep apnea (adult) (pediatric) E55.9 Vitamin D deficiency, unspecified M15.9 Polyosteoarthritis, unspecified N39.3 Stress incontinence (female) (male) L20.9 Atopic dermatitis, unspecified J30.9 Allergic rhinitis, unspecified F41.9 Anxiety disorder, unspecified F33.9 Major depressive disorder, recurrent, unspecified G47.00 Insomnia, unspecified K30 Functional dyspepsia M54.42 Lumbago with sciatica, left side R30.0 Dysuria F12.10 Cannabis abuse, uncomplicated M10.9 Gout, unspecified J45.909 Unspecified asthma, uncomplicated J32.4 Chronic pansinusitis R09.81 Nasal congestion M35.8 Other specified systemic involvement of connective tissue E66.01 Morbid (severe) obesity due to excess calories B35.4 Tinea corporis L02.214 Cutaneous abscess of groin R60.0 Localized edema F17.210 Nicotine dependence, cigarettes, uncomplicated M54.5 Low back pain R35.0 Frequency of micturition G43.009 Migraine w/o aura, not intractable, w/o status migrainosus Office Visit 04/30/2019 10:30a [facility] Santana Braswell, J44.9 Chronic obstructive N.P. pulmonary disease, unspecified K21.9 Gastro-esophageal reflux disease without esophagitis E78.2 Mixed hyperlipidemia G47.33 Obstructive sleep apnea (adult) (pediatric) E55.9 Vitamin D deficiency, unspecified M15.9 Polyosteoarthritis, unspecified N39.3 Stress incontinence (female) (male) L20.9 Atopic dermatitis, unspecified J30.9 Allergic rhinitis, unspecified F41.9 Anxiety disorder, unspecified F33.9 Major depressive disorder, recurrent, unspecified G47.00 Insomnia, unspecified K30 Functional dyspepsia M54.42 Lumbago with sciatica, left side R30.0 Dysuria F12.10 Cannabis abuse, uncomplicated M10.9 Gout, unspecified J45.909 Unspecified asthma, uncomplicated J32.4 Chronic pansinusitis R09.81 Nasal congestion M35.8 Other specified systemic involvement of connective tissue E66.01 Morbid (severe) obesity due to excess calories B35.4 Tinea corporis L02.214 Cutaneous abscess of groin R60.0 Localized edema F17.210 Nicotine dependence, cigarettes, uncomplicated M54.5 Low back pain R35.0 Frequency of micturition Office Visit 04/14/2019 10:00a [facility] Santana Braswell, J44.9 Chronic obstructive N.P. pulmonary disease, unspecified K21.9 Gastro-esophageal reflux disease without esophagitis E78.2 Mixed hyperlipidemia G47.33 Obstructive sleep apnea (adult) (pediatric) E55.9 Vitamin D deficiency, unspecified M15.9 Polyosteoarthritis, unspecified N39.3 Stress incontinence (female) (male) L20.9 Atopic dermatitis, unspecified J30.9 Allergic rhinitis, unspecified F41.9 Anxiety disorder, unspecified F33.9 Major depressive disorder, recurrent, unspecified G47.00 Insomnia, unspecified K30 Functional dyspepsia M54.42 Lumbago with sciatica, left side R30.0 Dysuria F12.10 Cannabis abuse, uncomplicated M10.9 Gout, unspecified J45.909 Unspecified asthma, uncomplicated J32.4 Chronic pansinusitis R09.81 Nasal congestion M35.8 Other specified systemic involvement of connective tissue E66.01 Morbid (severe) obesity due to excess calories B35.4 Tinea corporis L02.214 Cutaneous abscess of groin R60.0 Localized edema F17.210 Nicotine dependence, cigarettes, uncomplicated S80.862D Insect bite (nonvenomous), left lower leg, subs encntr J20.9 Acute bronchitis, unspecified M54.5 Low back pain Office Visit 04/07/2019 10:30a [facility] Santana Braswell, J44.9 Chronic obstructive N.P. pulmonary disease, unspecified K21.9 Gastro-esophageal reflux disease without esophagitis E78.2 Mixed hyperlipidemia G47.33 Obstructive sleep apnea (adult) (pediatric) E55.9 Vitamin D deficiency, unspecified M15.9 Polyosteoarthritis, unspecified N39.3 Stress incontinence (female) (male) L20.9 Atopic dermatitis, unspecified J30.9 Allergic rhinitis, unspecified F41.9 Anxiety disorder, unspecified F33.9 Major depressive disorder, recurrent, unspecified G47.00 Insomnia, unspecified K30 Functional dyspepsia M54.42 Lumbago with sciatica, left side R30.0 Dysuria F12.10 Cannabis abuse, uncomplicated M10.9 Gout, unspecified R31.9 Hematuria, unspecified J45.909 Unspecified asthma, uncomplicated R05 Cough J32.4 Chronic pansinusitis J01.40 Acute pansinusitis, unspecified H66.93 Otitis media, unspecified, bilateral R09.81 Nasal congestion M35.8 Other specified systemic involvement of connective tissue E66.01 Morbid (severe) obesity due to excess calories B35.4 Tinea corporis J02.9 Acute pharyngitis, unspecified L02.214 Cutaneous abscess of groin R60.0 Localized edema F17.210 Nicotine dependence, cigarettes, uncomplicated S80.862D Insect bite (nonvenomous), left lower leg, subs encntr J20.9 Acute bronchitis, unspecified M54.5 Low back pain H92.03 Otalgia, bilateral Office Visit 03/26/2019 2:45p [facility] Santana Braswell, J44.9 Chronic obstructive N.P. pulmonary disease, unspecified K21.9 Gastro-esophageal reflux disease without esophagitis E78.2 Mixed hyperlipidemia G47.33 Obstructive sleep apnea (adult) (pediatric) E55.9 Vitamin D deficiency, unspecified M15.9 Polyosteoarthritis, unspecified N39.3 Stress incontinence (female) (male) L20.9 Atopic dermatitis, unspecified J30.9 Allergic rhinitis, unspecified F41.9 Anxiety disorder, unspecified F33.9 Major depressive disorder, recurrent, unspecified G47.00 Insomnia, unspecified K30 Functional dyspepsia M54.42 Lumbago with sciatica, left side R30.0 Dysuria F12.10 Cannabis abuse, uncomplicated M10.9 Gout, unspecified R31.9 Hematuria, unspecified J45.909 Unspecified asthma, uncomplicated J20.9 Acute bronchitis, unspecified R05 Cough J32.4 Chronic pansinusitis J01.40 Acute pansinusitis, unspecified H66.93 Otitis media, unspecified, bilateral R09.81 Nasal congestion M35.8 Other specified systemic involvement of connective tissue E66.01 Morbid (severe) obesity due to excess calories B35.4 Tinea corporis J02.9 Acute pharyngitis, unspecified L02.214 Cutaneous abscess of groin R60.0 Localized edema F17.210 Nicotine dependence, cigarettes, uncomplicated S80.862A Insect bite (nonvenomous), left lower leg, initial encounter Assessments Date Code Description Provider 09/22/2019 J44.9 Chronic obstructive pulmonary disease, Santana Braswell, N.P. unspecified 09/22/2019 K21.9 Gastro-esophageal reflux disease without Santana Braswell, N.P. esophagitis 09/22/2019 E78.2 Mixed hyperlipidemia Santana Braswell, N.P. 09/22/2019 G47.33 Obstructive sleep apnea (adult) (pediatric) Santana Braswell , N.P. 09/22/2019 E55.9 Vitamin D deficiency, unspecified Santana Braswell, N.P. 09/22/2019 M15.9 Polyosteoarthritis, unspecified Santana Braswell, N.P. 09/22/2019 N39.3 Stress incontinence (female) (male) Santana Braswell, N.P. 09/22/2019 L20.9 Atopic dermatitis, unspecified Santana Braswell, N.P. 09/22/2019 J30.9 Allergic rhinitis, unspecified Santana Braswell, N.P. 09/22/2019 F41.9 Anxiety disorder, unspecified Santana Braswell, N.P. 09/22/2019 F33.9 Major depressive disorder, recurrent, Santana Braswell, N.P. unspecified 09/22/2019 G47.00 Insomnia, unspecified Santana Braswell, N.P. 09/22/2019 K30 Functional dyspepsia Santana Braswell, N.P. 09/22/2019 M54.42 Lumbago with sciatica, left side Santana Braswell, N.P. 09/22/2019 R30.0 Dysuria Santana Braswell, N.P. 09/22/2019 F12.10 Cannabis abuse, uncomplicated Santana Braswell, N.P. 09/22/2019 M10.9 Gout, unspecified Santana Braswell, N.P. 09/22/2019 J45.909 Unspecified asthma, uncomplicated Santana Braswell, N.P. 09/22/2019 J32.4 Chronic pansinusitis Santana rBaswell, N.P. 09/22/2019 R09.81 Nasal congestion Santana Braswell, N.P. 09/22/2019 M35.8 Other specified systemic involvement of Santana Braswell, N.P. connective tissue 09/22/2019 E66.01 Morbid (severe) obesity due to excess Santana Braswell, N.P. calories 09/22/2019 B35.4 Tinea corporis Santana Braswell, N.P. 09/22/2019 L02.214 Cutaneous abscess of groin Santana Braswell N.P. 09/22/2019 R60.0 Localized edema Santana Braswell, N.P. 09/22/2019 F17.210 Nicotine dependence, cigarettes, Santana Braswell, N.P. uncomplicated 09/22/2019 M54.5 Low back pain Santana Braswell N.P. 09/22/2019 R35.0 Frequency of micturition Santana Braswell N.P. 09/22/2019 G43.009 Migraine without aura, not intractable, Santana Braswell, N.P. without status migrainosus 09/22/2019 F45.0 Somatization disorder Santana Braswell N.P. 08/13/2019 J44.9 Chronic obstructive pulmonary disease, Santana Braswell, N.P. unspecified 08/13/2019 K21.9 Gastro-esophageal reflux disease without Santana Braswell N.P. esophagitis 08/13/2019 E78.2 Mixed hyperlipidemia Santana Braswell, N.P. 08/13/2019 G47.33 Obstructive sleep apnea (adult) (pediatric) Santana Braswell N.P. 08/13/2019 E55.9 Vitamin D deficiency, unspecified Santana Braswell, N.P. 08/13/2019 M15.9 Polyosteoarthritis, unspecified Santana Braswell, N.P. 08/13/2019 N39.3 Stress incontinence (female) (male) Santana Braswell N.P. 08/13/2019 L20.9 Atopic dermatitis, unspecified Santana Braswell, N.P. 08/13/2019 J30.9 Allergic rhinitis, unspecified Santana Braswell, N.P. 08/13/2019 F41.9 Anxiety disorder, unspecified Santana Braswell, N.P. 08/13/2019 F33.9 Major depressive disorder, recurrent, Santana Braswell, N.P. unspecified 08/13/2019 G47.00 Insomnia, unspecified Santana Braswell, N.P. 08/13/2019 K30 Functional dyspepsia Santana Braswell, N.P. 08/13/2019 M54.42 Lumbago with sciatica, left side Santana Braswell N.P. 08/13/2019 R30.0 Dysuria Santana Braswell, N.P. 08/13/2019 F12.10 Cannabis abuse, uncomplicated Santana Braswell, N.P. 08/13/2019 M10.9 Gout, unspecified Santana Braswell, N.P. 08/13/2019 J45.909 Unspecified asthma, uncomplicated Santana Braswell, N.P. 08/13/2019 J32.4 Chronic pansinusitis Santana Braswell, N.P. 08/13/2019 R09.81 Nasal congestion Santana Braswell N.P. 08/13/2019 M35.8 Other specified systemic involvement of Santana Braswell N.PGustavo connective tissue 08/13/2019 E66.01 Morbid (severe) obesity due to excess Santana Braswell, N.P. calories 08/13/2019 B35.4 Tinea corporis Santana Braswell N.P. 08/13/2019 L02.214 Cutaneous abscess of groin Santana Braswell N.P. 08/13/2019 R60.0 Localized edema Santana Braswell N.P. 08/13/2019 F17.210 Nicotine dependence, cigarettes, Santana Braswell N.P. uncomplicated 08/13/2019 M54.5 Low back pain Santana Braswell N.P. 08/13/2019 R35.0 Frequency of micturition Santana Braswell N.P. 08/13/2019 G43.009 Migraine without aura, not intractable, Santana Braswell N.PGustavo without status migrainosus 08/13/2019 F45.0 Somatization disorder Santana Braswell, N.P. 06/06/2019 J44.9 Chronic obstructive pulmonary disease, Santana Braswell N.P. unspecified 06/06/2019 K21.9 Gastro-esophageal reflux disease without Santana Braswell N.PGustavo esophagitis 06/06/2019 E78.2 Mixed hyperlipidemia Santana Braswell N.P. 06/06/2019 G47.33 Obstructive sleep apnea (adult) (pediatric) Santana Braswell N.P. 06/06/2019 E55.9 Vitamin D deficiency, unspecified Santana Braswell, N.P. 06/06/2019 M15.9 Polyosteoarthritis, unspecified Santana Braswell, N.P. 06/06/2019 N39.3 Stress incontinence (female) (male) Santana Braswell N.P. 06/06/2019 L20.9 Atopic dermatitis, unspecified Santana Braswell N.P. 06/06/2019 J30.9 Allergic rhinitis, unspecified Santana Braswell N.P. 06/06/2019 F41.9 Anxiety disorder, unspecified Santana Braswell, N.P. 06/06/2019 F33.9 Major depressive disorder, recurrent, Santana Braswell, N.P. unspecified 06/06/2019 G47.00 Insomnia, unspecified Santana Braswell, N.P. 06/06/2019 K30 Functional dyspepsia Santana Braswell, N.P. 06/06/2019 M54.42 Lumbago with sciatica, left side Santana Braswell, N.P. 06/06/2019 R30.0 Dysuria Santana Braswell, N.P. 06/06/2019 F12.10 Cannabis abuse, uncomplicated Santana Braswell, N.P. 06/06/2019 M10.9 Gout, unspecified Santana Braswell, N.P. 06/06/2019 J45.909 Unspecified asthma, uncomplicated Santana Braswell, N.P. 06/06/2019 J32.4 Chronic pansinusitis Santana Braswell N.P. 06/06/2019 R09.81 Nasal congestion Santana Braswell N.P. 06/06/2019 M35.8 Other specified systemic involvement of Santana Braswell N.P. connective tissue 06/06/2019 E66.01 Morbid (severe) obesity due to excess Santana Braswell, N.P. calories 06/06/2019 B35.4 Tinea corporis Santana Braswell, N.P. 06/06/2019 L02.214 Cutaneous abscess of groin Santana Braswell, N.P. 06/06/2019 R60.0 Localized edema Santana Braswell N.P. 06/06/2019 F17.210 Nicotine dependence, cigarettes, Santana Braswell, N.P. uncomplicated 06/06/2019 M54.5 Low back pain Santana Braswell, N.P. 06/06/2019 R35.0 Frequency of micturition Santana Braswell, N.P. 06/06/2019 G43.009 Migraine without aura, not intractable, Santana Braswell, N.P. without status migrainosus 04/30/2019 J44.9 Chronic obstructive pulmonary disease, Santana Braswell, N.P. unspecified 04/30/2019 K21.9 Gastro-esophageal reflux disease without Santana Braswell N.PGustavo esophagitis 04/30/2019 E78.2 Mixed hyperlipidemia Santana Braswell, N.P. 04/30/2019 G47.33 Obstructive sleep apnea (adult) (pediatric) Santana Braswell , N.P. 04/30/2019 E55.9 Vitamin D deficiency, unspecified Santana Braswell, N.P. 04/30/2019 M15.9 Polyosteoarthritis, unspecified Santana Braswell, N.P. 04/30/2019 N39.3 Stress incontinence (female) (male) Santana Braswell, N.P. 04/30/2019 L20.9 Atopic dermatitis, unspecified Santana Braswell, N.P. 04/30/2019 J30.9 Allergic rhinitis, unspecified Santana Braswell, N.P. 04/30/2019 F41.9 Anxiety disorder, unspecified Santana Braswell, N.P. 04/30/2019 F33.9 Major depressive disorder, recurrent, Santana Braswell, N.P. unspecified 04/30/2019 G47.00 Insomnia, unspecified Santana Braswell, N.P. 04/30/2019 K30 Functional dyspepsia Santana Braswell N.P. 04/30/2019 M54.42 Lumbago with sciatica, left side Santana Braswell, N.P. 04/30/2019 R30.0 Dysuria Santana Braswell, N.P. 04/30/2019 F12.10 Cannabis abuse, uncomplicated Santana Braswell, N.P. 04/30/2019 M10.9 Gout, unspecified Santana Braswell, N.P. 04/30/2019 J45.909 Unspecified asthma, uncomplicated Santana Braswell, N.P. 04/30/2019 J32.4 Chronic pansinusitis Santana Braswell, N.P. 04/30/2019 R09.81 Nasal congestion Santana Braswell N.P. 04/30/2019 M35.8 Other specified systemic involvement of Santana Braswell, N.P. connective tissue 04/30/2019 E66.01 Morbid (severe) obesity due to excess Santana Braswell, N.P. calories 04/30/2019 B35.4 Tinea corporis Santana Braswell, N.P. 04/30/2019 L02.214 Cutaneous abscess of groin Santana Braswell, N.P. 04/30/2019 R60.0 Localized edema Santana Braswell N.P. 04/30/2019 F17.210 Nicotine dependence, cigarettes, Santana Braswell N.P. uncomplicated 04/30/2019 M54.5 Low back pain Santana Braswell N.P. 04/30/2019 R35.0 Frequency of micturition Santana Braswell N.P. 04/14/2019 J44.9 Chronic obstructive pulmonary disease, Santana Braswell N.P. unspecified 04/14/2019 K21.9 Gastro-esophageal reflux disease without Santana Braswell N.P. esophagitis 04/14/2019 E78.2 Mixed hyperlipidemia Santana Braswell, N.P. 04/14/2019 G47.33 Obstructive sleep apnea (adult) (pediatric) Santana Braswell , N.P. 04/14/2019 E55.9 Vitamin D deficiency, unspecified Santana Braswell, N.P. 04/14/2019 M15.9 Polyosteoarthritis, unspecified Santana Braswell, N.P. 04/14/2019 N39.3 Stress incontinence (female) (male) Santana Braswell N.P. 04/14/2019 L20.9 Atopic dermatitis, unspecified Santana Braswell N.P. 04/14/2019 J30.9 Allergic rhinitis, unspecified Santana Braswell N.P. 04/14/2019 F41.9 Anxiety disorder, unspecified Santana Braswell, N.P. 04/14/2019 F33.9 Major depressive disorder, recurrent, Santana Braswell N.P. unspecified 04/14/2019 G47.00 Insomnia, unspecified Santana Braswell, N.P. 04/14/2019 K30 Functional dyspepsia Santana Braswell N.P. 04/14/2019 M54.42 Lumbago with sciatica, left side Santana Braswell N.P. 04/14/2019 R30.0 Dysuria Santana Braswell N.P. 04/14/2019 F12.10 Cannabis abuse, uncomplicated Santana Braswell, N.P. 04/14/2019 M10.9 Gout, unspecified Santana Braswell, N.P. 04/14/2019 J45.909 Unspecified asthma, uncomplicated Santana Braswell, N.P. 04/14/2019 J32.4 Chronic pansinusitis Santana Braswell N.P. 04/14/2019 R09.81 Nasal congestion Santana Braswell N.P. 04/14/2019 M35.8 Other specified systemic involvement of Santana Braswell N.PGustavo connective tissue 04/14/2019 E66.01 Morbid (severe) obesity due to excess Santana Braswell, N.P. calories 04/14/2019 B35.4 Tinea corporis Santana Braswell N.P. 04/14/2019 L02.214 Cutaneous abscess of groin Santana Braswell N.P. 04/14/2019 R60.0 Localized edema Santana Braswell N.P. 04/14/2019 F17.210 Nicotine dependence, cigarettes, Santana Braswell N.P. uncomplicated 04/14/2019 S80.862D Insect bite (nonvenomous), left lower leg, Santana Braswell N.P. subsequent encoun 04/14/2019 J20.9 Acute bronchitis, unspecified Santana Braswell N.P. 04/14/2019 M54.5 Low back pain Santana Braswell N.P. 04/07/2019 J44.9 Chronic obstructive pulmonary disease, Santana Braswell N.P. unspecified 04/07/2019 K21.9 Gastro-esophageal reflux disease without Santana Braswell N.PGustavo esophagitis 04/07/2019 E78.2 Mixed hyperlipidemia Santana Braswell N.P. 04/07/2019 G47.33 Obstructive sleep apnea (adult) (pediatric) Santana Braswell N.P. 04/07/2019 E55.9 Vitamin D deficiency, unspecified Santana Braswell N.P. 04/07/2019 M15.9 Polyosteoarthritis, unspecified Santana Braswell N.P. 04/07/2019 N39.3 Stress incontinence (female) (male) Santana Braswell N.P. 04/07/2019 L20.9 Atopic dermatitis, unspecified Santana Braswell N.P. 04/07/2019 J30.9 Allergic rhinitis, unspecified Santana Braswell N.P. 04/07/2019 F41.9 Anxiety disorder, unspecified Santana Braswell N.P. 04/07/2019 F33.9 Major depressive disorder, recurrent, Santana Braswell N.P. unspecified 04/07/2019 G47.00 Insomnia, unspecified Santana Braswell N.P. 04/07/2019 K30 Functional dyspepsia Santana Braswell N.P. 04/07/2019 M54.42 Lumbago with sciatica, left side Santana Braswell N.P. 04/07/2019 R30.0 Dysuria Santana Braswell N.P. 04/07/2019 F12.10 Cannabis abuse, uncomplicated Santana Braswell N.P. 04/07/2019 M10.9 Gout, unspecified Santana Braswell, N.P. 04/07/2019 R31.9 Hematuria, unspecified Santana Braswell, N.P. 04/07/2019 J45.909 Unspecified asthma, uncomplicated Santana Braswell, N.P. 04/07/2019 R05 Cough Santana Braswell, N.P. 04/07/2019 J32.4 Chronic pansinusitis Santana Braswell N.P. 04/07/2019 J01.40 Acute pansinusitis, unspecified Santana Braswell, N.P. 04/07/2019 H66.93 Otitis media, unspecified, bilateral Santana Braswell, N.P. 04/07/2019 R09.81 Nasal congestion Santana Braswell N.P. 04/07/2019 M35.8 Other specified systemic involvement of Santana Braswell N.PGustavo connective tissue 04/07/2019 E66.01 Morbid (severe) obesity due to excess Santana Braswell, N.P. calories 04/07/2019 B35.4 Tinea corporis Santana Braswell N.P. 04/07/2019 J02.9 Acute pharyngitis, unspecified Santana Braswell, N.P. 04/07/2019 L02.214 Cutaneous abscess of groin Santana Braswell N.P. 04/07/2019 R60.0 Localized edema Santana Braswell N.P. 04/07/2019 F17.210 Nicotine dependence, cigarettes, Santana Braswell N.P. uncomplicated 04/07/2019 S80.862D Insect bite (nonvenomous), left lower leg, Santana Braswell N.PGustavo subsequent encoun 04/07/2019 J20.9 Acute bronchitis, unspecified Santana Braswell N.P. 04/07/2019 M54.5 Low back pain Santana Braswell N.P. 04/07/2019 H92.03 Otalgia, bilateral Santana Braswell N.P. 03/26/2019 J44.9 Chronic obstructive pulmonary disease, Santana Braswell N.P. unspecified 03/26/2019 K21.9 Gastro-esophageal reflux disease without Santana Braswell N.PGustavo esophagitis 03/26/2019 E78.2 Mixed hyperlipidemia Santana Braswell N.P. 03/26/2019 G47.33 Obstructive sleep apnea (adult) (pediatric) Santana Braswell N.P. 03/26/2019 E55.9 Vitamin D deficiency, unspecified Santana Braswell, N.P. 03/26/2019 M15.9 Polyosteoarthritis, unspecified Santana Braswell, N.P. 03/26/2019 N39.3 Stress incontinence (female) (male) Santana Braswell, N.P. 03/26/2019 L20.9 Atopic dermatitis, unspecified Santana Braswell, N.P. 03/26/2019 J30.9 Allergic rhinitis, unspecified Santana Braswell, N.P. 03/26/2019 F41.9 Anxiety disorder, unspecified Santana Braswell, N.P. 03/26/2019 F33.9 Major depressive disorder, recurrent, Santana Braswell, N.P. unspecified 03/26/2019 G47.00 Insomnia, unspecified Santana Braswell, N.P. 03/26/2019 K30 Functional dyspepsia Santana Braswell, N.P. 03/26/2019 M54.42 Lumbago with sciatica, left side Santana Braswell, N.P. 03/26/2019 R30.0 Dysuria Santana Braswell, N.P. 03/26/2019 F12.10 Cannabis abuse, uncomplicated Santana Braswell, N.P. 03/26/2019 M10.9 Gout, unspecified Sanatna Braswell, N.P. 03/26/2019 R31.9 Hematuria, unspecified Santana Braswell, N.P. 03/26/2019 J45.909 Unspecified asthma, uncomplicated Santana Braswell, N.P. 03/26/2019 J20.9 Acute bronchitis, unspecified Santana Braswell, N.P. 03/26/2019 R05 Cough Santana Braswell, N.P. 03/26/2019 J32.4 Chronic pansinusitis Santana Braswell, N.P. 03/26/2019 J01.40 Acute pansinusitis, unspecified Santana Braswell, N.P. 03/26/2019 H66.93 Otitis media, unspecified, bilateral Santana Braswell, N.P. 03/26/2019 R09.81 Nasal congestion Santana Braswell, N.P. 03/26/2019 M35.8 Other specified systemic involvement of Santana Braswell N.P. connective tissue 03/26/2019 E66.01 Morbid (severe) obesity due to excess Santana Braswell, N.P. calories 03/26/2019 B35.4 Tinea corporis Santana Braswell, N.P. 03/26/2019 J02.9 Acute pharyngitis, unspecified Santana Braswell N.P. 03/26/2019 L02.214 Cutaneous abscess of groin Santana Braswell N.P. 03/26/2019 R60.0 Localized edema Santana Braswell N.P. 03/26/2019 F17.210 Nicotine dependence, cigarettes, Santana Braswell N.P. uncomplicated 03/26/2019 S80.862A Insect bite (nonvenomous), left lower leg, Santana Braswell N.P. initial encounter Plan of Treatment Future Appointment(s):10/24/2019 10:15 am - Santana Braswell N.P. at [facility] Functional Status Description No Information Available Mental Status Description No Information Available Referrals Refer to Reason for Referral Status Appt [facility] Created [address] [facility] [address] [phone] Created Nato Sanders MD Closed [address] [place] [address] [phone] [facility] Closed [address] [address] [phone]
--- OUTSIDE RECORDS SUMMARY | 2019-10-15 21:54 | XMS REPORT | Continuity of Care Document ---
:1970 External Reference #:[id number] Demographics Address [facility] [place] [address] [place] [address] Mobile Phone [phone] Email Address Preferred Language en Marital Status Not or Cheondoism Affiliation Unknown Race White Ethnic Group Not or Author Name Karen Kline NP (transmitted by agent of provider Estephanie Rangel ) Address [address] [place] [address] Care Team Providers Name Role Phone Cindi Minor MD - Neurology Care Team Information Director Of Vital Statistics Cristopher Suresh MD - Care Team Information Director Of Vital Statistics [phone] Otolaryngology Josephine Hopson MD - Family Medicine Care Team Information Director Of Vital Statistics Problems Active Problems Provider Date Depressive disorder Lakhwinder William M.D. Onset: 04/08/2013 Disorder of lumbar disc Lakhwinder William M.D. Onset: 04/08/2013 Cervical disc disorder Lakhwinder William M.D. Onset: 04/08/2013 Dizziness Sameer Sauceda M.D. Onset: 07/15/2015 Headache Sameer Sauceda M.D. Onset: 07/15/2015 Abnormal results function studies of Jerri Luu MD Onset: 07/23/2015 central nervous system Drug-induced headache, not elsewhere Jerri Luu MD Onset: 07/23/2015 classified, not intractable Chronic intractable migraine without Jerri Luu MD Onset: 09/15/2015 aura Benign paroxysmal positional vertigo Jerri Luu MD Onset: 12/10/2015 Constipation Karen Kline NP Onset: 05/08/2019 Gastroesophageal reflux disease Karen Kline NP Onset: 05/08/2019 Abdominal discomfort Karen Kline NP Onset: 05/08/2019 Social History Type Date Description Comments Sex Unknown Tobacco Use Start: Unknown current cigarette 1/2 pk a day for 20 smoker + yrs Smoking Status Reviewed: 09/25/19 current cigarette 1/2 pk a day for 20 smoker + yrs ETOH Use Denies alcohol use Tobacco Use Start: Unknown Patient is a current smoker, smokes every day Recreational Drug Use Denies Drug Use Exercise Type/Frequency Walks daily Allergies, Adverse Reactions, Alerts Active Allergies Reaction Severity Comments Date NKDA 09/24/2019 Nicoderm Patch rash adhesive on patch 02/25/2013 Medications Active Medications SIG Qnty Indications Ordering Date Provider Suprep Bowel Prep take according to 1units Karen Pollard 09/25/2019 Kit your physician's BINTA Kline instructions the 17.5-3.13-1.6GM/177 day before your ML Solution procedure. split the dose as directed. Magnesium Citrate please take one 296ml Karen Pollard 09/25/2019 bottle at night BINTA Kline 1.745GM/30ML time one day prior Solution to the start of "prep" day. Miralax one capful, by Karen Pollard 05/08/2019 Powder mouth nightly BINTA Kline dissolved in 8 oz of liquid, to produce bm Fibercon one to two tablets 180tabs Karen Pollard 05/08/2019 625mg daily BINTA Kline Tablets Systane Ultra 1 drop each eye 8ml M35.00 Zsofia Pascual, 01/20/2019 twice daily for dry T[place]ALLER 0.4-0.3% Solution eyes Vitamin D-3 Unknown 5000Unit Tablets Lisinopril-Hydrochl 1 by mouth every Unknown orothiazide day 10-12.5mg Tablets Omeprazole 1 by mouth bid Unknown 40mg Capsules DR Celexa 1 by mouth every Unknown 40mg Tablets day Medications Administered in Office Medication SIG Qnty Indications Ordering Provider Date Triamcinolone (Kenalog) Blaire Gill PA-C 03/22/2017 Injection Immunizations Description No Information Available Vital Signs Date Vital Result Comment 09/25/2019 10:17am Height 66 inches 5'6" Weight 292.00 lb Heart Rate 80 /min BP Systolic 116 mmHg BP Diastolic 72 mmHg Respiratory Rate 16 /min BMI (Body Mass Index) 47.1 kg/m2 05/08/2019 11:21am Height 66 inches 5'6" Weight 296.00 lb Heart Rate 77 /min BP Systolic 137 mmHg BP Diastolic 101 mmHg O2 % BldC Oximetry 99 % BMI (Body Mass Index) 47.8 kg/m2 Results Test Acquired Date Facility Test Result H/L Range Note Laboratory test 09/25/2019 [facility] Amylase <pending> finding [address] [place] [address] [phone] Lipase <pending> Vitamin B12 <pending> Procedures Date Code Description Status 06/06/2018 [id number] Colonoscopy Completed 01/24/2017 [id number] Colonoscopy Completed 09/05/2011 [id number] Mammogram Completed Medical Devices Description No Information Available Encounters Type Date Location Provider Dx Diagnosis Office Visit 05/08/2019 [facility] Karen Pollard K59.00 Constipation, 11:15a BINTA Kline unspecified R10.9 Unspecified abdominal pain Assessments Date Code Description Provider 05/08/2019 K59.00 Constipation, unspecified Karen Kline NP 05/08/2019 R10.9 Unspecified abdominal pain Karen Kline NP Plan of Treatment Future Appointment(s):10/29/2019 10:10 am - Karen Kline NP at [facility] Functional Status Description No Information Available Mental Status Description No Information Available Referrals Description No Information Available
== END 2019-10-15 22:23 | disposition left against medical advice (07) ==
LOC: ED 21:42
DX: Z53.21 Procedure and treatment not carried out due to patient leaving prior to being seen by health care provider (principal); R42 Dizziness and giddiness; R06.02 Shortness of breath
CPT/HCPCS: 99282

== ENCOUNTER 2019-10-29 16:41 | Emergency (ER) | payer OTHER ==
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
--- OUTSIDE RECORDS SUMMARY | 2019-10-29 17:01 | XMS REPORT | Continuity of Care Document ---
:1970 External Reference #:[id number] Demographics Address [address] [place] [address] Home Phone [phone] Preferred Language en Marital Status Not or Sabianist Affiliation Unknown Race White Ethnic Group Not or Author Name Santana Braswell N.P. Address [address] [place] [address] [address] [place] [address] Problems Description No Information Available Social History Type Date Description Comments Sex Unknown ETOH Use Denies alcohol use Recreational Drug Use Denies Drug Use Tobacco Use Start: Unknown End: Unknown Patient is a former smoker Smoking Status Reviewed: 04/07/19 Patient is a former smoker Allergies, Adverse Reactions, Alerts Description No Known Drug Allergies Medications Active Medications SIG Qnty Indications Ordering Date Provider Azithromycin 1 tab by mouth 10tabs J20.9 [facility] 10/17/2019 500mg every day x 10 M., M.D. Tablets days Diflucan 1 by mouth day 2tabs B37.3 [facility] 10/17/2019 150mg Tablets one, and day 5, of M., M.D. abx Seroquel 1 tab by mouth 30tabs G47.00 [facility] 08/13/2019 50mg Tablets every night at M., M.D. bedtime Diclofenac Sodium 1 tab by mouth 60tabs [facility] 08/13/2019 75mg twice a day M., M.D. Tablets DR Moralesitrex one tab by mouth 14tabs G43.009 [facility] 06/06/2019 50mg Tablets as needed M., M.D. headache, may repeat x 1 if no relief in 2 hours. Fenofibrate 1 by mouth every 30tabs E78.2 Mark [place], mad 04/30/2019 54mg day M., M.D. Tablets Benadryl Allergy 1-2 tab by mouth 60tabs [facility] 04/14/2019 25mg every night at M., M.D. Tablets bedtime as needed For Itching Miconazole Antifungal apply to affected 90gm B35.4 [facility] 02/05/2019 areas Under M., M.D. 2% Cream Breasts twice daily x 14 days Cane/Aluminum/Adjusta cane for 1units E66.01 [facility] 02/05/2019 ble/Ladies Handle ambulation M.VeenaD. Misc Montelukast Sodium 1 by mouth every 90tabs J45.909 [facility] 12/20/2018 10mg day M., M.D. Tablets Allopurinol 1 by mouth every 90tabs M10.9 [facility] 12/20/2018 100mg day M., M.D. Tablets Claritin 1 by mouth every 30tabs J30.9 [facility] 12/20/2018 10mg Tablets day M., M.D. Citalopram 1 by mouth every 30tabs F33.9 [facility] 11/22/2018 Hydrobromide day M., M.D. 20mg Tablets Acetaminophen Extra 2 tab by mouth 180tabs M54.5 [facility] 11/22/2018 Strength three times a day M., M.D. 500mg Tablets Spiriva Respimat Unknown 2.5mcg/Act Aerosol Lisinopril-Hydrochlor 1 tab by mouth 30tabs [facility] othiazide every day M., M.D. 10-12.5mg Tablets Magnesium Oxide one tab by mouth 30tabs [facility] 400mg every day M., M.D. Tablets Omeprazole take 1 capsule by 60caps [facility] 40mg mouth two times M., M.D. Capsules DR daily Vitamin D3 take 1 capsule by 30caps [facility] 5000Unit mouth every day M., M.D. Capsules Albuterol Sulfate Inhale The Unknown Contents Of 1 Vial 0.63mg/3ML Nebulizer Via Nebulizer Every 6 Hours as Needed For Cough/Shortness Of Breath Symbicort Inhale 2 Puffs By Unknown Mouth Two Times 160-4.5mcg/Act Daily Gargle After Aerosol Use History Medications Mobic One Tab PO qd In 30tabs F45.0 Josephine Hopson, 08/13/2019 - 15mg Am With Food M.D. 08/12/2019 Tablets Cipro 1 tab PO every 14tabs Mark [place]Josephine ramosGustavo, 05/01/2019 - 250mg day M.D. 08/12/2019 Tablets Medications Administered in Office Medication SIG Qnty Indications Ordering Provider Date Intradermal Mantoux Santana Braswell N.Keli 03/12/2019 Injection Immunizations Description No Information Available Vital Signs Date Vital Result Comment 10/17/2019 10:21am BP Systolic 123 mmHg BP Diastolic 62 mmHg Height 66 inches 5'6" Weight 288.00 lb BMI (Body Mass Index) 46.5 kg/m2 Heart Rate 92 /min Respiratory Rate 18 /min 09/22/2019 9:53am BP Systolic 132 mmHg BP Diastolic 64 mmHg Height 66 inches 5'6" Weight 291.00 lb BMI (Body Mass Index) 47.0 kg/m2 Heart Rate 94 /min Respiratory Rate 17 /min Results Test Acquired Date Facility Test Result H/L Range Note Surgical 10/14/2019 [facility] Surgical SEE RESULT 1 Pathology Pathology BELOW PDFReport SEE IMAGE Laboratory test 10/14/2019 [facility] Clotest SEE RESULT BELOW 2 finding Laboratory test 04/30/2019 [facility] [place] Urine Culture SPECIMEN DESCRIP 3 finding 113 [employer] SAMIRA <SEE NOTE> (450)- - 1 SEE RESULT BELOW Name: ZAID SEWELL : [address]: Nato Sanders MD Acct: [id number] Unit: [id number] AGE: 49 Location: ENDO Re10/14/19 SEX: F Status: DEP REF SPEC: [id number] CADE: 10/14/19-1246 [facility] DR: Nato Sanders MD REQ: [id number] RECD: 10/14/19-6251 STATUS: ANABEL LINDSEY DR: Josephine Hopson MD [...] CONTINUED ON NEXT PAGE DEPARTMENT OF PATHOLOGY, [address] [place] [address] Garrison Harrison M.D. Director [facility] # [id number] POST-OPERATIVE DIAGNOSIS EGD: larynx - narrow; esophagus [...] 1458 END OF REPORT DEPARTMENT OF PATHOLOGY, [address] [place] [address] Garrison Harrison M.D. Director [facility] # [id number] 2 SEE RESULT BELOW Name: ZAID SEWELL : [address]: Nato Sanders MD Acct: [id number] Unit: [id number] AGE: 49 Location: ENDO Re10/14/19 SEX: F Status: DEP REF SPEC: [id number] CADE: 10/14/19-[address]: Nato Sanders MD REQ: [id number] RECD: 10/14/19 STATUS: JUDY LINDSEY DR: Josephine Hopson MD _ SOURCE: GAS ANTRUM SPDESC: ORDERED: Clotest Procedure Result Reported Site Clotest Final 10/15/19- 1218 ML Clotest Negative * ML - Main Lab . END OF REPORT DEPARTMENT OF PATHOLOGY, [address] [place] [address] Garrison Harrison M.D. Director [facility] # [id number] 3 SPECIMEN DESCRIPTION MIDSTREAM URINE,CLEAN CATCH CULTURE RESULTS MIXED UROGENITAL ADEOLA; PLEASE SUBMIT A NEW SPEC IMEN IF CLINICALLY INDICATED. REPORT STATUS FINAL 05/02/2019 Procedures Description No Information Available Medical Devices Description No Information Available Encounters Type Date Location Provider Dx Diagnosis Office Visit 10/17/2019 [facility] Santana Braswell, J44.9 Chronic obstructive 11:30a N.P. 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 [...] F45.0 Somatization disorder Office Visit 08/13/2019 10:15a [facility] Santana Braswell J44.9 Chronic obstructive N.P. [...] F45.0 Somatization disorder Office Visit 06/06/2019 11:30a [facility] Santana Braswell J44.9 Chronic obstructive N.P. [...] w/o status migrainosus Office Visit 04/30/2019 10:30a [facility] Santana Braswell J44.9 Chronic obstructive N.P. [...] Low back pain R35.0 Frequency of micturition Assessments Date Code Description Provider 10/17/2019 J44.9 Chronic obstructive pulmonary disease, Santana Braswell, N.P. unspecified 10/17/2019 K21.9 Gastro-esophageal reflux disease without Santana Brawsell N.P. esophagitis 10/17/2019 E78.2 Mixed hyperlipidemia Santana Braswell N.P. 10/17/2019 G47.33 Obstructive sleep apnea (adult) (pediatric) Jody Farrell.P. 10/17/2019 E55.9 Vitamin D deficiency, unspecified Santana Braswell, N.P. 10/17/2019 M15.9 Polyosteoarthritis, unspecified Santana Braswell, N.P. 10/17/2019 N39.3 Stress incontinence (female) (male) Santana Braswell N.P. 10/17/2019 L20.9 Atopic dermatitis, unspecified Santana Braswell, N.P. 10/17/2019 J30.9 Allergic rhinitis, unspecified Santana Braswell, N.P. 10/17/2019 F41.9 Anxiety disorder, unspecified Santana Braswell, N.P. 10/17/2019 F33.9 Major depressive disorder, recurrent, Santana Braswell, N.P. unspecified 10/17/2019 G47.00 Insomnia, unspecified Santana Braswell, N.P. 10/17/2019 K30 Functional dyspepsia Santana Braswell N.P. 10/17/2019 M54.42 Lumbago with sciatica, left side Santana Braswell N.P. 10/17/2019 R30.0 Dysuria Santana Braswell, N.P. 10/17/2019 F12.10 Cannabis abuse, uncomplicated Santana Braswell, N.P. 10/17/2019 M10.9 Gout, unspecified Santana Braswell, N.P. 10/17/2019 J45.909 Unspecified asthma, uncomplicated Santana Braswell, N.P. 10/17/2019 J32.4 Chronic pansinusitis Santana Braswell N.P. 10/17/2019 R09.81 Nasal congestion Santana Braswell N.P. 10/17/2019 M35.8 Other specified systemic involvement of Santana Braswell N.P. connective tissue 10/17/2019 E66.01 Morbid (severe) obesity due to excess calories Santana Braswell N.P. 10/17/2019 B35.4 Tinea corporis Santana Braswell N.P. 10/17/2019 L02.214 Cutaneous abscess of groin Santana Braswell N.P. 10/17/2019 R60.0 Localized edema Santana Braswell N.P. 10/17/2019 F17.210 Nicotine dependence, cigarettes, uncomplicated Santana Braswell N.P. 10/17/2019 M54.5 Low back pain Santana Braswell N.P. 10/17/2019 R35.0 Frequency of micturition Santana Braswell, N.P. 10/17/2019 G43.009 Migraine without aura, not intractable, Santana Braswell, N.P. without status migrainosus 10/17/2019 F45.0 Somatization disorder Santana Braswell, N.P. 10/17/2019 R05 Cough Santana Braswell, N.P. 10/17/2019 J20.9 Acute bronchitis, unspecified Santana Braswell, N.P. 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 10/17/2019 B37.3 Candidiasis of vulva and vagina Santana Braswell, N.P. 09/22/2019 J44.9 Chronic obstructive pulmonary disease, Santana [...] Braswell, N.P. 09/22/2019 J32.4 Chronic pansinusitis Santana Braswell, N.P. 09/22/2019 R09.81 Nasal congestion Santana Braswell, N.P. 09/22/2019 M35.8 Other specified systemic involvement of Santana Braswell, N.P. connective tissue 09/22/2019 E66.01 Morbid (severe) obesity due to excess calories Santana Braswell, N.P. 09/22/2019 B35.4 Tinea corporis Santana Braswell, N.P. 09/22/2019 L02.214 Cutaneous abscess of groin Santana Braswell, N.P. 09/22/2019 R60.0 Localized edema Santana Braswell, N.P. 09/22/2019 F17.210 Nicotine dependence, cigarettes, uncomplicated Santana Braswell, N.P. 09/22/2019 M54.5 Low back pain Santana Braswell N.P. 09/22/2019 R35.0 Frequency of micturition Santana Braswell, N.P. 09/22/2019 G43.009 Migraine without aura, not intractable, Santana Braswell, N.P. without status migrainosus 09/22/2019 F45.0 Somatization disorder Santana Braswell, N.P. 08/13/2019 J44.9 Chronic obstructive pulmonary disease, Santana Braswell, N.P. unspecified 08/13/2019 K21.9 Gastro-esophageal reflux disease without Santana Braswell, N.P. esophagitis 08/13/2019 E78.2 Mixed hyperlipidemia Santana Braswell, N.P. 08/13/2019 G47.33 Obstructive sleep apnea (adult) (pediatric) Santana Braswell , N.P. 08/13/2019 E55.9 Vitamin D deficiency, unspecified Santana Braswell, N.P. 08/13/2019 M15.9 Polyosteoarthritis, unspecified Santana Braswell, N.P. 08/13/2019 N39.3 Stress incontinence (female) (male) Santana Braswell, N.P. 08/13/2019 L20.9 Atopic dermatitis, unspecified Santana Braswell, N.P. 08/13/2019 J30.9 Allergic rhinitis, unspecified Santana Braswell, N.P. 08/13/2019 F41.9 Anxiety disorder, unspecified Santana Braswell, N.P. 08/13/2019 F33.9 Major depressive disorder, recurrent, Santana Braswell N.P. unspecified 08/13/2019 G47.00 Insomnia, unspecified Santana Braswell, N.P. 08/13/2019 K30 Functional dyspepsia Santana Braswell, N.P. 08/13/2019 M54.42 Lumbago with sciatica, left side Santana Braswell N.P. 08/13/2019 R30.0 Dysuria Santana Braswell, N.P. 08/13/2019 F12.10 Cannabis abuse, uncomplicated Santana Braswell, N.P. 08/13/2019 M10.9 Gout, unspecified Santana Braswell, N.P. 08/13/2019 J45.909 Unspecified asthma, uncomplicated Santana Braswell N.P. 08/13/2019 J32.4 Chronic pansinusitis Santana Braswell, N.P. 08/13/2019 R09.81 Nasal congestion Santana Braswell N.P. 08/13/2019 M35.8 Other specified systemic involvement of Santana Braswell N.PGustavo connective tissue 08/13/2019 E66.01 Morbid (severe) obesity due to excess calories Santana Braswell N.P. 08/13/2019 B35.4 Tinea corporis Santana Braswell N.P. 08/13/2019 L02.214 Cutaneous abscess of groin Santana Braswell N.P. 08/13/2019 R60.0 Localized edema Santana Braswell N.P. 08/13/2019 F17.210 Nicotine dependence, cigarettes, uncomplicated Santana Braswell N.P. 08/13/2019 M54.5 Low back pain Santana Braswell N.P. 08/13/2019 R35.0 Frequency of micturition Santana Braswell N.P. 08/13/2019 G43.009 Migraine without aura, not intractable, Santana Braswell, N.P. without status migrainosus 08/13/2019 F45.0 Somatization disorder Santana Braswell N.P. 06/06/2019 J44.9 Chronic obstructive pulmonary disease, Santana Braswell N.P. unspecified 06/06/2019 K21.9 Gastro-esophageal reflux disease without Santana Braswell N.PGustavo esophagitis 06/06/2019 E78.2 Mixed hyperlipidemia Santana Braswell N.P. 06/06/2019 G47.33 Obstructive sleep apnea (adult) (pediatric) Santana Braswell , N.P. 06/06/2019 E55.9 Vitamin D deficiency, unspecified Santana Braswell, N.P. 06/06/2019 M15.9 Polyosteoarthritis, unspecified Santana Braswell, N.P. 06/06/2019 N39.3 Stress incontinence (female) (male) Santana Braswell, N.P. 06/06/2019 L20.9 Atopic dermatitis, unspecified Santana Braswell, N.P. 06/06/2019 J30.9 Allergic rhinitis, unspecified Santana Braswell, N.P. 06/06/2019 F41.9 Anxiety disorder, unspecified Santana Braswell, N.P. 06/06/2019 F33.9 Major depressive disorder, recurrent, Santana Braswell, N.P. unspecified 06/06/2019 G47.00 Insomnia, unspecified Santana Braswell, N.P. 06/06/2019 K30 Functional dyspepsia Santana Braswell N.P. 06/06/2019 M54.42 Lumbago with sciatica, left side Santana Braswell N.P. 06/06/2019 R30.0 Dysuria Santana Braswell, N.P. 06/06/2019 F12.10 Cannabis abuse, uncomplicated Santana Braswell, N.P. 06/06/2019 M10.9 Gout, unspecified Santana Braswell, N.P. 06/06/2019 J45.909 Unspecified asthma, uncomplicated Santana Braswell, N.P. 06/06/2019 J32.4 Chronic pansinusitis Santana Braswell N.P. 06/06/2019 R09.81 Nasal congestion Santana Braswell N.P. 06/06/2019 M35.8 Other specified systemic involvement of Santana Braswell, N.P. connective tissue 06/06/2019 E66.01 Morbid (severe) obesity due to excess calories Santana Braswell, N.P. 06/06/2019 B35.4 Tinea corporis Santana Braswell, N.P. 06/06/2019 L02.214 Cutaneous abscess of groin Santana Braswell, N.P. 06/06/2019 R60.0 Localized edema Santana Braswell N.P. 06/06/2019 F17.210 Nicotine dependence, cigarettes, uncomplicated Santana Braswell N.P. 06/06/2019 M54.5 Low back pain Santana Braswell N.P. 06/06/2019 R35.0 Frequency of micturition Santana [...] 04/30/2019 N39.3 Stress incontinence (female) (male) Santana Braswell N.P. 04/30/2019 L20.9 Atopic dermatitis, unspecified Santana Braswell, N.P. 04/30/2019 J30.9 Allergic rhinitis, unspecified Santana Braswell, N.P. 04/30/2019 F41.9 Anxiety disorder, unspecified Santana Braswell, N.P. 04/30/2019 F33.9 Major depressive disorder, recurrent, Santana Braswell, N.P. unspecified 04/30/2019 G47.00 Insomnia, unspecified Santana Braswell, N.P. 04/30/2019 K30 Functional dyspepsia Santana Braswell N.P. 04/30/2019 M54.42 Lumbago with sciatica, left side Santana Braswell N.P. 04/30/2019 R30.0 Dysuria Santana Braswell, N.P. 04/30/2019 F12.10 Cannabis abuse, uncomplicated Santana Braswell, N.P. 04/30/2019 M10.9 Gout, unspecified Santana Braswell, N.P. 04/30/2019 J45.909 Unspecified asthma, uncomplicated Santana Braswell, N.P. 04/30/2019 J32.4 Chronic pansinusitis Santana Braswell N.P. 04/30/2019 R09.81 Nasal congestion Santana Braswell N.P. 04/30/2019 M35.8 Other specified systemic involvement of Santana Braswell N.P. connective tissue 04/30/2019 E66.01 Morbid (severe) obesity due to excess calories Santana Braswell N.PGustavo 04/30/2019 B35.4 Tinea corporis Santana Braswell N.PGustavo 04/30/2019 L02.214 Cutaneous abscess of groin Santana Braswell N.PGustavo 04/30/2019 R60.0 Localized edema Santana Braswell N.PGustavo 04/30/2019 F17.210 Nicotine dependence, cigarettes, uncomplicated Santana Braswell N.PGustavo 04/30/2019 M54.5 Low back pain Santana Braswell N.PGustavo 04/30/2019 R35.0 Frequency of micturition Santana Braswell N.P. Plan of Treatment No Information Available Functional Status Description No Information Available Mental Status Description No Information Available Referrals Refer to Reason for Referral Status Appt Date Cristopher Chapman MD Created [address], [address] [place] [address] [phone] [facility], Pain Management Sent [address] [place] [address] [phone] [facility] Neurology Sent [facility] [address] [facility] [address] [phone] [facility] Closed [address] [facility] [address] [phone]
[2019-10-29 17:09] LABS: ABS Basophils 0.1 10^3/ul (0-0.2); ABS Eosinophils 0.2 10^3/ul (0-0.6); ABS Lymphocytes 2.9 10^3/ul (1.0-4.8); ABS Monocytes 0.8 10^3/ul (0-0.8); ABS Neutrophils 8.7 10^3/ul (1.5-7.7); Eosinophil % 1.5 %; Hematocrit 41 % (35-47); Hemoglobin 13.8 g/dL (12.0-16.0); Mean Corpuscular HGB Conc 34 g/dL (31-36); Mean Corpuscular Hemoglobin 30 pg (27-31); Mean Corpuscular Volume 88 fL (80-97); Mean Platelet Volume 8.8 fL (7.4-10.4); Platelet Count 276 10^3/uL (150-450); Red Blood Count 4.61 10^6 /uL (3.70-4.87); Red Cell Distribution Width 15 % (10-15); White Blood Count 12.7 10^3/uL (3.5-10.8)
--- NOTE | 2019-10-29 17:10 | ED ---
GI/ HPI - HPI Summary HPI Summary: Patient presents requesting antibiotics for gonorrhea and syphilis. Patient seen today prior to ED visit by [facility], had pelvic exam and vaginal swabs pending. Patient complains of 2 weeks of vaginal pain and spotting. Denies any other pain, injury or symptoms. - History of Current Complaint Chief Complaint: EDUrogenitalProblems Time Seen by Provider: 10/29/19 17:08 Stated Complaint: STD TREATMENT PER PT Hx Obtained From: Patient Hx Last Menstrual Period: tubal ligation Onset/Duration: Started Days Ago Timing: Constant Severity: Moderate Current Severity: Moderate Pain Intensity: 10 Pain Characteristics: Aching, Burning, Itching Associated Signs and Symptoms: Positive: Dyspureunia - Allergy/Home Medications Allergies/Adverse Reactions: Allergies Allergy/AdvReac Type Severity Reaction Status Date / Time Adhesive Tape Allergy Mild Hives Verified 10/15/19 21:45 Home Medications: Home Medications Citalopram TAB* [CeleXA TAB*] 20 mg PO DAILY 10/29/19 [History Confirmed ] Fenofibrate 54 mg PO DAILY 10/29/19 [History Confirmed 10/29/19] PMH/Surg Hx/FS Hx/Imm Hx Endocrine/Hematology History: Denies: Hx Anticoagulant Therapy, Hx Blood Disorders, Hx Diabetes, Hx Thyroid Disease Cardiovascular History: Reports: Hx Hypercholesterolemia, Hx Hypertension, Other Cardiovascular Problems/Disorders - HIGH CHOLESTEROL Denies: Hx Congestive Heart Failure, Hx Pacemaker/ICD Respiratory History: Reports: Hx Asthma, Hx Chronic Obstructive Pulmonary Disease (COPD), Hx Sleep Apnea GI History: Reports: Hx Gastroesophageal Reflux Disease - panpranolol Denies: Hx Ulcer History: Reports: Hx Kidney Infection - NO RECENT, Hx Kidney Stones - NO KNOWN STONES NOW Denies: Hx Renal Disease Musculoskeletal History: Reports: Hx Tendonitis, Other Musculoskeletal History - Left knee problem Denies: Hx Arthritis, Hx Osteoporosis Sensory History: Denies: Hx Contacts or Glasses, Hx Hearing Aid Opthamlomology History: Denies: Hx Contacts or Glasses Neurological History: Reports: Hx Headaches, Hx Migraine - WEEKLY OR 2 X WK, Other Neuro Impairments/Disorders - DEGENERATIVE DISK DX, NERVE DAMAGE IN NECK Psychiatric History: Reports: Hx Anxiety - RECENTLY STARTED ON MED DOING OK, Hx Depression - depression controlled by nortriptyline Denies: Hx Panic Disorder - Surgical History Surgery Procedure, Year, and Place: HYSTERECTOMY. TUBAL LIGATION. L KNEE SCOPE Hx Anesthesia Reactions: No - Immunization History Date of Tetanus Vaccine: UTD Date of Influenza Vaccine: unknown Infectious Disease History: No Infectious Disease History: Denies: Hx Clostridium Difficile, Hx Hepatitis, Hx Human Immunodeficiency Virus (HIV), Hx of Known/Suspected MRSA, Hx Shingles, Hx Tuberculosis, Hx Known/ Suspected VRE, Hx Known/Suspected VRSA, History Other Infectious Disease, Traveled Outside the [place] in Last 30 Days - Family History Known Family History: Positive: Hypertension, Diabetes, Other - Social History Alcohol Use: None Hx Substance Use: No Substance Use Type: Reports: None Hx Tobacco Use: Yes - QUIT X2 WEEKS AGO Smoking Status (MU): Light Every Day Tobacco Smoker Type: Cigarettes Amount Used/How Often: 1/2 PPD Length of Time of Smoking/Using Tobacco: >30 yrs Have You Smoked in the Last Year: Yes Review of Systems Constitutional: Negative Eyes: Negative ENT: Negative Cardiovascular: Negative Respiratory: Negative Gastrointestinal: Negative Genitourinary: Other Musculoskeletal: Negative Skin: Negative Neurological/Mental Status: Negative Psychological: Normal All Other Systems Reviewed And Are Negative: Yes Physical Exam Triage Information Reviewed: Yes Vital Signs On Initial Exam: Initial Vitals Temp Pulse Resp BP Pulse Ox 98.0 F 83 18 161/100 99 10/29/19 16:46 10/29/19 16:46 10/29/19 16:46 10/29/19 16:46 10/29/19 16:46 Vital Signs Reviewed: Yes Appearance: Positive: Well-Appearing Skin: Positive: Warm Head/Face: Positive: Normal Head/Face Inspection Eyes: Positive: Normal Neck: Positive: Supple Respiratory/Lung Sounds: Positive: Clear to Auscultation Cardiovascular: Positive: Normal Abdomen Description: Positive: Nontender Musculoskeletal: Positive: Normal Neurological: Positive: Normal Psychiatric: Positive: Normal AVPU Assessment: Alert - Jony Coma Scale Best Eye Response: 4 - Spontaneous Best Motor Response: 6 - Obeys Commands Best Verbal Response: 5 - Oriented Coma Scale Total: 15 Procedures - Sedation Patient Received Moderate/Deep Sedation with Procedure: No Diagnostics - Vital Signs Vital Signs Temp Pulse Resp BP Pulse Ox 10/29/19 16:46 98.0 F 83 18 161/100 99 - Laboratory Lab Results: Lab Results 10/29/19 Range/Units 17:01 WBC 12.7 H (3.5-10.8) 10^3/uL RBC 4.61 (3.70-4.87) 10^6 /uL Hgb 13.8 (12.0-16.0) g/dL Hct 41 (35-47) % MCV 88 (80-97) fL MCH 30 (27-31) pg MCHC 34 (31-36) g/dL RDW 15 (10-15) % Plt Count 276 (150-450) 10^3/uL MPV 8.8 (7.4-10.4) fL Neut % (Auto) 68.5 % Lymph % (Auto) 23.0 % Beckham % (Auto) 6.1 % Eos % (Auto) 1.5 % Baso % (Auto) 0.9 % Absolute Neuts (auto) 8.7 H (1.5-7.7) 10^3/ul Absolute Lymphs (auto) 2.9 (1.0-4.8) 10^3/ul Absolute Monos (auto) 0.8 (0-0.8) 10^3/ul Absolute Eos (auto) 0.2 (0-0.6) 10^3/ul Absolute Basos (auto) 0.1 (0-0.2) 10^3/ul Absolute Nucleated RBC 0.0 10^3/ul Nucleated RBC % 0.0 Result Diagrams: 10/29/19 17:01 10/29/19 17:01 Lab Statement: Any lab studies that have been ordered have been reviewed, and results considered in the medical decision making process. GIGU Course/Dx - Course Course Of Treatment: Patient presents requesting antibiotics for gonorrhea and syphilis. Patient seen today prior to ED visit by [facility], had pelvic exam and vaginal swabs pending. Patient complains of 2 weeks of vaginal pain and spotting. Denies any other pain, injury or symptoms. Vital signs within normal limits. - Diagnoses Provider Diagnoses: Gonorrhea, Chlamydia Discharge ED - Sign-Out/Discharge Documenting (check all that apply): Patient Departure - Discharge Plan Condition: Stable Disposition: HOME Prescriptions: DOXYcycline CAP(*) [DOXYcycline 100MG CAP(*)] 100 mg PO BID 10 Days #20 cap Patient Education Materials: Pelvic Inflammatory Disease (ED), Chlamydia (ED), Gonorrhea (ED) Referrals: Alejandro Nicolas DO [Primary Care Provider] - Additional Instructions: Take doxycycline twice a day for 10 days. Stop taking calcium while taking doxycycline. Follow up with HEATER OPERATOR. Return to the ED for any new or worsening symptoms. - Billing Disposition and Condition Condition: STABLE Disposition: Home
[2019-10-29 17:27] LABS: Albumin 4.4 g/dL (3.2-5.2); Albumin/Globulin Ratio 1.4 (1-3); BUN/Creatinine Ratio 18.7 (8-20); EGFR African American 78.9 (>60); EGFR Non-African American 65.2 (>60); Globulin 3.1 g/dL (2-4); Potassium 4.1 mmol/L (3.5-5.0); Total Bilirubin 0.3 mg/dL (0.2-1.0); Total Protein 7.5 g/dL (6.4-8.9)
[2019-10-29] MEDS ORDERED: Lidocaine 1% MPF ** 5 ML VIAL IM ONE (17:32)
[2019-10-29] MEDS ORDERED: cefTRIAXone VIAL(*) 250 MG VIAL IM ONE (17:32)
[2019-10-29] MEDS ORDERED: DOXYcycline CAP(*) 100 MG PO ONE (17:32)
[2019-10-29 18:05] VITALS: BP 170/84
== END 2019-10-29 17:59 | disposition home or self-care (01) ==
LOC: ED 16:41
DX: A54.9 Gonococcal infection, unspecified (principal); A74.9 Chlamydial infection, unspecified; F17.210 Nicotine dependence, cigarettes, uncomplicated; E78.00 Pure hypercholesterolemia, unspecified; I10 Essential (primary) hypertension; J44.9 Chronic obstructive pulmonary disease, unspecified; K21.9 Gastro-esophageal reflux disease without esophagitis; F41.9 Anxiety disorder, unspecified; F32.9 Major depressive disorder, single episode, unspecified; Z90.710 Acquired absence of both cervix and uterus; Z98.51 Tubal ligation status; Z87.442 Personal history of urinary calculi; Z79.899 Other long term (current) drug therapy
CPT/HCPCS: 36415; 80053; 85025; 96372; 99282; A9270-GY; J0696

== ENCOUNTER 2019-11-10 18:59 | Emergency (ER) | payer OTHER ==
[2019-11-10 19:03] VITALS: BP 159/120
--- OUTSIDE RECORDS SUMMARY | 2019-11-10 19:19 | XMS REPORT | Continuity of Care Document ---
:1970 External Reference #:[id number] Demographics Address [address] [place] [address] Home Phone [phone] Mobile Phone [phone] Preferred Language Unknown Marital Status Unknown Confucianist Affiliation Unknown Race Unknown Ethnic Group Unknown Author Name Luz Maria Frankel M.D. Address [address] [address] Care Team Providers Name Role Phone Luz Maria Frankel M.D. 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 Social History Type Date Description Comments Sex Unknown ETOH Use Denies alcohol use Tobacco Use Start: Unknown Patient is a current smoker, smokes every day Recreational Drug Use Denies Drug Use Smoking Status Reviewed: 10/30/19 Patient is a current smoker, smokes every day Allergies, Adverse Reactions, Alerts Description No Known Drug Allergies Medications Active Medications SIG Qnty Indications Ordering Provider Date Fenofibrate Take 1 Tablet By Unknown 54mg Mouth Every Day Tablets Fluconazole Take 1 Tablet By Unknown 150mg Mouth On Day One Tablets And On Day 5 Of Antibiotic Allopurinol Take 1 Tablet By Unknown 100mg Mouth Every Day Tablets Citalopram Take 1 Tablet By Unknown Hydrobromide Mouth Every Day 20mg Tablets Spiriva Respimat Inhale 2 Puffs By Unknown Mouth Every Day 2.5mcg/Act Aerosol Omeprazole Take 1 Capsule By Unknown 40mg Mouth Two Times Capsules DR Daily Sucralfate Take 1 Tablet By Unknown 1gm Tablets Mouth Three Times Daily Before Meals Albuterol Sulfate Inhale The Contents Unknown Of 1 Vial Via 0.63mg/3ML Nebulizer Nebulizer Every 6 Hours as Needed For Cough/Shortness Of Breath Symbicort Inhale 2 Puffs By Unknown Mouth Two Times 160-4.5mcg/Act Daily Gargle After Aerosol Use Loratadine Take 1 Tablet By Unknown 10mg Tablets Mouth Every Day Montelukast Sodium Take 1 Tablet By Unknown 10mg Mouth Every Day Tablets Immunizations Description No Information Available Vital Signs Date Vital Result Comment 10/31/2019 8:04am BP Systolic 143 mmHg BP Diastolic 87 mmHg Body Temperature 96.5 F Tympanic Heart Rate 69 /min Respiratory Rate 18 /min Height 66 inches 5'6" Weight 291.50 lb Pain Level 8 Kidney area BMI (Body Mass Index) 47.0 kg/m2 BSA (Body Surface Area) 2.35 m2 [place] body weight in kilograms 59 kg O2 % BldC Oximetry 98 % Results Test Acquired Date Facility Test Result H/L Range Note Urine Dipstick 10/31/2019 [facility] Ua Color Yelow Yellow Ua Clarity Clear Clear Ua Leuko 500 High Negative Ua Nitrite Negative Negative Ua Urobilinogen 0.2 0.2 - 1.0 E.U./dL Ua Protein Negative Negative Ua PH 6.0 Low 6.5-7.5 Ua Blood Negative Negative Ua Specific [place] 1.030 1.010-1.030 Ua Ketones Negative Negative Ua Bilirubin Negative Negative Ua Glucose Negative Negative Procedures Description No Information Available Medical Devices Description No Information Available Encounters Description No Information Available Assessments Date Code Description Provider 10/31/2019 N28.1 Cyst of kidney, acquired Luz Maria Frankel M.D. Plan of Treatment 10/31/2019 - Luz Maria Frankel M.D.N28.1 Cyst of kidney, acquiredNew Labs: Comprehensive Metabolic Panel, Ordered: 10/31/19New Xrays:CT, Abdomen & Pelvis,W & W/O Contrast, Ordered: 10/31/19Comments:Given the ultrasound report findings I discussed with the patient obtaining CT scan renal mass protocol to further evaluate her kidneys. She will follow up with me after to discuss the findings on theCT scan. We'll check a CMP today Functional Status Description No Information Available Mental Status Description No Information Available Referrals Description No Information Available
== END 2019-11-10 20:20 | disposition left against medical advice (07) ==
LOC: ED 18:59
DX: K64.9 Unspecified hemorrhoids (principal); Z53.21 Procedure and treatment not carried out due to patient leaving prior to being seen by health care provider
CPT/HCPCS: 99282